=== PATIENT | male | born 1940 | race Caucasian/White ===

== ENCOUNTER → 2018-02-26 | Outpatient (CLI) | payer MEDICARE | LOC: M PLARAD 08:56 | DX: C34.90 Malignant neoplasm of unspecified part of unspecified bronchus or lung (principal) | CPT/HCPCS: 78815 ==

== ENCOUNTER → 2018-03-26 | Outpatient (CLI) | payer MEDICARE ==
--- NOTE | 2018-03-28 10:55 | RADONC ---
RADIATION ONCOLOGY CONSULTATION NOTE DATE: 03/26/2018 CHART NUMBER: [id number] DIAGNOSIS: Right lung cancer. STAGE: III A, T2b, N2, M0 ECOG PERFORMANCE STATUS: Zero. CONSULTATION NOTE: Mr. 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 HISTORY OF PRESENT ILLNESS: The patient was in his usual state of health who was found to have a lesion on chest imaging in the right middle lobe area. CT scan of the chest done on 01/24/2018 showed a right middle lobe mass suspicious for malignancy. On 02/19/2018, the patient underwent biopsy of that lesion and pathology revealed a moderately differentiated adenocarcinoma. A PET scan done 02/26/2018 showed a 4.8 cm mass in the right middle lobe with an SUV value of 6.4. There was no right hilar adenopathy but there was a subcarinal hypermetabolic lymph node focus 1.7 cm in diameter with an SUV value of 4.9. There was also precarinal lymphadenopathy with an SUV value of 4.5. The node measured 1.8 cm x 1.7 cm. No evidence of distant metastatic disease was found. The patient is now being referred to us for discussion of definitive external beam radiation therapy. A pulmonary function test was apparently done in [place] and we are attempting to obtain those results. The patient, however reports that he is having no difficulty breathing. He is able to walk upstairs with no problems. He has also been seen by medical oncology at [facility]. PAST MEDICAL HISTORY: The patient's past medical history is positive for Parkinson disease as well as hypertension. ALLERGIES: The patient has NO KNOWN DRUG ALLERGIES. SOCIAL HISTORY: The patient does not smoke cigarettes nor abuse alcohol. FAMILY HISTORY: The patient's family history is positive for a mother with breast cancer, a brother with throat cancer and a father with some type of head and neck cancer. REVIEW OF SYSTEMS: The patient's review of systems is positive for some weakness in his arms and legs and decreased energy secondary to Parkinson. It is otherwise noncontributory. Denies nausea, vomiting, fevers, chills, night sweats, diplopia, headaches, anxiety or depression, anorexia, weight loss, visual disturbances, chest pain, urinary or bowel difficulties, bone pain, or neurological problems. PHYSICAL EXAMINATION: The patient is a well-developed, well-nourished male in no acute distress. HEENT exam is normocephalic, atraumatic. Extraocular movements are intact. There is no palpable cervical, supraclavicular, infraclavicular, axillary, or inguinal lymphadenopathy present. Lungs are clear to auscultation and percussion. Heart has a regular rate and rhythm. Abdomen is benign with no hepatosplenomegaly, masses, or tenderness. Rectal examination reveals a normal anal sphincter tone. Skeletal examination reveals no tenderness to pressure or percussion of the bony skeleton. Extremities reveal no clubbing, cyanosis, or edema. Neurologic exam is grossly intact, as is the remainder of the physical examination. ASSESSMENT: Clearly the patient is a candidate for external beam radiation therapy and I have so informed him. I have discussed with the patient in detail the potential benefits as well as possible acute and chronic sequelae of external beam radiation therapy. We discussed logistics of treatment planning, simulation and subsequent fractionated daily radiation treatments. The patient is scheduled for discussion at the multidisciplinary tumor conference tomorrow in [place] and we await their recommendations. In addition, we will attempt to obtain the pulmonary function test results and I have ordered a differential lung scan to be undertaken. We have scheduled the patient for simulation and initiation of treatment planning. From this treatment plan the dose volume histogram can be calculated to evaluate the patient's overall breathing capacity following completion of treatment. Thank you for allowing us to participate in the care of this very pleasant gentleman. If I could be of any further assistance or provide you with any information, please free to contact me at anytime. As always, warm regards. cc: MD Patrick Romano MD
== END ==
LOC: M ONCR 09:01
PROVIDERS: ATTEND Radiology Radiation Oncology
DX: C34.90 Malignant neoplasm of unspecified part of unspecified bronchus or lung (principal)

== ENCOUNTER → 2018-04-15 | Outpatient (CLI) | payer MEDICARE ==
[~2018-04-15] MED LIST: PROHANCE 279.3MG/ML 15ML VIAL (A9576) As Ordered ONE
--- NOTE | 2018-04-15 13:17 | REP ---
MR BRAIN WITHOUT AND WITH CONTRAST: HISTORY: Lung carcinoma. CONTRAST: ProHance 15 mL. COMPARISON: 07/18/2017 Scattered punctate areas of increased signal intensity on T2 weighted images are present in the periventricular and subcortical white matter and joanie. This represents small vessel ischemic disease. There is no intraparenchymal hemorrhage, infarct, mass or midline shift. There is no abdominal enhancement. The ventricular system is normal in appearance. The cortical sulci are dilated consistent with minimal volume loss. There is no extracerebral collection. The sinuses are clear. IMPRESSION:1. Minimal small vessel ischemic disease. 2. Minimal volume loss. Electronically Signed by Brayden Armenta MD 04/15/2018 01:18 P
== END ==
LOC: M RAD 10:40
PROVIDERS: ATTEND Internal Medicine Hematology & Oncology
DX: C34.91 Malignant neoplasm of unspecified part of right bronchus or lung (principal)
CPT/HCPCS: 70553; A9576

== ENCOUNTER → 2018-08-31 | Outpatient (REF) ==
[2018-08-31 14:41] LABS: ALBUMIN 2.3 GM/DL (3.2-5.2); ALT/SGPT 7 U/L (12-78); BILIRUBIN,TOTAL 0.5 MG/DL (0.2-1.0); BLOOD UREA NITROGEN 25 MG/DL (7-18); CALCIUM LEVEL 7.7 MG/DL (8.8-10.2); CARBON DIOXIDE LEVEL 30 MEQ/L (21-32); CHLORIDE LEVEL 104 MEQ/L (98-107); CREATININE FOR GFR 1.13 MG/DL (0.70-1.30); GLOMERULAR FILTRATION RATE > 60.0 (>42); GLUCOSE, FASTING 96 MG/DL (70-100); POTASSIUM SERUM 3.6 MEQ/L (3.5-5.1); SODIUM LEVEL 139 MEQ/L (136-145); TOTAL PROTEIN 5.3 GM/DL (6.4-8.2)
== END ==
LOC: M LAB REF 10:57
DX: Z00.00 Encounter for general adult medical examination without abnormal findings (principal)

== ENCOUNTER 2018-09-20 16:38 | Emergency (ER) | payer MEDICARE ==
[~2018-09-20] VITALS: Ht 172.7 cm; Wt 74.1 kg
[2018-09-20] MEDS ORDERED: CARB25TA9 PO (17:03)
[2018-09-20] MEDS ORDERED: SERT25TA88 PO (17:03)
[2018-09-20] MEDS ORDERED: ONDA4TAB6 PO (17:03)
[2018-09-20] MEDS ORDERED: ENOX120I3 SC (17:03)
[2018-09-20] MEDS ORDERED: ALBUTEROL SULFATE 2.5 MG/0.5 ML INH NEB SOLN INH ONE (17:15)
[2018-09-20] MEDS ORDERED: methylPREDNISolone INJ 125 MG/2 ML VIAL (J2930) IV ONE (17:15)
[2018-09-20] MEDS ORDERED: IPRATROPIUM 0.5MG/ALBUTEROL 2.5MG INH SOL UD 3ML (DUONEB)(J7620) NEB ONE (17:15)
[2018-09-20 17:23] LABS: BASO % 0.2 % (0.0-1.0); EOS # 0.1 10^3/uL (0.0-0.50); EOS % 2.3 % (0.0-3.0); HEMATOCRIT 30.9 % (42.0-52.0); HEMOGLOBIN 9.9 g/dl (13.5-17.5); LYMPH # 1.6 10^3/uL (1.5-4.5); LYMPH % 33.9 % (24.0-44.0); MEAN CORPUSCULAR HEMOGLOBIN 31.3 pg (27.0-33.0); MEAN CORPUSCULAR VOLUME 97.8 fl (80.0-96.0); MONO # 0.5 10^3/uL (0.0-0.8); MONO % 10.2 % (0.0-5.0); NEUTROPHILS # 2.5 10^3/uL (1.8-7.7); PLATELET COUNT, AUTOMATED 223 10^3/uL (150-450); RED BLOOD COUNT 3.16 10^6/uL (4.30-6.10); WHITE BLOOD COUNT 4.7 10^3/uL (4.0-10.0)
[2018-09-20 17:36] LABS: ABG BASE EXCESS 1.7 (-2.0-2.0); ABG HCO3 25.6 MEQ/L (22.0-26.0); ABG O2 SATURATION 99.5 % (95.0-99.0); ABG PARTIAL PRESSURE CO2 37.6 mmHg (35.0-45.0); ABG PARTIAL PRESSURE O2 197.4 mmHg (75.0-100.0); ABG TOTAL CO2 26.8 MEQ/L (23.0-31.0); ABG pH (ARTERIAL) 7.451 UNITS (7.350-7.450)
[2018-09-20 17:56] LABS: ALBUMIN 2.2 GM/DL (3.2-5.2); ALT/SGPT 8 U/L (12-78); BILIRUBIN,DIRECT < 0.1 MG/DL (0.0-0.2); BILIRUBIN,TOTAL 0.2 MG/DL (0.2-1.0); BLOOD UREA NITROGEN 19 MG/DL (7-18); CALCIUM LEVEL 7.4 MG/DL (8.8-10.2); CARBON DIOXIDE LEVEL 32 MEQ/L (21-32); CHLORIDE LEVEL 106 MEQ/L (98-107); CK-MB VALUE MASS 1.4 NG/ML (<3.6); CPK CREATINE PHOSPHOKINASE 28 U/L (39-308); CREATININE FOR GFR 0.96 MG/DL (0.70-1.30); GLOMERULAR FILTRATION RATE > 60.0 (>42); GLUCOSE, FASTING 103 MG/DL (70-100); NT-PRO BNP 449 PG/ML (<450); SODIUM LEVEL 142 MEQ/L (136-145); THYROXINE (T4) 8.4 UG/DL (4.5-12.0); TOTAL PROTEIN 5.3 GM/DL (6.4-8.2); TROPONIN I < 0.02 NG/ML (< 0.10)
[2018-09-20] MEDS ORDERED: ISOVUE-370 76% 100ML VIAL (Q9967) As Ordered ONE (18:04)
--- NOTE | 2018-09-20 18:06 | REP ---
PORTABLE CHEST: AP portable view of the chest is performed. There is bibasilar fibroatelectatic change. There is mild left ventricular prominence. There is mild calcification of the thoracic aorta. There is a left central venous catheter with the tip in the superior vena cava. Electronically Signed by Dennis Reddy MD 09/20/2018 07:48 P
[2018-09-20] MEDS ORDERED: LIDOCAINE 2% 5ML JELLY UROJET TOP ONE (18:15)
[2018-09-20] MEDS ORDERED: NS 500 ML IV ONE (18:15)
[2018-09-20] MEDS ORDERED: B-12100010 PO (18:22)
[2018-09-20] MEDS ORDERED: CULT10CA4 PO (18:22)
[2018-09-20] MEDS ORDERED: MAGN1TAB26 PO (18:23)
[2018-09-20] MEDS ORDERED: MECLIZINE 25 MG TABLET PO ONE (18:30)
--- NOTE | 2018-09-20 19:49 | REPVR ---
EXAM: CT Head Without Contrast EXAM DATE/TIME: 09/20/2018 6:05 PM CLINICAL HISTORY: 78 years old, male; Signs and symptoms; Dizziness; Additional info: Dizzy TECHNIQUE: Imaging protocol: Axial computed tomography images of the head without contrast. Radiation optimization: All CT scans at this facility use at least one of these dose optimization techniques: automated exposure control; mA and/or kV adjustment per patient size (includes targeted exams where dose is matched to clinical indication); or iterative reconstruction. COMPARISON: MRI-Brain W/O FOLL BY WITH 04/15/2018 11:35 AM FINDINGS: Brain: There is minimal parenchymal volume loss. Minimal white matter changes are demonstrated in the subcortical, centrum semiovale and periventricular white matter consistent with small vessel white matter angiopathic gliosis. Small chronic lacunar infarcts in the basal ganglia. Ventricles: Normal. No ventriculomegaly. Bones/joints: Unremarkable. No acute fracture. Sinuses: Visualized sinuses are unremarkable. No fluid levels. Mastoid air cells: Visualized mastoid air cells are well aerated. No mastoid effusion. Soft tissues: Unremarkable. IMPRESSION: There is minimal parenchymal volume loss. Minimal white matter changes are demonstrated in the subcortical, centrum semiovale and periventricular white matter consistent with small vessel white matter angiopathic gliosis. Electronically signed by: Clifton Mar On 09/20/2018 19:48:51 PM
--- NOTE | 2018-09-20 19:58 | REPVR ---
EXAM: CT Angiography Chest With Contrast EXAM DATE/TIME: 09/20/2018 5:59 PM CLINICAL HISTORY: 78 years old, male; Signs and symptoms and condition or disease; Lung condition and disease; Cancer of the lung; Bilateral; Unspecified; Shortness of breath; Additional info: Lung CA, SOB, RO pe TECHNIQUE: Imaging protocol: Axial computed tomographic angiography images of the chest with intravenous contrast using CT angiography protocol. Coronal and sagittal reformatted images were created and reviewed. 3D rendering: MIP reconstructed images were created and reviewed. Radiation optimization: All CT scans at this facility use at least one of these dose optimization techniques: automated exposure control; mA and/or kV adjustment per patient size (includes targeted exams where dose is matched to clinical indication); or iterative reconstruction. Contrast material: [id number]; Contrast volume: 75 ml; Contrast route: IV; COMPARISON: No relevant prior studies available. FINDINGS: Pulmonary arteries: Normal. No pulmonary emboli. Aorta: The aorta demonstrates mild atherosclerotic calcification. There is no aortic dissection or aneurysm. Lungs: There is bibasilar compressive atelectasis. Right middle lobe atelectasis. Air bronchograms demonstrated proximally. Atelectasis anterior segment right upper lobe. Pleural space: Small pleural effusion on the right with a small cystic focus. Finding of uncertain significance. Small empyema not excluded. Finding may also be neoplastic and should be correlated with specific location of known lung carcinoma. Heart: There is mild atherosclerotic calcification of the coronary arteries. Mediastinum: There is increased circumferential thickening of the wall of the mid to distal esophagus extending for 7 cm craniocaudad with dilatation of the proximal esophagus. There is no hiatal hernia. Liver: Multiple hepatic cysts measure up to 2.2 cm in the left lobe of liver. Kidneys and ureters: Multiple bilateral renal cysts. Lymph nodes: Unremarkable. No enlarged lymph nodes. Bones/joints: Unremarkable. No acute fracture. Soft tissues: Otherwise unremarkable. IMPRESSION: 1. Small pleural effusion on the right with a small cystic focus. Finding of uncertain significance. Small empyema not excluded. Finding may also be neoplastic and should be correlated with specific location of known lung carcinoma. 2. Right middle lobe atelectasis. Air bronchograms demonstrated proximally. No obvious obstructing mass demonstrated. 3. Thickened wall of the mid and distal esophagus. Finding may be related to reflux esophagitis however an esophageal neoplasm should be excluded clinically. 4. There is no aortic dissection or aneurysm. Electronically signed by: Clifton Mar On 09/20/2018 19:57:56 PM
[2018-09-20 21:08] VITALS: O2SAT 92
[2018-09-20] MEDS ORDERED: PRED20TA PO (21:22)
[2018-09-20 21:30] VITALS: BP 152/93
[2018-09-20] MEDS ORDERED: ALBUTEROL 90 MCG/ACT 8GM HFA INHALER INH ONE (21:30)
--- NOTE | 2018-09-21 05:54 | ECGEPIP ---
[facility] - ED Test Date: 2018-09-20 Pat Name: DOUGLAS ANTONIO Department: Room: - Gender: Male Internal Grinder: : 1940 Requested By: Rudy Henry Order Number: [id number] Reading MD: Fawad Webster Measurements Intervals Parsons Rate: 82 P: 41 MD: 173 QRS: QRSD: 94 T: 5 QT: 360 QTc: 421 Interpretive Statements SINUS RHYTHM POSSIBLE LEFT ATRIAL ENLARGEMENT POSSIBLE LEFT VENTRICULAR HYPERTROPHY NSTTW ABNORMALITIES NO PRIORS FOR COMPARISON Electronically Signed on 09-21-2018 5:53:59 EDT by Fawad Webster
--- NOTE | 2018-09-23 12:36 | ED PDOC ---
Post-Departure Follow-Up ji ford faxed formal report of cta chest for fu Rudy Ayers MD Sep 23, 2018 12:36
== END 2018-09-20 21:52 | disposition home or self-care (01) ==
LOC: M ED 16:38 → EDBD 16:38 → M ED 21:52
DX: R06.00 Dyspnea, unspecified (principal); R42 Dizziness and giddiness; R94.31 Abnormal electrocardiogram [ECG] [EKG]; I10 Essential (primary) hypertension; F17.210 Nicotine dependence, cigarettes, uncomplicated; Z79.899 Other long term (current) drug therapy; Z88.5 Allergy status to narcotic agent
CPT/HCPCS: 36415; 36600; 51701; 70450; 71045; 71275; 80048; 80076; 81001; 82550; 82553; 82803; 83605; 83880; 84436; 84443; 84484; 85025; 87040; 87088; 87186; 93005; 93041; 94640; 96361; 96374; 99285; J2930; Q9967

== ENCOUNTER → 2018-10-09 | Outpatient (CLI) | payer MEDICARE ==
[~2018-10-09] MED LIST changes: +ASPI325T56 PO; +B-12100010 PO; +CARB1TAB PO; +CARB25TA9 PO; +COLA100C5 PO; +CULT10CA4 PO; +ENOX120I3 SC; +IBUP200T45 PO; +MAGN1TAB26 PO; +NUCY50TA19 PO; +ONDA4TAB6 PO; +PERC5TAB12 PO; +PRED20TA PO; -PROHANCE 279.3MG/ML 15ML VIAL (A9576) As Ordered ONE; +SERT25TA88 PO; +[UNRECOGNIZED DRUG - OTHER]
--- NOTE | 2018-10-09 09:24 | PFTRPT ---
Height: 68.00 Inches Weight: 160.00 Lbs BSA: 1.86 Diagnosis: C34.91 DATE OF PROCEDURE: 10/09/2018 ORDERED BY: Lalo Albert MD Spirometry: Pre and post bronchodilator study of excellent technical quality. Some difficulty regarding effort is identified. Forced vital capacity mildly reduced. FEV1 is in proportion. Obstructive index is, therefore, normal. Flow Volume Loop: Expiratory limb of the flow volume loop suggests suboptimal performance of the required maneuver. No significant bronchodilator response identified. Lung Volumes: Total lung capacity normal. Residual volume is in proportion. Diffusing Capacity: Diffusing capacity mildly reduced but does correct for alveolar volume. Hemoglobin: No hemoglobin available for correction. Airway Mechanics: Airway resistance and conductance are normal. IMPRESSION: Nonspecific flow rate limitation could be on the basis of effort. Please correlate clinically. Minimal reduction in absolute diffusing capacity also requires clinical correlation. MTDD
== END ==
LOC: M CARPUL 08:46
PROVIDERS: ATTEND Internal Medicine Hematology & Oncology
DX: C34.91 Malignant neoplasm of unspecified part of right bronchus or lung (principal)

== ENCOUNTER 2018-10-16 10:13 | Emergency (ER) | payer MEDICARE ==
[~2018-10-16] VITALS: Ht 172.7 cm; Wt 72.8 kg
[~2018-10-16 10:13] MED LIST changes: -ASPI325T56 PO; -CARB1TAB PO; -COLA100C5 PO; -IBUP200T45 PO; -NUCY50TA19 PO; -PERC5TAB12 PO; -[UNRECOGNIZED DRUG - OTHER]
--- NOTE | 2018-10-16 11:36 | REP ---
CT PELVIS WITHOUT IV CONTRAST: Axial CT pelvis performed without IV contrast. Sagittal and coronal reconstruction images are performed. There appear to be bilateral nondisplaced sacral insufficiency fractures with healing, likely subacute. No other fracture or dislocation is seen. Mild degenerative changes are seen at both hip joints. Small left inguinal hernia contains mild fluid. A moderate right inguinal hernia contains nonobstructed bowel. Diverticula are seen of the sigmoid colon. Partially imaged cysts are seen of the bilateral kidneys. IMPRESSION: There appear to be bilateral nondisplaced sacral insufficiency fractures with healing, likely subacute. Otherwise no acute fracture or dislocation. Moderate right inguinal hernia contains nonobstructed bowel. Electronically Signed by Dennis Reddy MD 10/18/2018 12:27 P
--- NOTE | 2018-10-16 11:44 | REP ---
CT lumbar spine without contrast: History: Trauma. No comparison imaging. CT findings: Lumbar vertebral body heights are preserved. No lumbar spine fracture or collapse is seen. There is a unilateral pars defect on the left at L5. This does not appear to be acute. Pedicles and posterior elements are intact in the lumbar spine. No transverse process fracture or laminar or spinous fracture is seen. No collapse is noted. There is discogenic spurring and diffuse disc bulging at multiple levels including L3-4 and L4-5. The there is mild central canal stenosis at L4-5 due to diffuse disc bulging and ligamentum flavum and mild facet hypertrophy. There is mild to moderate central canal stenosis at L3-4 due to the same factors. Borderline canal size is seen at L2-3. There is a buckling in the anterior cortex of the second sacral segment consistent with a fracture, age indeterminate. There is a subtle fracture lucency in the right first sacral segment anteriorly on axial images. There is some sclerosis in the right first two sacral segments suggesting healing change in a sacral insufficiency fracture. No other abnormality. Impression: 1. Findings consistent with healing sacral insufficiency fracture in the right upper sacrum question incomplete traumatic fracture anteriorly. This should be correlated with the area of patient pain. 2. Degenerative disc disease at multiple levels with central canal stenosis at L3-4 and L4-5. Electronically Signed by Aubrey Floyd MD 10/16/2018 01:42 P
[2018-10-16] MEDS ORDERED: COLA100C5 PO (12:29)
[2018-10-16] MEDS ORDERED: PERC5TAB12 PO (12:29)
[2018-10-16] MEDS ORDERED: [UNRECOGNIZED DRUG - OTHER] (12:29)
[2018-10-16] MEDS ORDERED: PERCOCET 5MG/325MG TAB As Ordered ONE (12:43)
[2018-10-16] MEDS ORDERED: PERCOCET 5MG/325MG TAB PO ONE (12:45)
[2018-10-16 12:47] VITALS: BP 170/90
--- NOTE | 2018-10-17 13:29 | ED PDOC ---
Post-Departure Follow-Up ji ford faxed formal report of ct ls spine Rudy Amado MD Oct 17, 2018 13:29
== END 2018-10-16 12:48 | disposition home or self-care (01) ==
LOC: M ED 10:13 → EDBD 10:13 → M ED 12:48
DX: S32.19XD Other fracture of sacrum, subsequent encounter for fracture with routine healing (principal); M51.36 Other intervertebral disc degeneration, lumbar region; M48.061 Spinal stenosis, lumbar region without neurogenic claudication; W07.XXXA Fall from chair, initial encounter; Y92.098 Other place in other non-institutional residence as the place of occurrence of the external cause; I10 Essential (primary) hypertension; G20 Parkinson's disease; C34.90 Malignant neoplasm of unspecified part of unspecified bronchus or lung; Z87.891 Personal history of nicotine dependence; Z88.5 Allergy status to narcotic agent; Z79.899 Other long term (current) drug therapy

== ENCOUNTER 2018-10-23 11:11 | Inpatient (IN) | payer MEDICARE ==
[~2018-10-23] VITALS: Ht 167.6 cm; Wt 86.9 kg
[~2018-10-23 11:11] MED LIST changes: +COLA100C5 PO; +PERC5TAB12 PO; +[UNRECOGNIZED DRUG - OTHER]
[2018-10-23] MEDS ORDERED: NUCY50TA19 PO (11:27)
[2018-10-23 11:38] LABS: BASO % 0.4 % (0.0-1.0); EOS # 0.5 10^3/uL (0.0-0.50); EOS % 7.3 % (0.0-3.0); HEMATOCRIT 37.5 % (42.0-52.0); HEMOGLOBIN 12.1 g/dl (13.5-17.5); LYMPH # 1.1 10^3/uL (1.5-4.5); LYMPH % 15.1 % (24.0-44.0); MEAN CORPUSCULAR HEMOGLOBIN 31.6 pg (27.0-33.0); MEAN CORPUSCULAR HGB CONC 32.3 g/dl (32.0-36.5); MEAN CORPUSCULAR VOLUME 97.9 fl (80.0-96.0); MONO # 0.8 10^3/uL (0.0-0.8); MONO % 10.8 % (0.0-5.0); NEUTROPHILS # 4.8 10^3/uL (1.8-7.7); NEUTROPHILS % 66.1 % (36.0-66.0); PLATELET COUNT, AUTOMATED 277 10^3/uL (150-450); RED BLOOD COUNT 3.83 10^6/uL (4.30-6.10); WHITE BLOOD COUNT 7.2 10^3/uL (4.0-10.0)
[2018-10-23] MEDS: NS 1,000 ML IV SCH ×2 (11:43→21:17)
[2018-10-23 11:48] LABS: INR 1.07; PROTHROMBIN TIME 13.6 SECONDS (11.8-14.0)
[2018-10-23 12:25] LABS: ALBUMIN 2.3 GM/DL (3.2-5.2); ALT/SGPT 6 U/L (12-78); BILIRUBIN,DIRECT < 0.1 MG/DL (0.0-0.2); BILIRUBIN,TOTAL 0.2 MG/DL (0.2-1.0); BLOOD UREA NITROGEN 24 MG/DL (7-18); CALCIUM LEVEL 8.1 MG/DL (8.8-10.2); CARBON DIOXIDE LEVEL 28 MEQ/L (21-32); CHLORIDE LEVEL 107 MEQ/L (98-107); CREATININE FOR GFR 0.88 MG/DL (0.70-1.30); GLOMERULAR FILTRATION RATE > 60.0 (>42); GLUCOSE, FASTING 103 MG/DL (70-100); LIPASE 106 U/L (73-393); POTASSIUM SERUM 4.1 MEQ/L (3.5-5.1); SODIUM LEVEL 141 MEQ/L (136-145); TOTAL PROTEIN 5.5 GM/DL (6.4-8.2)
[2018-10-23] MEDS ORDERED: NS 1,000 ML IV ONE (12:45)
[2018-10-23] MEDS ORDERED: SINEMET 25-100 MG TAB PO ONE (13:15)
--- NOTE | 2018-10-23 14:00 | REP ---
Portable chest, 12:55 p.m., single AP view with the patient semi upright: Comparisons are the portable chest dated 09/20/[address] dated 09/20/2018. There is persisting increased density inferomedially in the right lung compatible with right middle lobe infiltrate similar to that identified on the comparison CT. On the comparison CT there was a tiny right pleural effusion. This is not identified on the portable chest today, possibly because of its small size. The remainder of the lung mccauley are clear and unchanged. Cardiac size is normal. The puneet, mediastinum, skeletal structures are unremarkable. There is a left subclavian central venous catheter with the tip in the superior vena cava in satisfactory position, unchanged. Impression: Persisting right middle lobe infiltrate. Electronically Signed by Dennis Conner MD 10/23/2018 01:52 P
[2018-10-23] MEDS ORDERED: VANCOMYCIN ORAL SOL 250MG/5ML ORAL SYRINGE PO ONE (14:15)
[2018-10-23] MEDS ORDERED: CARB1TAB PO (14:57)
[2018-10-23] MEDS ORDERED: ASPI325T56 PO (14:57)
[2018-10-23] MEDS ORDERED: IBUP200T45 PO (14:57)
[2018-10-23] MEDS: SERTRALINE HCL 25 MG TABLET PO SCH (15:40)
[2018-10-23] MEDS: LACTOBACILLUS ACIDOPHILUS CAP (BACID) PO SCH (18:00)
--- NOTE | 2018-10-23 18:38 | REP ---
CT lumbar spine without contrast: History: Right sacral and low back pain. Comparison is made with recent CT study of the lumbar spine from October 16, 2018 which showed a healing sacral insufficiency fracture in the right upper sacrum and a question incomplete traumatic fracture anteriorly. Degenerative central canal stenosis with reported L3-4 and L4-5. Technique: Helical scanning is acquired. Coronal and sagittal MPR images are generated and reviewed. CT findings: Buckling of the anterior cortex of the second sacral segment on sagittal multiplanar re-formation images consistent with upper sacral fracture. Axial images demonstrate healing sclerosis and fracture lucency in the first two sacral segments on the right laterally. There is similar less pronounced change on the left. Findings are unchanged here when compared with the study done 1 week ago. SI joints are normally aligned. No other spinal fracture is appreciated. Degenerative disc changes are again noted. Central canal stenosis is again noted and L4-5 and L3-4 due to diffuse disc bulging, developmentally short pedicles, and ligamentum flavum and facet hypertrophy. At L2-3, canal size again noted to be borderline. Impression: Findings are unchanged when compared with the October 16, [address] study[address] Upper sacral fracture again seen. Electronically Signed by Aubrey Floyd MD 10/23/2018 06:49 P
[2018-10-23 18:40] VITALS: BP 119/83
--- NOTE | 2018-10-23 19:17 | REP ---
CT pelvis: Without contrast. History: Right sacral pain. Comparison pelvic CT study October 16, 2018. CT findings: Pelvic CT images demonstrate bilateral sacral insufficiency fractures with some healing sclerosis right greater than left. No displacement. There is some buckling of the anterior cortex of the second sacral segment on the sagittal reformatted images. No distal sacral or coccygeal fracture is seen. There is diffuse osteopenia. Bowel containing right inguinal hernia is again seen. Stool distended rectum is again seen in the pelvis. Impression: No significant change from study done October 16, 2018. Electronically Signed by Aubrey Floyd MD 10/24/2018 07:17 P
[2018-10-23] MEDS ORDERED: IBUPROFEN 600 MG TAB PO ONE (19:45)
[2018-10-23] MEDS: SINEMET 25-100 MG TAB PO SCH (21:30)
[2018-10-23] MEDS: SINEMET**CR** 25/100 TABCR PO SCH (21:30)
[2018-10-23] MEDS: ENOXAPARIN 120 MG/0.8 ML SYR (J1650) SC SCH (21:31)
[2018-10-23 22:00] VITALS: BP 146/82
[2018-10-24] MEDS: VANCOMYCIN ORAL SOL 250MG/5ML ORAL SYRINGE PO SCH ×5 (00:31→23:32)
[2018-10-24] MEDS: NS 1,000 ML IV SCH ×2 (04:45→15:04)
[2018-10-24] MEDS: SINEMET 25-100 MG TAB PO SCH ×4 (04:48→20:20)
[2018-10-24 06:00] VITALS: BP 130/88
[2018-10-24 06:19] LABS: HEMATOCRIT 34.8 % (42.0-52.0); HEMOGLOBIN 11.1 g/dl (13.5-17.5); MEAN CORPUSCULAR HEMOGLOBIN 31.6 pg (27.0-33.0); MEAN CORPUSCULAR HGB CONC 31.9 g/dl (32.0-36.5); MEAN CORPUSCULAR VOLUME 99.1 fl (80.0-96.0); PLATELET COUNT, AUTOMATED 241 10^3/uL (150-450); RED BLOOD COUNT 3.51 10^6/uL (4.30-6.10); WHITE BLOOD COUNT 6.1 10^3/uL (4.0-10.0)
[2018-10-24 06:37] LABS: BLOOD UREA NITROGEN 25 MG/DL (7-18); CARBON DIOXIDE LEVEL 27 MEQ/L (21-32); CHLORIDE LEVEL 108 MEQ/L (98-107); GLOMERULAR FILTRATION RATE > 60.0 (>42); GLUCOSE, FASTING 86 MG/DL (70-100); POTASSIUM SERUM 3.9 MEQ/L (3.5-5.1); SODIUM LEVEL 140 MEQ/L (136-145)
--- NOTE | 2018-10-24 07:33 | HPE ---
DATE OF ADMISSION: 10/23/2018 PRIMARY CARE PROVIDER: Patrick Lima M.D., in [place]. ONCOLOGIST: [facility] ([facility]. NEUROLOGY: [facility]. FIRST DIAGNOSIS: Recurrent Clostridium (C) difficile colitis. HISTORY: Narinder Kapadia is a 78-year-old. 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 Zamora 03/2018 followed by apparently chemotherapy. I do not have access to any of his outpatient records. He had a pulmonary embolism and has been on Lovenox since this was diagnosed in July. He was diagnosed in April. He had C-difficile colitis in July. He is being admitted for recurrent C-difficile colitis for the mucusy diarrhea for several days without any bleeding. He has a history of what looks like fairly advanced Parkinson's disease. Follows with a neurologist at [facility]. Apparently, Parkinson's is of recent onset. He has been having severe pain in his right sacral area and right low back, was seen prior to this onset after a fall. He was seen here at [facility] on 10/16/2018. CT scan of the pelvis suggested a bilateral nondisplaced sacral insufficiency fractures with healing, likely subacute. A lumbosacral spine film showed no fracture. He has been having increasing pain in this area since then. Apparently had a reaction to codeine, with altered mental status, was placed on Nucynta by [facility], which he is tolerating good pain control. SURGICAL HISTORY: 1. Colonoscopy January 2010 with only hyperplastic polyp found. 2. Colonoscopy 12/2006 with adenomatous polyp on biopsy. SOCIAL HISTORY: . Nonsmoker. Moderate alcohol intake. FAMILY HISTORY: Both parents had heart disease. MEDICATIONS: - aspirin 650 mg daily - carbidopa/levodopa 25/100 1-1/2 tablets four times a day and then one whole tablet at bedtime - Lovenox 120 mg subcutaneous at bedtime - ibuprofen as needed - lactobacillus [id number] - sertraline 25 mg daily - Nucynta 50 mg twice a day ALLERGIES: CODEINE caused altered mental status. REVIEW OF SYSTEMS: No chest pain or shortness of breath. No rectal bleeding. He is having quite a bit of pain in his right low back. PHYSICAL EXAMINATION: VITAL SIGNS: Per emergency room (ER) flow sheet. He is alert, conversant. Has masked facial expression. He is a little dysarthric from his Parkinson's. HEENT: Unremarkable. LUNGS: Decreased breath sounds. Clear. HEART: Regular rate and rhythm. No murmur. ABDOMEN: Soft, nontender. No masses. He is tender to palpate over the right sacrum, right low back. EXTREMITIES: No clubbing, cyanosis. Trace peripheral edema. Has Parkinsonian rigidity and tremor bilaterally. LABORATORIES: White count 7.2, hemoglobin 12, platelets 277. Sodium 141, potassium 4.1, BUN 26, creatinine 4.8, glucose 103. Urinalysis shows 16 white cells, 1+ bacteria. Stool for C-difficile was positive. IMPRESSION: 1. Recurrent C-difficile colitis. He will be admitted to a medical bed. He looks adequately hydrated. Will start vancomycin 250 mg every , probiotic two tablets daily with meals. Discretionary use of antibiotics suggested. 2. Sacral/low back pain. I am repeating the CT scan of the pelvis and lumbosacral spine. He is not tolerant of many pain medications, so I have ordered for Nucynta. It is out of formulary, but I have asked the pharmacy to clear and let patient use his own. 3. Parkinson's disease. Continue current regimen. 4. Hypertensive heart disease. Does not look like he is on any hypertensives now. In the past, he used to be on lisinopril, amlodipine and Lotrel from a 01/2016 office note from his prior primary care provider (PCP), who was Dr. Cortes Nugent. Right now he is not on any hypertensives. 5. History of recent pulmonary embolism. The patient with a malignancy. Continue his Lovenox 120 mg daily. 6. History of right middle lobe adenocarcinoma of the lung. He is not having any hemoptysis and he is tolerating his anticoagulant. His oncologist is TEJINDER Proctor.
[2018-10-24] MEDS: LACTOBACILLUS ACIDOPHILUS CAP (BACID) PO SCH ×3 (09:22→17:40)
[2018-10-24] MEDS: ASPIRIN 325 MG TAB PO SCH (09:22)
[2018-10-24] MEDS: SERTRALINE HCL 25 MG TABLET PO SCH (09:22)
[2018-10-24 10:00] VITALS: BP 128/85
[2018-10-24] MEDS: NUCYNTA 50 MG PO PRN (13:13)
[2018-10-24 14:00] VITALS: BP 126/79
[2018-10-24 18:00] VITALS: BP 127/82
--- NOTE | 2018-10-24 18:12 | IPN ---
DATE: 10/23/2018 He is seen in [facility]. He is admitted with Clostridium (C) difficile colitis. He has right back pain with numbness in his right leg. CT scan showed sacral fracture, which was noticed on the October 16 CT. There is some buckling of one of the sacral fragments. There might be some change in the fracture, accounting for his recent pain. His diarrhea is getting better with treatment of his C. difficile colitis, which is recurred, having previously been present in July. I reached out to his primary care provider's office yesterday and asked them to fax a medical summary at the end of office hours. We are still waiting for that. PHYSICAL EXAMINATION: Afebrile. Vital signs stable. Lungs clear. Heart: Regular rate and rhythm. Abdomen soft and nontender. Nontender right sciatic notch. Tender right low back to palpate. Trace peripheral edema. Parkinsonian tremor. Speech is dysarthric from Parkinson's. LABORATORY DATA: White count normal. Electrolytes unremarkable. IMPRESSION: 1. Clostridium (C) difficile colitis. Continue vancomycin 250 mg every 6 hours for recurrent C. difficile. 2. Sacral fracture. Physical therapy has been ordered. He is using Nucynta for pain control. 3. Sciatica. I think he has been on prolonged bed rest. His sciatic notch is tender, and getting out of bed will probably unload this area. Nothing on CT of lumbosacral spine to account for this. 4. Hypertensive heart disease. Blood pressure is well controlled, on no hypertension medications. 5. History of recent former embolism in a patient with a known malignancy. Continue on Lovenox 120 mg daily. 6. Right middle lobe adenocarcinoma of the lung. Oncologist is at [facility] ([facility]. Has received radiation and chemotherapy
[2018-10-24] MEDS: ENOXAPARIN 120 MG/0.8 ML SYR (J1650) SC SCH (20:21)
[2018-10-24] MEDS: SINEMET**CR** 25/100 TABCR PO SCH (21:38)
[2018-10-24 22:00] VITALS: BP 136/87
[2018-10-25] MEDS: NS 1,000 ML IV SCH (00:47)
[2018-10-25 02:00] VITALS: BP 145/81
[2018-10-25] MEDS: SINEMET 25-100 MG TAB PO SCH ×4 (05:33→20:38)
[2018-10-25] MEDS: VANCOMYCIN ORAL SOL 250MG/5ML ORAL SYRINGE PO SCH ×4 (05:33→23:44)
[2018-10-25] MEDS: NUCYNTA 50 MG PO PRN (05:53)
[2018-10-25 06:00] VITALS: BP 149/94
[2018-10-25 06:21] LABS: HEMOGLOBIN 11.2 g/dl (13.5-17.5); MEAN CORPUSCULAR HEMOGLOBIN 30.9 pg (27.0-33.0); MEAN CORPUSCULAR VOLUME 96.4 fl (80.0-96.0); PLATELET COUNT, AUTOMATED 268 10^3/uL (150-450); RED BLOOD COUNT 3.63 10^6/uL (4.30-6.10)
[2018-10-25 06:44] LABS: BLOOD UREA NITROGEN 18 MG/DL (7-18); CALCIUM LEVEL 8.2 MG/DL (8.8-10.2); CARBON DIOXIDE LEVEL 27 MEQ/L (21-32); CHLORIDE LEVEL 113 MEQ/L (98-107); GLOMERULAR FILTRATION RATE > 60.0 (>42); GLUCOSE, FASTING 82 MG/DL (70-100); POTASSIUM SERUM 4.5 MEQ/L (3.5-5.1); SODIUM LEVEL 151 MEQ/L (136-145)
[2018-10-25] MEDS: SERTRALINE HCL 25 MG TABLET PO SCH (09:13)
[2018-10-25] MEDS: LACTOBACILLUS ACIDOPHILUS CAP (BACID) PO SCH ×3 (09:13→17:44)
[2018-10-25] MEDS: ASPIRIN 325 MG TAB PO SCH (09:13)
[2018-10-25 10:00] VITALS: BP 125/85
[2018-10-25 14:00] VITALS: BP 113/70
--- NOTE | 2018-10-25 15:07 | IPN ---
DATE: 10/25/2018 Narinder is seen in [address] [place] [address]. His diarrhea is improving. His right low back pain is severe enough that it prevents him getting out of bed. He uses catheterization at home, but he cannot stand to do that, so he has indwelling Faria catheter in now. I spoke with his today. She was worrying about injections to his back for pain, but I expressed the opinion that with any acute fracture they are not going to be inclined to put steroids there. PHYSICAL EXAMINATION: VITAL SIGNS: Blood pressure 125/85, pulse 84, respiratory rate 18, 95% oxygen saturation. He is alert, conversant, dysarthric speech from severe Parkinson's. LUNGS: Clear. HEART: Regular rate and rhythm. ABDOMEN: Soft, nontender, nondistended. LABORATORIES: White count 7, hemoglobin 11.2. Sodium is up to 151, BUN 18, creatinine 0.8. IMPRESSION: 1. Clostridium (C) difficile colitis. Continue oral vancomycin. 2. Parkinson's disease, severe. Continue current regimen. 3. Right sacral fracture. Continue his Nucynta 50 mg twice a day as needed and physical therapy. I do not see any role for injection with an acute fracture. There is going to be a slow healing process. He will probably need subacute rehabilitation before he is able to go home.
[2018-10-25 18:00] VITALS: BP 122/72
[2018-10-25] MEDS: SINEMET**CR** 25/100 TABCR PO SCH (20:38)
[2018-10-25] MEDS: ENOXAPARIN 120 MG/0.8 ML SYR (J1650) SC SCH (20:39)
[2018-10-25 22:00] VITALS: BP 137/87
[2018-10-26 02:00] VITALS: BP 139/91
[2018-10-26] MEDS: SINEMET 25-100 MG TAB PO SCH ×4 (05:56→20:07)
[2018-10-26] MEDS: VANCOMYCIN ORAL SOL 250MG/5ML ORAL SYRINGE PO SCH ×4 (05:56→23:23)
[2018-10-26] MEDS: NUCYNTA 50 MG PO PRN ×2 (05:57→20:07)
[2018-10-26 06:00] VITALS: BP 142/92
[2018-10-26 07:25] LABS: HEMOGLOBIN 11.8 g/dl (13.5-17.5); MEAN CORPUSCULAR HEMOGLOBIN 31.6 pg (27.0-33.0); MEAN CORPUSCULAR HGB CONC 31.9 g/dl (32.0-36.5); MEAN CORPUSCULAR VOLUME 99.2 fl (80.0-96.0); PLATELET COUNT, AUTOMATED 304 10^3/uL (150-450); RED BLOOD COUNT 3.73 10^6/uL (4.30-6.10); WHITE BLOOD COUNT 6.8 10^3/uL (4.0-10.0)
[2018-10-26 07:48] LABS: BLOOD UREA NITROGEN 15 MG/DL (7-18); CALCIUM LEVEL 8.3 MG/DL (8.8-10.2); CARBON DIOXIDE LEVEL 31 MEQ/L (21-32); CHLORIDE LEVEL 103 MEQ/L (98-107); CREATININE FOR GFR 0.84 MG/DL (0.70-1.30); GLOMERULAR FILTRATION RATE > 60.0 (>42); GLUCOSE, FASTING 77 MG/DL (70-100); POTASSIUM SERUM 3.7 MEQ/L (3.5-5.1); SODIUM LEVEL 139 MEQ/L (136-145)
[2018-10-26] MEDS: ASPIRIN 325 MG TAB PO SCH (09:33)
[2018-10-26] MEDS: SERTRALINE HCL 25 MG TABLET PO SCH (09:34)
[2018-10-26] MEDS: LACTOBACILLUS ACIDOPHILUS CAP (BACID) PO SCH ×3 (09:34→17:22)
[2018-10-26 10:00] VITALS: BP 131/88
--- NOTE | 2018-10-26 12:17 | IPN ---
DATE OF SERVICE: 10/26/2018 Narinder is seen in [address] [place] [address]. His had to cancel a planned trip to [place], so I filled out travel insurance forms for Elva, indicating that because of her 's sacral fracture and Clostridium (C) difficile colitis, she is unable to pursue the planned trip in December. Narinder is having numbness now in his left leg. He had it in his right leg previously. I think it is sciatic involvement related to prolonged bedrest. He also has a bit of a cough. No fever or chills. His diarrhea has completely resolved with treatment of his Clostridium (C) difficile colitis. His back pain remains his limiting problem at this point. PHYSICAL EXAMINATION: Afebrile. Vital signs stable. LUNGS: Clear. HEART: Regular rate and rhythm. ABDOMEN: Soft, nontender. He has normal sensation in both feet. Good distal pulses. LABORATORIES: Complete blood count (CBC) and basic metabolic profile (BMP) unremarkable. IMPRESSION: 1. Sciatica. The nursing staff is looking to see if there might be an air mattress that might help unload his sciatic area. 2. Sacral fracture. Continue physical therapy. 3. Clostridium (C) difficile colitis. Continue vancomycin. 4. Parkinson's. Continue current medications. 5. History of pulmonary embolism. Continue his therapeutic-dosed Lovenox. 6. Right middle lobe lung adenocarcinoma, status post radiation and chemotherapy.
[2018-10-26 14:00] VITALS: BP 127/88
[2018-10-26 18:00] VITALS: BP 145/60
[2018-10-26] MEDS: SINEMET**CR** 25/100 TABCR PO SCH (20:07)
[2018-10-26] MEDS: ENOXAPARIN 120 MG/0.8 ML SYR (J1650) SC SCH (20:07)
[2018-10-26 22:00] VITALS: BP 156/96
[2018-10-27 02:00] VITALS: BP 118/92
[2018-10-27] MEDS: SINEMET 25-100 MG TAB PO SCH ×4 (05:44→22:50)
[2018-10-27] MEDS: VANCOMYCIN ORAL SOL 250MG/5ML ORAL SYRINGE PO SCH ×4 (05:44→22:58)
[2018-10-27 06:00] VITALS: BP 140/98
[2018-10-27 06:44] LABS: HEMATOCRIT 37.3 % (42.0-52.0); MEAN CORPUSCULAR HEMOGLOBIN 31.4 pg (27.0-33.0); MEAN CORPUSCULAR HGB CONC 32.2 g/dl (32.0-36.5); MEAN CORPUSCULAR VOLUME 97.6 fl (80.0-96.0); PLATELET COUNT, AUTOMATED 324 10^3/uL (150-450); RED BLOOD COUNT 3.82 10^6/uL (4.30-6.10); WHITE BLOOD COUNT 6.5 10^3/uL (4.0-10.0)
[2018-10-27 07:07] LABS: BLOOD UREA NITROGEN 19 MG/DL (7-18); CALCIUM LEVEL 8.2 MG/DL (8.8-10.2); CARBON DIOXIDE LEVEL 30 MEQ/L (21-32); CHLORIDE LEVEL 101 MEQ/L (98-107); CREATININE FOR GFR 0.95 MG/DL (0.70-1.30); GLOMERULAR FILTRATION RATE > 60.0 (>42); GLUCOSE, FASTING 86 MG/DL (70-100); POTASSIUM SERUM 3.7 MEQ/L (3.5-5.1); SODIUM LEVEL 138 MEQ/L (136-145)
[2018-10-27] MEDS: ASPIRIN 325 MG TAB PO SCH (08:06)
[2018-10-27] MEDS: LACTOBACILLUS ACIDOPHILUS CAP (BACID) PO SCH ×3 (08:06→18:08)
[2018-10-27] MEDS: SERTRALINE HCL 25 MG TABLET PO SCH (08:06)
[2018-10-27] MEDS: NUCYNTA 50 MG PO PRN (08:07)
[2018-10-27 10:00] VITALS: BP 138/89
[2018-10-27 14:00] VITALS: BP 134/85
[2018-10-27] MEDS: BOUDREAUX'S BUTT PASTE TOP SCH ×2 (16:00→22:09)
[2018-10-27 18:00] VITALS: BP 150/80
[2018-10-27 22:00] VITALS: BP 132/88
[2018-10-27] MEDS: ENOXAPARIN 120 MG/0.8 ML SYR (J1650) SC SCH (22:08)
[2018-10-27] MEDS: SINEMET**CR** 25/100 TABCR PO SCH (22:18)
[2018-10-28 02:00] VITALS: BP 118/72
[2018-10-28] MEDS: SINEMET 25-100 MG TAB PO SCH ×4 (05:36→20:04)
[2018-10-28] MEDS: VANCOMYCIN ORAL SOL 250MG/5ML ORAL SYRINGE PO SCH ×4 (05:36→23:43)
--- NOTE | 2018-10-28 05:50 | IPN ---
DATE OF VISIT: 10/27/2018 Narinder is feeling a little bit better. I tried to get an air mattress for him, I do not think that has come through yet. His back is bothering him a little less. His diarrhea has resolved with the vancomycin. PHYSICAL EXAMINATION: Vital signs: Afebrile. Lungs: Clear. Heart: Regular rhythm. Abdomen: Soft, nontender. Extremities: Moves both feet equally. Has normal sensation in both feet. LABORATORY DATA: CBC unremarkable. Electrolytes unremarkable. IMPRESSION: 1. Clostridium difficile colitis. Continue oral vancomycin. 2. Sacral fracture. Continue physical therapy. 3. Sciatica. Will try to get an air mattress for him. 4. History of pulmonary embolism. Continue therapy, I have dosed Lovenox. 5. Parkinson's Disease. Continue current medicines. 6. Right middle lobe adenocarcinoma. Status post radiation chemotherapy. 7. Perineal rash. Nursing staff told me about a perineal rash. I have ordered some protective cream.
[2018-10-28 06:00] VITALS: BP 92/52
[2018-10-28 06:45] LABS: HEMATOCRIT 35.6 % (42.0-52.0); HEMOGLOBIN 11.4 g/dl (13.5-17.5); MEAN CORPUSCULAR HEMOGLOBIN 31.5 pg (27.0-33.0); MEAN CORPUSCULAR VOLUME 98.3 fl (80.0-96.0); PLATELET COUNT, AUTOMATED 321 10^3/uL (150-450); RED BLOOD COUNT 3.62 10^6/uL (4.30-6.10); WHITE BLOOD COUNT 5.9 10^3/uL (4.0-10.0)
[2018-10-28 07:10] LABS: BLOOD UREA NITROGEN 17 MG/DL (7-18); CALCIUM LEVEL 8.5 MG/DL (8.8-10.2); CARBON DIOXIDE LEVEL 31 MEQ/L (21-32); CHLORIDE LEVEL 102 MEQ/L (98-107); CREATININE FOR GFR 0.89 MG/DL (0.70-1.30); GLOMERULAR FILTRATION RATE > 60.0 (>42); GLUCOSE, FASTING 89 MG/DL (70-100); POTASSIUM SERUM 3.8 MEQ/L (3.5-5.1); SODIUM LEVEL 137 MEQ/L (136-145)
[2018-10-28] MEDS: SERTRALINE HCL 25 MG TABLET PO SCH (08:04)
[2018-10-28] MEDS: BOUDREAUX'S BUTT PASTE TOP SCH ×3 (08:05→20:04)
[2018-10-28] MEDS: ASPIRIN 325 MG TAB PO SCH (08:05)
[2018-10-28] MEDS: LACTOBACILLUS ACIDOPHILUS CAP (BACID) PO SCH ×3 (08:05→17:31)
[2018-10-28 10:00] VITALS: BP 149/89
[2018-10-28] MEDS: NUCYNTA 50 MG PO PRN (11:53)
--- NOTE | 2018-10-28 12:28 | IPN ---
DATE: 10/28/2018 Narinder is a little frustrated over his sacral pain. He said, "I had hoped that would be healed by now". So we spent some time discussing about the prolonged recovery after a sacral fracture. His diarrhea has resolved on the vancomycin (Clostridium difficile colitis) and he is on full dose Lovenox for history of pulmonary embolism in the context of right middle lobe adenocarcinoma. His Parkinson disease interferes somewhat with potential to rehab and he has a perineal rash that we put some protective cream on yesterday. PHYSICAL EXAMINATION: Afebrile. Vital signs stable. General Appearance: Parkinsonian appearance. Cognition is well preserved. Lungs clear. Heart regular rhythm. Abdomen soft, nontender. when I palpated right sacral area. Moves the feet with normal strength and has normal sensation. LABS: CBC is unchanged. Electrolytes unremarkable. IMPRESSION: 1. C. Difficile colitis. Continue his oral vancomycin. 2. Sacral fracture. He is allergic to codeine, he uses Nucynta as prescribed by his oncologist for pain control. 3. History of pulmonary embolism. He is on full strength Lovenox 120 mg daily from oncology. 4. Parkinson disease. Carbidopa-levodopa and Zoloft for this. 5. Sacral fracture. Per physical therapy, is extremely limited. He is not a candidate for Acute Rehabilitation Unit (ARU) because he cannot participate with rehab.
[2018-10-28 14:00] VITALS: BP 124/78
[2018-10-28 18:00] VITALS: BP 125/63
[2018-10-28] MEDS: SINEMET**CR** 25/100 TABCR PO SCH (20:04)
[2018-10-28] MEDS: ENOXAPARIN 120 MG/0.8 ML SYR (J1650) SC SCH (20:04)
[2018-10-28 22:00] VITALS: BP 125/80
[2018-10-29 02:00] VITALS: BP 112/84
[2018-10-29] MEDS: SINEMET 25-100 MG TAB PO SCH ×4 (05:30→20:39)
[2018-10-29] MEDS: NUCYNTA 50 MG PO PRN (05:30)
[2018-10-29] MEDS: VANCOMYCIN ORAL SOL 250MG/5ML ORAL SYRINGE PO SCH ×3 (05:30→17:58)
[2018-10-29 06:00] VITALS: BP 100/54
[2018-10-29 06:16] LABS: HEMATOCRIT 33.7 % (42.0-52.0); MEAN CORPUSCULAR HEMOGLOBIN 31.1 pg (27.0-33.0); MEAN CORPUSCULAR HGB CONC 32.6 g/dl (32.0-36.5); MEAN CORPUSCULAR VOLUME 95.2 fl (80.0-96.0); PLATELET COUNT, AUTOMATED 332 10^3/uL (150-450); RED BLOOD COUNT 3.54 10^6/uL (4.30-6.10); WHITE BLOOD COUNT 6.6 10^3/uL (4.0-10.0)
[2018-10-29 06:33] LABS: BLOOD UREA NITROGEN 19 MG/DL (7-18); CALCIUM LEVEL 8.6 MG/DL (8.8-10.2); CARBON DIOXIDE LEVEL 30 MEQ/L (21-32); CHLORIDE LEVEL 103 MEQ/L (98-107); CREATININE FOR GFR 0.84 MG/DL (0.70-1.30); GLOMERULAR FILTRATION RATE > 60.0 (>42); GLUCOSE, FASTING 90 MG/DL (70-100); POTASSIUM SERUM 3.7 MEQ/L (3.5-5.1); SODIUM LEVEL 138 MEQ/L (136-145)
[2018-10-29] MEDS: SERTRALINE HCL 25 MG TABLET PO SCH (08:45)
[2018-10-29] MEDS: ASPIRIN 325 MG TAB PO SCH (08:46)
[2018-10-29] MEDS: BOUDREAUX'S BUTT PASTE TOP SCH ×3 (08:46→20:42)
[2018-10-29] MEDS: LACTOBACILLUS ACIDOPHILUS CAP (BACID) PO SCH ×3 (08:46→17:58)
[2018-10-29 10:00] VITALS: BP 102/74
[2018-10-29 14:00] VITALS: BP 122/77
[2018-10-29] MEDS ORDERED: traMADol 50 MG TAB PO ONE (14:00)
[2018-10-29 18:00] VITALS: BP 121/58
--- NOTE | 2018-10-29 19:34 | IPNPDOC ---
Subjective Date Seen The patient was seen on 10/29/18. Subjective Chief Complaint/HPI Follow-up C. difficile colitis and sacral fracture Events since last encounter Patient seen and examined at bedside. Patient complains of sacral pain and improving diarrhea, but otherwise denies fever, chills, chest pain, difficulty breathing, nausea, vomiting, abdominal pain, leg pain or swelling. Objective Physical Examination General Exam: Positive: Alert, Cooperative, No Acute Distress Chest Exam: Positive: Clear to auscultation, Normal air movement Heart Exam: Positive: Rate Normal, Normal S1, Normal S2 Abdomen Exam: Positive: Normal bowel sounds, Soft; Negative: Tenderness Extremity Exam: Positive: Normal pulses; Negative: Edema Neuro Exam: Positive: Normal Speech Psych Exam: Positive: Mental status NL, Mood NL Assessment /Plan Assessment Patient is a 78-year-old male with C. difficile colitis and sacral fracture Plan/VTE VTE Prophylaxis Ordered?: Yes Plan 1. C. Difficile colitis. -Continue his oral vancomycin. -pt starting to have formed stools 2. Sacral fracture. -start tramadol for pain as home pain med makes pt drowsy -Per physical therapy, is extremely limited -Pt unlikely to be a candidate for ARU as cannot participate with rehab 3. History of pulmonary embolism. -cont. full strength Lovenox 120 mg daily 4. Parkinson disease. -cont. Carbidopa-levodopa and Zoloft Disposition likely subacute rehab once stools formed and diarrhea improved VS, I&O, 24H, Fishbone Vital Signs/I&O Vital Signs Date Time Temp Pulse Resp B/P (MAP) Pulse Ox O2 Delivery O2 Flow Rate FiO2 10/29/18 18:00 98.6 85 19 121/58 (79) 95 10/23/18 18:15 Room Air 10/23/18 15:11 2.0 I&O- Last 24 Hours up to 6 AM 10/29/18 06:00 Intake Total 700 ml Output Total 1525 ml Balance -825 ml Laboratory Data 24H LABS Laboratory Tests 2 10/29/18 05:54: Nucleated Red Blood Cells % (auto) 0.0, Anion Gap 5L, Glomerular Filtration Rate > 60.0, Blood Urea Nitrogen 19H, Creatinine 0.84, Sodium Level 138, Potassium Level 3.7, Chloride Level 103, Carbon Dioxide Level 30, Calcium Level 8.6L CBC/BMP Laboratory Tests 10/29/18 05:54 Red Blood Count 3.54 L, Mean Corpuscular Volume 95.2, Mean Corpuscular Hemoglobin 31.1, Mean Corpuscular Hemoglobin Concent 32.6, Red Cell Distribution Width 13.9, Calcium Level 8.6 L Microbiology Microbiology 10/23/18 Gastrointestinal Tract Panel (PCR) - Final, Complete Clostridium Difficile A/B 10/23/18 Urine Culture - Final, Complete Escherichia Coli LUZMARIA CONNER MD Oct 29, 2018 19:34
[2018-10-29] MEDS: ENOXAPARIN 120 MG/0.8 ML SYR (J1650) SC SCH (20:40)
[2018-10-29] MEDS: SINEMET**CR** 25/100 TABCR PO SCH (20:40)
[2018-10-29 22:00] VITALS: BP 132/82
[2018-10-30] MEDS: VANCOMYCIN ORAL SOL 250MG/5ML ORAL SYRINGE PO SCH ×5 (00:03→23:54)
[2018-10-30 02:00] VITALS: BP 125/72
[2018-10-30] MEDS: SINEMET 25-100 MG TAB PO SCH ×4 (05:11→20:39)
[2018-10-30 05:56] LABS: MEAN CORPUSCULAR HEMOGLOBIN 31.2 pg (27.0-33.0); MEAN CORPUSCULAR HGB CONC 32.4 g/dl (32.0-36.5); MEAN CORPUSCULAR VOLUME 96.3 fl (80.0-96.0); PLATELET COUNT, AUTOMATED 335 10^3/uL (150-450); RED BLOOD COUNT 3.53 10^6/uL (4.30-6.10); WHITE BLOOD COUNT 6.2 10^3/uL (4.0-10.0)
[2018-10-30 06:00] VITALS: BP 120/68
[2018-10-30 06:16] LABS: BLOOD UREA NITROGEN 20 MG/DL (7-18); CALCIUM LEVEL 8.1 MG/DL (8.8-10.2); CARBON DIOXIDE LEVEL 30 MEQ/L (21-32); CHLORIDE LEVEL 105 MEQ/L (98-107); CREATININE FOR GFR 0.88 MG/DL (0.70-1.30); GLOMERULAR FILTRATION RATE > 60.0 (>42); GLUCOSE, FASTING 82 MG/DL (70-100); POTASSIUM SERUM 3.7 MEQ/L (3.5-5.1); SODIUM LEVEL 139 MEQ/L (136-145)
[2018-10-30 10:00] VITALS: BP 142/84
[2018-10-30] MEDS: LACTOBACILLUS ACIDOPHILUS CAP (BACID) PO SCH ×3 (10:00→17:54)
[2018-10-30] MEDS: BOUDREAUX'S BUTT PASTE TOP SCH ×3 (10:00→20:40)
[2018-10-30] MEDS: traMADol 50 MG TAB PO PRN ×2 (10:01→15:53)
[2018-10-30] MEDS: ASPIRIN 325 MG TAB PO SCH (10:01)
[2018-10-30] MEDS: SERTRALINE HCL 25 MG TABLET PO SCH (10:01)
--- NOTE | 2018-10-30 11:16 | IPNPDOC ---
Subjective Date Seen The patient was seen on 10/30/18. Subjective Chief Complaint/HPI f/u C. diff colitis and sacral fracture Events since last encounter PT seen and examined at bedside. Pt says he's not feeling but denies any specific complaints. Family at bedside. Denies any fever, chills, CP, SOB, N/V/ab pain, leg pain or swelling. Diarrhea improving with more formed stools. Objective Physical Examination General Exam: Positive: Alert, Cooperative, No Acute Distress ENT Exam: Positive: Atraumatic, Mucous membr. moist/pink Chest Exam: Positive: Clear to auscultation, Normal air movement Heart Exam: Positive: Rate Normal, Normal S1, Normal S2 Abdomen Exam: Positive: Normal bowel sounds, Soft; Negative: Tenderness Extremity Exam: Positive: Normal pulses; Negative: Edema Neuro Exam: Positive: Normal Speech Psych Exam: Positive: Mental status NL, Mood NL Assessment /Plan Assessment 78 y/o m with C. diff colitis and sacral fracture Plan/VTE VTE Prophylaxis Ordered?: Yes Plan 1. C. Difficile colitis. -Continue his oral vancomycin. -pt starting to have formed stools -diarrhea improving 2. Sacral fracture. -cont. tramadol for pain as working for pt with less side effects -Pt improving with physical therapy -Pt not a candidate for ARU as cannot participate with 3hrs of rehab 3. History of pulmonary embolism. -cont. full strength Lovenox 120 mg daily 4. Parkinson disease. -cont. Carbidopa-levodopa and Zoloft Disposition to [facility] pending improvement in diarrhea VS, I&O, 24H, Fishbone Vital Signs/I&O Vital Signs Date Time Temp Pulse Resp B/P (MAP) Pulse Ox O2 Delivery O2 Flow Rate FiO2 10/30/18 10:31 24 10/30/18 10:00 97.6 82 142/84 (103) 92 I&O- Last 24 Hours up to 6 AM 10/30/18 06:00 Intake Total 790 ml Output Total 1100 ml Balance -310 ml Laboratory Data 24H LABS Laboratory Tests 2 10/30/18 05:35: Nucleated Red Blood Cells % (auto) 0.0, Anion Gap 4L, Glomerular Filtration Rate > 60.0, Blood Urea Nitrogen 20H, Creatinine 0.88, Sodium Level 139, Potassium Level 3.7, Chloride Level 105, Carbon Dioxide Level 30, Calcium Level 8.1L CBC/BMP Laboratory Tests 10/30/18 05:35 Red Blood Count 3.53 L, Mean Corpuscular Volume 96.3 H, Mean Corpuscular Hemoglobin 31.2, Mean Corpuscular Hemoglobin Concent 32.4, Red Cell Distribution Width 14.2, Calcium Level 8.1 L Microbiology Microbiology 10/23/18 Gastrointestinal Tract Panel (PCR) - Final, Complete Clostridium Difficile A/B 10/23/18 Urine Culture - Final, Complete Escherichia Coli LUZMARIA CONNER MD Oct 30, 2018 11:16
[2018-10-30 14:00] VITALS: BP 105/70
[2018-10-30] MEDS: SINEMET**CR** 25/100 TABCR PO SCH (20:39)
[2018-10-30] MEDS: ENOXAPARIN 120 MG/0.8 ML SYR (J1650) SC SCH (20:40)
[2018-10-30 22:00] VITALS: BP 148/94
[2018-10-31 02:00] VITALS: BP 142/78
[2018-10-31] MEDS: VANCOMYCIN ORAL SOL 250MG/5ML ORAL SYRINGE PO SCH ×3 (05:15→17:15)
[2018-10-31] MEDS: SINEMET 25-100 MG TAB PO SCH ×4 (05:15→19:50)
[2018-10-31] MEDS: traMADol 50 MG TAB PO PRN (05:21)
[2018-10-31 06:00] VITALS: BP 143/95
[2018-10-31] MEDS: LACTOBACILLUS ACIDOPHILUS CAP (BACID) PO SCH ×3 (09:36→17:15)
[2018-10-31] MEDS: SERTRALINE HCL 25 MG TABLET PO SCH (09:36)
[2018-10-31] MEDS: ASPIRIN 325 MG TAB PO SCH (09:36)
[2018-10-31] MEDS: BOUDREAUX'S BUTT PASTE TOP SCH ×3 (09:37→19:52)
[2018-10-31 10:00] VITALS: BP 140/94
[2018-10-31] MEDS: IBUPROFEN 400 MG TAB PO PRN ×2 (11:55→18:01)
[2018-10-31 14:00] VITALS: BP 139/89
[2018-10-31 18:00] VITALS: BP 101/76
--- NOTE | 2018-10-31 19:02 | IPNPDOC ---
Subjective Date Seen The patient was seen on 10/31/18. Subjective Chief Complaint/HPI Follow-up C. difficile colitis and sacral fracture Events since last encounter Patient seen and examined at bedside. Patient states a bad dreams from using the tramadol would like another pain medicine. Otherwise, denies fevers, chills, chest pain, difficulty breathing, nausea, vomiting, constipation. Objective Physical Examination General Exam: Positive: Alert, Cooperative, No Acute Distress, Other (laying in bed) Chest Exam: Positive: Clear to auscultation, Normal air movement Heart Exam: Positive: Rate Normal, Normal S1, Normal S2 Abdomen Exam: Positive: Normal bowel sounds, Soft; Negative: Tenderness Extremity Exam: Positive: Normal pulses; Negative: Edema Neuro Exam: Positive: Normal Speech Psych Exam: Positive: Mental status NL, Mood NL Assessment /Plan Assessment 78-year-old male with C. difficile colitis and sacral fracture Plan/VTE VTE Prophylaxis Ordered?: Yes Plan 1. C. Difficile colitis. -Continue his oral vancomycin as diarrhea seems to be improving -pt continues to have more formed stools -diarrhea improving 2. Sacral fracture. -stop tramadol for pain and start ibuprofen -Pt improving with physical therapy 3. History of pulmonary embolism. -cont. full strength Lovenox 120 mg daily 4. Parkinson disease. -cont. Carbidopa-levodopa and Zoloft Disposition To rehab pending improvement in stool frequency and consistency VS, I&O, 24H, Fishbone Vital Signs/I&O Vital Signs Date Time Temp Pulse Resp B/P (MAP) Pulse Ox O2 Delivery O2 Flow Rate FiO2 10/31/18 18:00 96.9 90 18 101/76 (84) 96 I&O- Last 24 Hours up to 6 AM 10/31/18 06:00 Intake Total 580 ml Output Total 1250 ml Balance -670 ml Laboratory Data Microbiology Microbiology 10/23/18 Gastrointestinal Tract Panel (PCR) - Final, Complete Clostridium Difficile A/B 10/23/18 Urine Culture - Final, Complete Escherichia Coli LUZMARIA CONNER MD Oct 31, 2018 19:02
[2018-10-31] MEDS: ENOXAPARIN 120 MG/0.8 ML SYR (J1650) SC SCH (19:51)
[2018-10-31] MEDS: SINEMET**CR** 25/100 TABCR PO SCH (19:51)
[2018-10-31 22:00] VITALS: BP 143/96
[2018-11-01] MEDS: VANCOMYCIN ORAL SOL 250MG/5ML ORAL SYRINGE PO SCH ×4 (00:27→17:50)
[2018-11-01 02:00] VITALS: BP 126/70
[2018-11-01] MEDS: SINEMET 25-100 MG TAB PO SCH ×4 (05:55→17:50)
[2018-11-01 06:00] VITALS: BP 158/98
[2018-11-01] MEDS: ASPIRIN 325 MG TAB PO SCH (09:04)
[2018-11-01] MEDS: SERTRALINE HCL 25 MG TABLET PO SCH (09:04)
[2018-11-01] MEDS: LACTOBACILLUS ACIDOPHILUS CAP (BACID) PO SCH ×3 (09:04→17:50)
[2018-11-01] MEDS: BOUDREAUX'S BUTT PASTE TOP SCH ×3 (09:05→21:00)
[2018-11-01 10:00] VITALS: BP 126/72
[2018-11-01] MEDS: IBUPROFEN 400 MG TAB PO PRN (11:08)
--- NOTE | 2018-11-01 12:41 | IPNPDOC ---
Subjective Date Seen The patient was seen on 11/01/18. Subjective Chief Complaint/HPI Patient seen and examined at the bedside. Denies any acute complaints at this time. Objective Physical Examination General Exam: Positive: Alert, Cooperative, No Acute Distress, Other (laying in bed) Neck Exam: Negative: JVD Chest Exam: Positive: Clear to auscultation, Normal air movement Heart Exam: Positive: Rate Normal, Normal S1, Normal S2 Abdomen Exam: Positive: Normal bowel sounds, Soft; Negative: Tenderness Extremity Exam: Positive: Normal pulses; Negative: Edema Neuro Exam: Positive: Normal Speech Psych Exam: Positive: Mental status NL, Mood NL, Oriented x 3 Assessment /Plan Plan/VTE VTE Prophylaxis Ordered?: Yes Plan C. Difficile colitis. Patient tolerating a diet w/o any complaints of abdominal pain, nausea, vomiting Reports that his bowel movements have decreased in frequency, and improved with formation. Continue his oral vancomycin We will cont to monitor Sacral fracture PT on board for functional optimization Patient will need subacute rehab Hx of Right middle lobe adenocarcinoma s/p Chemotherapy and radiation F/U with Oncology as an outpatient History of pulmonary embolism. Cont. full strength Lovenox 120 mg daily Hx of Parkinson disease. Cont Carbidopa-levodopa Anxiety/Depression Cont Zoloft DVT Prophylaxis Lovenox SC VS, I&O, 24H, Fishbone Vital Signs/I&O Vital Signs Date Time Temp Pulse Resp B/P (MAP) Pulse Ox O2 Delivery O2 Flow Rate FiO2 11/01/18 10:00 98.1 87 19 126/72 (90) 95 I&O- Last 24 Hours up to 6 AM 11/01/18 06:00 Intake Total 800 ml Output Total 1850 ml Balance -1050 ml Laboratory Data Microbiology Microbiology 10/23/18 Gastrointestinal Tract Panel (PCR) - Final, Complete Clostridium Difficile A/B 10/23/18 Urine Culture - Final, Complete Escherichia Coli LONDON REEDER MD Nov 01, 2018 12:41
[2018-11-01 14:00] VITALS: BP 138/79
[2018-11-01 18:00] VITALS: BP 113/83
[2018-11-01] MEDS: SINEMET**CR** 25/100 TABCR PO SCH (20:59)
[2018-11-01] MEDS: ENOXAPARIN 120 MG/0.8 ML SYR (J1650) SC SCH (21:00)
[2018-11-01 22:00] VITALS: BP 131/81
[2018-11-02] MEDS: VANCOMYCIN ORAL SOL 250MG/5ML ORAL SYRINGE PO SCH ×4 (00:25→17:15)
[2018-11-02 02:00] VITALS: BP 134/75
[2018-11-02] MEDS: SINEMET 25-100 MG TAB PO SCH ×4 (05:38→17:15)
[2018-11-02 06:00] VITALS: BP 134/80
[2018-11-02] MEDS: LACTOBACILLUS ACIDOPHILUS CAP (BACID) PO SCH ×3 (08:24→17:16)
[2018-11-02] MEDS: ASPIRIN 325 MG TAB PO SCH (08:24)
[2018-11-02] MEDS: BOUDREAUX'S BUTT PASTE TOP SCH ×3 (08:25→20:44)
[2018-11-02] MEDS: IBUPROFEN 400 MG TAB PO PRN ×2 (08:25→17:16)
[2018-11-02] MEDS: SERTRALINE HCL 25 MG TABLET PO SCH (08:25)
[2018-11-02 14:00] VITALS: BP 115/78
--- NOTE | 2018-11-02 14:56 | IPNPDOC ---
Subjective Date Seen The patient was seen on 11/02/18. Subjective Chief Complaint/HPI Follow-up C. difficile colitis and sacral fracture Events since last encounter Patient seen and examined at bedside. Patient doing well today with no complaints. Denies fevers, chills, chest pain, difficulty breathing, nausea, vomiting, constipation, leg pain or swelling. Per nursing, patient stools are becoming formed. Still with increased frequency though Objective Physical Examination General Exam: Positive: Alert, Cooperative, No Acute Distress, Other (laying in bed) Chest Exam: Positive: Clear to auscultation, Normal air movement Heart Exam: Positive: Rate Normal, Normal S1, Normal S2 Abdomen Exam: Positive: Normal bowel sounds, Soft; Negative: Tenderness Extremity Exam: Positive: Normal pulses; Negative: Edema Neuro Exam: Positive: Normal Speech Psych Exam: Positive: Mental status NL, Mood NL, Oriented x 3 Assessment /Plan Assessment 78-year-old male with C. difficile colitis and sacral fracture Plan/VTE VTE Prophylaxis Ordered?: Yes Plan #C. Difficile colitis. -Patient tolerating a diet w/o any complaints of abdominal pain, nausea, vomiting -stools continue to improve with decreased frequency and forming up -Continue his oral vancomycin -We will cont to monitor #Sacral fracture -PT on board for functional optimization -Patient will need subacute rehab #Hx of Right middle lobe adenocarcinoma s/p Chemotherapy and radiation F/U with Oncology as an outpatient #History of pulmonary embolism. Cont. full strength Lovenox 120 mg daily #Hx of Parkinson disease. Cont Carbidopa-levodopa #Anxiety/Depression Cont Zoloft #DVT Prophylaxis Lovenox SC Disposition pending further improvement in diarrhea frequency and more formed stools VS, I&O, 24H, Fishbone Vital Signs/I&O Vital Signs Date Time Temp Pulse Resp B/P (MAP) Pulse Ox O2 Delivery O2 Flow Rate FiO2 11/02/18 14:00 97.6 89 18 115/78 (90) 94 I&O- Last 24 Hours up to 6 AM 11/02/18 06:00 Intake Total 1030 ml Output Total 2800 ml Balance -1770 ml Laboratory Data Microbiology Microbiology 10/23/18 Gastrointestinal Tract Panel (PCR) - Final, Complete Clostridium Difficile A/B 10/23/18 Urine Culture - Final, Complete Escherichia Coli LUZMARIA CONNER MD Nov 02, 2018 14:56
[2018-11-02] MEDS: SINEMET**CR** 25/100 TABCR PO SCH (20:43)
[2018-11-02] MEDS: ENOXAPARIN 120 MG/0.8 ML SYR (J1650) SC SCH (20:43)
[2018-11-02 22:00] VITALS: BP 148/85
[2018-11-03] MEDS: VANCOMYCIN ORAL SOL 250MG/5ML ORAL SYRINGE PO SCH ×5 (00:09→23:24)
[2018-11-03] MEDS: SINEMET 25-100 MG TAB PO SCH ×4 (05:14→17:12)
[2018-11-03 06:00] VITALS: BP 116/78
[2018-11-03] MEDS: ASPIRIN 325 MG TAB PO SCH (08:58)
[2018-11-03] MEDS: LACTOBACILLUS ACIDOPHILUS CAP (BACID) PO SCH ×3 (08:58→17:12)
[2018-11-03] MEDS: SERTRALINE HCL 25 MG TABLET PO SCH (08:58)
[2018-11-03] MEDS: BOUDREAUX'S BUTT PASTE TOP SCH ×3 (08:59→21:41)
[2018-11-03 14:00] VITALS: BP 115/56
--- NOTE | 2018-11-03 19:14 | IPNPDOC ---
Subjective Date Seen The patient was seen on 11/03/18. Subjective Chief Complaint/HPI f/u C. diff colitis and sacral fracture Events since last encounter Pt seen and examined at bedside. Pt endorses b/l leg pain but denies fever, chills, CP, SOB, N/V/D, leg swelling. Per pt he is no longer having diarrhea but rather formed stools. Objective Physical Examination General Exam: Positive: Alert, Cooperative, No Acute Distress, Other (laying in bed, slight tremor) Chest Exam: Positive: Clear to auscultation, Normal air movement Heart Exam: Positive: Rate Normal, Normal S1, Normal S2 Abdomen Exam: Positive: Normal bowel sounds, Soft; Negative: Tenderness Extremity Exam: Positive: Normal pulses; Negative: Edema Neuro Exam: Positive: Normal Speech Psych Exam: Positive: Mental status NL, Mood NL, Oriented x 3 Assessment /Plan Assessment pt is a 78y/o m with C. diff colitis (improving) and sacral fracture Plan/VTE VTE Prophylaxis Ordered?: Yes Plan #C. Difficile colitis. -Patient tolerating a diet w/o any complaints of abdominal pain, nausea, vomiting -formed stools will watch frequency -Continue his oral vancomycin -We will cont to monitor #Sacral fracture -PT on board for functional optimization -Patient will need subacute rehab #Hx of Right middle lobe adenocarcinoma s/p Chemotherapy and radiation F/U with Oncology as an outpatient #History of pulmonary embolism. Cont. full strength Lovenox 120 mg daily #Hx of Parkinson disease. Cont Carbidopa-levodopa #Anxiety/Depression Cont Zoloft #DVT Prophylaxis Lovenox SC Disposition [facility] when diarrhea resolved likely in the next few days VS, I&O, 24H, Fishbone Vital Signs/I&O Vital Signs Date Time Temp Pulse Resp B/P (MAP) Pulse Ox O2 Delivery O2 Flow Rate FiO2 11/03/18 14:00 97.2 86 18 115/56 (75) 95 I&O- Last 24 Hours up to 6 AM 11/03/18 06:00 Intake Total 460 ml Output Total 1500 ml Balance -1040 ml LUZMARIA CONNER MD Nov 03, 2018 19:14
[2018-11-03] MEDS: ENOXAPARIN 120 MG/0.8 ML SYR (J1650) SC SCH (21:41)
[2018-11-03] MEDS: SINEMET**CR** 25/100 TABCR PO SCH (21:41)
[2018-11-03 22:00] VITALS: BP 140/98
[2018-11-04] VITALS (24 sets, daily range): BP systolic 71–212; BP diastolic 41–128
[2018-11-04] MEDS: IBUPROFEN 400 MG TAB PO PRN ×3 (01:32→20:34)
[2018-11-04] MEDS: SINEMET 25-100 MG TAB PO SCH ×4 (05:13→17:39)
[2018-11-04] MEDS: VANCOMYCIN ORAL SOL 250MG/5ML ORAL SYRINGE PO SCH ×3 (05:14→18:27)
[2018-11-04] MEDS: SERTRALINE HCL 25 MG TABLET PO SCH (08:47)
[2018-11-04] MEDS: ASPIRIN 325 MG TAB PO SCH (08:47)
[2018-11-04] MEDS: LACTOBACILLUS ACIDOPHILUS CAP (BACID) PO SCH ×3 (08:47→17:34)
[2018-11-04] MEDS: BOUDREAUX'S BUTT PASTE TOP SCH ×3 (08:48→20:35)
[2018-11-04] MEDS ORDERED: NS 500 ML IV ONE ×2 (10:45→11:00)
[2018-11-04] MEDS ORDERED: NS 1,000 ML IV ONE (11:15)
--- NOTE | 2018-11-04 14:53 | IPNPDOC ---
Subjective Date Seen The patient was seen on 11/04/18. Subjective Chief Complaint/HPI Follow-up C. difficile colitis and sacral fracture Events since last encounter Patient seen and examined at bedside. Called to bedside this morning due to patient having low blood pressures with associated dizziness, lightheadedness. Patient started on 500 mL bolus with 1 L additional @125ml/hr. . Patient likely hypovolemic due to diarrhea and poor by mouth intake. Blood pressure responded to fluids. Other than dizziness, lightheadedness. Patient denies other symptoms of fevers, chills, chest pain, difficulty breathing, nausea, vomiting, diarrhea, leg pain or swelling. Stools are forming. Objective Physical Examination General Exam: Positive: Alert, Cooperative, No Acute Distress, Other (laying in bed in [place] position, slight tremor) Chest Exam: Positive: Clear to auscultation, Normal air movement Heart Exam: Positive: Rate Normal, Normal S1, Normal S2 Abdomen Exam: Positive: Normal bowel sounds, Soft; Negative: Tenderness Extremity Exam: Positive: Normal pulses; Negative: Edema Neuro Exam: Positive: Normal Speech Psych Exam: Positive: Mental status NL, Mood NL, Oriented x 3 Assessment /Plan Assessment 78-year-old male who presented with C. difficile colitis and sacral fracture Plan/VTE VTE Prophylaxis Ordered?: Yes Plan #hypotension -likely hypovolemic in nature due to diarrhea and poor PO intake -encourage adequate PO intake -500cc bolus now -1L NS @125cc/hr -trend BP -may be some contribution from orthostatic hypotension and parkinsonism as well #C. Difficile colitis. -Patient tolerating a diet w/o any complaints of abdominal pain, nausea, vomiting -formed stools will watch frequency -Continue his oral vancomycin -We will cont to monitor -we are reaching out to acute rehab to see at what point they are ok to accept pt #Sacral fracture -PT on board for functional optimization -Patient will need subacute rehab #Hx of Right middle lobe adenocarcinoma s/p Chemotherapy and radiation F/U with Oncology as an outpatient #History of pulmonary embolism. Cont. full strength Lovenox 120 mg daily #Hx of Parkinson disease. Cont Carbidopa-levodopa #Anxiety/Depression Cont Zoloft #DVT Prophylaxis Lovenox Disposition pending resolution of hypotension and diarrhea VS, I&O, 24H, Fishbone Vital Signs/I&O Vital Signs Date Time Temp Pulse Resp B/P (MAP) Pulse Ox O2 Delivery O2 Flow Rate FiO2 11/04/18 14:00 96.8 90 19 127/77 (94) 97 I&O- Last 24 Hours up to 6 AM 11/04/18 05:59 Intake Total 640 ml Output Total 2250 ml Balance -1610 ml LUZMARIA CONNER MD Nov 04, 2018 14:53
[2018-11-04] MEDS ORDERED: hydrALAZINE INJ 20 MG/ML VIAL IV ONE (18:00)
[2018-11-04] MEDS: ENOXAPARIN 120 MG/0.8 ML SYR (J1650) SC SCH (20:35)
[2018-11-04] MEDS: SINEMET**CR** 25/100 TABCR PO SCH (20:35)
[2018-11-04] MEDS ORDERED: amLODIPine 10 MG TAB PO ONE (22:15)
[2018-11-05] VITALS (40 sets, daily range): BP systolic 87–182; BP diastolic 52–114
[2018-11-05] MEDS: VANCOMYCIN ORAL SOL 250MG/5ML ORAL SYRINGE PO SCH ×4 (00:27→17:04)
[2018-11-05] MEDS: SINEMET 25-100 MG TAB PO SCH ×4 (05:56→16:55)
[2018-11-05 06:32] LABS: HEMATOCRIT 37.3 % (42.0-52.0); MEAN CORPUSCULAR HEMOGLOBIN 31.4 pg (27.0-33.0); MEAN CORPUSCULAR HGB CONC 32.2 g/dl (32.0-36.5); MEAN CORPUSCULAR VOLUME 97.6 fl (80.0-96.0); PLATELET COUNT, AUTOMATED 326 10^3/uL (150-450); RED BLOOD COUNT 3.82 10^6/uL (4.30-6.10)
[2018-11-05 06:58] LABS: ALBUMIN 2.3 GM/DL (3.2-5.2); ALT/SGPT < 6 U/L (12-78); BILIRUBIN,TOTAL 0.2 MG/DL (0.2-1.0); BLOOD UREA NITROGEN 19 MG/DL (7-18); CALCIUM LEVEL 8.4 MG/DL (8.8-10.2); CARBON DIOXIDE LEVEL 30 MEQ/L (21-32); CHLORIDE LEVEL 107 MEQ/L (98-107); CREATININE FOR GFR 0.92 MG/DL (0.70-1.30); GLOMERULAR FILTRATION RATE > 60.0 (>42); GLUCOSE, FASTING 76 MG/DL (70-100); MAGNESIUM LEVEL 1.9 MG/DL (1.8-2.4); POTASSIUM SERUM 3.9 MEQ/L (3.5-5.1); SODIUM LEVEL 140 MEQ/L (136-145); TOTAL PROTEIN 5.9 GM/DL (6.4-8.2)
[2018-11-05] MEDS ORDERED: hydrALAZINE INJ 20 MG/ML VIAL IV ONE (07:00)
[2018-11-05] MEDS ORDERED: amLODIPine 10 MG TAB PO SCH (09:00)
[2018-11-05] MEDS: IBUPROFEN 400 MG TAB PO PRN (09:15)
[2018-11-05] MEDS: ASPIRIN 325 MG TAB PO SCH (09:15)
[2018-11-05] MEDS: LACTOBACILLUS ACIDOPHILUS CAP (BACID) PO SCH ×3 (09:15→17:04)
[2018-11-05] MEDS: SERTRALINE HCL 25 MG TABLET PO SCH (09:16)
[2018-11-05] MEDS: BOUDREAUX'S BUTT PASTE TOP SCH ×3 (09:16→21:29)
--- NOTE | 2018-11-05 10:39 | IPNPDOC ---
Subjective Date Seen The patient was seen on 11/05/18. Subjective Chief Complaint/HPI Follow C. difficile colitis and sacral fracture Events since last encounter Patient seen and examined at bedside. Patient episode of hypotension yesterday requiring fluid administration and then patient blood pressure spiked SBP 200s requiring IV hydralazine. Patient's blood pressures remained elevated. So we will give oral blood pressure medicine. Patient says he feels slightly dizzy, shaky, unwell after administration of IV hydal. Denies fevers, chills, chest pain, difficulty breathing, nausea, vomiting, abdominal pain. Patient notes having a little bit of diarrhea overnight. Objective Physical Examination General Exam: Positive: Alert, Cooperative, No Acute Distress, Other (laying in bed with slight tremor) Chest Exam: Positive: Clear to auscultation, Normal air movement Heart Exam: Positive: Rate Normal, Normal S1, Normal S2 Abdomen Exam: Positive: Normal bowel sounds, Soft; Negative: Tenderness Extremity Exam: Positive: Normal pulses; Negative: Edema Neuro Exam: Positive: Normal Speech Psych Exam: Positive: Mental status NL, Mood NL, Oriented x 3 Assessment /Plan Assessment Narinder Kapadia is a 78-year-old. 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 Pt treated with oral vancomycin for recurrent C. diff with improvement in stools. Pt now on day 13 of treatment for recurrent C. diff. Pt also noted to have a sacral fracture on CT undergoing PT. Plan had been to discharge pt now that diarrhea had improved but pt had episode of hypotension which responded to fluids and then rapidly hypertension to SBP 200's requiring IV hydral. Due to BP instability will hold pt for another day or two to stabilize BPs. Plan/VTE VTE Prophylaxis Ordered?: Yes Plan #BP instability -likely initially hypovolemic due to diarrhea and poor PO intake -encourage adequate PO intake -s/p 500cc bolus now and then 1L NS -Bp now elevated -will given oral BP meds for smoother control of BP #C. Difficile colitis. -Patient tolerating a diet w/o any complaints of abdominal pain, nausea, vomiting -formed stools mostly though pt states he had an episode of diarrhea last night -Continue his oral vancomycin -We will cont to monitor -we are reaching out to acute rehab to see at what point they are ok to accept pt #Sacral fracture -PT on board for functional optimization -Patient will need subacute rehab #Hx of Right middle lobe adenocarcinoma s/p Chemotherapy and radiation F/U with Oncology as an outpatient #History of pulmonary embolism. Cont. full strength Lovenox 120 mg daily #Hx of Parkinson disease. Cont Carbidopa-levodopa #Anxiety/Depression Cont Zoloft #DVT Prophylaxis Lovenox Disposition pending stabilization in BP VS, I&O, 24H, Fishbone Vital Signs/I&O Vital Signs Date Time Temp Pulse Resp B/P (MAP) Pulse Ox O2 Delivery O2 Flow Rate FiO2 11/05/18 06:13 183/104 11/05/18 04:00 98.6 72 20 98 I&O- Last 24 Hours up to 6 AM 11/05/18 05:59 Intake Total 1140 ml Output Total 2300 ml Balance -1160 ml Laboratory Data 24H LABS Laboratory Tests 2 11/05/18 06:22: Nucleated Red Blood Cells % (auto) 0.0, Anion Gap 3L, Glomerular Filtration Rate > 60.0, Blood Urea Nitrogen 19H, Creatinine 0.92, Sodium Level 140, Potassium Level 3.9, Chloride Level 107, Carbon Dioxide Level 30, Calcium Level 8.4L, Aspartate Amino Transf (AST/SGOT) 19, Alanine Aminotransferase (ALT/SGPT) < 6L, Alkaline Phosphatase 112, Total Bilirubin 0.2, Total Protein 5.9L, Albumin 2.3L, Magnesium Level 1.9, Albumin/Globulin Ratio 0.64L CBC/BMP Laboratory Tests 11/05/18 06:22 Red Blood Count 3.82 L, Mean Corpuscular Volume 97.6 H, Mean Corpuscular H emoglobin 31.4, Mean Corpuscular Hemoglobin Concent 32.2, Red Cell Distribution Width 13.9, Calcium Level 8.4 L, Aspartate Amino Transf (AST/SGOT) 19, Alanine Aminotransferase (ALT/SGPT) < 6 L, Alkaline Phosphatase 112, Total Bilirubin 0.2, Total Protein 5.9 L, Albumin 2.3 L LUZMARIA CONNER MD Nov 05, 2018 10:39
[2018-11-05] MEDS: NS 1,000 ML IV SCH (11:50)
[2018-11-05] MEDS ORDERED: MAALOX 30 ML SUSP *UDC PO PRN (16:45)
[2018-11-05] MEDS: SINEMET**CR** 25/100 TABCR PO SCH (21:29)
[2018-11-05] MEDS: ENOXAPARIN 120 MG/0.8 ML SYR (J1650) SC SCH (21:29)
[2018-11-06] VITALS (17 sets, daily range): BP systolic 88–161; BP diastolic 61–93
[2018-11-06] MEDS: VANCOMYCIN ORAL SOL 250MG/5ML ORAL SYRINGE PO SCH ×4 (00:12→17:28)
[2018-11-06] MEDS: SINEMET 25-100 MG TAB PO SCH ×4 (05:50→17:28)
[2018-11-06] MEDS: LACTOBACILLUS ACIDOPHILUS CAP (BACID) PO SCH ×3 (10:05→17:28)
[2018-11-06] MEDS: SERTRALINE HCL 25 MG TABLET PO SCH (10:05)
[2018-11-06] MEDS: ASPIRIN 325 MG TAB PO SCH (10:05)
[2018-11-06] MEDS: BOUDREAUX'S BUTT PASTE TOP SCH ×3 (10:06→20:27)
--- NOTE | 2018-11-06 13:05 | IPNPDOC ---
Subjective Date Seen The patient was seen on 11/06/18. Subjective Chief Complaint/HPI Follow-up C. difficile colitis and sacral refracture Events since last encounter Patient seen and examined at bedside. Doing well. Blood pressure remains controlled with minimal intervention. Patient having formed stools per nursing, patient feeling well today, only complaining of some mild dizziness. Denies fevers, chills, chest pain, difficulty breathing, nausea, vomiting, diarrhea, leg pain or swelling. Objective Physical Examination General Exam: Positive: Alert, Cooperative, No Acute Distress, Other (laying in bed; slight tremor; at bedside) Chest Exam: Positive: Clear to auscultation, Normal air movement Heart Exam: Positive: Rate Normal, Normal S1, Normal S2 Abdomen Exam: Positive: Normal bowel sounds, Soft; Negative: Tenderness Extremity Exam: Positive: Normal pulses; Negative: Edema Neuro Exam: Positive: Normal Speech Psych Exam: Positive: Mental status NL, Mood NL, Oriented x 3 Assessment /Plan Assessment Narinder Kapadia is a 78-year-old. 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 Pt treated with oral vancomycin for recurrent C. diff with improvement in stools. Pt now on day 14 of treatment for recurrent C. diff. Pt also noted to have a sacral fracture on CT undergoing PT. Plan had been to discharge pt now that diarrhea had improved but pt had episode of hypotension which responded to fluids and then rapidly hypertension to SBP 200's requiring IV hydral. Due to BP instability pt held to stabilize BPs. Pt has remained stable with little BP intervention and controlled BP. Suspect pt can be discharged on oral vanc taper Plan/VTE VTE Prophylaxis Ordered?: Yes Plan #BP instability -trend BP but currently stable #C. Difficile colitis. -Patient tolerating a diet w/o any complaints of abdominal pain, nausea, vomiting -formed stools mostly though pt states he had an episode of diarrhea last night -Continue his oral vancomycin and start oral taper tomorrow -Taper schedule as follows: --125mg orally BID for 7 days --125mg orally daily for 7days --125mg orally every 2-3days for 2-8weeks -pt has bed at acute rehab facility in [place] #Sacral fracture -PT on board for functional optimization -Patient will need rehab #Hx of Right middle lobe adenocarcinoma s/p Chemotherapy and radiation F/U with Oncology as an outpatient #History of pulmonary embolism. Cont. full strength Lovenox 120 mg daily #Hx of Parkinson disease. Cont Carbidopa-levodopa #Anxiety/Depression Cont Zoloft #DVT Prophylaxis Lovenox Disposition To rehab likely tomorrow if BPs remain stable VS, I&O, 24H, Fishbone Vital Signs/I&O Vital Signs Date Time Temp Pulse Resp B/P (MAP) Pulse Ox O2 Delivery O2 Flow Rate FiO2 11/06/18 12:20 96.7 94 18 146/86 (106) 95 I&O- Last 24 Hours up to 6 AM 11/06/18 06:00 Intake Total 1450 ml Output Total 2460 ml Balance -1010 ml LUZMARIA CONNER MD Nov 06, 2018 13:05
[2018-11-06] MEDS: NS 1,000 ML IV SCH ×2 (14:26)
[2018-11-06] MEDS: IBUPROFEN 400 MG TAB PO PRN (20:27)
[2018-11-06] MEDS: SINEMET**CR** 25/100 TABCR PO SCH (20:27)
[2018-11-06] MEDS: ENOXAPARIN 120 MG/0.8 ML SYR (J1650) SC SCH (20:28)
[2018-11-07] MEDS: VANCOMYCIN ORAL SOL 250MG/5ML ORAL SYRINGE PO SCH ×5 (00:45→23:58)
[2018-11-07 04:00] VITALS: BP 151/83
[2018-11-07] MEDS: NS 1,000 ML IV SCH ×2 (04:00→20:28)
[2018-11-07] MEDS: SINEMET 25-100 MG TAB PO SCH ×4 (05:03→17:00)
--- NOTE | 2018-11-07 08:07 | IPNPDOC ---
Date Seen The patient was seen on 11/07/18. Progress Note Subjective Patient seen and examined at bedside. Pt has not had any loose stools, currently tolerating his diet without nausea or vomiting. No fever, or chills. no constipation. sleeping well. still c/o weakness, but cooperative and says he walks with physical therapy with his walker. He has a two story residence and lives with his , and says he was "normal" and able to do things prior to being admitted. He has had a left knee replacement, and is usually ambulatory at home. Despite bp of 157/107 at the bedside, which is being rechecked manually, pt denies any headache, changes in vision, sob, chest pressure, tightness, dizziness, or lightheadedness. Objective Physical Examination vitals: please see below General Exam: Positive: Alert, Cooperative, No Acute Distress, Other (laying in bed; slight tremor; at bedside) Chest Exam: Positive: Clear to auscultation, Normal air movement Heart Exam: Positive: Rate Normal, Normal S1, Normal S2 Abdomen Exam: Positive: Normal bowel sounds, Soft; Negative: Tenderness Extremity Exam: Positive: Normal pulses; Negative: Edema Neuro Exam: Positive: Normal Speech Psych Exam: Positive: Mental status NL, Mood NL, Oriented x 3 LABORATORY DATA, IMAGING STUDIES, MICROBIOLOGY: REVIEWED, PLS SEE BELOW Assessment/Plan Narinder Kapadia is a 78-year-old. 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 Pt treated with oral vancomycin for recurrent C. diff with improvement in stools. Pt now on day 14 of treatment for recurrent C. diff. Pt also noted to have a sacral fracture on CT undergoing PT. Plan had been to discharge pt now that diarrhea had improved but pt had episode of hypotension which responded to fluids and then rapidly hypertension to SBP 200's requiring IV hydral. Due to BP instability pt held to stabilize BPs. Pt has remained stable with little BP intervention and controlled BP. Suspect pt can be discharged on oral vanc taper HTN -asymptomatic -Despite bp of 157/107 at the bedside, which is being rechecked manually, pt denies any headache, changes in vision, sob, chest pressure, tightness, dizziness, or lightheadedness. -bp meds with holding parameters. C. Difficile colitis. -Patient tolerating a diet w/o any complaints of abdominal pain, nausea, vomiting -formed stools mostly though pt states he had an episode of diarrhea last night -Continue his oral vancomycin and start oral taper tomorrow -Taper schedule as follows: --125mg orally BID for 7 days --125mg orally daily for 7days --125mg orally every 2-3days for 2-8weeks -pt has bed at acute rehab facility in [place] Sacral fracture -PT on board for functional optimization -Patient will need rehab Hx of Right middle lobe adenocarcinoma s/p Chemotherapy and radiation F/U with Oncology as an outpatient History of pulmonary embolism. Cont. full strength Lovenox 120 mg daily Hx of Parkinson disease. Cont Carbidopa-levodopa Anxiety/Depression Cont Zoloft #DVT Prophylaxis Lovenox [facility] if [facility]. VS, I&O, 24H, Fishbone Vital Signs/I&O Vital Signs Date Time Temp Pulse Resp B/P (MAP) Pulse Ox O2 Delivery O2 Flow Rate FiO2 11/07/18 04:00 96.6 85 18 151/83 (105) 93 I&O- Last 24 Hours up to 6 AM 11/07/18 06:00 Intake Total 1640 ml Output Total 1455 ml Balance 185 ml MARY MORAN MD Nov 07, 2018 08:07
[2018-11-07] MEDS ORDERED: BOUDPST TOP (08:11)
[2018-11-07] MEDS ORDERED: AMLO5TAB6 PO (08:11)
[2018-11-07] MEDS ORDERED: FIRV50SO PO (08:11)
[2018-11-07] MEDS ORDERED: RISATAB3 PO (08:11)
[2018-11-07 08:51] VITALS: BP 142/88
[2018-11-07] MEDS: amLODIPine 5 MG TAB PO SCH ×2 (09:07→20:27)
[2018-11-07] MEDS: ASPIRIN 325 MG TAB PO SCH (09:07)
[2018-11-07] MEDS: LACTOBACILLUS ACIDOPHILUS CAP (BACID) PO SCH ×3 (09:07→17:00)
[2018-11-07] MEDS: BOUDREAUX'S BUTT PASTE TOP SCH ×3 (09:08→20:27)
[2018-11-07] MEDS: SERTRALINE HCL 25 MG TABLET PO SCH (09:08)
[2018-11-07 14:39] VITALS: BP 138/82
[2018-11-07] MEDS ORDERED: ALPRAZolam 0.25 MG TAB PO PRN (15:00)
[2018-11-07] MEDS ORDERED: ALPRAZolam 0.25 MG TAB PO ONE (15:00)
[2018-11-07 16:00] VITALS: BP 153/96
[2018-11-07 20:00] VITALS: BP 166/96
[2018-11-07] MEDS: SINEMET**CR** 25/100 TABCR PO SCH (20:27)
[2018-11-07] MEDS: ENOXAPARIN 120 MG/0.8 ML SYR (J1650) SC SCH (20:27)
[2018-11-07] MEDS: IBUPROFEN 400 MG TAB PO PRN (20:32)
[2018-11-07 23:59] VITALS: BP 147/76
[2018-11-08] MEDS: VANCOMYCIN ORAL SOL 250MG/5ML ORAL SYRINGE PO SCH (06:14)
[2018-11-08] MEDS: SINEMET 25-100 MG TAB PO SCH ×2 (06:14→09:14)
[2018-11-08 07:07] LABS: HEMATOCRIT 31.5 % (42.0-52.0); HEMOGLOBIN 10.1 g/dl (13.5-17.5); MEAN CORPUSCULAR HEMOGLOBIN 31.4 pg (27.0-33.0); MEAN CORPUSCULAR HGB CONC 32.1 g/dl (32.0-36.5); MEAN CORPUSCULAR VOLUME 97.8 fl (80.0-96.0); PLATELET COUNT, AUTOMATED 263 10^3/uL (150-450); RED BLOOD COUNT 3.22 10^6/uL (4.30-6.10); WHITE BLOOD COUNT 5.7 10^3/uL (4.0-10.0)
[2018-11-08 07:31] LABS: ALBUMIN 2.1 GM/DL (3.2-5.2); ALT/SGPT 6 U/L (12-78); BILIRUBIN,TOTAL 0.2 MG/DL (0.2-1.0); BLOOD UREA NITROGEN 17 MG/DL (7-18); CALCIUM LEVEL 7.8 MG/DL (8.8-10.2); CARBON DIOXIDE LEVEL 29 MEQ/L (21-32); CHLORIDE LEVEL 108 MEQ/L (98-107); CREATININE FOR GFR 0.92 MG/DL (0.70-1.30); GLOMERULAR FILTRATION RATE > 60.0 (>42); GLUCOSE, FASTING 79 MG/DL (70-100); MAGNESIUM LEVEL 1.8 MG/DL (1.8-2.4); POTASSIUM SERUM 4.1 MEQ/L (3.5-5.1); SODIUM LEVEL 141 MEQ/L (136-145); TOTAL PROTEIN 5.3 GM/DL (6.4-8.2)
[2018-11-08] MEDS ORDERED: XANA0.25 PO (07:51)
[2018-11-08 08:42] VITALS: BP 122/70
[2018-11-08 09:00] VITALS: BP 122/70
[2018-11-08] MEDS: BOUDREAUX'S BUTT PASTE TOP SCH (09:00)
[2018-11-08] MEDS: amLODIPine 5 MG TAB PO SCH (09:00)
[2018-11-08] MEDS: ASPIRIN 325 MG TAB PO SCH (09:14)
[2018-11-08] MEDS: LACTOBACILLUS ACIDOPHILUS CAP (BACID) PO SCH (09:14)
[2018-11-08] MEDS: SERTRALINE HCL 25 MG TABLET PO SCH (09:14)
[2018-11-08] MEDS: IBUPROFEN 400 MG TAB PO PRN (09:17)
--- NOTE | 2018-11-08 11:02 | DS.PDOC ---
Discharge Summary General Date of Admission Oct 23, 2018 at 14:55 Date of Discharge November 08, 2018 Discharge Summary DISCHARGE DIAGNOSES: HTN C. Difficile colitis. Sacral fracture Hx of Right middle lobe adenocarcinoma History of pulmonary embolism. Hx of Parkinson disease. Anxiety/Depression DISCHARGE MEDICATIONS: PLS SEE BELOW HISTORY OF PRESENTING ILLNESS: Narinder Kapadia is a 78-year-old. 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 Pt treated with oral vancomycin for recurrent C. diff with improvement in stools. Pt now on day 14 of treatment for recurrent C. diff. Pt also noted to have a sacral fracture on CT undergoing PT. Plan had been to discharge pt now that diarrhea had improved but pt had episode of hypotension which responded to fluids and then rapidly hypertension to SBP 200's requiring IV hydral. Due to BP instability pt held to stabilize BPs. Pt has remained stable with little BP intervention and controlled BP. Suspect pt can be discharged on oral vanc taper HOSPITAL COURSE: HTN -asymptomatic -Despite bp of 157/107 at the bedside, which is being rechecked manually, pt denies any headache, changes in vision, sob, chest pressure, tightness, dizziness, or lightheadedness. -bp meds with holding parameters. C. Difficile colitis. -Patient tolerating a diet w/o any complaints of abdominal pain, nausea, vomiting -formed stools mostly though pt states he had an episode of diarrhea last night -Continue his oral vancomycin and start oral taper tomorrow -Taper schedule as follows: --125mg orally BID for 7 days --125mg orally daily for 7days --125mg orally every 2-3days for 2-8weeks -pt has bed at acute rehab facility in [place] Sacral fracture -PT on board for functional optimization -Patient will need rehab Hx of Right middle lobe adenocarcinoma s/p Chemotherapy and radiation F/U with Oncology as an outpatient History of pulmonary embolism. Cont. full strength Lovenox 120 mg daily Hx of Parkinson disease. Cont Carbidopa-levodopa Anxiety/Depression Cont Zoloft prn xanax DVT Prophylaxis Lovenox Disposition: transfer to [place] [facility] DISCHARGE PHYSICAL EXAMINATION: vitals: please see below General Exam: Positive: Alert, Cooperative, No Acute Distress, Other (laying in bed; slight tremor; at bedside) Chest Exam: Positive: Clear to auscultation, Normal air movement Heart Exam: Positive: Rate Normal, Normal S1, Normal S2 Abdomen Exam: Positive: Normal bowel sounds, Soft; Negative: Tenderness Extremity Exam: Positive: Normal pulses; Negative: Edema Neuro Exam: Positive: Normal Speech Psych Exam: Positive: Mental status NL, Mood NL, Oriented x 3 LABORATORY DATA, IMAGING STUDIES, MICROBIOLOGY: REVIEWED, PLS SEE BELOW TIME SPENT ON DISCHARGE: 32 MINUTES. Vital Signs/I&Os Vital Signs Date Time Temp Pulse Resp B/P (MAP) Pulse Ox O2 Delivery O2 Flow Rate FiO2 11/08/18 09:00 90 122/70 11/08/18 08:42 97.3 19 100 I&O- Last 24 Hours up to 6 AM 11/08/18 06:00 Intake Total 3150 ml Output Total 2850 ml Balance 300 ml Laboratory Data Labs 24H Laboratory Tests 2 11/08/18 06:55: Nucleated Red Blood Cells % (auto) 0.0, Anion Gap 4L, Glomerular Filtration Rate > 60.0, Blood Urea Nitrogen 17, Creatinine 0.92, Sodium Level 141, Potassium Level 4.1, Chloride Level 108H, Carbon Dioxide Level 29, Calcium Level 7.8L, Aspartate Amino Transf (AST/SGOT) 14, Alanine Aminotransferase (ALT/SGPT) 6L, Alkaline Phosphatase 91, Total Bilirubin 0.2, Total Protein 5.3L, Albumin 2.1L, Magnesium Level 1.8, Albumin/Globulin Ratio 0.66L CBC/BMP Laboratory Tests 11/08/18 06:55 Red Blood Count 3.22 L, Mean Corpuscular Volume 97.8 H, Mean Corpuscular Hemoglobin 31.4, Mean Corpuscular Hemoglobin Concent 32.1, Red Cell Distribution Width 14.1, Calcium Level 7.8 L, Aspartate Amino Transf (AST/SGOT) 14, Alanine Aminotransferase (ALT/SGPT) 6 L, Alkaline Phosphatase 91, Total Bilirubin 0.2, Total Protein 5.3 L, Albumin 2.1 L Discharge Medications Scheduled Amlodipine Besylate (Amlodipine Besylate) 5 Mg Tablet, 5 MG PO BID Aspirin (Aspirin) 325 Mg Tablet, 650 MG PO DAILY, (Reported) Carbidopa/Levodopa (Carbidopa-Levodopa 25-100 Tab) 1 Each Tablet, 1.5 TAB PO QID, (Reported) 0500,1000,1500,2000 Carbidopa/Levodopa (Carbidopa-Levo ER 25-100 Tab) 1 Each Tablet.er, 1 TAB PO QHS, (Reported) Enoxaparin Sodium (Enoxaparin Sodium) 120 Mg/0.8 Ml Syringe, 120 MG SC QHS, (Reported) L.acidoph/L.bulg/B.bif/S.therm (Debbie-Bid Caplet) 1 Each Tablet, 2 EA PO WM Lactobacillus Rhamnosus GG (Culturelle) 1 Each Capsule, 1 CAP PO DAILY, (Reported) Sertraline HCl (Sertraline HCl) 25 Mg Tablet, 25 MG PO DAILY, (Reported) AT 1200 Tapentadol HCl (Nucynta) 50 Mg Tablet, 50 MG PO BID, (Reported) Vancomycin HCl (Firvanq) 50 Mg/1 Ml Soln.recon, 250 MG PO Q6H Zinc Oxide (Boudreauxs) 16% Oint...g., 0 DOSE TOP TID Scheduled PRN Alprazolam (Xanax) 0.25 Mg Tablet, 0.25 MG PO BIDP PRN for anxiety Ibuprofen (Ibu-200) 200 Mg Tablet, 200 MG PO QID PRN for PAIN, (Reported) Allergies Coded Allergies: codeine (Verified Adverse Reaction, Unknown, hallucinations, 09/20/18) MARY MORAN MD Nov 08, 2018 11:02
== END 2018-11-08 10:19 | disposition home or self-care (01) | DRG 372 ==
LOC: M ED 11:11 → EDBD 11:11 → M ED INP 14:55 → M MSPAV 18:44 → M ICU 11-04 17:25 → M PCU 11-06 12:11
PROVIDERS: ADMIT Hospitalist; ATTEND General Practice
DX: A04.71 Enterocolitis due to Clostridium difficile, recurrent (principal); C34.2 Malignant neoplasm of middle lobe, bronchus or lung; S32.10XA Unspecified fracture of sacrum, initial encounter for closed fracture; I11.9 Hypertensive heart disease without heart failure; Z86.711 Personal history of pulmonary embolism; Z79.01 Long term (current) use of anticoagulants; G20 Parkinson's disease; F41.9 Anxiety disorder, unspecified; F32.9 Major depressive disorder, single episode, unspecified; Z79.82 Long term (current) use of aspirin; Z79.899 Other long term (current) drug therapy; Z88.5 Allergy status to narcotic agent; I95.9 Hypotension, unspecified; W18.30XA Fall on same level, unspecified, initial encounter; Y92.009 Unspecified place in unspecified non-institutional (private) residence as the place of occurrence of the external cause

== ENCOUNTER 2019-02-21 01:46 | Inpatient (IN) | payer MEDICARE ==
[2019-02-21] VITALS (20 sets, daily range): BP systolic 113–143; BP diastolic 64–84
[~2019-02-21] VITALS: Ht 182.9 cm; Wt 79.1 kg
[~2019-02-21 01:46] MED LIST changes: +AMLO5TAB6 PO; +ASPI325T56 PO; +BOUDPST TOP; +CARB1TAB PO; +FIRV50SO PO; +IBUP200T45 PO; +NUCY50TA19 PO; +RISATAB3 PO; +SERT25TA21 PO; -SERT25TA88 PO; +XANA0.25 PO
[2019-02-21] MEDS ORDERED: ACETAMINOPHEN TAB 650MG DOSE (2X325MG) PO ONE (02:00)
[2019-02-21] MEDS ORDERED: IPRATROPIUM 0.5MG/ALBUTEROL 2.5MG INH SOL UD 3ML (DUONEB)(J7620) NEB ONE (02:15)
[2019-02-21] MEDS ORDERED: ISOVUE-370 76% 100ML VIAL (Q9967) As Ordered ONE (02:24)
[2019-02-21 02:30] LABS: BASO % 0.1 % (0.0-1.0); EOS # 0.1 10^3/uL (0.0-0.5); EOS % 0.6 % (0.0-3.0); HEMATOCRIT 35.2 % (42.0-52.0); HEMOGLOBIN 10.8 g/dl (13.5-17.5); LYMPH % 1.6 % (24.0-44.0); MEAN CORPUSCULAR HEMOGLOBIN 28.6 pg (27.0-33.0); MEAN CORPUSCULAR HGB CONC 30.7 g/dl (32.0-36.5); MEAN CORPUSCULAR VOLUME 93.1 fl (80.0-96.0); MONO # 0.3 10^3/uL (0.0-0.8); MONO % 2.3 % (0.0-5.0); NEUTROPHILS # 12.4 10^3/uL (1.5-8.5); NEUTROPHILS % 94.9 % (36.0-66.0); PLATELET COUNT, AUTOMATED 197 10^3/uL (150-450); RED BLOOD COUNT 3.78 10^6/uL (4.30-6.10); WHITE BLOOD COUNT 13.1 10^3/uL (4.0-10.0)
[2019-02-21 02:44] LABS: LYMPH # 0.2 10^3/uL (1.5-5.0)
[2019-02-21] MEDS ORDERED: MIDO2.5T (02:50)
[2019-02-21] MEDS ORDERED: PRED10TA2 (02:50)
[2019-02-21] MEDS ORDERED: PROAAER10 (02:50)
--- NOTE | 2019-02-21 02:53 | REPVR ---
PROCEDURE INFORMATION: Exam: CT Angiography Chest With Contrast Exam date and time: 02/21/2019 2:18 AM Clinical history: 78 years old, male; Condition or disease; Lung condition and disease; Cancer of the lung; Right; Unspecified; Additional info: SOB, known lung CA, right sided pleural effusion on cxr TECHNIQUE: Imaging protocol: Computed tomographic angiography of the chest with intravenous contrast. 3D rendering: MIP reconstructed images were created and reviewed. Radiation optimization: All CT scans at this facility use at least one of these dose optimization techniques: automated exposure control; mA and/or kV adjustment per patient size (includes targeted exams where dose is matched to clinical indication); or iterative reconstruction. Contrast material: ISO; Contrast volume: 75 ml; Contrast route: AC; COMPARISON: CT ANGIO CHEST 09/20/2018 6:52 PM FINDINGS: Tubes, catheters and devices: Left Port-A-Cath extending to the proximal to mid superior vena cava. Pulmonary arteries: The main pulmonary artery measures 30 mm. Poor opacification of the pulmonary arteries, probably a reflection of the delayed venous bolus delivery. Pulmonary embolism is not excluded. Aorta: The ascending thoracic aorta measures 37 mm. 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 Lungs: Minimal patchy bilateral pulmonary infiltrates with mild areas of atelectasis or consolidation, greatest in the right middle lobe where there appears to be complete atelectasis or consolidation. Pleural space: Moderate right pleural effusion. Heart: Unremarkable. No cardiomegaly. No pericardial effusion. Kidneys and ureters: There are multiple bilateral renal cysts measuring up to 8.0 cm on the left. Lymph nodes: Unremarkable. No enlarged lymph nodes. Bones/joints: Unremarkable. No acute fracture. Soft tissues: Unremarkable. IMPRESSION: 1. Moderate right pleural effusion with minimal patchy bilateral pulmonary infiltrates and areas of atelectasis or consolidation, greatest in the right middle lobe. 2. Left Port-A-Cath in position to the proximal to mid superior vena cava. 3. Occlusion of the left subclavian vein. With left-sided injection, there is extensive collateralization about the spine and neck with delayed bolus. There is poor opacification of the pulmonary arteries and pulmonary embolism is not excluded. Electronically signed by: Dwayne Nugent On 02/21/2019 02:52:34 AM
[2019-02-21 03:01] LABS: BLOOD UREA NITROGEN 34 MG/DL (7-18); CALCIUM LEVEL 7.9 MG/DL (8.8-10.2); CARBON DIOXIDE LEVEL 28 MEQ/L (21-32); CHLORIDE LEVEL 108 MEQ/L (98-107); CPK CREATINE PHOSPHOKINASE 29 U/L (39-308); CREATININE FOR GFR 1.12 MG/DL (0.70-1.30); GLOMERULAR FILTRATION RATE > 60.0 (>42); GLUCOSE, FASTING 115 MG/DL (70-100); MB/CK RELATIVE INDEX 3.45 (< OR =4); NT-PRO BNP 641 PG/ML (<450); SODIUM LEVEL 142 MEQ/L (136-145); TROPONIN I 0.17 NG/ML (< 0.10)
[2019-02-21 03:35] LABS: INR 1.16; PARTIAL THROMBOPLASTIN TIME 30.4 SECONDS (25.0-38.4); PROTHROMBIN TIME 14.6 SECONDS (11.8-14.0)
[2019-02-21] MEDS ORDERED: PIPERACILLIN/TAZOBACTAM SOD 3.375 GM in D5W MINI-BAG PLUS 50 ML IV ONE (03:45)
[2019-02-21] MEDS ORDERED: PRED10TA2 PO (04:48)
[2019-02-21] MEDS ORDERED: PROAAER10 INH (04:48)
[2019-02-21] MEDS ORDERED: ALBU83IN INH (04:48)
[2019-02-21] MEDS ORDERED: MIDO2.5T PO (04:48)
[2019-02-21 04:50] LABS: MAGNESIUM LEVEL 1.6 MG/DL (1.8-2.4)
--- NOTE | 2019-02-21 05:19 | HPEPDOC ---
[facility] Medical History & Physical Date of Admission Feb 21, 2019 Date of Service: Feb 21, 2019 Other Provider Patrick Crawford Attending Physician: FARIHA WHYTE MD History and Physical CHIEF COMPLAINT: SOB HISTORY OF PRESENT ILLNESS: Narinder Kapadia is a 78 YO M with history of adeno carcinoma of the lung s/p chemotherapy in September 2018 and recent radiation performed in [place] who presents with several hours shortness of breath and difficulty laying flat. He recently had a right-sided pleural effusion drained in [place] 5 days ago and states he feels as though the fluid has reaccumulated at this time. He has felt febrile, has had chills and reports he has had a cough sometimes productive of clear sputum but denies any recent illnesses, sick contacts, nausea, vomiting or diarrhea. He just finished his last radiation treatment earlier this week. Of note, he recently had left knee surgery and has been immobile since December 2018. He gets all of his cancer treatment and o rthopedic care done in [place]. In the ED he was found to be febrile at 101.3 and somewhat tachycardic at 116. He does use oxygen at home, 4 L, and has been saturating in the low 90s at 4 L. He was given 1 dose of Zosyn and hospitalist service was called to admit him for further workup. REVIEW OF SYSTEMS: CONSTITUTIONAL: Reports some subjective fevers and chills HEENT: denies vision changes, no sinus problems, denies any trouble swallowing CARDIOVASCULAR: no palpitations RESPIRATORY: Reports shortness of breath, difficulty laying flat GENITOURINARY: No dysuria MUSCULOSKELETAL: Denies any joint/muscle pain GASTROINTESTINAL: Reports some abdominal pain SKIN: No new rashes or lesions NEUROLOGICAL: No loss of sensation PSYCHIATRIC: Reports normal mood, no delusions or hallucinations ENDOCRINE: No hot/cold intolerance HEMATOLOGIC/LYMPHATIC: No easy bruising, no lumps/bumps ALLERGIC/IMMUNOLOGIC: No sinus symptoms PAST MEDICAL HISTORY: 1. Parkinson Disease 2. R sacral/low back pain 3. HTN 4. History of PE 5. R middle lobe adenocarcinoma of lung 6. Hx recurrent C. Dif 7. Chronic oxygen dependent respiratory failure use at home (4L) PAST SURGICAL HISTORY: 1. Colonoscopy January 2010 with only hyperplastic polyp found. 2. Colonoscopy 12/2006 with adenomatous polyp on biopsy. 3. Recent left knee surgery SOCIAL HISTORY: Never smoker. Occasional alcohol FAMILY HISTORY: Heart disease in both parents ALLERGIES: Please see below. HOME MEDICATIONS: Please see below. PHYSICAL EXAMINATION: VITAL SIGNS: Please see below. GENERAL APPEARANCE: Laying in bed, appears stated age, appears to have difficulty breathing, using abdominal muscles HEENT: EOMI, PERRLA, neck is supple with no thyromegaly or lymphadenopathy RESPIRATORY: There are decreased breath sounds diffusely, rhonchi are heard in all lobes, positive E to a egophony CARDIOVASCULAR: Mildly elevated JVD, RRR, no murmurs/rubs/gallops ABDOMEN: Soft, nontender to palpation in all four quadrants, no masses/organomegaly EXTREMITIES: There is 1+ pitting edema in lower extremities bilaterally NEUROLOGICAL: No obvious focal deficits PSYCHIATRIC: normal mood/affect Skin: No rashes or ulcers. LN: No significant cervical or inguinal lymphadenopathy LABORATORY DATA: See below. IMAGING: CTA: IMPRESSION: 1. Moderate right pleural effusion with minimal patchy bilateral pulmonary infiltrates and areas of atelectasis or consolidation, greatest in the right middle lobe. 2. Left Port-A-Cath in position to the proximal to mid superior vena cava. 3. Occlusion of the left subclavian vein. With left-sided injection, there is extensive collateralization about the spine and neck with delayed bolus. There is poor opacification of the pulmonary arteries and pulmonary embolism is not excluded. CXR pending read MICROBIOLOGY: Please see below. ASSESSMENT: This is a 78-year-old male with history of adenocarcinoma of the right middle lobe, status post chemotherapy and radiation who presents with shortness of breath, found to have a moderate size right pleural effusion with minimal patchy bilateral pulmonary infiltrates and questionable occlusion of the left subclavian vein. PLAN: 1. Sepsis: -Patient meets sepsis criteria, as he was febrile, tachycardic, tachypnea and has elevated WBC. -Suspected source of infection is post obstructive pneumonia as a considerable amount of infiltrates were found on CT chest -Will start empiric antibiotics IV Zosyn -Holding off on IV fluids at this time given pleural effusion and patient appears to be hypervolemic -Lactic acid at 1.1 -Pending RVP, sputum cultures, blood cultures, procalcitonin, influenza 2. SOB: likely 2/2 PNA w recurrent pleural effusion versus less likely PE. - The etiology of the effusion in unknown but most likely malignant 2/2 lung adenocarcinoma in setting of recent radiation. Was last tapped 3 days ago. -Recommend thoracic surgery consult in AM for possible drainage (therapeutic) -Patient has no new oxygen requirement, as he uses 4 L at home and is doing the same here, however, he appears uncomfortable and is using accessory muscles -Questionable occlusion on CTA in subclavian vein and poor opacification of the pulmonary arteries, however, less likely as patient has been on Lovenox at home. He has been recently immobile secondary to recent left knee surgery. May order lower extremity Dopplers for concern for DVT. 3. 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 Turner (oncology) and Dr. Rodriguez (Rad Onc) in [place] and has follow-up planned for this morning. Will need to contact physicians in [place] to discuss prognosis and plan. 4. Anemia: -Hemoglobin found to be 10.8. Based on labs from previous admissions this appears to be his baseline. 5. Elevated troponin Found to be 0.17 -Likely secondary to demand ischemia from hypotension. EKG without changes and patient has no complaint of chest pain at this time -Will trend troponins 6. Elevated BNP: Found to be 641 -Patient has no known history of congestive heart failure. -Likely secondary to fluid overload versus sepsis DVT ppx: Lovenox DISPO: likely home after more than two midnight's stay pending clinical improvement Vital Signs Vital Signs Date Time Temp Pulse Resp B/P (MAP) Pulse Ox O2 Delivery O2 Flow Rate FiO2 02/21/19 03:32 99.6 02/21/19 03:16 108 18 93 Nasal Cannula 4.0 02/21/19 03:15 121/73 (89) Laboratory Data Labs 24H Laboratory Tests 2 02/21/19 02:04: POC pH (Misc Panel) 7.438, POC Base Excess (Misc Panel) 0.0, POC Saturated Percent O2 (Misc) 87L, POC pO2 (Misc Panel) 51.0L, POC pCO2 (Misc Panel) 35.1, POC HCO3 (Misc Panel) 23.7, POC Total CO2 (Misc Panel) 25.0 02/21/19 02:15: POC Total CO2 (Misc Panel) 27.0, POC Glucose (Misc Panel) 119H, POC Sodium (Misc Panel) 139, POC Potassium (Misc Panel) 3.9, POC Chloride (Misc Panel) 105, POC Blood Urea Nitrogen (Misc Panel 33H, POC Ionized Calcium (Misc Panel) 4.6, POC Creatinine (Misc Panel) 1.1, POC Hematocrit (Misc Panel) 33.0L 02/21/19 02:19: Immature Granulocyte % (Auto) 0.5, Neutrophils (%) (Auto) 94.9H, Lymphocytes (%) (Auto) 1.6L, Monocytes (%) (Auto) 2.3, Eosinophils (%) (Auto) 0.6, Basophils (%) (Auto) 0.1, Neutrophils # (Auto) 12.4H, Lymphocytes # (Auto) 0.2L, Monocytes # (Auto) 0.3, Eosinophils # (Auto) 0.1, Basophils # (Auto) 0.0, Nucleated Red Blood Cells % (auto) 0.0, Anion Gap 6L, Glomerular Filtration Rate > 60.0, Calcium Level 7.9L, Total Creatine Kinase 29L, Creatine Kinase MB 1.0, Creatine Kinase MB Relative Index 3.45, Troponin I 0.17H, JI-Xzq-X-Type Natriuretic Peptide 641H 02/21/19 02:20: Lactic Acid Level 1.1 02/21/19 03:18: Prothrombin Time 14.6H, Prothromb Time International Ratio 1.16, Activated Partial Thromboplast Time 30.4 CBC/BMP Laboratory Tests 02/21/19 02:19 Microbiology Microbiology 02/21/19 Blood Culture, Received Pending 02/21/19 Respiratory Virus Panel (PCR) ([facility]), Received Pending 02/21/19 Blood Culture, Received Pending Home Medications Scheduled Carbidopa/Levodopa (Carbidopa-Levodopa 25-100 Tab) 1 Each Tablet, 1 TAB PO QID 0500, 0900, 1300, 1700 Carbidopa/Levodopa (Carbidopa-Levo ER 25-100 Tab) 1 Each Tablet.er, 1 TAB PO QHS Enoxaparin Sodium (Enoxaparin Sodium) 120 Mg/0.8 Ml Syringe, 120 MG SC DAILY Lactobacillus Rhamnosus GG (Culturelle) 1 Each Capsule, 1 CAP PO DAILY Midodrine HCl (Midodrine HCl) 2.5 Mg Tablet, 2.5 MG PO DAILY Prednisone (Prednisone) 10 Mg Tablet, 20 MG PO DAILY STATES THERE ARE 4 MORE DOSES LEFT Sertraline HCl (Sertraline HCl) 25 Mg Tablet, 25 MG PO DAILY Scheduled PRN Albuterol Sulf (Albuterol Sulfate) 2.5 Mg/3 Ml Vial.neb, 2.5 MG INH Q6H PRN for SHORTNESS OF BREATH Albuterol Sulfate (Proair Hfa) 8.5 Gm Hfa.aer.ad, 2 PUFF INH Q6H PRN for WHEEZING Allergies Coded Allergies: codeine (Verified Adverse Reaction, Unknown, hallucinations, 09/20/18) A-FIB/CHADSVASC A-FIB History Current/History of A-Fib/PAF?: No GME ATTESTATION GME ATTESTATION My faculty preceptor for this patient encounter was physically present during the encounter and was fully available. All aspects of the patient interview, examination, medical decision making process, and medical care plan development were reviewed and approved by the faculty preceptor. The faculty preceptor is aware and concurs with the plan as stated in the body of this note and will attest to such by his/her cosignature. ATTENDING NOTE I examined at 530 AM, discussed the case with and agree with the findings as documented. BRANDY DAY MD Feb 21, 2019 03:55 FARIHA WHYTE MD Feb 21, 2019 05:51
[2019-02-21] MEDS: SINEMET 25-100 MG TAB PO SCH ×4 (06:10→16:31)
[2019-02-21] MEDS: ASPIRIN 81 MG CHEW TABLET PO ONE ×2 (06:12→06:23)
[2019-02-21 06:29] LABS: HEMATOCRIT 34.6 % (42.0-52.0); HEMOGLOBIN 10.6 g/dl (13.5-17.5); MEAN CORPUSCULAR HEMOGLOBIN 28.6 pg (27.0-33.0); MEAN CORPUSCULAR HGB CONC 30.6 g/dl (32.0-36.5); MEAN CORPUSCULAR VOLUME 93.3 fl (80.0-96.0); PLATELET COUNT, AUTOMATED 200 10^3/uL (150-450); RED BLOOD COUNT 3.71 10^6/uL (4.30-6.10); WHITE BLOOD COUNT 16.1 10^3/uL (4.0-10.0)
[2019-02-21 06:55] LABS: ALBUMIN 2.4 GM/DL (3.2-5.2); ALT/SGPT 12 U/L (12-78); BILIRUBIN,TOTAL 0.4 MG/DL (0.2-1.0); BLOOD UREA NITROGEN 31 MG/DL (7-18); CALCIUM LEVEL 8.5 MG/DL (8.8-10.2); CARBON DIOXIDE LEVEL 28 MEQ/L (21-32); CHLORIDE LEVEL 109 MEQ/L (98-107); GLOMERULAR FILTRATION RATE > 60.0 (>42); GLUCOSE, FASTING 145 MG/DL (70-100); POTASSIUM SERUM 4.1 MEQ/L (3.5-5.1); SODIUM LEVEL 141 MEQ/L (136-145)
[2019-02-21] MEDS: IPRATROPIUM 0.5MG/ALBUTEROL 2.5MG INH SOL UD 3ML (DUONEB)(J7620) INH SCH ×5 (07:49→23:44)
--- NOTE | 2019-02-21 08:56 | REP ---
Portable chest x-ray: Single view. History: Dyspnea and cough. History of lung cancer. Comparison chest x-ray October 23, 2018. Findings: There is a large area of increased density in the distribution of the right middle lobe. The right middle lobe infiltrate was noted October 23, 2018. This has progressed or recurred and is more prominent today. I cannot exclude neoplastic disease. There is elevation right hemidiaphragm and blunting of the right lateral pleural angle. A left subclavian [id number] catheter is seen along with oxygen delivery tubing and monitoring electrodes. The left lung is clear. Heart is not felt to be enlarged. Impression: Progressive and/or recurrent infiltrate versus mass right middle lobe distribution. Elevated right hemidiaphragm and blunted right pleural angle. Electronically Signed by Aubrey Floyd MD 02/21/2019 10:14 A
[2019-02-21] MEDS ORDERED: ENOXAPARIN 40 MG/0.4 ML SYRINGE (J1650) SC SCH (09:00)
[2019-02-21] MEDS: SERTRALINE HCL 25 MG TABLET PO SCH (09:12)
[2019-02-21] MEDS: PIPERACILLIN/TAZOBACTAM SOD 3.375 GM in D5W MINI-BAG PLUS 50 ML IV SCH ×3 (10:28→22:01)
--- NOTE | 2019-02-21 16:09 | RO ---
DATE OF PROCEDURE: 02/21/2019 PROCEDURE: Right ultrasound-guided thoracentesis. PROCEDURISTS: Dr. Alex Mcbride PREOPERATIVE DIAGNOSIS: Right pleural effusion. POSTOPERATIVE DIAGNOSIS: Right pleural effusion. ANESTHESIA: 1% lidocaine introduced subcutaneously down to level of the pleura. DESCRIPTION OF PROCEDURE After time-out was performed identifying correct site, correct position, the patient was placed in the sitting position. Under ultrasound, the largest fluid collection was marked. Again time-out was performed confirming correct site, correct position with two patient identifiers. Chlorhexidine was used to clean the surface and a sterile barrier precaution was placed. 1% lidocaine was then introduced subcutaneously and then down to the level of the pleura. Upon entering the pleura, there was return of dark red fluid. A norberto in the skin was made and the Arrow trocar was advanced into the pleural space. The trocar was removed and the catheter remained. There was drainage of a total of 550 mL of dark red fluid. The drainage was stopped due to decreased return. The catheter was removed under exhalation. A gauze was placed over the site. There were no observed complications. Of note on ultrasound of the posterior chest there was significant irregularity of the lining of the lungs showing studding of what appears to be tissue most consistent with malignancy. There are areas of loculation. Also of note when looking at the patient's back, I ultrasounded where his prior thoracentesis was, his diaphragm is now above that level so suggesting some volume loss on that side. MTDD
[2019-02-21] MEDS: ENOXAPARIN 80 MG/0.8 ML SYRINGE (J1650) SC SCH (16:32)
[2019-02-21 16:33] LABS: PH BODY FLUID 7.513 UNITS (NOT ESTABLISHED); SOURCE, BODY FLUID pH PLEURAL
[2019-02-21 16:40] LABS: APPEARANCE, BODY FLUID TURBID (CLEAR); PLEURAL FL COLOR RED (COLORLESS); SOURCE, BODY FLUID PLEURAL
[2019-02-21 16:51] LABS: AMYLASE, BODY FLUID 37 U/L (NOT ESTABLISHED); CHOLESTEROL, BODY FLUID 105 MG/DL (NOT ESTABLISHED); LDH, BODY FLUID 565 U/L (NOT ESTABLISHED); SOURCE, BODY FLUID ALBUMIN PLEURAL; SOURCE, BODY FLUID AMYLASE PLEURAL; SOURCE, BODY FLUID CHOL PLEURAL; SOURCE, BODY FLUID GLUCOSE PLEURAL; SOURCE, BODY FLUID LDH PLEURAL; SOURCE, BODY FLUID TOT PROTEIN PLEURAL; SOURCE, BODY FLUID TRIG PLEURAL; TRIGLYCERIDE, BODY FLUID 25 MG/DL (NOT ESTABLISHED)
[2019-02-21 17:07] LABS: TOTAL PROTEIN 5.6 GM/DL (6.4-8.2); TROPONIN I 0.18 NG/ML (< 0.10)
--- NOTE | 2019-02-21 17:24 | CR ---
PULMONARY CRITICAL CARE CONSULTATION: 02/21/2019 CHIEF COMPLAINT: Shortness of breath. HISTORY OF PRESENT ILLNESS We were asked by the medicine team for a pulmonary consultation on Mr. Narinder Kapadia who was admitted early this morning with increased dyspnea after several days of dyspnea at home. The patient and his states that his breathing has been progressively getting worse. He has been coughing and has had suspected fever and chills at home. He was febrile in the ER. Workup in the ER included a chest CT that showed a right pleural effusion. The patient does have a history of right middle lobe adenocarcinoma and according to his notes from [facility] where he follows for oncology it was described as a III A T2bN2 adenocarcinoma however, the patient states he recently was treated for a C7 cervical spine metastases therefore indicating that his lung cancer has increased to at least a stage IV. The patient does follow with [facility] for oncology. He states he sees Dr. Albert. He also follows with Dr. Zabala for radiation oncology and according to the patient underwent chemotherapy which ended in August of this year. He had radiation therapy on the chest that ended in August and notes that he just underwent radiation therapy for the C7 cancer from 02/06 to 02/12. Additionally, the patient underwent thoracentesis at [facility] on 02/05/2019. He and his report that they removed 600 mL of fluid. He states he does not know what the pleural fluid studies showed. The patient notes that his breathing has been getting worse prompting him to come to the ER. He reports that he has seen a tank bottom assembler in the past as an outpatient. He states that he was started on albuterol both nebulizer and inhalers in the past which he states have not been helping him at all during his recent dyspnea. He denies any history of smoking. The patient is on supplemental oxygen which he states was ordered by his oncologist and he started this about a week ago. The patient does have a history of pulmonary embolism in July of this year and has been on Lovenox daily as an outpatient. He did get Lovenox which appears to have been a prophylactic dose earlier today. He denies any significant bleeding on the Lovenox. Also with the workup in the ER he was found to have an elevated troponin of 0.17. He denies any chest pain or cardiac symptoms. He was admitted by the hospitalist and started on Zosyn. He does have a history of the C diff colitis, but denies any diarrhea or GI complaints at present time. States his last bowel movement was yesterday and was normal. Denies any blood in his stool or urine. Denies any hemoptysis or hematemesis. REVIEW OF SYSTEMS Gen: The patient notes fevers and chills. Denies any abnormal weight loss. States his appetite has been good. HEENT: The patient denies any double or blurry vision. No epistaxis. Has some difficulty swallowing. Cardiac: The patient denies chest pain or palpitations. Denies paroxysmal nocturnal dyspnea (PND). minimal orthopnea Pulmonary: As noted above. Denies hemoptysis. GI: The patient denies nausea, vomiting, diarrhea, blood in stool. : The patient denies any hematuria. Denies dysuria. No nocturia. Skin: Patient denies any itchy rashes. No skin lesions. Psych: No depression, anxiety, or mood swings heme: no easy bleeding or bruising, has nto required bloos transfusion in sometime. Neuro: The patient has a history of Parkinson's and is on Sinemet. Denies any seizures. Patient denies any loss of bowel or bladder control. Endocrine: The patient denies hot or cold intolerance. No polyuria, polydipsia. allergy/immunology: No history of recurrent infection. No known immunodeficiency. Sleep: No known kath, intermittent snoring but no witnessed apneas. PAST MEDICAL HISTORY Right lung adenocarcinoma previously characterized a stage III A T2bN2, however, with recent C7 metastases then this would be considered a stage IV cancer. The patient has undergone chemotherapy and radiation therapy for the lung cancer. He has also recently underwent radiation therapy to the C7 lesion. History of pulmonary embolism (PE), on anticoagulation therapy with Lovenox. History of hypertension/history of hypotension. The patient is on midodrine as an outpatient. History of recurrent C diff. Parkinson's disease. SOCIAL HISTORY The patient is a lifelong nonsmoker. He denies alcohol or drug use. He lives with his . 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 He is uncertain if he has had any chemical exposures in the past with his job. FAMILY HISTORY The patient's mother from breast cancer. The patient's father from throat cancer. The patient's brother from esophageal cancer. ALLERGIES: CODEINE. MEDICATIONS - Midodrine 2.5 mg daily - prednisone 10 mg twice a day times 10 days, although it is unclear as to how many days of prednisone he has had. - Sinemet 25 mg five times a day - Sertraline 25 mg daily - Lovenox 120 mg subcutaneous daily PHYSICAL EXAMINATION Vitals: Temperature 97.2. T-max at 02:00 a.m. was 101.3. Pulse 96, respiratory rate 26, blood pressure 132/79, pulse oximetry 98% on 4 liters by nasal cannula. General: The patient is alert and oriented. He is seen in the ICU. He does speak in complete sentences and does have a significant tremor. HEENT: Head is normocephalic, atraumatic. Moist mucous membranes. Pupils are equal and react to light. Tongue is midline. Neck: Neck is supple. No cervical lymphadenopathy. No jugular venous distention (JVD). Heart: Regular rate and rhythm. S1, S2. No murmurs. Pulmonary: Rhonchi noted on the left. Right side was dull to percussion, decreased tactile fremitus on the right. Abdomen: Positive bowel sounds, soft, nontender. No rebound or guarding. No obvious hepatosplenomegaly. Extremities: Trace bilateral lower extremity edema. Skin: Warm and dry with no rashes or areas of erythema. Neuro: The patient has a tremor. LABORATORY DATA WBC 16.1, hemoglobin 10.6, hematocrit 34.6, platelets 200. Sodium 141, potassium 4.1, chloride 109, carbon dioxide 28, BUN 31, creatinine 1.20, glucose 145, calcium 8.5, total bili 0.4, AST 14, ALT is 12, alk phos 80, total protein 6.0, albumin 2.4. Procalcitonin was 3.05. BNP at 02:00 a.m. was 641. Troponin I at 02:00 a.m. was 0.17. Blood culture pending times two. Respiratory virus panel was negative. Chest CT shows right pleural effusion. EKG done in the ER shows sinus tachycardia. ASSESSMENT/PLAN 1. Pleural effusion. The patient has pleural effusion. This appears to be recurrent as he did have a prior pleural effusion that required thoracentesis that was done at [facility] on February 05. We do not have the lab reports on that pleural fluid. We will try to obtain those pleural fluid results from [facility]. For now, the patient will undergo thoracentesis now. We will obtain pleural fluid studies with that thoracentesis. The patient unfortunately did get Lovenox this morning, however, it appears that it was just a prophylactic dose and not his full normal dose that he takes at home. The etiology of the pleural effusion could be due to his malignancy. However could also be infectious as he does have an elevated white count and has had fevers and chills. Therefore, it will be imperative to do thoracentesis. 2. Right lung adenocarcinoma. This appears to be stage IV due to the mets to the spine. His oncologist as well as his radiation oncologist are in [place] and he has been undergoing treatment there with most recent radiation therapy to the spine from 02/06 to 02/12. Prior radiation treatment for the lung cancer ended in August and he underwent chemotherapy that ended in August as well. Certainly, the patient's past malignancy may be the cause of his pleural effusion but as noted we will perform thoracentesis to rule out infectious process. 3. History of PE. The patient is on Lovenox. We will put him back on his therapeutic regular dose of Lovenox after thoracentesis. 4. History of C diff. The patient is currently getting Zosyn. We will add oral vancomycin given his history of recurrent C diff. 5. Parkinson's. The patient is on Sinemet getting his normal dose. We will continue to follow along with this patient. ADDENDUM 02/21/2019 Alex Mcbride DO 04:06 pm I Alex Mcbride personally examined the patient who has a right pleural effusion in the setting of a stage IV malignancy with a history reported by the patient of metastatic disease to the spine with recent radiation. Prior to the thoracentesis I discussed the differential diagnosis with the patient that of it being infection versus malignancy versus secondary to radiation. Although other possibilities remain on the differential, those are the top three. I discussed that even though he did receive Lovenox this morning due to the fact there could be an infected pleural space, this would necessitate more urgent evaluation of the pleural fluid despite his increased risk of bleeding. Fortunately he only received half his usual dose of Lovenox this morning as he was prescribed deep venous thrombosis (DVT) prophylactic dose rather than his full dose for anticoagulation. Pleural fluid did appear to be most consistent with malignancy. I agree with what is outlined by NAM Cabral with the following problems: Right pleural effusion likely malignant related. Will send off her cytology, infectious evaluation and chemistries. I agree with initiating antibiotics due to his elevated white blood cell count. Because he had a history of C diff I have placed him on vancomycin by mouth every 6 hours in order to prevent C diff colitis. He has a history of pulmonary embolism, is on 80 mg. Will put him on 80 mg subcu twice a day while he is here in the hospital. MTDD
[2019-02-21] MEDS: VANCOMYCIN ORAL SOL 250MG/5ML ORAL SYRINGE PO SCH (17:34)
[2019-02-21] MEDS ORDERED: MAG SULF 1GM/100ML (MAG RUN) 1 GM in IV 1 EA IV ONE (18:00)
--- NOTE | 2019-02-21 19:01 | ECGEPIP ---
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
[2019-02-21 19:19] LABS: INFLUENZA A AMPLIFICATION NEGATIVE (NEGATIVE); INFLUENZA B AMPLIFICATION NEGATIVE (NEGATIVE)
[2019-02-21 20:35] LABS: ABG BASE EXCESS 1.4 (-2.0-2.0); ABG HCO3 25.3 MEQ/L (22.0-26.0); ABG O2 SATURATION 99.2 % (95.0-99.0); ABG PARTIAL PRESSURE O2 153.1 mmHg (75.0-100.0); ABG STANDARD HCO3 25.8 MEQ/L (22.0-26.0); ABG TOTAL CO2 26.4 MEQ/L (23.0-31.0); ABG pH (ARTERIAL) 7.452 UNITS (7.350-7.450)
[2019-02-21] MEDS: SINEMET**CR** 25/100 TABCR PO SCH (21:55)
[2019-02-21] MEDS: ACETAMINOPHEN TAB 650MG DOSE (2X325MG) PO PRN (22:03)
[2019-02-22] VITALS (9 sets, daily range): BP systolic 125–145; BP diastolic 74–99
[2019-02-22] MEDS: VANCOMYCIN ORAL SOL 250MG/5ML ORAL SYRINGE PO SCH ×4 (00:30→17:00)
[2019-02-22] MEDS: PIPERACILLIN/TAZOBACTAM SOD 3.375 GM in D5W MINI-BAG PLUS 50 ML IV SCH ×4 (04:23→21:53)
[2019-02-22] MEDS: IPRATROPIUM 0.5MG/ALBUTEROL 2.5MG INH SOL UD 3ML (DUONEB)(J7620) INH SCH ×5 (04:29→20:57)
[2019-02-22 04:33] LABS: HEMOGLOBIN 10.1 g/dl (13.5-17.5); MEAN CORPUSCULAR HEMOGLOBIN 28.4 pg (27.0-33.0); MEAN CORPUSCULAR HGB CONC 30.6 g/dl (32.0-36.5); MEAN CORPUSCULAR VOLUME 92.7 fl (80.0-96.0); PLATELET COUNT, AUTOMATED 204 10^3/uL (150-450); RED BLOOD COUNT 3.56 10^6/uL (4.30-6.10); WHITE BLOOD COUNT 10.9 10^3/uL (4.0-10.0)
[2019-02-22] MEDS: ACETAMINOPHEN TAB 650MG DOSE (2X325MG) PO PRN ×3 (04:46→20:49)
[2019-02-22] MEDS: SINEMET 25-100 MG TAB PO SCH ×4 (04:47→17:00)
[2019-02-22] MEDS: ENOXAPARIN 80 MG/0.8 ML SYRINGE (J1650) SC SCH ×2 (04:47→17:00)
[2019-02-22 04:57] LABS: ALT/SGPT 10 U/L (12-78); BILIRUBIN,TOTAL 0.3 MG/DL (0.2-1.0); BLOOD UREA NITROGEN 30 MG/DL (7-18); CALCIUM LEVEL 7.8 MG/DL (8.8-10.2); CARBON DIOXIDE LEVEL 29 MEQ/L (21-32); CHLORIDE LEVEL 108 MEQ/L (98-107); CREATININE FOR GFR 1.03 MG/DL (0.70-1.30); GLOMERULAR FILTRATION RATE > 60.0 (>42); GLUCOSE, FASTING 99 MG/DL (70-100); POTASSIUM SERUM 4.1 MEQ/L (3.5-5.1); SODIUM LEVEL 142 MEQ/L (136-145)
[2019-02-22 04:58] LABS: ALBUMIN 2.3 GM/DL (3.2-5.2); TOTAL PROTEIN 5.3 GM/DL (6.4-8.2)
[2019-02-22] MEDS: SERTRALINE HCL 25 MG TABLET PO SCH (09:23)
[2019-02-22] MEDS ORDERED: predniSONE 10 MG TAB PO SCH (12:00)
[2019-02-22] MEDS: predniSONE 20 MG TAB PO SCH (12:14)
--- NOTE | 2019-02-22 12:19 | IPN ---
DATE OF SERVICE: 02/22/2019 Mr. Kapadia is now off oxygen doing well, has some pleuritic type chest discomfort on the right side. He does have radiation of pain down his right arm. He states he is unable to take narcotics because this causes hallucinations. There was discussion of starting steroids this morning by the primary physician. I think this may help his pleurisy. Overnight he has had no fever. His cough has improved. His dyspnea has improved and he is now up and out of bed. PHYSICAL EXAMINATION: Temperature is 98.6, pulse is 93, respiratory rate is 26, blood pressure is 145/82. Mean arterial pressure 103, oxygen saturation is 92% on room air. General: He is awake, alert and oriented. Affect and mood are appropriate. Nutrition and hygiene good. HEENT: Nasal mucosa pink, without lesions. Neck: Supple. No tracheal deviation or mass. Lymph: No cervical supraclavicular or axillary adenopathy. Cardiac: Regular S1, S2, somewhat diminished without audible murmur, rub or gallop. Pulmonary: Abnormal breath sounds, bibasilar rales, no rhonchi or wheezes. There is dullness to percussion on the right. Base approximately one-third. Abdomen: Soft, nontender, nondistended. No hepatosplenomegaly, no mass. Extremities: No cyanosis, clubbing or edema. Skin: No rash, jaundice or bruising. Musculoskeletal: Some muscle wasting. No evidence of joint effusion or recent trauma. Neurologic: He has a Parkinson tremor. No unilateral weakness. Laboratory evaluation shows sodium 142, potassium 4.1, chloride 108, bicarb of 29, BUN 30, creatinine 103. White blood cell count is down to 10.9 from 16.1, hemoglobin is 10.1, platelet count of 204. Arterial blood gas obtained last night due to symptoms of tachypnea showed a pH of 7.45, pCO2 of 37, pAO2 of 153, INR of 1.16 yesterday. IMPRESSION: 1. Pleural effusion I suspect from malignancy given the appearance of the fluid. It is an exudative pleural effusion. We are awaiting for culture data and cytology. I did request records from [facility] when they did thoracentesis. There is no fluid analysis at that time. The patient is doing much better. I suspect he had likely a combination of pneumonia and malignant pleural effusion. The source is malignant pleural effusion and I am not sure, especially given his symptoms of pleurisy, that he will have re-expansion of the lung to the chest wall, may or may not be a candidate for a PleurX catheter. He had very little fluid removed both times. Would recommend follow up with his caustic preparer, repeat imaging at intervals to better evaluate whether or not he would benefit from such a procedure. At this point in time, he is doing well. I would consider tentative discharge tomorrow as long as he shows no signs of sepsis. Will continue a course of antibiotics as I believe he did have a pneumonia precipitating his symptoms. Will obtain a chest x-ray in the morning. If you have any further questions or concerns, please feel free to call me. I would directly communicate with Dr. Ellis regarding his pleural effusion. Dr. Ellis should get the results of cytology, the pleural fluid collection and my consultation nodes along with the operative note for the thoracentesis in order for him to have all the available information to help him make decisions from this time on.
[2019-02-22] MEDS: MIDODRINE 2.5 MG TAB PO SCH (13:05)
--- NOTE | 2019-02-22 16:00 | IPNPDOC ---
Subjective Date Seen The patient was seen on 02/22/19. Subjective Chief Complaint/HPI shortness of breath Events since last encounter Pt stated that there is slight improvement in his shortness of breath. Objective Physical Examination General Exam: Positive: Alert, Cooperative, No Acute Distress ENT Exam: Positive: Mucous membr. moist/pink Neck Exam: Positive: Supple Chest Exam: Positive: Other (b/l decresed breath sounds, diffuse rhochi ) Heart Exam: Positive: Rate Normal Abdomen Exam: Positive: Normal bowel sounds, Soft Skin Exam: Positive: Nl turgor and temperature Neuro Exam: Positive: Normal Speech Psych Exam: Positive: Mental status NL Assessment /Plan Assessment 78 y/o M with h/o adenocarcinoma of the right middle lobe, status post chemotherapy and radiation who presents with shortness of breath, found to have a moderate size right pleural effusion with minimal patchy bilateral pulmonary infiltrates and questionable occlusion of the left subclavian vein. labs reviewed. PLAN: 1. Sepsis: improving -Suspected source pneumonia IV Zosyn will f/u sputum cultures, blood cultures 2. SOB: improved likely 2/2 PNA and recurrent pleural effusion 3. Right pleural effusion s/p thoracentesis Pulmonary recommendation appreciated 4. 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 Turner (oncology) and Dr. Rodriguez (Rad Onc) in [place] pt to f/u as scheduled 5. Anemia of chronic disease stable 6. Elevated troponin repeat troponin remained in same range. Most probably related demand ischemia EKG without changes and patient has no complaint of chest pain at this time 7. Elevated BNP: Found to be 641 -Patient has no known history of congestive heart failure. -Likely secondary to fluid overload versus sepsis 8. Chronic hypoxic respiratory failure supplemental O2 DVT ppx: Lovenox Plan/VTE VTE Prophylaxis Ordered?: Yes VS, I&O, 24H, Fishbone Vital Signs/I&O Vital Signs Date Time Temp Pulse Resp B/P (MAP) Pulse Ox O2 Delivery O2 Flow Rate FiO2 02/22/19 12:01 98.4 104 30 125/74 (91) 96 Room Air 02/22/19 04:00 1.0 I&O- Last 24 Hours up to 6 AM 02/22/19 05:59 Intake Total 1160 ml Output Total 2350 ml Balance -1190 ml Laboratory Data 24H LABS Laboratory Tests 2 02/21/19 16:05: Body Fluid pH 7.513, Body Fluid pH Source PLEURAL, Body Fluid WBC (Auto) 1015H, Body Fluid RBC (Auto) 216, Body Fluid Mononuclear Cells % Auto 53.4H, Fluid Polymorphonuclear Cell % Auto 46.6H, Body Fluid Glucose Source PLEURAL, Body Fluid Glucose 119, Body Fluid Protein Source PLEURAL, Body Fluid Total Protein 4.0, Body Fluid Albumin Source PLEURAL, Body Fluid Albumin 2.2, Body Fluid LDH Source PLEURAL, Body Fluid Lactate Dehydrogenase 565, Body Fluid Amylase Source PLEURAL, Body Fluid Amylase 37, Body Fluid Cholesterol 105, Body Fluid Cholesterol Source PLEURAL, Body Fluid Triglyceride Source PLEURAL, Body Fluid Triglycerides 25, Pleural Fluid Source PLEURAL, Pleural Fluid Color RED, Pleural Fluid Appearance TURBID 02/21/19 16:13: Lactate Dehydrogenase 182, Troponin I 0.18H, Total Protein 5.6L 02/21/19 18:29: Influenza Type A (RT-PCR) NEGATIVE, Influenza Type B (RT-PCR) NEGATIVE 02/21/19 20:29: Blood Gas Bicarbonate Standard 25.8, Arterial Blood pH 7.452H, Arterial Blood Partial Pressure CO2 37.0, Arterial Blood Partial Pressure O2 153.1H, Arterial Blood Total CO2 26.4, Arterial Blood HCO3 25.3, Arterial Blood Base Excess 1.4, Arterial Blood Oxygen Saturation 99.2H 02/21/19 22:10: Urine Color YELLOW, Urine Appearance HAZY, Urine pH 5.0, Urine Specific Umbarger 1.038, Urine Protein 1+H, Urine Glucose (UA) NEGATIVE, Urine Ketones TRACEH, Urine Blood 2+H, Urine Nitrite NEGATIVE, Urine Bilirubin NEGATIVE, Urine Urobilinogen 0.2, Urine Leukocyte Esterase TRACEH, Urine WBC (Auto) 13H, Urine RBC (Auto) 11H, Urine Hyaline Casts (Auto) 0, Urine Bacteria (Auto) NEGATIVE, Urine Squamous Epithelial Cells 1, Urine Mucus (Auto) SMALL, Urine Sperm (Auto) 02/22/19 04:08: Nucleated Red Blood Cells % (auto) 0.0, Anion Gap 5L, Glomerular Filtration Rate > 60.0, Calcium Level 7.8L, Magnesium Level 2.0, Total Bilirubin 0.3, Aspartate Amino Transf (AST/SGOT) 10, Alanine Aminotransferase (ALT/SGPT) 10L, Alkaline Phosphatase 64, Total Protein 5.3L, Albumin 2.3L, Albumin/Globulin Ratio 0.77L CBC/BMP Laboratory Tests 02/22/19 04:08 Microbiology Microbiology 02/21/19 Urine Culture, Received Pending 02/21/19 Gram Stain - Final, Resulted 02/21/19 Anaerobic Culture, Resulted Pending 02/21/19 Body Fluid Culture, Received Pending 02/21/19 Acid Fast Stain, Received Pending 02/21/19 Mycobacterial Culture, Received Pending 02/21/19 Fungal Smear, Received Pending 02/21/19 Fungal Culture, Received Pending 02/21/19 Gram Stain - Final, Resulted 02/21/19 Sputum Culture, Resulted Pending 02/21/19 Blood Culture - Preliminary, Resulted No growth after 24 hours . All specim... 02/21/19 Respiratory Virus Panel (PCR) ([facility]) - Final, Complete 02/21/19 Blood Culture - Preliminary, Resulted No growth after 24 hours . All specim... TISH BHATIA MD Feb 22, 2019 16:00
[2019-02-22] MEDS: SINEMET**CR** 25/100 TABCR PO SCH (20:49)
[2019-02-22] MEDS: CALCIUM CARBONATE 500 MG CHEW U/D PO PRN (21:53)
[2019-02-23] VITALS: BP 152/94
[2019-02-23] MEDS: IPRATROPIUM 0.5MG/ALBUTEROL 2.5MG INH SOL UD 3ML (DUONEB)(J7620) INH SCH ×7 (00:12→23:28)
[2019-02-23] MEDS: KETOROLAC 30 MG/ML VIAL (J1885) IV SCH ×4 (00:27→17:00)
[2019-02-23] MEDS: VANCOMYCIN ORAL SOL 250MG/5ML ORAL SYRINGE PO SCH ×4 (00:27→17:19)
[2019-02-23] MEDS: PIPERACILLIN/TAZOBACTAM SOD 3.375 GM in D5W MINI-BAG PLUS 50 ML IV SCH ×4 (03:25→22:21)
[2019-02-23 04:00] VITALS: BP 147/92
[2019-02-23 05:03] LABS: HEMATOCRIT 32.1 % (42.0-52.0); HEMOGLOBIN 9.9 g/dl (13.5-17.5); MEAN CORPUSCULAR HEMOGLOBIN 28.3 pg (27.0-33.0); MEAN CORPUSCULAR HGB CONC 30.8 g/dl (32.0-36.5); MEAN CORPUSCULAR VOLUME 91.7 fl (80.0-96.0); PLATELET COUNT, AUTOMATED 208 10^3/uL (150-450); WHITE BLOOD COUNT 10.1 10^3/uL (4.0-10.0)
[2019-02-23 05:26] LABS: ALBUMIN 2.1 GM/DL (3.2-5.2); ALT/SGPT 8 U/L (12-78); BILIRUBIN,TOTAL 0.3 MG/DL (0.2-1.0); BLOOD UREA NITROGEN 33 MG/DL (7-18); CALCIUM LEVEL 8.2 MG/DL (8.8-10.2); CARBON DIOXIDE LEVEL 28 MEQ/L (21-32); CHLORIDE LEVEL 108 MEQ/L (98-107); CREATININE FOR GFR 1.22 MG/DL (0.70-1.30); GLOMERULAR FILTRATION RATE > 60.0 (>42); GLUCOSE, FASTING 92 MG/DL (70-100); POTASSIUM SERUM 4.2 MEQ/L (3.5-5.1); SODIUM LEVEL 143 MEQ/L (136-145); TOTAL PROTEIN 5.8 GM/DL (6.4-8.2)
--- NOTE | 2019-02-23 06:04 | REPVR ---
PROCEDURE INFORMATION: Exam: XR Chest, 2 Views Exam date and time: 02/23/2019 5:43 AM Clinical history: 78 years old, male; Other: Pleural effusion, pneumonia TECHNIQUE: Imaging protocol: XR of the chest Views: 2 views. COMPARISON: CR PORTABLE CHEST X-RAY 02/21/2019 2:02 AM FINDINGS: Tubes, catheters and devices: A left Port-A-Cath is unchanged in position. Lungs: Slightly increased left base subsegmental atelectasis. Right infrahilar atelectasis or consolidation is unchanged. Pleural space: Slight elevation of right hemidiaphragm with blunting of the right costophrenic angle is unchanged suggesting small pleural effusion. Heart/Mediastinum: The heart and mediastinum are unchanged. Bones/joints: Unremarkable. IMPRESSION: 1. Minimal left base subsegmental atelectasis, slightly increased since 02/21/2019. 2. Otherwise stable chest. Electronically signed by: Dwayne Nugent On 02/23/2019 06:03:42 AM
[2019-02-23] MEDS: ENOXAPARIN 80 MG/0.8 ML SYRINGE (J1650) SC SCH ×2 (06:07→17:20)
[2019-02-23] MEDS: SINEMET 25-100 MG TAB PO SCH ×4 (06:08→17:19)
[2019-02-23 08:00] VITALS: BP 141/81
[2019-02-23] MEDS: MIDODRINE 2.5 MG TAB PO SCH (09:56)
[2019-02-23] MEDS: predniSONE 20 MG TAB PO SCH (09:56)
[2019-02-23] MEDS: SERTRALINE HCL 25 MG TABLET PO SCH (09:56)
[2019-02-23] MEDS: LIDOCAINE 5% (LIDODERM) PATCH TD SCH ×2 (11:45→13:17)
[2019-02-23 12:56] VITALS: BP 133/81
--- NOTE | 2019-02-23 13:57 | IPNPDOC ---
Subjective Date Seen The patient was seen on 02/23/19. Subjective Chief Complaint/HPI shortness of breath Events since last encounter Pt c/o mild right sided chest wall pain and weakness. at bedside. Objective Physical Examination General Exam: Positive: Alert, Cooperative, No Acute Distress ENT Exam: Positive: Mucous membr. moist/pink Neck Exam: Positive: Supple Chest Exam: Positive: Other (b/l decresed breath sounds, diffuse rhochi- improving ) Heart Exam: Positive: Rate Normal Abdomen Exam: Positive: Normal bowel sounds, Soft Skin Exam: Positive: Nl turgor and temperature Neuro Exam: Positive: Normal Speech Psych Exam: Positive: Mental status NL Assessment /Plan Assessment 78 y/o M with h/o adenocarcinoma of the right middle lobe, status post chemotherapy and radiation who presents with shortness of breath, found to have a moderate size right pleural effusion with minimal patchy bilateral pulmonary infiltrates and questionable occlusion of the left subclavian vein. labs reviewed. PLAN: 1. Sepsis: resolved -Suspected source pneumonia IV Zosyn will f/u sputum cultures, blood cultures 2. SOB: resolve was likely 2/2 PNA and recurrent pleural effusion 3. Right pleural effusion s/p thoracentesis Pulmonary recommendation appreciated 4. 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 Turner (oncology) and Dr. Rodriguez (Rad Onc) in [place] pt to f/u as scheduled 5. Anemia of chronic disease stable 6. Elevated troponin repeat troponin remained in same range. Most probably related demand ischemia EKG without changes and patient has no complaint of chest pain at this time 7. Elevated BNP: Found to be 641 -Patient has no known history of congestive heart failure. -Likely secondary to fluid overload versus sepsis 8. Chronic hypoxic respiratory failure supplemental O2 9. Weakness will f/u PT DVT ppx: Lovenox Plan/VTE VTE Prophylaxis Ordered?: Yes VS, I&O, 24H, Fishbone Vital Signs/I&O Vital Signs Date Time Temp Pulse Resp B/P (MAP) Pulse Ox O2 Delivery O2 Flow Rate FiO2 02/23/19 12:56 98.0 102 19 133/81 (98) 97 Nasal Cannula 1.0 I&O- Last 24 Hours up to 6 AM 02/23/19 06:00 Intake Total 1580 ml Output Total 625 ml Balance 955 ml Laboratory Data 24H LABS Laboratory Tests 2 02/23/19 04:24: Nucleated Red Blood Cells % (auto) 0.0, Anion Gap 7L, Glomerular Filtration Rate > 60.0, Calcium Level 8.2L, Magnesium Level 2.0, Total Bilirubin 0.3, Aspartate Amino Transf (AST/SGOT) 8, Alanine Aminotransferase (ALT/SGPT) 8L, Alkaline Phosphatase 63, Total Protein 5.8L, Albumin 2.1L, Albumin/Globulin Ratio 0.57L CBC/BMP Laboratory Tests 02/23/19 04:24 Microbiology Microbiology 02/21/19 Urine Culture - Final, Complete 02/21/19 Gram Stain - Final, Complete 02/21/19 Anaerobic Culture - Final, Complete 02/21/19 Body Fluid Culture - Final, Complete 02/21/19 Acid Fast Stain, Received Pending 02/21/19 Mycobacterial Culture, Received Pending 02/21/19 Fungal Smear, Received Pending 02/21/19 Fungal Culture, Received Pending 02/21/19 Gram Stain - Final, Resulted 02/21/19 Sputum Culture, Resulted Pending 02/21/19 Blood Culture - Preliminary, Resulted No Growth after 48 hours. All Specime... 02/21/19 Respiratory Virus Panel (PCR) ([facility]) - Final, Complete 02/21/19 Blood Culture - Preliminary, Resulted No Growth after 48 hours. All Specime... TISH BHATIA MD Feb 23, 2019 13:57
[2019-02-23 16:00] VITALS: BP 133/74
[2019-02-23 22:00] VITALS: BP 150/88
[2019-02-23] MEDS: **NOTE PATIENT COMMENT** MISC XX SCH (22:14)
[2019-02-23] MEDS: CALCIUM CARBONATE 500 MG CHEW U/D PO PRN (22:21)
[2019-02-23] MEDS: SINEMET**CR** 25/100 TABCR PO SCH (22:21)
[2019-02-23] MEDS: ACETAMINOPHEN TAB 650MG DOSE (2X325MG) PO PRN (22:22)
[2019-02-24] VITALS (7 sets, daily range): BP systolic 123–170; BP diastolic 65–100
[2019-02-24] MEDS: KETOROLAC 30 MG/ML VIAL (J1885) IV SCH ×5 (01:39→23:09)
[2019-02-24] MEDS: VANCOMYCIN ORAL SOL 250MG/5ML ORAL SYRINGE PO SCH ×5 (01:39→23:08)
[2019-02-24] MEDS: IPRATROPIUM 0.5MG/ALBUTEROL 2.5MG INH SOL UD 3ML (DUONEB)(J7620) INH SCH ×5 (02:18→19:41)
[2019-02-24] MEDS: PIPERACILLIN/TAZOBACTAM SOD 3.375 GM in D5W MINI-BAG PLUS 50 ML IV SCH ×4 (03:26→21:38)
[2019-02-24] MEDS: guaiFENesin ER 600 MG TAB PO PRN ×2 (05:57→21:38)
[2019-02-24] MEDS: SINEMET 25-100 MG TAB PO SCH ×4 (05:57→17:03)
[2019-02-24] MEDS: ENOXAPARIN 80 MG/0.8 ML SYRINGE (J1650) SC SCH ×2 (05:57→17:04)
[2019-02-24 07:43] LABS: HEMATOCRIT 31.4 % (42.0-52.0); HEMOGLOBIN 9.7 g/dl (13.5-17.5); MEAN CORPUSCULAR HEMOGLOBIN 28.4 pg (27.0-33.0); MEAN CORPUSCULAR HGB CONC 30.9 g/dl (32.0-36.5); MEAN CORPUSCULAR VOLUME 92.1 fl (80.0-96.0); PLATELET COUNT, AUTOMATED 224 10^3/uL (150-450); RED BLOOD COUNT 3.41 10^6/uL (4.30-6.10); WHITE BLOOD COUNT 7.3 10^3/uL (4.0-10.0)
[2019-02-24 08:04] LABS: BLOOD UREA NITROGEN 31 MG/DL (7-18); CALCIUM LEVEL 8.8 MG/DL (8.8-10.2); CARBON DIOXIDE LEVEL 29 MEQ/L (21-32); CHLORIDE LEVEL 110 MEQ/L (98-107); GLOMERULAR FILTRATION RATE > 60.0 (>42); GLUCOSE, FASTING 79 MG/DL (70-100); POTASSIUM SERUM 4.1 MEQ/L (3.5-5.1); SODIUM LEVEL 143 MEQ/L (136-145)
[2019-02-24 08:05] LABS: ALBUMIN 2.2 GM/DL (3.2-5.2); ALT/SGPT 9 U/L (12-78); BILIRUBIN,TOTAL 0.3 MG/DL (0.2-1.0); TOTAL PROTEIN 5.8 GM/DL (6.4-8.2)
[2019-02-24] MEDS ORDERED: AUGM875T28 PO (08:33)
[2019-02-24] MEDS ORDERED: ACET1TAB55 PO (08:33)
--- NOTE | 2019-02-24 08:35 | DS.PDOC ---
Discharge Summary General Date of Admission Feb 21, 2019 at 03:46 Discharge Summary PROCEDURES PERFORMED DURING STAY: [None]. ADMITTING DIAGNOSES: 1. . DISCHARGE DIAGNOSES: 1. . COMPLICATIONS/CHIEF COMPLAINT: Pneumonia, Sepsis. HISTORY OF PRESENT ILLNESS: .78 YO M with history of adenocarcinoma of the lung s/p chemotherapy in September 2018 and recent radiation performed in [place] who presents with several hours shortness of breath and difficulty laying flat. He recently had a right-sided pleural effusion drained in [place] 5 days ago and states he feels as though the fluid has reaccumulated at this time. He has felt febrile, has had chills and reports he has had a cough sometimes productive of clear sputum but denies any recent illnesses, sick contacts, nausea, vomiting or diarrhea. He just finished his last radiation treatment earlier this week. Of note, he recently had left knee surgery and has been immobile since December 2018. He gets all of his cancer treatment and orthopedic care done in [place]. In the ED he was found to be febrile at 101.3 and somewhat tachycardic at 116. He does use oxygen at home, 4 L, and has been saturating in the low 90s at 4 L. He was given 1 dose of Zosyn and hospitalist service was called to admit him for further workup. HOSPITAL COURSE: . DISCHARGE MEDICATIONS: Please see below. ALLERGIES: Please see below. PHYSICAL EXAMINATION ON DISCHARGE: VITAL SIGNS: Please see below. GENERAL: HEENT: NECK: CARDIOVASCULAR EXAMINATION: RESPIRATORY EXAMINATION: ABDOMINAL EXAMINATION: EXTREMITIES: SKIN: NEUROLOGICAL EXAMINATION: PSYCHIATRIC EXAMINATION: LABORATORY DATA: Please see below. IMAGING: PROGNOSIS: ACTIVITY: [As tolerated]. DIET: DISCHARGE PLAN: DISPOSITION: . DISCHARGE INSTRUCTIONS: 1. . ITEMS TO FOLLOWUP ON ON OUTPATIENT: 1. . DISCHARGE CONDITION: [Stable]. TIME SPENT ON DISCHARGE: Greater than minutes. Vital Signs/I&Os Vital Signs Date Time Temp Pulse Resp B/P (MAP) Pulse Ox O2 Delivery O2 Flow Rate FiO2 02/24/19 06:00 98.2 94 20 154/88 (110) 94 Nasal Cannula 1.0 I&O- Last 24 Hours up to 6 AM 02/24/19 06:00 Intake Total 560 ml Output Total 850 ml Balance -290 ml Laboratory Data Labs 24H Laboratory Tests 2 02/24/19 06:49: Nucleated Red Blood Cells % (auto) 0.0, Anion Gap 4L, Glomerular Filtration Rate > 60.0, Calcium Level 8.8, Total Bilirubin 0.3, Aspartate Amino Transf (AST/SGOT) 9, Alanine Aminotransferase (ALT/SGPT) 9L, Alkaline Phosphatase 66, Total Protein 5.8L, Albumin 2.2L, Albumin/Globulin Ratio 0.61L CBC/BMP Laboratory Tests 02/24/19 06:49 Microbiology Microbiology 02/21/19 Urine Culture - Final, Complete 02/21/19 Gram Stain - Final, Complete 02/21/19 Anaerobic Culture - Final, Complete 02/21/19 Body Fluid Culture - Final, Complete 02/21/19 Acid Fast Stain, Received Pending 02/21/19 Mycobacterial Culture, Received Pending 02/21/19 Fungal Smear, Received Pending 02/21/19 Fungal Culture, Received Pending 02/21/19 Gram Stain - Final, Resulted 02/21/19 Sputum Culture, Resulted Pending 02/21/19 Blood Culture - Preliminary, Resulted No Growth after 72 hours. All specime... 02/21/19 Respiratory Virus Panel (PCR) ([facility]) - Final, Complete 02/21/19 Blood Culture - Preliminary, Resulted No Growth after 72 hours. All specime... Discharge Medications Scheduled Amoxicillin/Potassium Clav (Augmentin 875-125 Tablet) 1 Each Tablet, 1 TAB PO BID Carbidopa/Levodopa (Carbidopa-Levodopa 25-100 Tab) 1 Each Tablet, 1 TAB PO QID, (Reported) 0500, 0900, 1300, 1700 Carbidopa/Levodopa (Carbidopa-Levo ER 25-100 Tab) 1 Each Tablet.er, 1 TAB PO QHS, (Reported) Enoxaparin Sodium (Enoxaparin Sodium) 120 Mg/0.8 Ml Syringe, 120 MG SC DAILY, (Reported) Lactobacillus Rhamnosus GG (Culturelle) 1 Each Capsule, 1 CAP PO DAILY, (Reported) Midodrine HCl (Midodrine HCl) 2.5 Mg Tablet, 2.5 MG PO DAILY, (Reported) Prednisone (Prednisone) 10 Mg Tablet, 20 MG PO DAILY, (Reported) STATES THERE ARE 4 MORE DOSES LEFT Sertraline HCl (Sertraline HCl) 25 Mg Tablet, 25 MG PO DAILY, (Reported) Scheduled PRN Acetaminophen (Acetaminophen) 325 Mg Tablet, 650 MG PO Q8HP PRN for PAIN / FEVER Albuterol Sulf (Albuterol Sulfate) 2.5 Mg/3 Ml Vial.neb, 2.5 MG INH Q6H PRN for SHORTNESS OF BREATH, (Reported) Albuterol Sulfate (Proair Hfa) 8.5 Gm Hfa.aer.ad, 2 PUFF INH Q6H PRN for WHEEZING, (Reported) Allergies Coded Allergies: codeine (Verified Adverse Reaction, Unknown, hallucinations, 09/20/18) TISH BHATIA MD Feb 24, 2019 08:35
[2019-02-24] MEDS: LIDOCAINE 5% (LIDODERM) PATCH TD SCH (09:00)
[2019-02-24] MEDS: MIDODRINE 2.5 MG TAB PO SCH (09:22)
[2019-02-24] MEDS: predniSONE 20 MG TAB PO SCH (09:22)
[2019-02-24] MEDS: SERTRALINE HCL 25 MG TABLET PO SCH (09:23)
[2019-02-24] MEDS ORDERED: VARIBAR NECTAR 40% w/v 240ML SUSP BTL As Ordered ONE (12:16)
[2019-02-24] MEDS ORDERED: VARIBAR PUDDING 40% w/v 230ML TUBE As Ordered ONE (12:16)
[2019-02-24] MEDS ORDERED: E-Z-PAQUE 96% w/w SUSP 176GM BTL As Ordered ONE (12:17)
--- NOTE | 2019-02-24 17:12 | REP ---
Examination Requested: Cookie Swallow Reason For Exam: Evaluate for aspiration The procedure was performed by TIARA Hernandez, under the direct supervision of Dr. Floyd. The procedure was performed with Grace Shafer from speech pathology present. 5 ml aliquots of thin, nectar, pudding, mixed fruit, soft food, and hard food and pill consistency barium was administered. Flash penetration was visualized with thin consistency barium. The detailed report of this examination will be provided by speech pathology. 1.5 minutes of fluoroscopy time was utilized for this procedure. Reviewed by TIARA Cordon 02/24/2019 04:26 P Electronically Signed by Aubrey Floyd MD 02/24/2019 05:04 P
--- NOTE | 2019-02-24 17:52 | IPNPDOC ---
Subjective Date Seen The patient was seen on 02/24/19. Subjective Chief Complaint/HPI shortness of breath Events since last encounter Pt stated that his shortness of breath has significantly improved but c/o generalized weakness Objective Physical Examination General Exam: Positive: Alert, Cooperative, No Acute Distress Eye Exam: Positive: PERRLA ENT Exam: Positive: Mucous membr. moist/pink Neck Exam: Positive: Supple Chest Exam: Positive: Other (b/l decresed breath sounds, diffuse rhochi- improving ) Heart Exam: Positive: Rate Normal Abdomen Exam: Positive: Normal bowel sounds, Soft Extremity Exam: Negative: Edema Skin Exam: Positive: Nl turgor and temperature Neuro Exam: Positive: Normal Speech Psych Exam: Positive: Mental status NL Assessment /Plan Assessment 78 y/o M with h/o adenocarcinoma of the right middle lobe, status post chemotherapy and radiation who presents with shortness of breath, found to have a moderate size right pleural effusion with minimal patchy bilateral pulmonary infiltrates and questionable occlusion of the left subclavian vein. labs reviewed. PLAN: 1. Sepsis: resolved Suspected source pneumonia IV Zosyn will f/u sputum cultures, blood cultures 2. SOB: resolved was likely 2/2 PNA and recurrent pleural effusion 3. Right pleural effusion s/p thoracentesis Pulmonary recommendation appreciated 4. 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 Turner (oncology) and Dr. Rodriguez (Rad Onc) in [place] pt to f/u as scheduled 5. Anemia of chronic disease stable 6. Elevated troponin repeat troponin remained in same range. Most probably related demand ischemia EKG without changes and patient has no complaint of chest pain at this time 7. Elevated BNP: Found to be 641 -Patient has no known history of congestive heart failure. -Likely secondary to fluid overload versus sepsis 8. Chronic hypoxic respiratory failure supplemental O2 9. Weakness will f/u PT 10. Pt initially c/o non specific mild dysphagia that has resolved will f/u with speech/swallow eval Pt was also started on PO vancomycin for ? prophylaxis for C diff by pulmonary service in view of antibiotics use DVT ppx: Lovenox Possible discharge tomorrow if cleared by PT/OT Plan/VTE VTE Prophylaxis Ordered?: Yes VS, I&O, 24H, Fishbone Vital Signs/I&O Vital Signs Date Time Temp Pulse Resp B/P (MAP) Pulse Ox O2 Delivery O2 Flow Rate FiO2 02/24/19 14:00 97.3 89 18 130/65 (86) 98 Nasal Cannula 1.0 I&O- Last 24 Hours up to 6 AM0 02/24/19 06:00 Intake Total 560 ml Output Total 850 ml Balance -290 ml Laboratory Data 24H LABS Laboratory Tests 2 02/24/19 06:49: Nucleated Red Blood Cells % (auto) 0.0, Anion Gap 4L, Glomerular Filtration Rate > 60.0, Calcium Level 8.8, Total Bilirubin 0.3, Aspartate Amino Transf (AST/SGOT) 9, Alanine Aminotransferase (ALT/SGPT) 9L, Alkaline Phosphatase 66, Total Protein 5.8L, Albumin 2.2L, Albumin/Globulin Ratio 0.61L CBC/BMP Laboratory Tests 02/24/19 06:49 Microbiology Microbiology 02/21/19 Urine Culture - Final, Complete 02/21/19 Gram Stain - Final, Complete 02/21/19 Anaerobic Culture - Final, Complete 02/21/19 Body Fluid Culture - Final, Complete 02/21/19 Acid Fast Stain, Received Pending 02/21/19 Mycobacterial Culture, Received Pending 02/21/19 Fungal Smear, Received Pending 02/21/19 Fungal Culture, Received Pending 02/21/19 Gram Stain - Final, Complete 02/21/19 Sputum Culture - Final, Complete Yeast Like Organism 02/21/19 Blood Culture - Preliminary, Resulted No Growth after 72 hours. All specime... 02/21/19 Respiratory Virus Panel (PCR) ([facility]) - Final, Complete 02/21/19 Blood Culture - Preliminary, Resulted No Growth after 72 hours. All specime... TISH BHATIA MD Feb 24, 2019 17:52
[2019-02-24] MEDS: **NOTE PATIENT COMMENT** MISC XX SCH (21:00)
[2019-02-24] MEDS: SINEMET**CR** 25/100 TABCR PO SCH (21:37)
[2019-02-24] MEDS: CALCIUM CARBONATE 500 MG CHEW U/D PO PRN (21:38)
[2019-02-24] MEDS: ACETAMINOPHEN TAB 650MG DOSE (2X325MG) PO PRN (21:38)
[2019-02-25] VITALS (12 sets, daily range): BP systolic 120–184; BP diastolic 70–112
[2019-02-25] MEDS: IPRATROPIUM 0.5MG/ALBUTEROL 2.5MG INH SOL UD 3ML (DUONEB)(J7620) INH SCH ×7 (00:49→23:57)
[2019-02-25] MEDS ORDERED: METOPROLOL TART 12.5 MG PER 1/2 TAB PO ONE (04:00)
[2019-02-25] MEDS: PIPERACILLIN/TAZOBACTAM SOD 3.375 GM in D5W MINI-BAG PLUS 50 ML IV SCH ×2 (04:25→09:39)
[2019-02-25] MEDS ORDERED: METOPROLOL TART 25 MG TABLET PO ONE (04:30)
[2019-02-25] MEDS: VANCOMYCIN ORAL SOL 250MG/5ML ORAL SYRINGE PO SCH ×4 (06:59→23:03)
[2019-02-25] MEDS: SINEMET 25-100 MG TAB PO SCH ×4 (06:59→17:12)
[2019-02-25] MEDS: ENOXAPARIN 80 MG/0.8 ML SYRINGE (J1650) SC SCH ×2 (06:59→17:12)
[2019-02-25] MEDS: KETOROLAC 30 MG/ML VIAL (J1885) IV SCH ×4 (07:00→23:03)
[2019-02-25] MEDS ORDERED: FUROSEMIDE 40 MG/4 ML VIAL (J1940) IV ONE (07:00)
[2019-02-25] MEDS: LIDOCAINE 5% (LIDODERM) PATCH TD SCH (08:34)
[2019-02-25] MEDS: predniSONE 20 MG TAB PO SCH (08:35)
[2019-02-25] MEDS: SERTRALINE HCL 25 MG TABLET PO SCH (08:35)
[2019-02-25] MEDS: MIDODRINE 2.5 MG TAB PO SCH (09:40)
[2019-02-25] MEDS: AUGMENTIN 875 MG TAB PO SCH ×2 (12:45→22:52)
--- NOTE | 2019-02-25 21:22 | IPNPDOC ---
Subjective Date Seen The patient was seen on 02/25/19. Subjective Chief Complaint/HPI Since diet was changed to mechanical soft, elevated blood pressure overnight. Objective Physical Examination General Exam: Positive: Alert, Cooperative, No Acute Distress Eye Exam: Positive: PERRLA ENT Exam: Positive: Mucous membr. moist/pink Neck Exam: Positive: Supple Chest Exam: Positive: Other (b/l decresed breath sounds, diffuse rhochi- improv ing ) Heart Exam: Positive: Rate Normal Abdomen Exam: Positive: Normal bowel sounds, Soft Extremity Exam: Negative: Edema Skin Exam: Positive: Nl turgor and temperature Neuro Exam: Positive: Normal Speech Psych Exam: Positive: Mental status NL Other physical findings PHYSICAL EXAMINATION: VITAL SIGNS: Please see below. GENERAL: No distress HEENT: Normocephalic, atraumatic, moist mucous membranes NECK: Supple CARDIOVASCULAR EXAMINATION: S1, S2 RESPIRATORY EXAMINATION: +wheezing ABDOMINAL EXAMINATION: Soft, nontender, nondistended, positive bowel sounds EXTREMITIES: no edema SKIN: No rash NEUROLOGICAL EXAMINATION: Alert and oriented 3, no focal deficits PSYCHIATRIC EXAMINATION: Calm and cooperative, flat affect Assessment /Plan Assessment Pt is a 78 yo M with hx of adenocarcinoma of the right middle lobe, status post chemotherapy and radiation who presents with shortness of breath, found to have R pleural effusion with minimal patchy bilateral pulmonary infiltrates and questionable occlusion of the left subclavian vein, POD#4 (02/21) s/p R u/s guided thoracentesis. #Sepsis secondary to pneumonia, had 5 days of IV Zosyn, transition to Augmentin for 2 more days, for a total of 7 day course, consider a total of 2 week course. With adenosine when necessary. Continue duo nebs. 02/21: Urine culture reveals no growth, 02/21: pleural fluid anaerobic care reveals no growth, body aerobic fluid culture reveals no growth, sputum Gram stain reveals normal adrienne, yeast, as per Tory virus panel was negative, venous blood culture on 02/21x2 reveals no growth. Follow-up on further pleural fluid cultures. Follow-up with pulmonology recommendations for duration of therapy. #Adenocarcinoma of the middle lobe of the right lung: sees Dr. Turner (oncology) and Dr. Rodriguez (Rad Onc) in [place], f/u as outpt #Anemia of chronic disease: stable #parkinsons: cont home meds #hypotension: cont home midodrine, consider holding home meds if elevated BP #Elevated troponin, likely demand ischemia #Elevated BNP: 641, no known history of CHF, likely secondary to fluid overload versus sepsis #Chronic hypoxic respiratory failure: continue supplemental O2 #Weakness: continue PT #mild dysphagia: f/u with speech/swallow eval, change diet to mechanical soft #pt had hx of C. diff 10/23/18, was empirically started on PO vancomycin for prophylaxis for C diff by pulmonary service 02/21/19, currently not complaining of diarrhea, had 2 bowel movements today. Plan to discuss with pulmonology, possible DC of Vanco. DVT ppx: Lovenox, high dose due to history of pulmonary embolism Full code Possible discharge to rehab 02/26 if cleared by PT/OT Plan/VTE VTE Prophylaxis Ordered?: Yes VS, I&O, 24H, Fishbone Vital Signs/I&O Vital Signs Date Time Temp Pulse Resp B/P (MAP) Pulse Ox O2 Delivery O2 Flow Rate FiO2 02/25/19 18:00 98.2 92 18 120/70 (87) 92 Nasal Cannula 1.0 I&O- Last 24 Hours up to 6 AM 02/25/19 06:00 Intake Total 1700 ml Output Total 800 ml Balance 900 ml Laboratory Data 24H LABS Laboratory Tests 2 02/25/19 07:17: [id number]-Type Natriuretic Peptide 1043H Microbiology Microbiology 02/21/19 Urine Culture - Final, Complete 02/21/19 Gram Stain - Final, Complete 02/21/19 Anaerobic Culture - Final, Complete 02/21/19 Body Fluid Culture - Final, Complete 02/21/19 Acid Fast Stain, Received Pending 02/21/19 Mycobacterial Culture, Received Pending 02/21/19 Fungal Smear, Received Pending 02/21/19 Fungal Culture, Received Pending 02/21/19 Gram Stain - Final, Complete 02/21/19 Sputum Culture - Final, Complete Yeast Like Organism 02/21/19 Blood Culture - Preliminary, Resulted No Growth after 72 hours. All specime... 02/21/19 Respiratory Virus Panel (PCR) ([facility]) - Final, Complete 02/21/19 Blood Culture - Preliminary, Resulted No Growth after 72 hours. All specime... NICKI BRANDON MD Feb 25, 2019 21:22
[2019-02-25] MEDS ORDERED: FUROSEMIDE 20 MG/2 ML VIAL (J1940) IV ONE (21:30)
[2019-02-25] MEDS: **NOTE PATIENT COMMENT** MISC XX SCH (22:52)
[2019-02-25] MEDS: SINEMET**CR** 25/100 TABCR PO SCH (22:52)
[2019-02-25] MEDS: CALCIUM CARBONATE 500 MG CHEW U/D PO PRN (22:53)
[2019-02-25] MEDS: guaiFENesin ER 600 MG TAB PO PRN (22:53)
[2019-02-26] VITALS (8 sets, daily range): BP systolic 146–190; BP diastolic 89–102
[2019-02-26] MEDS ORDERED: FUROSEMIDE 40 MG/4 ML VIAL (J1940) IV ONE
[2019-02-26] MEDS ORDERED: METOPROLOL TART 25 MG TABLET PO ONE (01:30)
[2019-02-26] MEDS ORDERED: METOPROLOL TART 12.5 MG PER 1/2 TAB PO ONE (01:45)
[2019-02-26] MEDS: IPRATROPIUM 0.5MG/ALBUTEROL 2.5MG INH SOL UD 3ML (DUONEB)(J7620) INH SCH ×3 (03:53→11:30)
[2019-02-26] MEDS ORDERED: METOPROLOL TART 25 MG TABLET PO SCH (05:00)
[2019-02-26] MEDS: SINEMET 25-100 MG TAB PO SCH ×3 (05:14→12:59)
[2019-02-26] MEDS: ENOXAPARIN 80 MG/0.8 ML SYRINGE (J1650) SC SCH (05:16)
[2019-02-26] MEDS: VANCOMYCIN ORAL SOL 250MG/5ML ORAL SYRINGE PO SCH ×2 (05:47→12:59)
[2019-02-26] MEDS: KETOROLAC 30 MG/ML VIAL (J1885) IV SCH ×2 (05:48→12:00)
--- NOTE | 2019-02-26 08:42 | IPN ---
DATE OF SERVICE: 02/25/2019 Mr. Kapadia has been doing well, I am not sure the exact indication why he remains in the hospital but I suspect it has been secondary to musculoskeletal weakness and deconditioning. I revisited him today to provide him with a diagnosis that there is evidence of metastatic adenocarcinoma in the pleural fluid after sampling this past Sunday. He states he feels well. His breathing is close to baseline. He has no productive cough or hemoptysis. He has had no fever. PHYSICAL EXAMINATION: Temperature 97.8, pulse is 80, respiratory rate of 16, blood pressure 140/85 with a mean arterial pressure of 103, 96% on 1 liter. General: Awake and alert with Parkinson tremor. Thought process is clear. No respiratory distress. HEENT: His mucous membranes are moist without lesions. Sclerae clear and anicteric. Pupils equal and react to light. Neck: Supple. No tracheal deviation or mass. No thyromegaly. Lymph nodes: No cervical, supraclavicular, or axillary adenopathy. Cardiac: Regular S1-S2 without audible murmur, rub or gallop. Pulmonary: PMI is nondisplaced. Pulmonary: Abnormal breath sounds, decreased breath sounds at the right. No air entry on the right base. There are rales on the left. I do not auscultate any rhonchi or wheeze. There is no accessory muscle use. Abdomen: Is soft, nontender, nondistended. No hepatosplenomegaly. No masses or hernia. Skin: No rash, jaundice or bruising. Musculoskeletal: There is significant muscle wasting. No evidence of joint effusion or recent trauma. Neurologic: He continues to have Parkinson's tremor. No evidence unilateral weakness. Laboratory evaluation from 02/14/2019 - white blood count cell count of 7.3, hemoglobin 9.7, hematocrit of 31.4 with a platelet count of 224, sodium is 143, potassium 4.1, chloride is 110, bicarbonate is 29, BUN of 31 and creatinine 1.2 and an albumin of 2.2. 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 Recommend ongoing monitoring of this pleural effusion. Only able to the drain out small amounts at a time. He may or may not be a candidate for PleurX depending on how much fluid accumulates over time. 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 If you have any further questions or concerns, please feel free to call the service, otherwise signing off.
[2019-02-26] MEDS: LIDOCAINE 5% (LIDODERM) PATCH TD SCH ×2 (09:00→09:23)
[2019-02-26] MEDS ORDERED: METOPROLOL TART 12.5 MG PER 1/2 TAB PO SCH (09:00)
[2019-02-26] MEDS: AUGMENTIN 875 MG TAB PO SCH (09:17)
[2019-02-26] MEDS: predniSONE 20 MG TAB PO SCH (09:22)
[2019-02-26] MEDS: SERTRALINE HCL 25 MG TABLET PO SCH (09:22)
[2019-02-26] MEDS ORDERED: PRED20TA PO (12:12)
[2019-02-26] MEDS ORDERED: AMOX875T2 PO (12:12)
--- NOTE | 2019-02-26 12:13 | DS.PDOC ---
Discharge Summary General Date of Admission Feb 21, 2019 at 03:46 Date of Discharge 02/26/19 Discharge Summary PROCEDURES PERFORMED DURING STAY: R Thoracocentesis. ADMITTING DIAGNOSES: 1. Right thoracic pleural effusion. DISCHARGE DIAGNOSES: 1. . Acute on chronic respiratory failure secondary to Right thoracic pleural effusion of metastatic etiology, pneumonia, COPD exacerbation. COMPLICATIONS/CHIEF COMPLAINT: Pneumonia, Sepsis. HISTORY OF PRESENT ILLNESS: Pt is a 78 yo M with hx of adenocarcinoma of the right middle lobe, status post chemotherapy and radiation who presents with shortness of breath, found to have R pleural effusion with minimal patchy bilateral pulmonary infiltrates and questionable occlusion of the left subclavian vein, POD#4 (02/21) s/p R u/s guided thoracentesis. HOSPITAL COURSE: During his hospitalization, patient had thoracocentesis which cultures suggest metastatic etiology. He was also treated for sepsis secondary to pneumonia, had 5 days of IV Zosyn, transition to Augmentin for 2 more days, for a total of 7 day course. He was also empirically treated with by mouth Vanco due to his history of C. difficile, but will not be dc home with po vanco. Urine culture on 02/21 reveals no growth, 02/21: pleural fluid anaerobic care reveals no growth, body aerobic fluid culture reveals no growth, sputum Gram stain reveals normal adrienne, yeast, respiratory virus panel was negative, venous blood culture on 02/21x2 reveals no growth. Pending AFB and fungal growth. He was also treated with a short course of steroids. I did call Dr. 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 During his hospitalization, his blood pressure did wax and wane, he has a history of hypotension and was on home at a drain, and intermittently given hypotensive medications, which will not be ascribed to discharge. Other abnormal labs include slight elevation in troponin, which was secondary to demand ischemia, elevated BNP with no known history of CHF, likely secondary to fluid overload, which subsequently improved with diuretic use, will offer patient will not be discharged on diuretics due to risks of sx lightheadedness with risk of fall, greater benefits of diuresis. He was also hypoxemic and required oxygen during hospitalization, however, was reassessed and did not require home oxygen. Due to weakness, PT evaluated pt with not requiring rehab, speech biology also evaluate patient's swallow with recommendations for mechanical soft diet. No other changes in medications. PHYSICAL EXAMINATION: VITAL SIGNS: Please see below. GENERAL: No distress HEENT: Normocephalic, atraumatic, moist mucous membranes NECK: Supple CARDIOVASCULAR EXAMINATION: S1, S2 RESPIRATORY EXAMINATION: diminished by no wheezing, clear ABDOMINAL EXAMINATION: Soft, nontender, nondistended, positive bowel sounds EXTREMITIES: no edema SKIN: No rash NEUROLOGICAL EXAMINATION: intermittent fine tremors PSYCHIATRIC EXAMINATION: Calm and cooperative, appropriate affect PROGNOSIS: stable ACTIVITY: As tolerated. DIET: mechanical soft DISCHARGE PLAN: home DISCHARGE INSTRUCTIONS: 1. complete antibiotic and steroid course, follow-up with oncology and PCP in 1- 2 weeks. DISCHARGE CONDITION: Stable. TIME SPENT ON DISCHARGE: 35 minutes. Vital Signs/I&Os Vital Signs Date Time Temp Pulse Resp B/P (MAP) Pulse Ox O2 Delivery O2 Flow Rate FiO2 02/26/19 10:00 98.1 70 19 146/89 (108) 92 Nasal Cannula 1.0 I&O- Last 24 Hours up to 6 AM 02/26/19 05:59 Intake Total 1090 ml Output Total 3400 ml Balance -2310 ml Microbiology Microbiology 02/21/19 Urine Culture - Final, Complete 02/21/19 Gram Stain - Final, Complete 02/21/19 Anaerobic Culture - Final, Complete 02/21/19 Body Fluid Culture - Final, Complete 02/21/19 Acid Fast Stain, Received Pending 02/21/19 Mycobacterial Culture, Received Pending 02/21/19 Fungal Smear, Received Pending 02/21/19 Fungal Culture, Received Pending 02/21/19 Gram Stain - Final, Complete 02/21/19 Sputum Culture - Final, Complete Yeast Like Organism 02/21/19 Blood Culture - Final, Complete NO GROWTH AFTER 5 DAYS 02/21/19 Respiratory Virus Panel (PCR) ([facility]) - Final, Complete 02/21/19 Blood Culture - Final, Complete NO GROWTH AFTER 5 DAYS Discharge Medications Scheduled Amoxicillin/Potassium Clav (Amox-Clav 875-125 mg Tablet) 1 Each Tablet, 875 MG PO BID Carbidopa/Levodopa (Carbidopa-Levodopa 25-100 Tab) 1 Each Tablet, 1 TAB PO QID, (Reported) 0500, 0900, 1300, 1700 Carbidopa/Levodopa (Carbidopa-Levo ER 25-100 Tab) 1 Each Tablet.er, 1 TAB PO QHS, (Reported) Enoxaparin Sodium (Enoxaparin Sodium) 120 Mg/0.8 Ml Syringe, 120 MG SC DAILY, (Reported) Lactobacillus Rhamnosus GG (Culturelle) 1 Each Capsule, 1 CAP PO DAILY, (Reported) Midodrine HCl (Midodrine HCl) 2.5 Mg Tablet, 2.5 MG PO DAILY, (Reported) Prednisone (Prednisone) 20 Mg Tablet, 20 MG PO DAILY Sertraline HCl (Sertraline HCl) 25 Mg Tablet, 25 MG PO DAILY, (Reported) Scheduled PRN Acetaminophen (Acetaminophen) 325 Mg Tablet, 650 MG PO Q8HP PRN for PAIN / FEVER Albuterol Sulf (Albuterol Sulfate) 2.5 Mg/3 Ml Vial.neb, 2.5 MG INH Q6H PRN for SHORTNESS OF BREATH, (Reported) Albuterol Sulfate (Proair Hfa) 8.5 Gm Hfa.aer.ad, 2 PUFF INH Q6H PRN for WHEEZING, (Reported) Allergies Coded Allergies: codeine (Verified Adverse Reaction, Unknown, hallucinations, 09/20/18) NICKI BRANDON MD Feb 26, 2019 12:13
[2019-02-26] MEDS: CALCIUM CARBONATE 500 MG CHEW U/D PO PRN (14:31)
== END 2019-02-26 15:20 | disposition home or self-care (01) | DRG 871 ==
LOC: M ED 01:46 → M ED INP 03:46 → M ICU 14:21 → M MSPAV 02-23 12:53
PROVIDERS: ADMIT Internal Medicine; ATTEND Family Medicine
PROC: 0W993ZZ Drainage of Right Pleural Cavity, Percutaneous Approach (ICD-10-PCS; principal; 2019-02-21)
DX: A41.9 Sepsis, unspecified organism (principal); J18.9 Pneumonia, unspecified organism; J96.21 Acute and chronic respiratory failure with hypoxia; C34.2 Malignant neoplasm of middle lobe, bronchus or lung; J91.0 Malignant pleural effusion; I24.8 Other forms of acute ischemic heart disease; C79.51 Secondary malignant neoplasm of bone; J44.1 Chronic obstructive pulmonary disease with (acute) exacerbation; Z79.899 Other long term (current) drug therapy; Z88.5 Allergy status to narcotic agent; G20 Parkinson's disease; Z91.018 Allergy to other foods; Z86.711 Personal history of pulmonary embolism; R74.8 Abnormal levels of other serum enzymes

== ENCOUNTER 2019-03-05 09:54 | Inpatient (IN) | payer MEDICARE ==
[2019-03-05] VITALS (33 sets, daily range): BP systolic 102–251; BP diastolic 58–144
[~2019-03-05] VITALS: Ht 167.6 cm; Wt 78.7 kg
[~2019-03-05 09:54] MED LIST changes: +ACET1TAB55 PO; +ALBU83IN INH; +AMOX875T2 PO; +AUGM875T28 PO; +MIDO2.5T; +MIDO2.5T PO; +PRED10TA2; +PRED10TA2 PO; +PROAAER10; +PROAAER10 INH
[2019-03-05] MEDS ORDERED: ALPR0.5T3 PO (10:26)
[2019-03-05 10:31] LABS: BASO % 0.2 % (0.0-1.0); EOS # 0.3 10^3/uL (0.0-0.5); EOS % 3.1 % (0.0-3.0); HEMATOCRIT 36.3 % (42.0-52.0); HEMOGLOBIN 11.1 g/dl (13.5-17.5); LYMPH % 10.7 % (24.0-44.0); MEAN CORPUSCULAR HEMOGLOBIN 28.2 pg (27.0-33.0); MEAN CORPUSCULAR HGB CONC 30.6 g/dl (32.0-36.5); MEAN CORPUSCULAR VOLUME 92.4 fl (80.0-96.0); MONO # 0.7 10^3/uL (0.0-0.8); NEUTROPHILS # 7.6 10^3/uL (1.5-8.5); NEUTROPHILS % 78.7 % (36.0-66.0); PLATELET COUNT, AUTOMATED 389 10^3/uL (150-450); RED BLOOD COUNT 3.93 10^6/uL (4.30-6.10); WHITE BLOOD COUNT 9.7 10^3/uL (4.0-10.0)
[2019-03-05 10:41] LABS: INR 0.96; PROTHROMBIN TIME 12.5 SECONDS (11.8-14.0)
[2019-03-05 10:42] LABS: PARTIAL THROMBOPLASTIN TIME 28.2 SECONDS (25.0-38.4)
[2019-03-05] MEDS ORDERED: IPRATROPIUM 0.5MG/ALBUTEROL 2.5MG INH SOL UD 3ML (DUONEB)(J7620) NEB ONE (10:45)
[2019-03-05 10:56] LABS: ABG BASE EXCESS 2.1 (-2.0-2.0); ABG HCO3 27.2 MEQ/L (22.0-26.0); ABG O2 SATURATION 97.3 % (95.0-99.0); ABG PARTIAL PRESSURE CO2 44.2 mmHg (35.0-45.0); ABG PARTIAL PRESSURE O2 91.4 mmHg (75.0-100.0); ABG STANDARD HCO3 26.4 MEQ/L (22.0-26.0); ABG TOTAL CO2 28.6 MEQ/L (23.0-31.0); ABG pH (ARTERIAL) 7.407 UNITS (7.350-7.450)
[2019-03-05 11:05] LABS: ALBUMIN 2.6 GM/DL (3.2-5.2); ALT/SGPT 10 U/L (12-78); BILIRUBIN,DIRECT < 0.1 MG/DL (0.0-0.2); BILIRUBIN,TOTAL 0.2 MG/DL (0.2-1.0); BLOOD UREA NITROGEN 21 MG/DL (7-18); CALCIUM LEVEL 8.3 MG/DL (8.8-10.2); CARBON DIOXIDE LEVEL 30 MEQ/L (21-32); CHLORIDE LEVEL 105 MEQ/L (98-107); CPK CREATINE PHOSPHOKINASE 39 U/L (39-308); CREATININE FOR GFR 1.07 MG/DL (0.70-1.30); FREE T4 0.96 NG/DL (0.76-1.46); GLOMERULAR FILTRATION RATE > 60.0 (>42); GLUCOSE, FASTING 73 MG/DL (70-100); MB/CK RELATIVE INDEX 5.13 (< OR =4); NT-PRO BNP 489 PG/ML (<450); SODIUM LEVEL 140 MEQ/L (136-145); TOTAL PROTEIN 6.6 GM/DL (6.4-8.2); TROPONIN I < 0.02 NG/ML (< 0.10)
--- NOTE | 2019-03-05 11:14 | REP ---
CHEST, TWO VIEWS: Two views of the chest performed. COMPARISON: 02/23/2019 There is increased moderate effusion on the right as well as increased adjacent atelectasis/infiltrate in the right lung base. Prominent right hilar shadow is unchanged. There is mild calcification of the thoracic aorta. Left central venous catheter is seen with the tip in the superior vena cava. There are no other acute changes. Electronically Signed by Dennis Reddy MD 03/05/2019 12:24 P
[2019-03-05] MEDS ORDERED: ALPR0.25 PO (11:45)
[2019-03-05] MEDS ORDERED: ACET-683 PO (11:45)
--- NOTE | 2019-03-05 12:16 | REP ---
Clinical: Pleural effusion. Shortness of breath. Technique: Axial noncontrast images from the thoracic inlet to the upper abdomen with coronal and sagittal re-formations. Comparison: 02/21/2019. Findings: Large right pleural effusion along with bilateral consolidations and atelectasis primarily involving the right middle lobe and right lower lobe as well as the left base appear relatively unchanged. Cardiomegaly with underlying pulmonary vascular congestion is also appreciated. No pneumothorax. Adenopathy cannot be excluded. Osseous structures demonstrate age-related degenerative change without focal abnormality. 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 Impression: 1. The large right pleural effusion and consolidation/atelectasis along with cardiomegaly and pulmonary vascular congestion are essentially unchanged compared to 02/21/2019. Electronically Signed by Romulo Chu MD 03/05/2019 12:07 P
[2019-03-05] MEDS ORDERED: MIDAZOLAM INJ 2 MG/2 ML VIAL (J2250) As Ordered ONE (12:35)
[2019-03-05] MEDS ORDERED: flumazeniL 0.5 MG/5 ML VIAL As Ordered ONE (12:37)
[2019-03-05] MEDS ORDERED: LIDOCAINE 1% MDV 20ML VIAL As Ordered ONE (12:37)
[2019-03-05] MEDS ORDERED: ACETAMINOPHEN TAB 650MG DOSE (2X325MG) PO PRN (12:45)
[2019-03-05] MEDS ORDERED: SINEMET 25-100 MG TAB PO ONE (12:45)
[2019-03-05] MEDS ORDERED: ALPRAZolam 0.25 MG TAB PO PRN (13:00)
[2019-03-05] MEDS ORDERED: ACETAMINOPHEN 500 MG TAB PO PRN (13:00)
--- NOTE | 2019-03-05 13:34 | ECGEPIP ---
[facility] - ED Test Date: 2019-03-05 Pat Name: DOUGLAS ANTONIO Department: Room: - Gender: Male Sat Instructor: ELIZABETH : 1940 Requested By: MIS Chung Order Number: [id number] Reading MD: Faawd Webster Measurements Intervals [place] Rate: 85 P: 47 TX: 178 QRS: 4 QRSD: 85 T: 22 QT: 351 QTc: 419 Interpretive Statements SINUS RHYTHM LEFT ATRIAL ENLARGEMENT NSTTW ABNORMALITIES SIMILAR TO 02/21/19 Electronically Signed on 03-05-2019 13:34:10 EST by Fawad Webster
[2019-03-05] MEDS ORDERED: KCL 20MEQ IN D5/NS 1000ML 1,000 ML IV SCH (14:58)
[2019-03-05] MEDS ORDERED: PERCOCET 5MG/325MG TAB PO PRN ×2 (15:00)
[2019-03-05] MEDS ORDERED: BISACODYL 10 MG SUPP PR PRN (15:00)
[2019-03-05] MEDS ORDERED: NORCO, ANEXSIA 5/325MG TABLET (HYDROcodone/ACETAMINOPHEN) PO PRN (15:00)
[2019-03-05] MEDS ORDERED: ONDANSETRON 4MG/2ML VIAL (J2405) IV PRN (15:00)
--- NOTE | 2019-03-05 15:10 | REP ---
Clinical: Status post pleural catheter. Comparison: 03/05/2019. Findings: Cardiomegaly remains stable. [id number] again identified within the superior vena cava. Lower lobe opacities suggesting consolidation and/or mass the may be increased from prior examination. Right pleural effusion has decreased. No pneumothorax. Skeletal structures stable. Impression: 1. Increased bibasilar opacities. 2. Decreased right pleural effusion. Electronically Signed by Romulo Chu MD 03/05/2019 03:01 P
[2019-03-05] MEDS: PANTOPRAZOLE 40MG TAB (PROTONIX) PO SCH (15:26)
[2019-03-05] MEDS: SERTRALINE HCL 50 MG TAB PO SCH (15:26)
[2019-03-05] MEDS: MOM 30ML SUSPENSION UDC PO SCH (15:26)
[2019-03-05] MEDS: KETOROLAC 30 MG/ML VIAL (J1885) IV SCH ×2 (15:27→21:21)
--- NOTE | 2019-03-05 15:37 | RO ---
DATE OF PROCEDURE: 03/05/2019 PREPROCEDURE DIAGNOSIS: Recurrent malignant pleural effusion right side. POSTPROCEDURE DIAGNOSIS: Recurrent malignant pleural effusion right side. PROCEDURE: Insertion of right PleurX catheter. SURGEON: Joesph Gallo MD STRA[employer] G[employer] PARTS: ANESTHESIA: FINDINGS: The chest was drained of 700 mL of serosanguineous fluid, more serous than sanguineous, but certainly bloody. The fluid was sent off for requisite studies including cytologies, hematologies, chemistries, and bacteriologies. DESCRIPTION OF PROCEDURE: Under satisfactory moderate sedation achieved with 3 mg of Versed, the patient was prepped and draped in the usual sterile fashion. Entrance and exit sites were chosen. The entrance site was infiltrated with 1% lidocaine and explore needle placed. Fluid was returned and a guidewire was placed. Exit site was infiltrated with 1% lidocaine along with the tunnel tract. Two incisions were made, one at the entrance and exit sites. A tunnel was created between the exit and entrance sites and PleurX pulled through the tunnel. The tract was dilated and a Peel-Away introducer placed. PleurX catheter was placed into the chest without difficulty. Entrance site was closed with running #4-0 Monocryl subcuticular suture and the catheter was secured to the abdominal wall by use of #3-0 silk suture. The patient tolerated the procedure well, and a chest x-ray is pending.
--- NOTE | 2019-03-05 15:41 | HPEPDOC ---
General Date of Admission Mar 05, 2019 at 09:55 Date of Service: Mar 05, [address] Gallo Attending Physician: SOPHIE MEDINA MD Chief Complaint The patient is a 78-year-old male admitted with a reason for visit of Pleural Effusion. Source: Patient, Family Exam Limitations: Clinical conditions Timing/Duration: Getting worse Severity: Moderate, Severe Associated Symptoms: Shortness of breath, Weakness History of Present Illness 78 yo M with hx of adenocarcinoma of the right middle lobe, status post chemotherapy and radiation, last tx in 08/2018, recently admitted in [place] and subsequent here at [facility] a few days for shortness of breath in the setting of R pleural effusion, as well minimal patchy bilateral pulmonary infiltrates and questionable occlusion of the left subclavian vein s/o antibiotics, th oracentesis with improvement in symptoms and discharge home back on home 3L NC, who now returns 6d after discharge with worsening shortness of breath and tachypnea with family requesting a pleurX catheter as this continues to reaccumulate and cause symptoms. He otherwise has been afebrile, normotensive without new congestion, cough or lower extremity swelling and denies chest pain, palpitations or new back pain. Of note, during his last hospitalization, he had a thoracocentesis with cytology malignant cells and malignant effusion without infection. He was however treated for sepsis secondary to pneumonia, with 5 days of IV Zosyn, 2 days of Augmentin for a total of 7 day course. He was also empirically treated with PO Vanc given his history of C. difficile, his urine culture on 02/21 revealed no growth, pleural fluid had no growth, sputum Gram stain reveals normal adrienne, while yeast, respiratory virus panel and blood culture were negative. He was also treated with a short course of steroids. In the ED today, he arrived hemodynamically stable, afebrile, reporting stable hypoxemia from his baseline 3L NC use at home but worsening work of breathing adn tachypnea per family with patient not speaking in full sentences. Initial work up was notable for WBC 9.7, mild anemia 11.1/36.3, normal ABG on his home setting of 3L, Cr 1.07, negative troponin, proBNP of 489, much lower than prior, +UA positive for nitrate and leuks with 41WBC and 2+ blood, while a CXR showed interval enlargement of effusion since the last CXR pre-discharge and chest CT showed a large R pleural effusion and stable cardiomegaly. Dr. Gallo was consulted by the ED and managed to place the pleurX and drain 700cc of serosanguinous fluid with immediate improvement in breathing. He is now being admitted to medicine under observation with plan for discharge tomorrow morning if no complications arise. Home Medications Scheduled Carbidopa/Levodopa (Carbidopa-Levodopa 25-100 Tab) 1 Each Tablet, 1 TAB PO QID, (Reported) 0500, 0900, 1300, 1700 Carbidopa/Levodopa (Carbidopa-Levo ER 25-100 Tab) 1 Each Tablet.er, 1 TAB PO QHS, (Reported) Enoxaparin Sodium (Enoxaparin Sodium) 120 Mg/0.8 Ml Syringe, 120 MG SC DAILY, (Reported) Lactobacillus Rhamnosus GG (Culturelle) 1 Each Capsule, 1 CAP PO DAILY, (Reported) Midodrine HCl (Midodrine HCl) 2.5 Mg Tablet, 2.5 MG PO DAILY, (Reported) Sertraline HCl (Sertraline HCl) 25 Mg Tablet, 50 MG PO DAILY, (Reported) Scheduled PRN Acetaminophen (Acetaminophen) 500 Mg Tablet, 1,000 MG PO Q4H PRN for PAIN, (Re ported) Albuterol Sulf (Albuterol Sulfate) 2.5 Mg/3 Ml Vial.neb, 2.5 MG INH Q6H PRN for SHORTNESS OF BREATH, (Reported) Albuterol Sulfate (Proair Hfa) 8.5 Gm Hfa.aer.ad, 2 PUFF INH Q6H PRN for WHEEZING, (Reported) Alprazolam (Alprazolam) 0.25 Mg Tablet, 0.25 MG PO BID PRN for ANXIETY, (Reported) Allergies Coded Allergies: codeine (Verified Adverse Reaction, Unknown, hallucinations, 09/20/18) Past Medical History Medical History 1. Parkinson Disease 2. R sacral/low back pain 3. HTN 4. History of PE 5. R middle lobe adenocarcinoma of lung 6. Hx recurrent C. Dif 7. Chronic oxygen dependent respiratory failure use at home (4L) Surgical History 1. Colonoscopy January 2010 with only hyperplastic polyp found. 2. Colonoscopy 12/2006 with adenomatous polyp on biopsy. 3. Recent left knee surgery Family History Heart disease in both parents Social History * Smoker: Denies Alcohol: occationally Drugs: denies Recent Travel/Sick Contacts: Denies: Recent travel, Recent sick contacts Psychosocial History: No pertinent psych hx Never smoker. Occasional alcohol A-FIB/CHADSVASC A-FIB History Current/History of A-Fib/PAF?: No Current PO Anticoag Therapy: No Age/Risk Factor Scoring CHADSVASC: CHADSVASC Response (Comments) Value Age Risk Factor Age >/= 75 years old 2 Gender Risk Factor Male 0 Hx of CHF No 0 Hx of HTN Yes 1 Hx of Stroke/TIA/or VTE Yes 2 Hx of Diabetes No 0 Hx of Vascular Disease No 0 Total 5 Treatment Treatment ordered: Holding Other (holding therapeutic lovenox after pleurX placement) Reason Anticoagulant not given: Recent/upcomin procedure Review of Systems Constitutional: Denies: Chills, Fever, Night Sweats Eyes: Denies: Pain, Vision change ENT: Denies: Head Aches, Ear Pain, Dysphagia Skin: Denies: Rash, Lesions, Breakdown Pulmonary: Reports: Dyspnea, Other Symptoms (tachypnea) Cardiovascular: Denies: Chest Pain, Palpitations, Orthopnea, Paroxysmal Noc. Dyspnea, Lt Headedness Gastrointestinal: Denies: Nausea, Vomiting, Abdominal Pain, Diarrhea Genitourinary: Denies: Dysuria, Frequency, Incontinence, Retention Hematologic: Denies: Bruising, Bleeding Excessively Endocrine: Denies: Polydipsia, Polyphagia, Polyuria, Heat Intolerance, Cold Intolerance, Other Endocrine Sx Musculoskeletal: Denies: Neck Pain, Back Pain, Joint Pain, Muscle Pain, Spasms Neurological: Reports: Weakness (chronic); Denies: Numbness, Change in speech, Confusion Psych: Reports: Mood Normal; Denies: Depression, Memory Issues Physical Examination General Exam: Positive: Alert, No Acute Distress Eye Exam: Positive: PERRLA, Conjunctiva & lids normal, EOMI; Negative: Sclera icteric ENT Exam: Positive: Atraumatic, Mucous membr. moist/pink, Pharynx Normal Neck Exam: Positive: Supple; Negative: JVD, thyromegaly Chest Exam: Positive: Diminished; Negative: Clear to auscultation (diminished entire R side posteriorly, good airmovement in the left with some transmitted upper airway sounds), Rales, Wheezing Heart Exam: Positive: Rate Normal, Regular Rhythm, Normal S1, Normal S2; Negative: Murmurs, Rubs Abdomen Exam: Positive: Normal bowel sounds, Soft; Negative: Tenderness, Hepatospenomegaly Extremity Exam: Positive: Edema (trace bilateral LE edema), Normal pulses; Negative: Clubbing, Cyanosis, Tenderness, Swelling Skin Exam: Positive: Nl turgor and temperature; Negative: Breakdown, Lesion Neuro Exam: Positive: Normal Gait, Normal Speech, Cranial Nerves 3-12 NL, Reflexes 2+; Negative: Strength at 5/5 X4 ext (4/5 x 4 extremities) Psych Exam: Positive: Mental status NL, Mood NL, Oriented x 3 Vital Signs Vital Signs Date Time Temp Pulse Resp B/P (MAP) Pulse Ox O2 Delivery O2 Flow Rate FiO2 03/05/19 13:58 98.5 92 18 152/98 (116) 98 Room Air 03/05/19 13:00 3.0 Laboratory Data Labs 24H Laboratory Tests 2 03/05/19 10:13: Immature Granulocyte % (Auto) 0.3, Neutrophils (%) (Auto) 78.7H, Lymphocytes (%) (Auto) 10.7L, Monocytes (%) (Auto) 7.0H, Eosinophils (%) (Auto) 3.1H, Basophils (%) (Auto) 0.2, Neutrophils # (Auto) 7.6, Lymphocytes # (Auto) 1.0L, Monocytes # (Auto) 0.7, Eosinophils # (Auto) 0.3, Basophils # (Auto) 0.0, Nucleated Red Blood Cells % (auto) 0.0, Prothrombin Time 12.5, Prothromb Time International Ratio 0.96, Activated Partial Thromboplast Time 28.2, Anion Gap 5L, Glomerular Filtration Rate > 60.0, Calcium Level 8.3L, Total Bilirubin 0.2, Direct Bilirubin < 0.1, Aspartate Amino Transf (AST/SGOT) 12, Alanine Aminotransferase (ALT/SGPT) 10L, Alkaline Phosphatase 74, Total Creatine Kinase 39, Creatine Kinase MB 2.0, Creatine Kinase MB Relative Index 5.13H, Troponin I < 0.02, RG-Oia-J-Type Natriuretic Peptide 489H, Total Protein 6.6, Albumin 2.6L, Albumin/Globulin Ratio 0.65L, Thyroid Stimulating Hormone (TSH) 1.390, Free Thyroxine 0.96 03/05/19 10:46: Blood Gas Bicarbonate Standard 26.4H, Arterial Blood pH 7.407, Arterial Blood Partial Pressure CO2 44.2, Arterial Blood Partial Pressure O2 91.4, Arterial Blood Total CO2 28.6, Arterial Blood HCO3 27.2H, Arterial Blood Base Excess 2.1H, Arterial Blood Oxygen Saturation 97.3 03/05/19 11:39: Urine Color YELLOW, Urine Appearance HAZY, Urine pH 5.0, Urine Specific [place] 1.017, Urine Protein NEGATIVE, Urine Glucose (UA) NEGATIVE, Urine Ketones NEGATIVE, Urine Blood 2+H, Urine Nitrite POSITIVEH, Urine Bilirubin NEGATIVE, Urine Urobilinogen 0.2, Urine Leukocyte Esterase 1+H, Urine WBC (Auto) 41H, Urine RBC (Auto) 4H, Urine Hyaline Casts (Auto) 0, Urine Bacteria (Auto) 1+H, Urine Squamous Epithelial Cells 0, Urine Mucus (Auto) SMALL, Urine Sperm (Auto) CBC/BMP Laboratory Tests 03/05/19 10:13 Microbiology Microbiology 03/05/19 Urine Culture, Received Pending 03/05/19 Blood Culture, Received Pending 03/05/19 Blood Culture, Received Pending Assessment/Plan 78 yo M with hx of adenocarcinoma of the right middle lobe, status post chemotherapy and radiation, last tx in 08/2018, recently admitted in [place] and subsequent here at [facility] a few days ago for shortness of breath in the setting of R pleural effusion, as well minimal patchy bilateral pulmonary infiltrates and 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 His work up revealed a UTI for which I will place him on empiric kelfex pending culture results. Plan: 1. SO 2/2 malignant R pleural effusion reaccumulation. - Recent cytology showed malignant cells and has now reaccumulated 3 times with 3 different admissions. -Appreciate prompt surgery consult and Dr. Gallo having already placed the pleurX this afternoon. Will check post CXR and AM CXR before discharge home. -PleurX teaching by nursing and to be discharged with bottles and will follow up with Dr. Gallo as an outpatient. -Patient without worsening oxygen requirement, continues to be on 3 L as at home -Holding Lovenox after pleurX placement, will restart tomorrow 2. Post procedural pain -[id number] percocet for moderate pain -[id number] percocet for severe pain 2. 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 Turner (oncology) and Dr. Rodriguez (Rad Onc) in [place] will follow up outpatient. 3. Anemia: Chronic Chronic meds: -continue home sinemet -continue home zoloft -continue home xanax Bowel regimen: Colace BID, milk of mag BID DVT ppx: Holding his home therapeutic lovenox, currently on ppx heparin [id number], and will restore lovenox tomorrow on discharge. 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 Plan / VTE VTE Prophylaxis Ordered?: Yes SOPHIE MEDINA MD Mar 05, 2019 15:32
[2019-03-05] MEDS ORDERED: flumazeniL 0.5 MG/5 ML VIAL IV STA (16:03)
[2019-03-05] MEDS ORDERED: MIDAZOLAM INJ 2 MG/2 ML VIAL (J2250) IV ONE (16:15)
[2019-03-05] MEDS ORDERED: LIDOCAINE 1% MDV 20ML VIAL IM ONE (16:15)
[2019-03-05] MEDS: ALBUTEROL SULFATE 2.5 MG/0.5 ML INH NEB SOLN INH PRN (17:58)
[2019-03-05] MEDS: SINEMET 25-100 MG TAB PO SCH (18:05)
[2019-03-05 18:25] LABS: LDH LACTATE DEHYDROGENASE 174 U/L (87-241)
[2019-03-05 18:27] LABS: APPEARANCE, BODY FLUID CLOUDY (CLEAR); PLEURAL FL COLOR RED (COLORLESS); SOURCE, BODY FLUID PLEURAL
[2019-03-05] MEDS ORDERED: FUROSEMIDE 40 MG/4 ML VIAL (J1940) As Ordered ONE (18:32)
--- NOTE | 2019-03-05 18:38 | REP ---
Clinical: Shortness of breath. Comparison: 03/05/2019 at 10:19 a.m.. Findings: Chest tube along the right base is appreciated and the previously noted large right pleural effusion is significantly decreased. Right perihilar and bibasilar infiltrates along with pulmonary vascular congestion and interstitial edema remain relatively similar to prior examination. No pneumothorax. Stable cardiomegaly with [id number] again identified in the SVC. Skeletal structures stable. Impression: 1. Status post right chest tube with significantly decreased right pleural effusion. 2. Pulmonary vascular congestion/interstitial edema along with lower lobe infiltrates essentially unchanged. Electronically Signed by Romulo Chu MD 03/05/2019 06:29 P
[2019-03-05 18:41] LABS: PH BODY FLUID 7.606 UNITS (NOT ESTABLISHED); SOURCE, BODY FLUID pH PLEURAL
[2019-03-05 18:42] LABS: ABG BASE EXCESS 2.5 (-2.0-2.0); ABG HCO3 27.3 MEQ/L (22.0-26.0); ABG O2 SATURATION 94.4 % (95.0-99.0); ABG PARTIAL PRESSURE CO2 42.9 mmHg (35.0-45.0); ABG PARTIAL PRESSURE O2 70.6 mmHg (75.0-100.0); ABG STANDARD HCO3 26.6 MEQ/L (22.0-26.0); ABG TOTAL CO2 28.6 MEQ/L (23.0-31.0); ABG pH (ARTERIAL) 7.422 UNITS (7.350-7.450)
[2019-03-05 18:53] LABS: AMYLASE, BODY FLUID 36 U/L (NOT ESTABLISHED); CHOLESTEROL, BODY FLUID 80 MG/DL (NOT ESTABLISHED); LDH, BODY FLUID 464 U/L (NOT ESTABLISHED); SOURCE, BODY FLUID ALBUMIN PLEURAL; SOURCE, BODY FLUID AMYLASE PLEURAL; SOURCE, BODY FLUID CHOL PLEURAL; SOURCE, BODY FLUID GLUCOSE PLEURAL; SOURCE, BODY FLUID LDH PLEURAL; SOURCE, BODY FLUID TOT PROTEIN PLEURAL; SOURCE, BODY FLUID TRIG PLEURAL; TOTAL PROTEIN, BODY FLUID 3.7 G/DL (NOT ESTABLISHED); TRIGLYCERIDE, BODY FLUID 31 MG/DL (NOT ESTABLISHED)
[2019-03-05] MEDS ORDERED: METOPROLOL 5 MG/5 ML VIAL IV STA (18:59)
[2019-03-05] MEDS ORDERED: VANCOMYCIN HCL 500 MG in D5W MINI-BAG PLUS 100 ML IV ONE (19:00)
[2019-03-05] MEDS ORDERED: FUROSEMIDE 40 MG/4 ML VIAL (J1940) IV ONE (19:00)
[2019-03-05] MEDS ORDERED: METOPROLOL 5 MG/5 ML VIAL As Ordered ONE (19:01)
[2019-03-05] MEDS ORDERED: LABETALOL HCL 100 MG/20 ML VIAL As Ordered ONE (19:05)
[2019-03-05] MEDS: PIPERACILLIN/TAZOBACTAM SOD 3.375 GM in D5W MINI-BAG PLUS 50 ML IV SCH ×2 (19:18→23:28)
[2019-03-05 19:22] LABS: CK-MB VALUE MASS 1.2 NG/ML (<3.6); CPK CREATINE PHOSPHOKINASE 43 U/L (39-308); MB/CK RELATIVE INDEX 2.79 (< OR =4); TROPONIN I < 0.02 NG/ML (< 0.10)
--- NOTE | 2019-03-05 19:28 | PHACANCOPD ---
PHARMACY VANCOMYCIN DOSING Pt Demographics Demographics Patient Age:78 , Weight:78.700 , Gender: male Adjusted Body Weight Date: 03/05/19, Adjusted Body Weight: [69.8] Kg Events Past 24 Hours Events Past 24 Hours: NO: Dialysis, Diuretic Therapy, Change in CrCl, Fever, Elevation in WBC, Pending Diagnostics, Pending Procedures, Other Vancomycin Vancomycin indication: Fever post pleurx with respiratory distress Vancomycin Target Ranges: 15-20 mcg/ml Vancomycin Load Y/N: Yes Load Dose Date Time Vancomycin Load Dose: 1.5g Date: 03/05/19 Time:19:00 Vancomycin Dose Date: 03/05/19. Current Vancomycin Dose: [1g q12h] Intermittent Dosing?: No Labs Labs Item Value Date Time White Blood Count 9.7 10^3/uL 03/05/19 1013 Creatinine 1.07 MG/DL 03/05/19 1013 Neutrophils # (Auto) 7.6 10^3/uL 03/05/19 1013 Micro Microbiology 03/05/19 Acid Fast Stain, Received Pending 03/05/19 Mycobacterial Culture, Received Pending 03/05/19 Fungal Smear, Received Pending 03/05/19 Fungal Culture, Received Pending 03/05/19 Gram Stain, Received Pending 03/05/19 Body Fluid Culture, Received Pending 03/05/19 Anaerobic Culture, Received Pending 03/05/19 Urine Culture, Received Pending 03/05/19 Blood Culture, Received Pending 03/05/19 Blood Culture, Received Pending Creatinine Clearance Date:03/05/19. Creatinine Clearance: [53ml/min]. Pending Labs vancomycin trough 03/06/19 @ Assessment and Plan Maintaining Current Dose?: Yes Reason for dose change: No Dose Change Pharmacist Note Pharmacist Note Date: 03/05/19. Pharmacist note: PT is a 78 year old male being treated for fever post pleurx with respiratory distress goal trough 15-20mcg/ml. The patient has not been treated with vancomycin her at [facility] in the past. To achieve goal a 1.5g loading dose will start 03/05/19 @19. Maintenance therapy will consist of 1g IV every 12 hours. A trough is scheduled 03/06/19 @19:00 prior to the third dose. We will continue to monitor and adjust the dose as needed. TAWANNA SUAREZ PHARMACY Mar 05, 2019 19:28
[2019-03-05] MEDS ORDERED: ACETAMINOPHEN *IV* 650 MG in IV 1 EA IV PRN (20:00)
[2019-03-05] MEDS ORDERED: LABETALOL HCL 200 MG in D5W 160 ML IV SCH (20:00)
[2019-03-05] MEDS ORDERED: LABETALOL HCL 100 MG/20 ML VIAL IV PRN (20:30)
[2019-03-05] MEDS: DOCUSATE SODIUM 100 MG CAP PO SCH (20:37)
[2019-03-05] MEDS: SINEMET**CR** 25/100 TABCR PO SCH (20:37)
[2019-03-05] MEDS: VANCOMYCIN HCL 1,000 MG, VIAL MATE ADAPTER 1 EACH in D5W 250 ML IV SCH (20:44)
[2019-03-05] MEDS: HEPARIN SOD (PORCINE) 5000 UNITS/ML VIAL SC SCH (20:53)
[2019-03-05] MEDS ORDERED: ACETAMINOPHEN *IV* 1,000 MG in IV 1 EA IV ONE (21:00)
[2019-03-05] MEDS ORDERED: GLUCOSE 4 GM CHEW TABLET PO PRN (22:30)
[2019-03-05] MEDS ORDERED: DEXTROSE 50% 50 ML SYRINGE IV PRN (22:30)
[2019-03-05] MEDS ORDERED: GLUCAGON FOR INJ 1 MG VIAL (J1610) SC PRN (22:30)
[2019-03-06] VITALS (19 sets, daily range): BP systolic 90–123; BP diastolic 56–70; O2SAT 94–97
--- NOTE | 2019-03-06 03:01 | CR ---
DATE OF CONSULTATION: 03/05/2019 CHIEF COMPLAINT: Shortness of breath. HISTORY OF PRESENT ILLNESS: Mr. Kapadia is a 78-year-old male with a history of metastatic adenocarcinoma status post chemotherapy and radiation, history of Parkinson's disease, hypertension, history of recurrent Clostridium difficile, pulmonary emboli (PE), history of chronic hypoxemic respiratory failure on nasal cannula oxygen, who presented with complaints of increased shortness of breath and weakness. The patient was recently admitted at [facility] where he was found to have a right pleural effusion, which was drained with a thoracentesis with cytology positive for malignant cells. The patient was also thought to have sepsis secondary to pneumonia, likely aspiration for which he received antibiotics. The patient's sputum cultures showed normal adrienne and his fluid cultures at that admission did not have any growth. The patient did also have a speech and swallow evaluation and he was noted to have some difficulty with swallowing likely secondary to his Parkinson's and some worsening deconditioning, as well as episodes of flash penetration with thin liquids. The patient's family does report he frequently has some upper airway gurgling sounds noted. Today, the patient appeared to be hemodynamically stable. He was initially afebrile and was saturating well on his at baseline oxygen at 3 liters a minute. He did appear to have some increased shortness of breath and he appeared more weak. The patient was noted to have some slightly garbled speech and audible upper airway sounds. The patient had imaging done on admission, which did show reaccumulation of the previously drained right pleural effusion. He also had bilateral consolidation and atelectasis with some evidence of likely radiation changes in the right middle lobe which were unchanged from his previous admission. The patient was seen by cardiothoracic surgery; and given the rapid accumulation of his malignant effusion, he had a right PleurX catheter placed. The patient did receive pre-procedural sedation medications for the PleurX placement and he appeared to tolerate the procedure well. He did not have any chest pain noted. He report improvement in his shortness of breath after the procedure. Later on in the evening, the patient was noted to have acutely worsening shortness of breath and difficulty breathing. He was also found to be hypoxic desaturating and requiring increased amounts oxygen, as well as tachycardic and hypertensive. The patient was also noted to be more tachypneic and in some more respiratory distress. He was brought to the ICU where he was given Lasix 40 mg IV push, as well as metoprolol 5 mg IV for his hypertension and tachycardia. The patient also had a Faria placed during this. The patient was placed on a C-PAP for his increased work of bleeding. PAST MEDICAL/SURGICAL HISTORY: 1. Parkinson's disease. 2. Chronic low back pain. 3. Hypertension. 4. History of pulmonary emboli (PE). 5. Right middle lobe adenocarcinoma of lung with a history of metastatic pleural effusion. 6. History of recurrent Clostridium difficile. 7. Chronic hypoxemic respiratory failure on nasal cannula oxygen 8. Recent left knee surgery HOME MEDICATIONS: - carbidopa/levodopa - Lovenox full dose anticoagulation - lactobacillus - midodrine - sertraline - Tylenol as needed - albuterol as needed - Xanax as needed ALLERGIES: CODEINE FAMILY HISTORY: History of heart disease in parents. SOCIAL HISTORY: Denies smoking history. No recent travel or sick contacts. PHYSICAL EXAMINATION: T-max was 101.7, heart rate was 140s, respiratory rate in the 30s, blood pressure was 180s to over 200 systolic with diastolic 100 to 138, oxygen saturation was 97% on a 3 liters of nasal cannula oxygen. GENERAL: Patient is an elderly male is lying in the bed, appears weak and is able to answer some questions occasionally, but unable to speak in complete sentences. HEENT: Normocephalic, atraumatic. Pupils are reactive to light and mucous membranes are moist. Neck is supple. There is no palpable cervical adenopathy. CARDIAC: Tachycardiac, regular rate and rhythm. Normal S1-S2. Unable appreciate any murmurs. RESPIRATORY: There are diffuse rhonchus breath sounds noted bilaterally with no wheezing or rales. ABDOMEN: Soft, mildly distended, but is nontender to palpation. EXTREMITIES: There is trace to +1 pitting bilateral lower extremity edema. There was some mottling of his extremities earlier, which appear to be improved. The patient has mild tremors, as well in his extremities. LABORATORY: WBC 9.7, hemoglobin 11.1, platelets 389. Chemistry: Sodium is 140, potassium is 4.0, chloride is 105, bicarbonate is 30, BUN 21, creatinine 1.07, glucose is 73, lactic acid was 2.7. Troponins were negative. BMP was 49, total bilirubin 0.2, AST 12, ALT and alkaline phosphatase 74. Troponins were negative x2, albumin is 2.6. Thyroid function within normal limits. Fluid Study: pH of 7.6. White blood count (WBC) 430, RBC 91. The fluid was lymphocytic predominant. Glucose is 64, LDH 464. IMAGING STUDIES: CT chest showed large right pleural effusion with some consolidation, as well as some atelectasis involving the right middle lobe and right lower lobe with some possible radiation changes there. There is also some opacities in the left lower lobe as well, which are relatively unchanged. There is some mild vascular congestion as well. Postprocedure chest x-ray shows improvement in the right pleural effusion. There is a right-sided PleurX catheter in place. There is some mild pulmonary vascular congestion and lower lobe infiltrates, which appear unchanged. ASSESSMENT/PLAN: The patient is a 78-year-old male with a history of Parkinson's disease, chronic hypoxemic respiratory failure, metastatic adenocarcinoma with a malignant right pleural effusion, who presents with increased shortness of breath and weakness. The patient was noted on imaging to have reaccumulation of his right pleural ,effusion which was recently drained. Given the rapid reaccumulation, he was evaluated by cardiothoracic surgery and had a PleurX catheter placed. The patient had drainage of approximately 700 ml of serosanguineous fluid, which he tolerated well without any chest pain or discomfort. He did receive pre-procedural medications for sedation. A few hours later, the patient was noted to have sudden increased shortness of breath and tachypnea with some respiratory distress. He was also noted to be desaturating, as well as tachycardiac and hypertensive. The patient was brought to the ICU for further management. He was given Lasix 40 mg IV, as well as metoprolol 5 mg IV and had a Faria catheter placed. The patient was also placed on C-PAP for increased work of breathing and for possible pulmonary edema. His repeat chest x-ray did not appear changed from his previous. The patient does have a history of likely aspiration pneumonia at his last visit for which he was treated with antibiotics. He did have a speech evaluation on his last admission, which did show some dysphagia, as well as evidence of flash penetration of thin liquids. Suspect the patient had an episode of aspiration and had respiratory distress secondary to aspiration and possible mucus plugging. He continues to have significantly rhonchus breath sounds and has difficulty with mucus clearance, as well as having audible upper airway gurgling sounds. The patient was taken off of C-PAP and placed on nasal cannula oxygen. He was initially started on labetalol drip, but his blood pressures improved quickly and his heart rate also improved and he did not require the labetalol drip. - Suspect the patient had an acute episode of aspiration causing his respiratory distress leading to his tachycardia and hypertension. He also had mildly elevated lactate likely due to his increased work of breathing. Discussed with the patient's , Elva, and his daughter about his wishes. He does have a living will and they discussed that he would not want cardiopulmonary resuscitation (CPR) or chest compressions if his heart were to stop and that he would not want mechanical ventilation or intubation. They also mentioned that the patient would not have wanted placement of a feeding tube as well. - Will continue with aspiration precautions and head of bed elevation and will make the patient nothing by mouth for now. Will see about a repeat bedside speech evaluation tomorrow if he is able to tolerate. - Continue with broad-spectrum antibiotics for possible aspiration pneumonia. He did have a fever noted after this acute episode and he is at risk given his recent hospitalization. - The patient was given a dose of IV Lasix and did have a good urine output. Would hold off on further Lasix at this time, but continue to monitor his input and output via the Faria catheter. - Will continue antipyretic medications and pain control medications given his recent chest tube placement. - Will give patient as needed labetalol if persistently hypertensive. - Will discontinue sedating medications. He previously was on benzodiazepine as needed as an outpatient for anxiety. - Can continue with DuoNeb as needed - Will check fingerstick glucoses as the patient is nothing by mouth; and if needed, will start D5W. - Will continue drainage via the PleurX catheter as needed depending on symptoms and reaccumulation - Deep vein thrombosis (DVT) prophylaxis on full-dose Lovenox, which was held for his procedure. CODE STATUS: DO NOT RESUSCITATE/DO NOT INTUBATE. MTDD
[2019-03-06] MEDS: SINEMET 25-100 MG TAB PO SCH ×4 (04:07→16:01)
[2019-03-06] MEDS: KETOROLAC 30 MG/ML VIAL (J1885) IV SCH ×2 (04:17→09:13)
[2019-03-06 04:51] LABS: HEMATOCRIT 32.5 % (42.0-52.0); HEMOGLOBIN 9.9 g/dl (13.5-17.5); MEAN CORPUSCULAR HGB CONC 30.5 g/dl (32.0-36.5); MEAN CORPUSCULAR VOLUME 92.1 fl (80.0-96.0); PLATELET COUNT, AUTOMATED 342 10^3/uL (150-450); RED BLOOD COUNT 3.53 10^6/uL (4.30-6.10); WHITE BLOOD COUNT 16.6 10^3/uL (4.0-10.0)
[2019-03-06 05:09] LABS: CALCIUM LEVEL 7.9 MG/DL (8.8-10.2); CREATININE FOR GFR 1.25 MG/DL (0.70-1.30); GLOMERULAR FILTRATION RATE 59.8 (>42)
[2019-03-06 05:12] LABS: ATYPICAL LYMPH 1 % (0-5); LYMPHOCYTES 7 % (16-44); METAMYELOCYTES 1 % (0-0); MONOCYTES 3 % (0-5); NEUTROPHILS 83 % (28-66); OVALOCYTES 1+; PLATELET ESTIMATE NORMAL (NORMAL)
[2019-03-06] MEDS: PIPERACILLIN/TAZOBACTAM SOD 3.375 GM in D5W MINI-BAG PLUS 50 ML IV SCH (05:23)
--- NOTE | 2019-03-06 06:49 | REP ---
Clinical: Status post Pleurx catheter for effusion. Comparison: 03/05/2019. Findings: Pleurx catheter along the right lung base stable position. Small residual right pleural effusion along with scattered bilateral opacities are essentially unchanged. No pneumothorax. Impression: No significant change from recent prior examination. Electronically Signed by Romulo Chu MD 03/06/2019 06:39 A
--- NOTE | 2019-03-06 07:12 | ECHO ---
DATE OF PROCEDURE: 03/05/2019 DATE OF : 1940 AGE: 78 REFERRING PROVIDER: Dr. Rizzo REASON FOR THE STUDY: Shortness of breath. PATIENT LOCATION: Room 3202 2-D MEASUREMENTS: IVS: 1.62 cm LVPW: 1.35 c LV: 431 cm LA: 42.6cm Aorta: 34.1cm IVC: 1.54 cm DOPPLER MEASUREMENTS: Peak velocity across the aortic valve: 1.2 m/s Peak velocity across the LVOT: 1.0 m/s Mitral E: 0.5, Mitral A: 0.9 with a ratio of 0.5. Maximum tricuspid valve velocity: 2.7 m/s 2-D COMMENTS: 1. Mildly increased left ventricular wall thickness with normal left ventricular size and a normal global left ventricular systolic function. The estimated left ventricular systolic ejection fraction is 60-65%. 2. Normal left atrium. Normal right atrium and right ventricle. 3. The atrial septum appeared to be normal without evidence of defect or shunt. 4. Normal aortic root. 5. Trace pericardial effusion noted at the base of the left ventricle and posteriorly was noted, no evidence of cardiac tamponade. 6. Mildly calcified aortic valve with normal leaflet excursion. Mildly calcified mitral annulus with normal anterior mitral valve leaflet motion. Normal tricuspid valve and pulmonic valve. The proximal pulmonary artery branches were not well visualized. 7. The inferior vena cava was normal in size, central venous pressure is most likely normal. DOPPLER: It detects mild tricuspid regurgitation. The calculated pulmonary artery systolic pressure varies between 30-40 mmHg. Trace pulmonic regurgitation also detected. Abnormal relaxation pattern was noted across the mitral valve leaflets as well as the mitral valve annulus consistent with features of grade 1 left ventricular diastolic dysfunction. IMPRESSION: 1. Normal global left ventricular systolic function with mild concentric hypertrophy. There are some features of grade 1 left ventricular diastolic dysfunction manifested by abnormal relaxation. 2. Aortic valve sclerosis without stenosis or aortic regurgitation. 3. Mild tricuspid regurgitation with mild pulmonary hypertension. 5. Trace pulmonic regurgitation. 6. Trace pericardial effusion was noted, no evidence of cardiac component.
[2019-03-06] MEDS: VANCOMYCIN HCL 1,000 MG, VIAL MATE ADAPTER 1 EACH in D5W 250 ML IV SCH (08:53)
[2019-03-06] MEDS: HEPARIN SOD (PORCINE) 5000 UNITS/ML VIAL SC SCH (09:13)
[2019-03-06] MEDS: MOM 30ML SUSPENSION UDC PO SCH (09:14)
[2019-03-06] MEDS: PANTOPRAZOLE 40MG TAB (PROTONIX) PO SCH (09:14)
[2019-03-06] MEDS: DOCUSATE SODIUM 100 MG CAP PO SCH ×2 (09:14→21:13)
[2019-03-06] MEDS: SERTRALINE HCL 50 MG TAB PO SCH (09:14)
[2019-03-06] MEDS ORDERED: D5W/0.9% SODIUM CHLORIDE 1,000 ML IV SCH (10:45)
--- NOTE | 2019-03-06 11:46 | ECGEPIP ---
[facility] Test Date: 2019-03-05 Pat Name: DOUGLAS ANTONIO Department: Room: [place] [address] Gender: Male [employer] Attendant: TL : 1940 Requested By: SOPHIE Smith Order Number: [id number] Reading MD: Nancy Marroquin Measurements Intervals [place] Rate: 133 P: 47 WA: 156 QRS: 16 QRSD: 79 T: 46 QT: 268 QTc: 399 Interpretive Statements SINUS TACHYCARDIA SEPTAL MYOCARDIAL INFARCTION, PROBABLY OLD, CANNOT R/O NO CHANGE SINCE 10:06 SAME DAY Electronically Signed on 03-06-2019 11:45:54 EST by Nancy Marroquin
[2019-03-06] MEDS ORDERED: AMPICILLIN SOD/SULBACTAM SOD 3 GM in D5W MINI-BAG PLUS 100 ML IV SCH (12:00)
--- NOTE | 2019-03-06 12:29 | IPNPDOC ---
Text Note Date of Service The patient was seen on 03/06/19. NOTE Interval History: -After his pleurX placement Mr. Kapadia felt much better and his tachypnea and work of breathing improved and was admitted to the floor with plan for observation and discharge home the next morning. Unfortunately, shortly after arriving on the floor he developed sudden respiratory distress, hypertensive crises and tachycardia and had to be immediately transferred to the ICU where he continued to have tachypnea, increased work of breathing with gurgling and diffuse rhonchi and appeared pale with distal peripheral mottling. He had a repeat stat CXR that showed no interval changes from the post drainage, pleurX placement CXR without evidence of post expansion edema, pneumothorax or new findings, EKG showed sinus tachycardia without ST changes or dysrhythmias, and he was switched to CPAP with a PEEP of 5 drawing excellent tidal volumes with an ABG that was grossly normal per his baseline hypoxemia, and was given lasix 40 with a robust response, metop 5 IV x 1 with improvement in BP and tachycardia. He also developed a fever and had blood cultures drawn and started on empiric vanc/piptazo. During this episode Dr. Gallo and Dr. Cai had discussions with the family that updated his code to DNR/DNI, and would not want a feeding tube. He clinically improved with reduction of work of breathing, return of color, and improved alertness and he was placed back on nasal canula at 5L. Other studies that were done include a stat echo that was grossly unremarkable with a good EF, no wall motion abnormalities and a trace pericardial effusion, cardiac enzymes that were negative, repeat set of labs with new leukocytosis and mild lactate. Subjective: -This morning he is minimally conversant but alert and speaking clearly reporting no pain at this time Objective: General: Elderly, ill appearing man, awake, alert, answering questions appropriately in NAD HEENT: NCAT, anicteric, PERRLA, EOMI, nasal canula in place Neck: no visible plump neck veins as he had during his respiratory distress episode yesterday, no JVD, supple Pulm: diffuse rhonchi, no lavell crackles, otherwise moving air well without wheezing Cardiac: RRR, no noted murmurs or rubs Abd: Normoactive bowel sounds, soft, nontender Ext: No LE edema, WWP, mottling resolved, 2+ DP pulses Neuro: AAOx3, moving all extremities Labs: Reviewed. Most importantly WBC now 16.6, H/H 9/9/32.5, Cr 1.25. With pending BCx, UCx and pleural fluid cultures Imagin02/03/2019 CXR: Pleurx catheter along the right lung base stable position. Small residual right pleural effusion along with scattered bilateral opacities are essentially unchanged. No pneumothorax. No significant change from recent prior examination. 02/02/2019TTE: 1. Normal global left ventricular systolic function with mild concentric hypertrophy. There are some features of grade 1 left ventricular diastolic dysfunction manifested by abnormal relaxation. 2. Aortic valve sclerosis without stenosis or aortic regurgitation. 3. Mild tricuspid regurgitation with mild pulmonary hypertension. 5. Trace pulmonic regurgitation. 6. Trace pericardial effusion was noted, no evidence of cardiac component. 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 Plan: 1. Dyspnea with increased work of breathing 2/2 malignant R pleural effusion reaccumulation. - Recent cytology showed malignant cells and has now reaccumulated 3 times with 3 different admissions. -s/p pleurX with CXR showing interval improvement -PleurX teaching by nursing and to be discharged with bottles and will follow up with Dr. Gallo as an outpatient. -Patient had worsening hypoxemia yesterday evening but without evidence of re- accumulation, re-expansion edema or pneumothorax on CXR, presumed secondary to aspiration, now improving. -Switch back to therapeutic Lovenox from prophylactic dosing heparin for history of clots 2. Post procedural pain -[id number] percocet for moderate pain -[id number] percocet for severe pain -DC toradol given Cr bump and no pain reported -Adequately controlled, no pain this morning 3. Acute on chronic hypoxemic respiratory failure 2/2 aspiration event: now improving. -Placed on mechanical soft diet with nectar thickened liquids per prior speech recommendations and nursing and Dr. Cai bedside swallow eval -has official speech evaluation pending -Aspiration precautions -Switch vanc/zosyn to unasyn for aspiration empiric coverage, MRSA was negative -Incentive spirometry 4. UTI: +UA, now with leukocytosis and had a fever, though it should be noted this was in context of acute respiratory distress -Unasyn should be sufficient, until UCx results 5. 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 Turner (oncology) and Dr. Rodriguez (Rad Onc) in [place] will follow up outpatient. 6. Anemia: Chronic 7. Parkinson's: -continue home sinemet 8. Depression and anxiety: -continue home zoloft -continue home xanax Bowel regimen: Colace BID, milk of mag BID DVT ppx: Resume home therapeutic lovenox and dc heparin [id number] DISPO: Will now transfer out of the ICU to the PCU and switched to inpatient status from observation Code status: DNR/DNI VS,Fishbone, I+O VS, Fishbone, I+O Laboratory Tests 03/06/19 04:28 Vital Signs Date Time Temp Pulse Resp B/P (MAP) Pulse Ox O2 Delivery O2 Flow Rate FiO2 03/06/19 08:00 97.9 82 24 98/59 (72) 95 Nasal Cannula 5.0 03/05/19 18:49 100 I&O- Last 24 Hours up to 6 AM 03/06/19 06:00 Intake Total 1060 ml Output Total 2700 ml Balance -1640 ml SOPHIE MEDINA MD Mar 06, 2019 12:29
[2019-03-06] MEDS: ENOXAPARIN 120 MG/0.8 ML SYR (J1650) SC SCH (13:22)
[2019-03-06] MEDS: MIDODRINE 2.5 MG TAB PO SCH (13:22)
[2019-03-06] MEDS: VANCOMYCIN ORAL SOL 250MG/5ML ORAL SYRINGE PO SCH ×2 (13:26→21:13)
--- NOTE | 2019-03-06 14:41 | IPN ---
DATE: 03/06/2019 Patient was seen and examined this morning during bedside rounds. The patient appears to be improved today. He is more awake and alert, appears to be somewhat stronger, although he does continue to have some weakness, which his family has noticed has been going on for the past few days. Patient is saturating well on 5 liters nasal cannula currently, and he does not appear to be in respiratory distress as he was previously. His blood pressures have also improved, and his tachycardia has also improved. He does continue to have some cough, which he has difficulty with expectorating mucus. He also continues to have some upper airway gurgling sounds noted. When patient's nurse attempted to give patient a pill with some water to swallow, he had coughing noted immediately afterwards. When it was tried with nectar-thickened liquid and applesauce, he did not have any evidence of coughing nor aspiration. The patient's fever curve has also improved. He did have a fever overnight but this morning he has been afebrile. PHYSICAL EXAM: Vital signs: Temperature 97.9, pulse 82, respirations 24, blood pressure 98/59, oxygen saturation 97% on 5 liters nasal cannula. Ins 960, out 2.4 liters, net negative 1.4 liters. General: The patient is a frail, elderly male, is sitting in bed, appears to be more awake and alert and is able to answer some questions but has difficulty speaking. HEENT: Normocephalic, atraumatic. Pupils reactive to light bilaterally, and mucous membranes are moist. Neck is supple. There is no palpable cervical adenopathy. Cardiac: Regular rate and rhythm. Normal S1, S2. Unable to appreciate murmurs. Respiratory: There are diffuse rhonchorous breath sounds noted bilaterally with some upper airway gurgling. No wheezing or rales. There are some slight decreased breath sounds on the right base. Abdomen: Soft, mildly distended, nontender to palpation. Extremities: There is improvement in the previously noted bilateral lower extremity edema. LABS: WBC 16.6, hemoglobin 9.9, platelets 342. Chemistry: Sodium is 141, potassium is 4.0, chloride is 108, bicarbonate is 28, BUN is 13, creatinine is 1.25, glucose of 103, lactic acid trended down to 0.9. Chest x-ray this morning shows right pleural catheter in place with a small trace effusion. There is a right perihilar opacity noted and some mild infiltrate in the left lingular and lower lobe region. ASSESSMENT/PLAN: The patient is a 78-year-old male with history of Parkinson disease, chronic hypoxemic respiratory failure, metastatic adenocarcinoma with a history of malignant right pleural effusion, who presented with increased shortness breath and weakness. The patient had rapid reaccumulation of his fluid, which was just recently drained, and he was therefore placed with a PleurX catheter by cardiothoracic surgery. He had drainage of approximately 700 mL of serosanguineous fluid, and he tolerated procedure well. The patient did have some preprocedural medications for sedation. A few hours later he was noted to have slight increased shortness of breath and tachypnea as well some respiratory distress. The patient was also significantly tachycardic and hypertensive. He was given Lasix 40 mg intravenous (IV) as well as metoprolol 5 mg IV in the intensive care unit (ICU) and was initially placed on continuous positive airway pressure (CPAP) for his increased work of breathing and concern for possible pulmonary edema. His repeat chest x-ray, however, did not show any significant increased pulmonary edema compared to his previous. The patient does have a history of aspiration based on his previous hospitalization with admission and treatment for aspiration pneumonia. Suspect patient had an episode of aspiration and mucus plugging contributing to his respiratory distress, and he was tachycardic and tachypneic secondary to his respiratory distress. He also had lactic acidosis, which is likely in the setting of his tachypnea and increased work of breathing. - The patient has improved this morning. His lactic acid has trended down, and his vital signs have also improved. - The patient did have a fever overnight, and he does have increased leukocytosis. He was started on broad-spectrum antibiotics for possible aspiration pneumonia with coverage specifically for anaerobic organisms. IV vancomycin was discontinued as his methicillin-resistant Staphylococcus aureus (MRSA) screen was negative. - Given his history of recurrent Clostridium (C) difficile, will start vancomycin by mouth for prophylaxis as he is going to be on IV antibiotics. - Continue with nasal cannula oxygen supplementation and wean down as tolerated to maintain O2 sat above 90% - The patient's blood pressures have improved. He previously had been on midodrine as an outpatient for chronic hypotension likely in the setting of his Parkinson disease. This will be restarted by his primary team. - Continue with aspiration precautions with head of bed elevation. The patient was ordered for a repeat speech and swallow study, but his previous evaluation had recommended mechanical soft diet. Would also make sure he is on nectar-thick liquids as he was noted to have aspiration today when attempting to take his pills with thin liquids. - The patient was given a dose of IV Lasix and did have good urine output overnight. I would continue to hold off on further Lasix at this time but can continue to monitor his ins and outs. - Continue with DuoNebs as needed. - The patient will continue drainage of his malignant right pleural effusion via the PleurX catheter every other day with adjustments as needed depending on his symptoms and reaccumulation. Deep venous thrombosis (DVT) prophylaxis, on full-dose no Lovenox. Code status: DO NOT RESUSCITATE/DO NOT INTUBATE (DNR/DNI). Patient has had increasing weakness and would likely benefit from physical therapy (PT)/occupational therapy (OT) for further optimization. He also lives at home alone with his , who has mentioned that she feels there is some difficulty in caring for him on her own, especially given his increasing needs. Would also place a consult for possible home services. Please do not hesitate to call if any further questions or concerns.
[2019-03-06] MEDS: ACETAMINOPHEN TAB 650MG DOSE (2X325MG) PO PRN (16:01)
[2019-03-06] MEDS: SINEMET**CR** 25/100 TABCR PO SCH (21:12)
[2019-03-07] VITALS (24 sets, daily range): BP systolic 96–134; BP diastolic 52–137; O2SAT 92–97
[2019-03-07] MEDS: ACETAMINOPHEN TAB 650MG DOSE (2X325MG) PO PRN ×3 (02:02→20:35)
[2019-03-07 05:42] LABS: BASO % 0.2 % (0.0-1.0); EOS # 0.4 10^3/uL (0.0-0.5); HEMATOCRIT 30.1 % (42.0-52.0); HEMOGLOBIN 9.4 g/dl (13.5-17.5); LYMPH # 0.9 10^3/uL (1.5-5.0); LYMPH % 9.4 % (24.0-44.0); MEAN CORPUSCULAR HEMOGLOBIN 28.7 pg (27.0-33.0); MEAN CORPUSCULAR HGB CONC 31.2 g/dl (32.0-36.5); MEAN CORPUSCULAR VOLUME 91.8 fl (80.0-96.0); MONO # 0.5 10^3/uL (0.0-0.8); MONO % 5.3 % (0.0-5.0); NEUTROPHILS # 7.8 10^3/uL (1.5-8.5); NEUTROPHILS % 80.8 % (36.0-66.0); PLATELET COUNT, AUTOMATED 290 10^3/uL (150-450); RED BLOOD COUNT 3.28 10^6/uL (4.30-6.10); WHITE BLOOD COUNT 9.7 10^3/uL (4.0-10.0)
[2019-03-07] MEDS: SINEMET 25-100 MG TAB PO SCH ×4 (05:59→16:37)
[2019-03-07 06:07] LABS: BLOOD UREA NITROGEN 27 MG/DL (7-18); CALCIUM LEVEL 7.9 MG/DL (8.8-10.2); CARBON DIOXIDE LEVEL 29 MEQ/L (21-32); CHLORIDE LEVEL 109 MEQ/L (98-107); CREATININE FOR GFR 1.04 MG/DL (0.70-1.30); GLOMERULAR FILTRATION RATE > 60.0 (>42); GLUCOSE, FASTING 88 MG/DL (70-100); POTASSIUM SERUM 3.9 MEQ/L (3.5-5.1); SODIUM LEVEL 141 MEQ/L (136-145)
[2019-03-07] MEDS: DOCUSATE SODIUM 100 MG CAP PO SCH ×2 (09:00→20:31)
[2019-03-07] MEDS: MOM 30ML SUSPENSION UDC PO SCH (09:00)
[2019-03-07] MEDS: MIDODRINE 2.5 MG TAB PO SCH (09:18)
[2019-03-07] MEDS: VANCOMYCIN ORAL SOL 250MG/5ML ORAL SYRINGE PO SCH ×2 (09:18→20:32)
[2019-03-07] MEDS: PANTOPRAZOLE 40MG TAB (PROTONIX) PO SCH (09:18)
[2019-03-07] MEDS: ENOXAPARIN 120 MG/0.8 ML SYR (J1650) SC SCH (09:18)
[2019-03-07] MEDS: SERTRALINE HCL 50 MG TAB PO SCH (09:18)
[2019-03-07] MEDS ORDERED: SLF 3 ML SYR IV PRN (12:00)
--- NOTE | 2019-03-07 12:20 | IPNPDOC ---
Text Note Date of Service The patient was seen on 03/07/19. NOTE Subjective: -Feels much better, was sitting up in the chair, working with PT Objective: General: Elderly man, awake, alert, sitting up in chair, in NAD HEENT: NCAT, anicteric, PERRLA, EOMI, nasal canula in place Neck: no JVD, supple Pulm: Rhonchi have resolved, new crackles at right lower base, otherwise moving air well without wheezing Cardiac: RRR, no noted murmurs or rubs Abd: Normoactive bowel sounds, soft, nontender Ext: No LE edema, WWP, mottling resolved, 2+ DP pulses Neuro: AAOx3, moving all extremities Labs: Reviewed. WBC now 9.7 from 16, H/H with mild stable anemia, Cr 1.04. UCx grew Klebs sensitive to unasyn. Blood cultures and pleural fluid cultures nega tive to date Imagin02/03/2019 CXR: Pleurx catheter along the right lung base stable position. Small residual right pleural effusion along with scattered bilateral opacities are essentially uncha nged. No pneumothorax. No significant change from recent prior examination. 02/02/2019TTE: 1. Normal global left ventricular systolic function with mild concentric hypertrophy. There are some features of grade 1 left ventricular diastolic dysfunction manifested by abnormal relaxation. 2. Aortic valve sclerosis without stenosis or aortic regurgitation. 3. Mild tricuspid regurgitation with mild pulmonary hypertension. 5. Trace pulmonic regurgitation. 6. Trace pericardial effusion was noted, no evidence of cardiac component. 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 Plan: 1. Dyspnea with increased work of breathing 2/2 malignant R pleural effusion reaccumulation. - Recent cytology showed malignant cells and has now reaccumulated 3 times with 3 different admissions. -s/p pleurX with CXR showing interval improvement -Nursing draining pleurX every other day. -PleurX teaching by nursing and to be discharged with bottles and will follow up with Dr. Gallo as an outpatient. -Patient had worsening hypoxemia yesterday evening but without evidence of re- accumulation, re-expansion edema or pneumothorax on CXR, presumed secondary to aspiration, now improving. -Continue therapeutic Lovenox for history of clots 2. Post procedural pain: Adequately controlled -[id number] percocet for moderate pain -[id number] percocet for severe pain 3. Acute on chronic hypoxemic respiratory failure 2/2 aspiration event: now improving and on 4L NC. Baseline is 3L NC. -Change nectar thick to thin liquids and continue mechanical soft diet per speech -Aspiration precautions -Switch unasyn to augmentin for aspiration empiric coverage and klebs UTI -Incentive spirometry 4. Klebs UTI: +UA, +leukocytosis, had a feve -Switching unasyn to augmentin, this is day #3 of 7. 5. 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 Turner (oncology) and Dr. Rodriguez (Rad Onc) in [place] will follow up outpatient. 6. Anemia: Chronic 7. Parkinson's: -continue home sinemet 8. Depression and anxiety: -continue home zoloft -continue home xanax Bowel regimen: Colace BID, milk of mag BID DVT ppx: Therapeutic lovenox DISPO: Floor, working with PT and will speak with family about safe discharge planning Code status: DNR/DNI VS,Fishbone, I+O VS, Fishbone, I+O Laboratory Tests 03/07/19 05:02 Vital Signs Date Time Temp Pulse Resp B/P (MAP) Pulse Ox O2 Delivery O2 Flow Rate FiO2 03/07/19 08:00 97.8 83 20 134/79 (97) 99 Nasal Cannula 4.0 03/05/19 18:49 100 I&O- Last 24 Hours up to 6 AM 03/07/19 06:00 Intake Total 1300 ml Output Total 325 ml Balance 975 ml [id number],SOPHIE V. MD Mar 07, 2019 12:19
[2019-03-07] MEDS: SLF 3 ML SYR IV SCH ×2 (12:24→20:33)
[2019-03-07] MEDS: ALBUTEROL SULFATE 2.5 MG/0.5 ML INH NEB SOLN INH PRN (16:37)
[2019-03-07] MEDS: SINEMET**CR** 25/100 TABCR PO SCH (20:31)
[2019-03-07] MEDS: raNITIdine SYRUP 150 MG/10 ML UDC PO SCH (20:31)
[2019-03-07] MEDS: AUGMENTIN 875 MG TAB PO SCH (20:31)
[2019-03-08] VITALS (7 sets, daily range): BP systolic 137–152; BP diastolic 84–87; O2SAT 93–97
[2019-03-08] MEDS: ACETAMINOPHEN TAB 650MG DOSE (2X325MG) PO PRN ×2 (01:46→15:49)
[2019-03-08 04:42] LABS: BASO % 0.2 % (0.0-1.0); EOS # 0.4 10^3/uL (0.0-0.5); EOS % 4.8 % (0.0-3.0); HEMATOCRIT 31.2 % (42.0-52.0); HEMOGLOBIN 9.6 g/dl (13.5-17.5); LYMPH % 11.6 % (24.0-44.0); MEAN CORPUSCULAR HEMOGLOBIN 28.3 pg (27.0-33.0); MEAN CORPUSCULAR HGB CONC 30.8 g/dl (32.0-36.5); MONO # 0.6 10^3/uL (0.0-0.8); MONO % 7.4 % (0.0-5.0); NEUTROPHILS # 6.5 10^3/uL (1.5-8.5); NEUTROPHILS % 75.6 % (36.0-66.0); PLATELET COUNT, AUTOMATED 327 10^3/uL (150-450); RED BLOOD COUNT 3.39 10^6/uL (4.30-6.10); WHITE BLOOD COUNT 8.5 10^3/uL (4.0-10.0)
[2019-03-08] MEDS: SLF 3 ML SYR IV SCH ×2 (05:43→13:12)
[2019-03-08] MEDS: SINEMET 25-100 MG TAB PO SCH ×3 (05:43→13:12)
[2019-03-08] MEDS: MIDODRINE 2.5 MG TAB PO SCH (08:28)
[2019-03-08] MEDS: ENOXAPARIN 120 MG/0.8 ML SYR (J1650) SC SCH (08:28)
[2019-03-08] MEDS: SERTRALINE HCL 50 MG TAB PO SCH (08:28)
[2019-03-08] MEDS: raNITIdine SYRUP 150 MG/10 ML UDC PO SCH (08:28)
[2019-03-08] MEDS: AUGMENTIN 875 MG TAB PO SCH (08:28)
[2019-03-08] MEDS: VANCOMYCIN ORAL SOL 250MG/5ML ORAL SYRINGE PO SCH (08:29)
[2019-03-08] MEDS: DOCUSATE SODIUM 100 MG CAP PO SCH (09:00)
[2019-03-08] MEDS: MOM 30ML SUSPENSION UDC PO SCH (09:00)
[2019-03-08] MEDS ORDERED: AMOX875T2 PO (14:21)
--- NOTE | 2019-03-08 15:08 | DS.PDOC ---
Discharge Summary General Date of Admission Mar 06, 2019 at 08:10 Date of Discharge 03/08/2019 Attending Physician: SOPHIE MEDINA MD Specialist/Consultants Involve: Joesph Gallo M.D. Specialist/Consultants Involve Dr. Cai (Pulm/Crit) Discharge Summary PROCEDURES PERFORMED DURING STAY: None. ADMITTING DIAGNOSES: 1. Malignant pleural effusion DISCHARGE DIAGNOSES: 1. Malignant pleural effusion 2. Aspiration pneumonia 3. Klebsiella UTI 4. Parkinson Disease 5. bilateral knee osteoarthritis 6. Hypertension 7. 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 R middle lobe adenocarcinoma of lung 9. History of recurrent C. Difficile 10. Chronic oxygen dependent respiratory failure use at home (3L) 11. Physical deconditioning COMPLICATIONS/CHIEF COMPLAINT: Pleural Effusion. HISTORY OF PRESENT ILLNESS: 78 yo M with hx of adenocarcinoma of the right middle lobe, status post chemotherapy and radiation, last tx in 08/2018, recently admitted in [place] and subsequent here at [facility] a few days for shortness of breath in the setting of R pleural effusion, as well minimal patchy bilateral pulmonary infiltrates and questionable occlusion of the left subclavian vein s/o antibiotics, thoracentesis with improvement in symptoms and discharge home back on home 3L NC, who now returned 6d after discharge with worsening shortness of breath and tachypnea with family requesting a pleurX catheter as this continues to reaccum ulate and cause symptoms. He otherwise was afebrile, normotensive without new congestion, cough or lower extremity swelling and denied chest pain, palpitations or new back pain. Of note, during his last hospitalization, he had a thoracocentesis that showed a malignant effusion without infection. He was however treated for sepsis secondary to pneumonia, with 5 days of IV Zosyn, 2 days of Augmentin for a total of 7 day course. He was also empirically treated with PO Vanc given his history of C. difficile, his urine culture on 02/21 revealed no growth, pleural fluid had no growth, sputum Gram stain reveals normal adrienne, while yeast, respiratory virus panel and blood culture were negative. He was also treated with a short course of steroids. HOSPITAL COURSE: In the ED, he arrived hemodynamically stable, afebrile, reporting stable hypoxemia from his baseline 3L NC use at home but worsening work of breathing and tachypnea per family with patient not speaking in full sentences. Initial work up was notable for WBC 9.7, mild anemia 11.1/36.3, normal ABG on his home setting of 3L, Cr 1.07, negative troponin, proBNP of 489, much lower than prior, +UA positive for nitrate and leuks with 41WBC and 2+ blood, while a CXR showed interval enlargement of effusion since the last CXR pre-discharge and chest CT showed a large R pleural effusion and stable cardiomegaly. Dr. Gallo was consulted by the ED and managed to place the pleurX and drain 700cc of serosanguinous fluid. After his pleurX placement Mr. Kapadia felt much better and his tachypnea and work of breathing improved and was admitted to the floor with plan for observation and discharge home the next morning. Unfortunately, shortly after arriving on the floor he developed sudden respiratory distress, hypertensive crises and ta chycardia and had to be immediately transferred to the ICU where he continued to have tachypnea, increased work of breathing with gurgling and diffuse rhonchi and appeared pale with distal peripheral mottling. He had a repeat stat CXR that showed no interval changes from the post drainage, pleurX placement CXR without evidence of post expansion edema, pneumothorax or new findings, EKG showed sinus tachycardia without ST changes or dysrhythmias, and he was switched to CPAP with a PEEP of 5 drawing excellent tidal volumes with an ABG that was grossly normal per his baseline hypoxemia, and was given lasix 40 with a robust response, metop 5 IV x 1 with improvement in BP and tachycardia. He also developed a fever and had blood cultures drawn and started on empiric vanc/piptazo. During this epis ode Dr. Gallo and Dr. Cai had discussions with the family that updated his code to DNR/DNI, and would not want a feeding tube. He clinically improved with reduction of work of breathing, return of color, and improved alertness and he was placed back on nasal canula at 5L. Other studies that were done include a stat echo that was grossly unremarkable with a good EF, no wall motion abnormalities and a trace pericardial effusion, cardiac enzymes that were negative, repeat set of labs with new leukocytosis and mild lactate. MRSA was ultimately negative and cultures showed no growth and he was switched to unasyn and eventually augmentin to empricially cover him for suspected aspiration pneu monia and also covered Klebsiella that grew in his urine cultures. He was transferred back to the floor where he continued to improve until he returned to his home 3L NC. He worked with PT that recommended home discharge with benefit from home PT. His received pleurX drainage and care training and expressed understanding. He is now being discharged home to complete 5 more days of augmentin to complete a course and to follow up with his PCP and Dr. Gallo in the outpatient setting. DISCHARGE MEDICATIONS: Please see below. ALLERGIES: Please see below. PHYSICAL EXAMINATION ON DISCHARGE: VITAL SIGNS: Please see below. General: Elderly man, awake, alert, sitting at the bedside, in NAD, using his incentive spirometer HEENT: NCAT, anicteric, PERRLA, EOMI, nasal canula in place Neck: no JVD, supple Pulm: Some upper airway transmitted sounds, trace crackles at right lower base, otherwise moving air well without wheezing and speaking in full sentences Cardiac: RRR, no noted murmurs or rubs Abd: Normoactive bowel sounds, soft, nontender Ext: No LE edema, WWP, 2+ DP pulses Neuro: AAOx3, moving all extremities, but reports bilateral knee pain from his arthritis when he stretches out his legs. LABORATORY DATA: Please see below. IMAGIN02/03/2018: CT chest pre-pleurX Large right pleural effusion along with bilateral consolidations and atelectasis primarily involving the right middle lobe and right lower lobe as well as the left base appear relatively unchanged. Cardiomegaly with underlying pulmonary vascular congestion is also appreciated. No pneumothorax. Adenopathy cannot be excluded. Osseous structures demonstrate age-related degenerative change without focal abnormality. 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 02/03/2019 CXR: Post pleurX placement Pleurx catheter along the right lung base stable position. Small residual right pleural effusion along with scattered bilateral opacities are essentially unchanged. No pneumothorax. No significant change from recent prior examination. 02/02/2019TTE: 1. Normal global left ventricular systolic function with mild concentric hype rtrophy. There are some features of grade 1 left ventricular diastolic dysfunction manifested by abnormal relaxation. 2. Aortic valve sclerosis without stenosis or aortic regurgitation. 3. Mild tricuspid regurgitation with mild pulmonary hypertension. 5. Trace pulmonic regurgitation. 6. Trace pericardial effusion was noted, no evidence of cardiac component. PROGNOSIS: Fair ACTIVITY: As tolerated DIET: Mechanical soft with regular thin liquids DISCHARGE PLAN: Home with home services and home PT DISPOSITION: Home DISCHARGE INSTRUCTIONS: 1. Please complete the remaining 5 days of augmentin ITEMS TO FOLLOWUP ON ON OUTPATIENT: 1. Dyspnea 2. PleurX management 3. Lung cancer 4. Deconditioning 5. PCP follow up for chronic conditions DISCHARGE CONDITION: Stable TIME SPENT ON DISCHARGE: 47 minutes. Vital Signs/I&Os Vital Signs Date Time Temp Pulse Resp B/P (MAP) Pulse Ox O2 Delivery O2 Flow Rate FiO2 03/08/19 12:00 3.0 03/08/19 12:00 94 Nasal Cannula 03/08/19 12:00 98.1 86 16 152/87 (108) 03/05/19 18:49 100 I&O- Last 24 Hours up to 6 AM 03/08/19 06:00 Intake Total 1136 ml Output Total 1125 ml Balance 11 ml Laboratory Data Labs 24H Laboratory Tests 2 03/08/19 04:03: Immature Granulocyte % (Auto) 0.4, Neutrophils (%) (Auto) 75.6H, Lymphocytes (%) (Auto) 11.6L, Monocytes (%) (Auto) 7.4H, Eosinophils (%) (Auto) 4.8H, Basophils (%) (Auto) 0.2, Neutrophils # (Auto) 6.5, Lymphocytes # (Auto) 1.0L, Monocytes # (Auto) 0.6, Eosinophils # (Auto) 0.4, Basophils # (Auto) 0.0, Nucleated Red Blood Cells % (auto) 0.0 CBC/BMP Laboratory Tests 03/08/19 04:03 Microbiology Microbiology 03/05/19 Blood Culture - Preliminary, Resulted No Growth after 48 hours. All Specime... 03/05/19 Acid Fast Stain, Received Pending 03/05/19 Mycobacterial Culture, Received Pending 03/05/19 Fungal Smear, Received Pending 03/05/19 Fungal Culture, Received Pending 03/05/19 Gram Stain - Final, Complete 03/05/19 Body Fluid Culture - Final, Complete 03/05/19 Anaerobic Culture - Final, Complete 03/05/19 Urine Culture - Final, Complete Klebsiella Pneumoniae 03/05/19 Blood Culture - Preliminary, Resulted No Growth after 72 hours. All specime... 03/05/19 Blood Culture - Preliminary, Resulted No Growth after 72 hours. All specime... Discharge Medications Scheduled Amoxicillin/Potassium Clav (Amox-Clav 875-125 mg Tablet) 1 Each Tablet, 875 MG PO BID Carbidopa/Levodopa (Carbidopa-Levodopa 25-100 Tab) 1 Each Tablet, 1 TAB PO QID, (Reported) 0500, 0900, 1300, 1700 Carbidopa/Levodopa (Carbidopa-Levo ER 25-100 Tab) 1 Each Tablet.er, 1 TAB PO QHS , (Reported) Enoxaparin Sodium (Enoxaparin Sodium) 120 Mg/0.8 Ml Syringe, 120 MG SC DAILY, (Reported) Lactobacillus Rhamnosus GG (Culturelle) 1 Each Capsule, 1 CAP PO DAILY, (Reported) Midodrine HCl (Midodrine HCl) 2.5 Mg Tablet, 2.5 MG PO DAILY, (Reported) Sertraline HCl (Sertraline HCl) 25 Mg Tablet, 50 MG PO DAILY, (Reported) Scheduled PRN Acetaminophen (Acetaminophen) 500 Mg Tablet, 1,000 MG PO Q4H PRN for PAIN, (Reported) Albuterol Sulf (Albuterol Sulfate) 2.5 Mg/3 Ml Vial.neb, 2.5 MG INH Q6H PRN for SHORTNESS OF BREATH, (Reported) Albuterol Sulfate (Proair Hfa) 8.5 Gm Hfa.aer.ad, 2 PUFF INH Q6H PRN for WHEEZING, (Reported) Alprazolam (Alprazolam) 0.25 Mg Tablet, 0.25 MG PO BID PRN for ANXIETY, (Reported) Allergies Coded Allergies: codeine (Verified Adverse Reaction, Unknown, hallucinations, 09/20/18) SOPHIE MEDINA MD Mar 08, 2019 15:08
== END 2019-03-08 16:04 | disposition home health service (06) | DRG 180 ==
LOC: M ED 09:54 → M ED INP 09:55 → M PCU 13:10 → M ICU 18:15 → OBSVTOIN 03-06 08:10 → M PCU 03-06 15:10
PROVIDERS: ADMIT Internal Medicine; ATTEND Internal Medicine
PROC: 0W993ZX Drainage of Right Pleural Cavity, Percutaneous Approach, Diagnostic (ICD-10-PCS; principal; 2019-03-05)
DX: C34.2 Malignant neoplasm of middle lobe, bronchus or lung (principal); J96.21 Acute and chronic respiratory failure with hypoxia; J69.0 Pneumonitis due to inhalation of food and vomit; N39.0 Urinary tract infection, site not specified; J91.0 Malignant pleural effusion; B96.1 Klebsiella pneumoniae [K. pneumoniae] as the cause of diseases classified elsewhere; Z99.81 Dependence on supplemental oxygen; I10 Essential (primary) hypertension; G20 Parkinson's disease; Z79.01 Long term (current) use of anticoagulants; Z86.711 Personal history of pulmonary embolism; M17.0 Bilateral primary osteoarthritis of knee; Z79.899 Other long term (current) drug therapy; Z88.5 Allergy status to narcotic agent; Z66 Do not resuscitate; D64.9 Anemia, unspecified; F41.9 Anxiety disorder, unspecified; F32.9 Major depressive disorder, single episode, unspecified

== ENCOUNTER → 2019-03-13 | Outpatient (CLI) | payer MEDICARE ==
[~2019-03-13] MED LIST changes: +ACET-683 PO; +ALPR0.25 PO; +ALPR0.5T3 PO
--- NOTE | 2019-03-13 10:41 | REPPI ---
Clinical: Pleural effusion. Follow-up. Technique: PA and lateral. Comparison: 03/06/2019. Findings: Small to moderate right pleural effusion along with bibasilar atelectasis (right greater than left) appears to have subsequently increased and correlation with physical examination is recommended. Remainder examination appears relatively stable. Impression: Right pleural effusion and basilar atelectasis appears increased compared to 03/06/2019. Electronically Signed by Romulo Chu MD 03/13/2019 10:32 A
== END ==
LOC: M PLAIMG 09:55
PROVIDERS: ATTEND Thoracic Surgery (Cardiothoracic Vascular Surgery)
DX: J90 Pleural effusion, not elsewhere classified (principal)

== ENCOUNTER → 2019-04-17 | Outpatient (CLI) | payer MEDICARE ==
--- NOTE | 2019-04-17 17:53 | REPPI ---
Chest x-ray: Two views. History: Malignant pleural effusion. Comparison chest x-ray: March 13, 2019. Findings: A left-sided Ogbmak-N-Yywh catheter is noted in place. A Pleurx drainage catheter is visible in place on the right at the lung base. There is less pleural angle blunting on the right than there was on the March 13, 2019 study. There is a right hilar fullness and perihilar density unchanged. No new infiltrate. Electronically Signed by Aubrey Floyd MD 04/17/2019 05:45 P
== END ==
LOC: M PLAIMG 14:38
PROVIDERS: ATTEND Thoracic Surgery (Cardiothoracic Vascular Surgery)
DX: Z85.118 Personal history of other malignant neoplasm of bronchus and lung (principal); J91.0 Malignant pleural effusion

== ENCOUNTER → 2019-05-12 | Outpatient (CLI) | payer MEDICARE ==
--- NOTE | 2019-05-12 09:27 | REPPI ---
PA and lateral chest: Comparison is 04/17/2019. There is a right chest tube, unchanged. There is effacement of the right costophrenic angle, unchanged. There is fullness in the right hilus, unchanged, taking into consideration patient position. Patient is slightly rotated on the current study. The left lung is clear and unchanged. Cardiac size is upper normal, unchanged. There is a left subclavian Ukidky-O-Xwmx with the tip in the superior vena cava in satisfactory position, unchanged. Impression: There is no significant interval change. Electronically Signed by Dennis Conner MD 05/12/2019 09:19 A
== END ==
LOC: M PLAIMG 08:41
PROVIDERS: ATTEND Thoracic Surgery (Cardiothoracic Vascular Surgery)
DX: C34.2 Malignant neoplasm of middle lobe, bronchus or lung (principal); J91.0 Malignant pleural effusion

== ENCOUNTER → 2019-05-29 | Outpatient (CLI) | payer MEDICARE ==
[~2019-05-29] MED LIST changes: +ELIQ5TAB PO; +KEYT1INJ IV; +MUCI600T31 PO
[2019-05-29 11:49] LABS: INR 1.05; PROTHROMBIN TIME 13.4 SECONDS (11.8-14.0)
[2019-05-29 11:50] LABS: PARTIAL THROMBOPLASTIN TIME 29.1 SECONDS (25.0-38.4)
[2019-05-29 12:28] LABS: HEMATOCRIT 37.8 % (42.0-52.0); HEMOGLOBIN 11.5 g/dl (13.5-17.5); MEAN CORPUSCULAR HGB CONC 30.4 g/dl (32.0-36.5); MEAN CORPUSCULAR VOLUME 92.2 fl (80.0-96.0); PLATELET COUNT, AUTOMATED 290 10^3/uL (150-450); WHITE BLOOD COUNT 5.9 10^3/uL (4.0-10.0)
[2019-05-29 12:39] LABS: APPEARANCE, URINE CLOUDY (CLEAR); BACTERIA, URINE AUTO 2+ (NEGATIVE); BILIRUBIN, URINE AUTO NEGATIVE (NEGATIVE); BLOOD, URINE BLOOD NEGATIVE (NEGATIVE); COLOR, URINE YELLOW (YELLOW); GLUCOSE, URINE (UA) AUTO NEGATIVE (NEGATIVE); KETONE, URINE AUTO TRACE mg/dL (NEGATIVE); LEUKOCYTE ESTERASE, URINE AUTO 3+ (NEGATIVE); MUCUS, URINE SMALL (NEGATIVE); NITRITE, URINE AUTO NEGATIVE (NEGATIVE); PROTEIN, URINE AUTO NEGATIVE (NEGATIVE); RBC, URINE AUTO 12 /HPF (0-3); SPECIFIC GRAVITY URINE AUTO 1.024 (1.002-1.035); SQUAMOUS EPITHELIAL CELL UR AU 0 /HPF (0-6); UROBILINOGEN, URINE AUTO 0.2 mg/dL (0.0-2.0); WBC, URINE AUTO TNTC /HPF (0-3)
[2019-05-29 12:50] LABS: BLOOD UREA NITROGEN 27 MG/DL (7-18); CALCIUM LEVEL 8.4 MG/DL (8.8-10.2); CARBON DIOXIDE LEVEL 31 MEQ/L (21-32); CHLORIDE LEVEL 109 MEQ/L (98-107); CREATININE FOR GFR 1.03 MG/DL (0.70-1.30); GLOMERULAR FILTRATION RATE > 60.0 (>42); GLUCOSE, FASTING 77 MG/DL (70-100); POTASSIUM SERUM 4.7 MEQ/L (3.5-5.1); SODIUM LEVEL 144 MEQ/L (136-145)
== END ==
LOC: M PLALAB 10:06
PROVIDERS: ATTEND Thoracic Surgery (Cardiothoracic Vascular Surgery)
DX: C34.90 Malignant neoplasm of unspecified part of unspecified bronchus or lung (principal); J91.0 Malignant pleural effusion

== ENCOUNTER 2019-05-30 07:13 | Day surgery (SDC) | payer MEDICARE ==
[~2019-05-30] VITALS: Ht 165.1 cm; Wt 68.0 kg
[~2019-05-30 07:13] MED LIST changes: +LIDOCAINE 2% INJ 100 MG/5 ML SDV (FOR ANES.) As Ordered ONE; +LR 1,000 ML IV ONE; +MIDAZOLAM INJ 2 MG/2 ML VIAL (J2250) As Ordered ONE; +ONDANSETRON 4MG/2ML VIAL (J2405) As Ordered ONE; +dexameTHASONE 4 MG/ML 1ML VIAL (J1100) As Ordered ONE; +fentaNYL 100 MCG/2 ML INJECTION (J3010) As Ordered ONE; +propofoL 200 MG/20 ML VIAL As Ordered ONE
[2019-05-30] MEDS ORDERED: LIDOCAINE 1% SDV INJ 30 ML VIAL As Ordered ONE (07:20)
[2019-05-30] MEDS ORDERED: MUPIROCIN 2% OINT 22 GM TUBE TOP ONE (08:15)
[2019-05-30] MEDS ORDERED: ceFAZolin SOD 2 GM in IV 1 EA IV ONE (08:15)
[2019-05-30] MEDS ORDERED: BUPIVACAINE LIPOSOME/PF 1.3% 20ML VIAL (13.3MG/ML)(EXPAREL)(C9290 PER1MG) As Ordered ONE (09:04)
--- NOTE | 2019-05-30 10:15 | REP ---
Portable chest x-ray: Single view. History: Post removal of Pleurx catheter on the right. Comparison chest x-ray: March 06, 2019. Findings: The right sided Pleurx catheters been withdrawn. There is some pleural thickening at the right lateral base. Hazy F fullness is seen in the right inferior hilus. There is a Ktwxoy-D-Pukb catheter via the left side again seen in place. No new infiltrate is seen. Impression: Some blunting of the right pleural angle post Pleurx catheter removal. No evidence of pneumothorax. No other new finding. Electronically Signed by Aubrey Floyd MD 05/30/2019 10:07 A
[2019-05-30 10:20] VITALS: BP 117/77
--- NOTE | 2019-05-30 11:27 | ECGEPIP ---
[facility] Test Date: 2019-05-30 Pat Name: DOUGLAS ANTONIO Department: Room: - Gender: Male Block Sorter: CORNEL : 1940 Requested By: SAM Durham Order Number: [id number] Reading MD: Federico Briones Measurements Intervals [place] Rate: 84 P: 43 VA: 182 QRS: -9 QRSD: 91 T: 12 QT: 355 QTc: 421 Interpretive Statements SINUS RHYTHM Possible LEFT ATRIAL ENLARGEMENT Poor R wave progression. Decreased heart rate compared with 03/05/2019 At 1847 hrs. Electronically Signed on 05-30-2019 11:27:27 EST by Federico Briones
--- NOTE | 2019-06-02 10:18 | RO ---
DATE OF PROCEDURE: 05/30/2019 PREPROCEDURE DIAGNOSIS: Retained PleurX catheter, no longer draining. POSTPROCEDURE DIAGNOSIS: Retained PleurX catheter, no longer draining. PROCEDURE: Removal of PleurX catheter. SURGEON: Joesph Gallo MD PROPERTY HANDLER: ANESTHESIA: DESCRIPTION OF PROCEDURE: Under satisfactory monitored sedation achieved with 2 mg of Versed, the patient was prepped and draped in the usual sterile fashion. The incision site was infiltrated with Exparel. Incision was made over the sewing collar. The sewing collar was identified and excised from the surrounding subcutaneous tissue. The catheter was then delivered in toto after freeing the sewing collar. The wound was closed with running 3-0 Vicryl suture for the subcutaneous tissue and running 4-0 Monocryl suture for the subcuticular for skin. The patient tolerated the procedure well and left the operating room in satisfactory condition.
== END 2019-05-30 10:35 | disposition home or self-care (01) ==
LOC: M SDC 07:13
PROVIDERS: ATTEND Thoracic Surgery (Cardiothoracic Vascular Surgery)
DX: Z45.2 Encounter for adjustment and management of vascular access device (principal); J91.0 Malignant pleural effusion; C34.2 Malignant neoplasm of middle lobe, bronchus or lung; I10 Essential (primary) hypertension; G20 Parkinson's disease; F41.9 Anxiety disorder, unspecified; F32.9 Major depressive disorder, single episode, unspecified; G62.9 Polyneuropathy, unspecified; Z79.899 Other long term (current) drug therapy; Z79.01 Long term (current) use of anticoagulants; Z88.5 Allergy status to narcotic agent; Z86.711 Personal history of pulmonary embolism
CPT/HCPCS: 32552; 71045; 93005; C9290; J0690; J2250; J3010

== ENCOUNTER → 2019-06-20 | Outpatient (CLI) | payer MEDICARE ==
[~2019-06-20] MED LIST changes: -LIDOCAINE 2% INJ 100 MG/5 ML SDV (FOR ANES.) As Ordered ONE; -LR 1,000 ML IV ONE; -MIDAZOLAM INJ 2 MG/2 ML VIAL (J2250) As Ordered ONE; -ONDANSETRON 4MG/2ML VIAL (J2405) As Ordered ONE; -dexameTHASONE 4 MG/ML 1ML VIAL (J1100) As Ordered ONE; -fentaNYL 100 MCG/2 ML INJECTION (J3010) As Ordered ONE; -propofoL 200 MG/20 ML VIAL As Ordered ONE
--- NOTE | 2019-06-20 14:55 | REPPI ---
REASON: History of malignant pleural effusion. COMPARISON: Multiple, latest 05/30/2019. Right basilar opacities with pleural effusion and right infrahilar mass, status quo. No change in the MediPort device. No new abnormal opacities have developed. IMPRESSION: No significant change. Electronically Signed by Robert Burdick DO 06/20/2019 03:44 P
== END ==
LOC: M PLAIMG 10:56
PROVIDERS: ATTEND Thoracic Surgery (Cardiothoracic Vascular Surgery)
DX: C34.2 Malignant neoplasm of middle lobe, bronchus or lung (principal); J91.0 Malignant pleural effusion

== ENCOUNTER → 2019-08-07 | Outpatient (CLI) | payer MEDICARE ==
--- NOTE | 2019-08-07 11:11 | REPPI ---
CHEST, TWO VIEWS: Two views of the chest is performed and compared to a prior study of 06/20/2019. Cardiomegaly is again noted. Small amount of right pleural fluid or thickening is unchanged. Right basilar parenchymal opacity is unchanged. There is calcification and tortuosity of the thoracic aorta. The mediastinal silhouette is unchanged. Left central venous catheter is unchanged. IMPRESSION: Stable exam. Electronically Signed by Dennis Reddy MD 08/07/2019 12:02 P
== END ==
LOC: M PLAIMG 09:17
PROVIDERS: ATTEND Thoracic Surgery (Cardiothoracic Vascular Surgery)
DX: C34.2 Malignant neoplasm of middle lobe, bronchus or lung (principal); J91.0 Malignant pleural effusion

== ENCOUNTER → 2019-08-15 | Outpatient (CLI) | payer MEDICARE | LOC: M LABSMTC 13:02 | PROVIDERS: ATTEND Family Medicine | DX: Z11.59 Encounter for screening for other viral diseases (principal); Z20.828 Contact with and (suspected) exposure to other viral communicable diseases ==

== ENCOUNTER 2019-10-08 09:50 | Inpatient (IN) | payer MEDICARE ==
[2019-10-08] VITALS (7 sets, daily range): BP systolic 101–129; BP diastolic 63–84
[~2019-10-08] VITALS: Ht 170.2 cm; Wt 67.5 kg
[~2019-10-08 09:50] MED LIST changes: +AMLO1TAB24 PO; -AMLO5TAB6 PO
[2019-10-08] MEDS ORDERED: ACETAMINOPHEN TAB 650MG DOSE (2X325MG) PO ONE (10:15)
--- NOTE | 2019-10-08 10:16 | REP ---
Clinical: Cough. Dyspnea. Comparison: 08/07/2019. Findings: Areas of consolidation involving the basilar right upper lobe and right lower lung zone are appreciated along with increased pulmonary vasculature and interstitial markings. Cardiomegaly is again noted along with Vlddlz-S-Sygw in the SVC. No pneumothorax. Skeletal structures are intact. Impression: 1. Right-sided areas of consolidation/atelectasis and small right pleural effusion. 2. Underlying pulmonary vascular congestion/ interstitial edema cannot be excluded. Electronically Signed by Romulo Chu MD 10/08/2019 10:09 A
[2019-10-08 10:18] LABS: BASO % 0.4 % (0.0-1.0); EOS % 0.9 % (0.0-3.0); HEMATOCRIT 33.3 % (42.0-52.0); HEMOGLOBIN 10.1 g/dl (13.5-17.5); LYMPH # 0.6 10^3/uL (1.5-5.0); LYMPH % 12.3 % (24.0-44.0); MEAN CORPUSCULAR HEMOGLOBIN 30.4 pg (27.0-33.0); MEAN CORPUSCULAR HGB CONC 30.3 g/dl (32.0-36.5); MEAN CORPUSCULAR VOLUME 100.3 fl (80.0-96.0); MONO # 0.2 10^3/uL (0.0-0.8); MONO % 4.5 % (0.0-5.0); NEUTROPHILS # 3.7 10^3/uL (1.5-8.5); NEUTROPHILS % 81.7 % (36.0-66.0); PLATELET COUNT, AUTOMATED 423 10^3/uL (150-450); RED BLOOD COUNT 3.32 10^6/uL (4.30-6.10); WHITE BLOOD COUNT 4.5 10^3/uL (4.0-10.0)
[2019-10-08] MEDS ORDERED: FUROSEMIDE 40MG/4ML VIAL (J1940) IV ONE (10:30)
[2019-10-08] MEDS ORDERED: DOXYCYCLINE HYCLATE 100 MG in D5W MINI-BAG PLUS 100 ML IV ONE (10:30)
[2019-10-08] MEDS ORDERED: cefTRIAXone SOD 1 GM in D5W MINI-BAG PLUS 50 ML IV ONE (10:30)
[2019-10-08 10:33] LABS: ABG BASE EXCESS 2.1 (-2.0-2.0); ABG HCO3 30.2 MEQ/L (22.0-26.0); ABG O2 SATURATION 93.4 % (95.0-99.0); ABG PARTIAL PRESSURE O2 73.8 mmHg (75.0-100.0); ABG STANDARD HCO3 26.3 MEQ/L (22.0-26.0); ABG TOTAL CO2 32.2 MEQ/L (23.0-31.0); ABG pH (ARTERIAL) 7.274 UNITS (7.350-7.450)
[2019-10-08 10:34] LABS: INR 1.06; PARTIAL THROMBOPLASTIN TIME 29.2 SECONDS (25.0-38.4); PROTHROMBIN TIME 13.5 SECONDS (11.8-14.0)
[2019-10-08 10:36] LABS: ABG PARTIAL PRESSURE CO2 66.6 mmHg (35.0-45.0)
[2019-10-08 10:54] LABS: ALT/SGPT 9 U/L (12-78); BILIRUBIN,DIRECT < 0.1 MG/DL (0.0-0.2); BILIRUBIN,TOTAL 0.2 MG/DL (0.2-1.0); BLOOD UREA NITROGEN 32 MG/DL (7-18); CALCIUM LEVEL 8.3 MG/DL (8.8-10.2); CARBON DIOXIDE LEVEL 30 MEQ/L (21-32); CHLORIDE LEVEL 106 MEQ/L (98-107); CK-MB VALUE MASS 1.8 NG/ML (<3.6); CPK CREATINE PHOSPHOKINASE 54 U/L (39-308); CREATININE FOR GFR 1.27 MG/DL (0.70-1.30); GLOMERULAR FILTRATION RATE 58.5 (>42); GLUCOSE, FASTING 94 MG/DL (70-100); MB/CK RELATIVE INDEX 3.33 (< OR =4); NT-PRO BNP 1722 PG/ML (<450); POTASSIUM SERUM 5.2 MEQ/L (3.5-5.1); SODIUM LEVEL 141 MEQ/L (136-145); THYROID STIMULATING HORMONE 0.904 uIU/ML (0.358-3.740); TOTAL PROTEIN 6.1 GM/DL (6.4-8.2); TROPONIN I 0.04 NG/ML (< 0.10)
[2019-10-08] MEDS ORDERED: FOLI1TAB11 PO (11:12)
[2019-10-08] MEDS ORDERED: CARB25TA9 PO (11:12)
[2019-10-08] MEDS ORDERED: SERT50TA29 PO (11:12)
[2019-10-08] MEDS ORDERED: ONDA8TAB10 PO (11:12)
[2019-10-08] MEDS ORDERED: [UNRECOGNIZED DRUG - CODE] IV (11:12)
--- NOTE | 2019-10-08 12:10 | HPEPDOC ---
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 Patient was on Bipap and was unable to provide the complete events of today, so his was called to recount the events. This AM patient was having difficulty breathing, patient had some increased lethargy. His said his onset of generalized weakness was unusual for him. There was some increased wheezing, has had a productive cough of green sputum and had some increased altered mental status as well. As baseline the patient has not been able to walk well and has required more help than normal over the past several weeks. Had a fall several days ago on his porch. Other associated symptoms include dizziness, lightheadedness, vision changes-chronic with diplopia. Denies chest pain, n/v, fevers or chills, recent illness, recent travel. When EMS arrived at his house, O2 sat was 70's on 4 L NC he appeared in distress. In the ER, patient's VS showed 98% 15 L NRB, BP systolic >170. He appeared in mild distress. ABG showed pH 7.27, pCO2 66.6, pO2 73. CXR showed right-sided areas of consolidation/atelectasis and small right pleural effusion. Underlying pulmonary vascular congestion/ interstitial edema cannot be excluded. Bipap was initiated. BNP 1700, trop neg, no new ECG changes. Potassium high at 5.2, COVID neg. Repeat ABG showed some improvement to 7.31, pCO2 52, pO2 64. He was kept on Bipap and admitted to ICU with diagnosis of acute on chronic hypoxic and hypercapnic respiratory failure likely 2/2 to community acquired PNA, right side pleural effusion, ? CHF. Note: Patient has had some difficulty swallowing due to radiation treatments, although the family does not think he is aspirating at home. No recent travel. Patient is currently on keytruda plus two other medications for chemotherapy- has been on these for the past 9 weeks. He is due to have 1 more treatment on 10/28/19. They travel down to [facility] in [place], [place], Dr. Roosevelt Rodriguez is the patient's heme/onc provider. Prior to chemotherapy, patient had 6 weeks of radiation to the lung ending 08/2018. According to his , his cancer is localized to the right lung only. Patient has a history of malignant pleural effusion with PleurX tube (removed 02/2019). ROS: Neg except for what is mentioned above. PAST MEDICAL HISTORY: 1. Parkinson Disease 2. Hx of HTN 3. History of PE (07/2018 Dx, currently on eliquis) 4. R middle lobe adenocarcinoma of lung 5. 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 Chronic oxygen dependent respiratory failure use at home (4L) PAST SURGICAL HISTORY: 1. Colonoscopy January 2010 with only hyperplastic polyp found. 2. Colonoscopy 12/2006 with adenomatous polyp on biopsy. 3. Left knee surgery 4. Right lung biopsy. SOCIAL HISTORY: No smoking, alcohol or drug use. Lives with his Elva in the local area. Patient was a DNR/DNI but that was rescinded today and currently he is a full code. Patient has no health services currently FAMILY HISTORY: Mother: CAD. 80's Father: jaw cancer. 80's. Brother: esophageal cancer. 60's ALLERGIES: Please see below. HOME MEDICATIONS: Please see below. PHYSICAL EXAMINATION: CONSTITUTIONAL: In mild respiratory distress, sitting up in bed, AAO x 2 EYES: PERRLA, EOM intact HENT, MOUTH: Normocephalic, atraumatic, moist mucous membranes, Bipap mask in place NECK: SUPPLE, no JVD, no lymphadenopathy, no carotid bruit CV: tachycardic, Regular rate and rhythm, S1S2 normal, no murmurs/rubs/gallops RESPIRATORY: Rhonchi bilaterally, decreased bilaterally. No wheezes GI: BS positive in 4 quadrants, soft, nontender, nondistended, no rebound or guarding, no organomegaly : Deferred MUSCULOSKELETAL: Normal ROM. No cyanosis, clubbing, swelling, joint deformity, +1 extremity edema INTEGUMENTARY: Intact, no rashes, no lesions, no erythema NEUROLOGIC: Cranial Nerves II-XII are intact, no focal deficits PSYCHIATRIC: Mood and affect are normal LABORATORY DATA: Please see below MICROBIOLOGY: BCx x 2 sets pending Sputum Cx ordered Resp panel neg IMAGING: CXR: 1. Right-sided areas of consolidation/atelectasis and small right pleural effusion. 2. Underlying pulmonary vascular congestion/ interstitial edema cannot be excluded. ASSESSMENT: 79 y/o M admitted under ICU care with diagnosis of acute on chronic hypoxic and hypercapnic respiratory failure 2/2 to community acquired PNA, right pleural effusion, r/o CHF. PLAN: 1. Acute on chronic hypoxic and hypercapnic respiratory failure 2/2 to community acquired PNA, right pleural effusion, r/o CHF. Please see treatment below for individual issues. 2. Community acquired PNA. -Currently on BIPAP, slightly improved ABG; however, hypercapnia persists -WBC wnl, currently afebrile -F/u BCx, sputum culture, repeat ABG -Started on zosyn, levofloxacin, duonebs ATC, albuterol PRN, acapella. -Pulmonary consulted 3. Right pleural effusion r/o CHF -Hx of malignant effusion with PleurX catheter placed, since removed. -BNP elevated, increased cough, lower ext swelling worsened -Echocardiogram, causey placed -Monitor I&O, daily wts -Daily lasix 4. Adenocarcinoma of right lung. -Follows closely with [facility] -Currently on keytruda plus two other medications for chemotherapy- has been on these for the past 9 weeks. Due to have 1 more treatment on 10/28/19. Dr. Roosevelt Rodriguez-heme/onc. -Prior to chemotherapy, patient had 6 weeks of radiation to the lung ending 08/2018. -Patient has a history of malignant pleural effusion with PleurX tube (removed 02/2019). 5. Dysphagia likely 2/2 to radiation therapy -Speech and swallow evaluation ordered -NPO for now. 6. Hyperkalemia. -F/u repeat labs 7. Parkinson's disease. -C/w home carbidopa-levodopa 8. HTN. -Stable. 9. Hx of PE, DVT. -C/w eliquis 10. Hx of C. diff. -No diarrhea -Monitor while on abx -Probiotic 11. DVT px. Eliquis DISPOSITION: Admitted to ICU for further care. Plan is discharge home when medically improved. I called and spoke at length with patient's Elva. Previously DNR/DNI; however, the patient and her would like to make full code at this time. Vital Signs Vital Signs Date Time Temp Pulse Resp B/P (MAP) Pulse Ox O2 Delivery O2 Flow Rate FiO2 10/08/19 10:50 50 10/08/19 10:40 Non-Rebreather 15.0 10/08/19 10:25 152/94 (113) 10/08/19 10:05 92 10/08/19 10:00 101 36 10/08/19 09:54 99.9 Laboratory Data Labs 24H Laboratory Tests 2 10/08/19 10:01: Immature Granulocyte % (Auto) 0.2, Neutrophils (%) (Auto) 81.7H, Lymphocytes (%) (Auto) 12.3L, Monocytes (%) (Auto) 4.5, Eosinophils (%) (Auto) 0.9, Basophils (%) (Auto) 0.4, Neutrophils # (Auto) 3.7, Lymphocytes # (Auto) 0.6L, Monocytes # (Auto) 0.2, Eosinophils # (Auto) 0.0, Basophils # (Auto) 0.0, Nucleated Red Blood Cells % (auto) 0.0, Prothrombin Time 13.5, Prothromb Time International Ratio 1.06, Activated Partial Thromboplast Time 29.2, Anion Gap 5L, Glomerular Filtration Rate 58.5, Calcium Level 8.3L, Total Bilirubin 0.2, Direct Bilirubin < 0.1, Aspartate Amino Transf (AST/SGOT) 9, Alanine Aminotransferase (ALT/SGPT) 9L, Alkaline Phosphatase 99, Total Creatine Kinase 54, Creatine Kinase MB 1.8, Creatine Kinase MB Relative Index 3.33, Troponin I 0.04, CT-Goo-M-Type Natri uretic Peptide 1722H, Total Protein 6.1L, Albumin 3.0L, Albumin/Globulin Ratio 1.0, Thyroid Stimulating Hormone (TSH) 0.904 10/08/19 10:04: POC Glucose (Misc Panel) 99, POC Sodium (Misc Panel) 140, POC Potassium (Misc Panel) 5.0, POC Chloride (Misc Panel) 101, POC Total CO2 (Misc Panel) 27.0, POC Blood Urea Nitrogen (Misc Panel 30H, POC Ionized Calcium (Misc Panel) 4.7, POC Creatinine (Misc Panel) 1.3, POC Hematocrit (Misc Panel) 32.0L 10/08/19 10:06: POC Lactate (Misc Panel) 0.49 10/08/19 10:21: Blood Gas Bicarbonate Standard 26.3H, Arterial Blood pH 7.274L, Arterial Blood Partial Pressure CO2 66.6*H, Arterial Blood Partial Pressure O2 73.8L, Arterial Blood Total CO2 32.2H, Arterial Blood HCO3 30.2H, Arterial Blood Base Excess 2.1 H, Arterial Blood Oxygen Saturation 93.4L CBC/BMP Laboratory Tests 10/08/19 10:01 Microbiology Microbiology 10/08/19 Blood Culture, Received Pending 10/08/19 Respiratory Virus Panel (PCR) ([facility]ANG) - Final, Complete 10/08/19 Blood Culture, Received Pending Home Medications Scheduled Apixaban (Eliquis) 5 Mg Tablet, 5 MG PO BID Carbidopa/Levodopa (Carbidopa-Levodopa 25-100 Tab) 1 Each Tablet, 1 TAB PO BID 0500, 1300 Carbidopa/Levodopa (Carbidopa-Levo ER 25-100 Tab) 1 Each Tablet.er, 1 TAB PO QHS Carbidopa/Levodopa (Carbidopa-Levodopa 25-100 Tab) 1 Each Tablet, 1.5 TAB PO BID 0900, 1700 Folic Acid (Folic Acid) 1 Mg Tablet, 1 MG PO DAILY Lactobacillus Rhamnosus GG (Culturelle) 1 Each Capsule, 1 CAP PO DAILY Midodrine HCl (Midodrine HCl) 2.5 Mg Tablet, 2.5 MG PO TID Pembrolizumab (Keytruda) 100 Mg/4 Ml Vial, 100 MG IV ASDIRECTED EVERY 3 WEEKS Pemetrexed Disodium (Alimta) Unknown Strength Vial, Unknown Dose IV ASDIRECTED EVERY 3 WEEKS Sertraline HCl (Sertraline HCl) 50 Mg Tablet, 50 MG PO DAILY Scheduled PRN Acetaminophen (Acetaminophen) 500 Mg Tablet, 1,000 MG PO Q4H PRN for PAIN Albuterol Sulf (Albuterol Sulfate) 2.5 Mg/3 Ml Vial.neb, 2.5 MG INH Q6H PRN for SHORTNESS OF BREATH Albuterol Sulfate (Proair Hfa) 8.5 Gm Hfa.aer.ad, 2 PUFF INH Q6H PRN for WHEEZI NG Alprazolam (Alprazolam) 0.25 Mg Tablet, 0.25 MG PO BID PRN for ANXIETY Guaifenesin (Mucinex) 600 Mg Tab.er.12h, 600 MG PO BID PRN for COUGH Ondansetron HCl (Ondansetron HCl) 8 Mg Tablet, 8 MG PO Q8H PRN for NAUSEA OR VOMITING Allergies Coded Allergies: codeine (Verified Adverse Reaction, Intermediate, hallucinations, 10/08/19) A-FIB/CHADSVASC A-FIB History Current/History of A-Fib/PAF?: No Current PO Anticoag Therapy: Yes Age/Risk Factor Scoring CHADSVASC: CHADSVASC Response (Comments) Value Gender Risk Factor Male 0 Hx of CHF No 0 Hx of HTN Yes 1 Hx of Stroke/TIA/or VTE No 0 Hx of Diabetes No 0 Hx of Vascular Disease No 0 Total 1 Treatment Treatment ordered: Apixaban Kathy Gonzalez MD Oct 08, 2019 12:10
[2019-10-08] MEDS ORDERED: ONDANSETRON 4 MG TAB PO PRN (12:45)
[2019-10-08] MEDS ORDERED: ALPRAZolam 0.25 MG TAB PO PRN (12:45)
[2019-10-08] MEDS ORDERED: guaiFENesin ER 600 MG TAB PO PRN (12:45)
[2019-10-08] MEDS ORDERED: ALBUTEROL SULFATE 2.5 MG/0.5 ML INH NEB SOLN NEB PRN (12:45)
[2019-10-08] MEDS: MIDODRINE 2.5 MG TAB PO SCH ×2 (13:00→17:06)
[2019-10-08] MEDS ORDERED: PILL CUTTER 1 EACH XX PRN (13:15)
[2019-10-08 13:17] LABS: ABG BASE EXCESS -0.4 (-2.0-2.0); ABG HCO3 26.3 MEQ/L (22.0-26.0); ABG O2 SATURATION 90.9 % (95.0-99.0); ABG PARTIAL PRESSURE CO2 52.8 mmHg (35.0-45.0); ABG PARTIAL PRESSURE O2 64.4 mmHg (75.0-100.0); ABG STANDARD HCO3 24.1 MEQ/L (22.0-26.0); ABG TOTAL CO2 27.9 MEQ/L (23.0-31.0); ABG pH (ARTERIAL) 7.315 UNITS (7.350-7.450)
[2019-10-08] MEDS: COMBIVENT RESPIMAT 100-20MCG INHALER 4GM INH SCH ×2 (15:17→19:14)
[2019-10-08 15:19] LABS: ABG HCO3 28.1 MEQ/L (22.0-26.0); ABG O2 SATURATION 91.4 % (95.0-99.0); ABG PARTIAL PRESSURE CO2 58.3 mmHg (35.0-45.0); ABG PARTIAL PRESSURE O2 66.1 mmHg (75.0-100.0); ABG STANDARD HCO3 25.2 MEQ/L (22.0-26.0); ABG TOTAL CO2 29.9 MEQ/L (23.0-31.0); ABG pH (ARTERIAL) 7.301 UNITS (7.350-7.450)
[2019-10-08] MEDS: PIPERACILLIN/TAZOBACTAM SOD 3.375 GM in D5W MINI-BAG PLUS 50 ML IV SCH ×2 (15:32→19:58)
[2019-10-08] MEDS: SINEMET 25-100 MG TAB PO SCH (17:06)
[2019-10-08] MEDS: LevoFLOXacin 750 MG TABLET PO SCH (17:06)
[2019-10-08] MEDS: SINEMET**CR** 25/100 TABCR PO SCH (19:58)
[2019-10-08] MEDS: APIXABAN 5 MG TAB (ELIQUIS) PO SCH (19:58)
[2019-10-08] MEDS: FUROSEMIDE 40MG/4ML VIAL (J1940) IV SCH (20:59)
[2019-10-09] VITALS (18 sets, daily range): BP systolic 96–150; BP diastolic 58–86
[2019-10-09] MEDS: COMBIVENT RESPIMAT 100-20MCG INHALER 4GM INH SCH ×6 (00:27→19:46)
[2019-10-09] MEDS: PIPERACILLIN/TAZOBACTAM SOD 3.375 GM in D5W MINI-BAG PLUS 50 ML IV SCH ×4 (03:45→20:37)
[2019-10-09] MEDS: SINEMET 25-100 MG TAB PO SCH ×4 (04:15→16:30)
[2019-10-09 04:44] LABS: HEMATOCRIT 31.3 % (42.0-52.0); HEMOGLOBIN 9.7 g/dl (13.5-17.5); MEAN CORPUSCULAR HEMOGLOBIN 30.3 pg (27.0-33.0); MEAN CORPUSCULAR VOLUME 97.8 fl (80.0-96.0); PLATELET COUNT, AUTOMATED 355 10^3/uL (150-450); WHITE BLOOD COUNT 4.8 10^3/uL (4.0-10.0)
[2019-10-09 05:21] LABS: ALBUMIN 2.7 GM/DL (3.2-5.2); BILIRUBIN,TOTAL 0.8 MG/DL (0.2-1.0); CREATININE FOR GFR 1.26 MG/DL (0.70-1.30); GLOMERULAR FILTRATION RATE 59.1 (>42); PHOSPHORUS LEVEL 4.4 MG/DL (2.5-4.9); POTASSIUM SERUM 3.9 MEQ/L (3.5-5.1); TOTAL PROTEIN 5.7 GM/DL (6.4-8.2)
[2019-10-09 05:51] LABS: ABG BASE EXCESS 8.7 (-2.0-2.0); ABG O2 SATURATION 97.4 % (95.0-99.0); ABG PARTIAL PRESSURE CO2 58.2 mmHg (35.0-45.0); ABG PARTIAL PRESSURE O2 93.1 mmHg (75.0-100.0); ABG STANDARD HCO3 32.5 MEQ/L (22.0-26.0); ABG TOTAL CO2 36.8 MEQ/L (23.0-31.0); ABG pH (ARTERIAL) 7.397 UNITS (7.350-7.450)
--- NOTE | 2019-10-09 06:15 | ECGEPIP ---
[facility] - ED Test Date: 2019-10-08 Pat Name: DOUGLAS ANTONIO Department: Room: - Gender: Male [employer]: nate : 1940 Requested By: MIS Chung Order Number: [id number] Reading MD: Fawad Webster Measurements Intervals [place] Rate: 102 P: 16 KS: 167 QRS: -3 QRSD: 89 T: 11 QT: 318 QTc: 414 Interpretive Statements SINUS TACHYCARDIA POSSIBLE LEFT ATRIAL ENLARGEMENT POOR R WAVE PROGRESSION RATE CHANGE COMPARED TO 05/30/19 Electronically Signed on 10-09-2019 6:14:48 EDT by Fawad Webster
--- NOTE | 2019-10-09 06:33 | CCN ---
DATE: 10/08/2019 I was called to the emergency department to evaluate this 79-year-old male with acute hypoxic hypercarbic respiratory failure. He had been in declining health for the past several weeks and was nonambulatory at home. He became more dyspneic and level of consciousness was questioned by family. He was brought to the emergency department. There is significant past history of adenocarcinoma of the right lung, stage IV, status post chemotherapy and radiation, currently on Keytruda with a history of malignant effusion, status post PleurX catheter which was discontinued in February 2019. He also has history of hypertension, pulmonary embolism, history of Clostridium difficile and Parkinsonism. At bedside, he is ill appearing, responds to voice, but his speech is garbled. He has ineffective respiratory efforts and dystonic movements of his extremities. His temperature is 99.9, pulse rate 101, respirations 36, blood pressure 152/94. HEENT: His pupils are small, but do react to light. Extraocular motion is intact. His oral mucosa is pink. Neck is supple. There is 8 cm of jugular venous distention. Carotid upstroke sluggish. Heart sounds are regular with an S3 and S4. Breath sounds are diminished, particularly on the right, with coarse rales and rhonchi. Abdomen is soft with intact bowel sounds. Extremities show dystonic movement and rigidity. Diagnostic Studies: I have reviewed his imaging studies which show some atelectasis in the right lower lobe and significant interstitial edema. His white cell count is 4.5, hemoglobin 10.1, hematocrit 33.3, platelet count 423,000. Differential white cell count shows 81.7 neutrophils. Electrolytes are sodium 141, potassium 5.2, chloride 106, CO2 30, BUN is 32, creatinine 1.27, and glucose 94. His bilirubin is 0.2, AST and ALT are both 9. CK 54. His BNP is 1722. Albumin is 3. PT and PTT are normal. Arterial blood gases showed a pH of 7.27, pCO2 66, and pO2 73. The primary problem requiring critical attention is acute hypoxic hypercarbic respiratory failure. Will initiate noninvasive positive pressure ventilation and recheck arterial blood gases. Lung cancer. The patient has been extensively treated in the past. There is no recurrence of pleural effusion and no good evidence for active disease on the monoclonal antibody therapy. Pulmonary edema. Lasix has been administered. Will monitor ins and outs closely. From an infectious disease standpoint, it is difficult to rule out pulmonary infection. His COVID test was negative. Sputums are pending. Empiric antibiotics are reasonable. Deep vein thrombosis (DVT) prophylaxis. The patient is on a Xa inhibitor for previous history of clot. The case was discussed with the primary attending physician and the ICU nursing staff. We will facilitate admission to the intensive care unit now. 87 minutes was spent in provision of bedside critical care and coordination, excluding any procedure time.
[2019-10-09] MEDS: APIXABAN 5 MG TAB (ELIQUIS) PO SCH ×2 (08:36→20:37)
[2019-10-09] MEDS: FUROSEMIDE 40MG/4ML VIAL (J1940) IV SCH ×2 (08:36→20:38)
[2019-10-09] MEDS: MIDODRINE 2.5 MG TAB PO SCH ×3 (08:36→17:22)
[2019-10-09] MEDS: FOLIC ACID 1 MG TAB PO SCH (08:36)
[2019-10-09] MEDS: SERTRALINE HCL 50 MG TAB PO SCH (08:37)
[2019-10-09] MEDS: ACETAMINOPHEN 500 MG TAB PO PRN (08:58)
[2019-10-09] MEDS ORDERED: VARIBAR PUDDING 40% w/v 230ML TUBE As Ordered ONE (11:13)
[2019-10-09] MEDS ORDERED: VARIBAR NECTAR 40% w/v 240ML SUSP BTL As Ordered ONE (11:13)
[2019-10-09] MEDS ORDERED: BARIUM SULFATE 700 MG TABLET (E-Z-DISK) As Ordered ONE (11:14)
[2019-10-09] MEDS ORDERED: E-Z-PAQUE 96% w/w SUSP 176GM BTL As Ordered ONE (11:14)
--- NOTE | 2019-10-09 15:14 | CCN ---
DATE: 10/09/2019 CRITICAL CARE NOTE: The patient is seen in the intensive care unit on noninvasive ventilatory support for acute respiratory failure. This is hospital day #2, intensive care unit (ICU) day #2. He rested well through the night on noninvasive positive pressure ventilation; is more comfortable appearing this morning, more awake and responsive. His temperature is 97, pulse rate 82, respirations 20, blood pressure 126/78. Intake and output for the past 24 hours 370 in, 3425 out; since midnight 140 in, 1100 out. At bedside, he is ill appearing. His oral mucosa is pink. Jugular veins are now 2 cm distended. Carotid upstroke sluggish, no bruit. Heart sounds are regular, somewhat distant breath sounds, diminished on the right, otherwise clear, some basilar crepitance. Abdomen is soft with intact bowel sounds, and extremities show chronic edema and some ecchymotic areas. Pulses were palpable times four. DIAGNOSTIC STUDIES: Sodium is 142, potassium 3.9, chloride 102, CO2 34, BUN 32, creatinine 1.26, glucose 95. White cell count is 4.8, hemoglobin 9.7, hematocrit 31.3, platelet count 355,000. Arterial blood gases show pH 7.39, pCO2 58, pO2 93, this on noninvasive positive pressure ventilation. On medications review, this is day #2 of ceftriaxone and doxycycline. The primary problem requiring critical attention is acute respiratory failure. Arterial blood gases are significantly improved. We will wean noninvasive positive pressure ventilation today, continue following oximetry and blood gases as needed. Pulmonary edema: The patient diuresed more than 4 liters. Will obtain a chest x-ray in the morning. I would recommend continuing diuresis. For infectious disease standpoint, empiric antibiotics were initiated. Cultures are pending. The picture is appearing less and less like infection. Deep venous thrombosis (DVT) prophylaxis is accomplished with Xa inhibitor continued in light of a previous history of thrombosis. The patient's condition remains critical. Prognosis is guarded. 47 minutes was spent in provision of bedside critical care and coordination, exclusive of procedure time. [facility]
--- NOTE | 2019-10-09 16:25 | REP ---
Examination Requested: Cookie Swallow Reason For Exam: Dysphasia The procedure was performed by TIARA Hernandez, under the direct supervision of Dr. Floyd. The procedure was performed with Georgina Le from speech pathology present. 5 ml aliquots of thin, pudding, mixed fruit, soft food, hard food, honey, nectar and pill consistency barium was administered. Silent aspiration was visualized with thin consistency barium. The detailed report of this examination will be provided by speech pathology. 3.6 minutes of fluoroscopy time was utilized for this procedure. Reviewed by TIARA Cordon 10/09/2019 02:58 P Electronically Signed by Aubrey Floyd MD 10/09/2019 04:16 P
--- NOTE | 2019-10-09 17:42 | IPNPDOC ---
Date Seen The patient was seen on 10/09/19. Progress Note SUBJECTIVE: Weaned off Bipap, improved ABGs. Currently saturating well on 2 L NC. Appears ill but is feeling better overall. Cookie swallow study today. Denies chest pain, n/v/d, increased shortness of breath. OBJECTIVE: VITAL SIGNS: Please see below PHYSICAL EXAMINATION: CONSTITUTIONAL: sitting up in bed, in NAD, AAOx3. EYES: PERRLA, EOM intact HENT, MOUTH: Normocephalic, atraumatic, moist mucous membranes, nasal cannula in place NECK: SUPPLE, no JVD, no lymphadenopathy, no carotid bruit CV: Regular rate and rhythm, S1S2 normal, no murmurs/rubs/gallops RESPIRATORY: Decreased breath sounds right lung, crackles in bilateral lower lung mccauley mild. No wheezes GI: BS positive in 4 quadrants, soft, nontender, nondistended, no rebound or guarding, no organomegaly : Deferred MUSCULOSKELETAL: Normal ROM. No cyanosis, clubbing, swelling, joint deformity, +1 extremity edema INTEGUMENTARY: Intact, no rashes, no lesions, no erythema NEUROLOGIC: Cranial Nerves II-XII are intact, no focal deficits PSYCHIATRIC: Mood and affect are normal LABORATORY DATA: Please see below MICROBIOLOGY: BCx x 2 sets- NG at 24 hrs Sputum Cx ordered but not obtained Resp panel neg IMAGING: F/u cookie swallow ASSESSMENT: 79 y/o M admitted with diagnosis of acute on chronic hypoxic and hypercapnic respiratory failure 2/2 to community acquired PNA, right pleural effusion, r/o CHF. PLAN: 1. Acute on chronic hypoxic and hypercapnic respiratory failure 2/2 to community acquired PNA, right pleural effusion, r/o CHF. Please see treatment below for individual issues. 2. Community acquired PNA. -Improving ABGs, currently saturating well on 2 L NC -WBC wnl, currently afebrile -Micro above -C/w zosyn and levofloxacin (Day2), duonebs ATC, albuterol PRN, acapella. -Pulmonary following 3. Right pleural effusion r/o CHF -3.6 L /24 hr with diuresis -Hx of malignant effusion with PleurX catheter placed, since removed. -BNP elevated -Echo pending. -Monitor I&O, daily wts -lasix IV BID 4. Dysphagia likely 2/2 to radiation therapy -Speech and swallow evaluation done- concern about thin liquids -Cookie swallow today -NPO for now., f/u diet recommendations 5. Adenocarcinoma of right lung -Follows closely with [facility] -Currently on keytruda plus two other medications for chemotherapy- has been on these for the past 9 weeks. Due to have 1 more treatment on 10/28/19. Dr. Roosevelt Rodriguez-heme/onc. -Prior to chemotherapy, patient had 6 weeks of radiation to the lung ending 08/2018. -Patient has a history of malignant pleural effusion with PleurX tube (removed 02/2019). 6. Parkinson's disease. -C/w home carbidopa-levodopa 7. HTN. -Stable. 8. Hx of PE, DVT. -C/w eliquis 9. Hx of C. diff. -No diarrhea -Monitor while on abx -Probiotic 10. DVT px. Eliquis DISPOSITION: Remains in ICU for further care. Plan is discharge home when medically improved. VS, I&O[facility] Vital Signs/I&O Vital Signs Date Time Temp Pulse Resp B/P (MAP) Pulse Ox O2 Delivery O2 Flow Rate FiO2 10/09/19 16:00 97.9 84 20 121/70 (87) 95 Nasal Cannula 2.0 10/09/19 08:00 30 I&O- Last 24 Hours up to 6 AM 10/09/19 06:00 Intake Total 450 ml Output Total 4400 ml Balance -3950 ml Laboratory Data 24H LABS Laboratory Tests 2 10/09/19 04:33: Nucleated Red Blood Cells % (auto) 0.0, Anion Gap 6L, Glomerular Filtration Rate 59.1, Calcium Level 8.0L, Phosphorus Level 4.4, Total Bilirubin 0.8#, Aspartate Amino Transf (AST/SGOT) 12, Alanine Aminotransferase (ALT/SGPT) 8L, Alkaline Phosphatase 87, Lactate Dehydrogenase 167, Total Creatine Kinase 45, Total Protein 5.7L, Albumin 2.7L, Albumin/Globulin Ratio 0.9, Triglycerides Level 107, Cholesterol Level 161 10/09/19 05:29: Blood Gas Bicarbonate Standard 32.5H, Arterial Blood pH 7.397, Arterial Blood Partial Pressure CO2 58.2H, Arterial Blood Partial Pressure O2 93.1, Arterial Blood Total CO2 36.8H, Arterial Blood HCO3 35.0H, Arterial Blood Base Excess 8.7H, Arterial Blood Oxygen Saturation 97.4 CBC/BMP Laboratory Tests 10/09/19 04:33 Microbiology Microbiology 10/08/19 Blood Culture - Preliminary, Resulted No growth after 24 hours . All specim... 10/08/19 Respiratory Virus Panel (PCR) (TANG) - Final, Complete 10/08/19 Blood Culture - Preliminary, Resulted No growth after 24 hours . All specim... Current Medications Current Medications Medications (Trade) Dose Ordered Sig/Francisca Route PRN Reason Start Time Stop Time Status Last Admin Dose Admin Acetaminophen (Tylenol Tab) 1,000 mg Q8HP PRN PO PAIN 10/08/19 18:00 10/09/19 08:58 Albuterol Sulfate (Proventil Neb) 2.5 mg Q2HP PRN NEB SOB/WHEEZING 10/08/19 12:45 Albuterol/ Ipratropium (Combivent Respimat 100-20mcg) 1 puff RQ4H INH 10/08/19 16:00 10/09/19 15:11 Alprazolam (Xanax) 0.25 mg BID PRN PO ANXIETY 10/08/19 12:45 Apixaban (Eliquis) 5 mg BID PO 10/08/19 21:00 10/09/19 08:36 Carbidopa/Levodopa (Sinemet 25/100) 1 tab BID@0500,1300 PO 10/09/19 05:00 10/09/19 12:14 Carbidopa/Levodopa (Sinemet 25/100) 1.5 tab BID@0900,1700 PO 10/08/19 17:00 10/09/19 16:30 Carbidopa/Levodopa (Sinemet Cr 25/ 100) 1 tab QHS PO 10/08/19 21:00 10/08/19 19:58 Folic Acid (Folic Acid) 1 mg DAILY PO 10/09/19 09:00 10/09/19 08:36 Furosemide (LASIX injection) 30 mg BID IV 10/08/19 21:00 10/09/19 08:36 Guaifenesin (Mucinex Tab Er) 600 mg BID PRN PO COUGH 10/08/19 12:45 Home Med (Med Rec Complete!) ASDIRECTED XX 10/08/19 11:15 10/08/19 11:14 DC Levofloxacin (Levaquin) 750 mg Q48H PO 10/08/19 16:00 10/08/19 17:06 Midodrine (Proamatine) 2.5 mg TID@0800,1300,1800 PO 10/08/19 13:00 10/09/19 17:22 Ondansetron HCl (Zofran) 8 mg Q8H PRN PO NAUSEA OR VOMITING 10/08/19 12:45 Piperacillin Sod/ Tazobactam Sod 3.375 gm/Dextrose 50 ml @ 50 mls/hr Q6H IV 10/08/19 15:00 10/09/19 15:42 Sertraline HCl (Zoloft) 50 mg DAILY PO 10/09/19 09:00 10/09/19 08:37 Allergies Coded Allergies: codeine (Verified Adverse Reaction, Intermediate, hallucinations, 10/08/19) Kathy Gonzalez MD Oct 09, 2019 17:42
[2019-10-09] MEDS: LACTOBACILLUS ACIDOPHILUS CAP (BACID) PO SCH (17:49)
[2019-10-09] MEDS: SINEMET**CR** 25/100 TABCR PO SCH (20:37)
[2019-10-10] VITALS (18 sets, daily range): BP systolic 80–147; BP diastolic 56–89; O2SAT 95
[2019-10-10] MEDS: COMBIVENT RESPIMAT 100-20MCG INHALER 4GM INH SCH ×3 (00:24→07:49)
[2019-10-10] MEDS: PIPERACILLIN/TAZOBACTAM SOD 3.375 GM in D5W MINI-BAG PLUS 50 ML IV SCH ×4 (02:58→20:48)
[2019-10-10] MEDS: SINEMET 25-100 MG TAB PO SCH ×4 (04:51→17:25)
[2019-10-10 05:23] LABS: HEMATOCRIT 32.2 % (42.0-52.0); MEAN CORPUSCULAR HGB CONC 31.1 g/dl (32.0-36.5); MEAN CORPUSCULAR VOLUME 96.7 fl (80.0-96.0); PLATELET COUNT, AUTOMATED 382 10^3/uL (150-450); RED BLOOD COUNT 3.33 10^6/uL (4.30-6.10); WHITE BLOOD COUNT 5.6 10^3/uL (4.0-10.0)
[2019-10-10 05:42] LABS: ALBUMIN 2.6 GM/DL (3.2-5.2); BILIRUBIN,TOTAL 0.5 MG/DL (0.2-1.0); CALCIUM LEVEL 8.2 MG/DL (8.8-10.2); CREATININE FOR GFR 1.27 MG/DL (0.70-1.30); GLOMERULAR FILTRATION RATE 58.5 (>42); POTASSIUM SERUM 3.6 MEQ/L (3.5-5.1); TOTAL PROTEIN 5.6 GM/DL (6.4-8.2)
--- NOTE | 2019-10-10 06:41 | ECHO ---
DATE OF PROCEDURE: 10/09/2019 DATE OF : 1940 AGE: 79 GENDER: Male HEIGHT: 67 inches WEIGHT: 156 pounds BODY SURFACE AREA: 1.82 meters squared INPATIENT: ICU - Room 3207 REFERRING PHYSICIAN: Dr. Kathy Gonzalez INDICATION: Heart failure. MEASUREMENTS: 2-D measurements: RV: 4.2 cm LV: 3.8 cm Septum: 1.3 cm Posterior wall: 1.3 cm Aortic root: 4.1 cm LA: 3.4 cm LVEF: 75-80% Doppler Measurements: AV: 1.1 m/s LVOT: 0.8 m/s LVOT diameter: 1.8 cm MV - E 56 A 62 EA ratio 0.9 Early mitral deceleration time: 165 ms PV: 0.7 m/s Pulmonary artery acceleration time: 13 ms RVSP: 41 mmHg IVC: 1.9 cm COMMENTS: Normal sinus rhythm without intraventricular conduction disturbance. M-mode and two-dimensional echocardiography was performed with pulsed, continuous wave, color flow and tissue Doppler studies. Mild concentric left ventricle hypertrophy with hyperkinetic wall motion. Left atrial size upper limits of normal with grade one LV diastolic dysfunction. Mildly dilated right heart chambers with normal wall motion and Doppler evidence of moderate pulmonary hypertension. Normal IVC size and collapse against an elevated central venous pressure at this time. Mildly dilated aortic root. Mild aortic valvular sclerosis without stenosis and no more than trace insufficiency. Normal-appearing mitral leaflets and leaflet excursion with mild mitral annular calcification and no more than trace insufficiency. Normal appearing tricuspid valve with mild insufficiency. No apparent intracardiac mass or pericardial effusion.
[2019-10-10] MEDS: LACTOBACILLUS ACIDOPHILUS CAP (BACID) PO SCH ×2 (08:16→17:25)
[2019-10-10] MEDS: SERTRALINE HCL 50 MG TAB PO SCH (08:16)
[2019-10-10] MEDS: APIXABAN 5 MG TAB (ELIQUIS) PO SCH ×2 (08:16→20:49)
[2019-10-10] MEDS: FUROSEMIDE 40MG/4ML VIAL (J1940) IV SCH (08:17)
[2019-10-10] MEDS: MIDODRINE 2.5 MG TAB PO SCH ×3 (08:17→17:24)
[2019-10-10] MEDS: FOLIC ACID 1 MG TAB PO SCH (08:18)
--- NOTE | 2019-10-10 08:24 | REP ---
Clinical: Pneumonia. Comparison: 10/08/2019. Findings: Opacity in the right mid lung zone and right base have improved since prior examination. No new areas of consolidation or opacity noted. Visualized portions of the mediastinum and cardiac silhouette are stable. [id number] again identified with tip in the SVC. No pneumothorax. Skeletal structures are intact. Impression: Improved aeration and decreased opacities involving the right mid to lower lung zone. Electronically Signed by Romulo Chu MD 10/10/2019 08:16 A
--- NOTE | 2019-10-10 11:50 | CCN ---
DATE: 10/10/2019 SUBJECTIVE: Mr. 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 He continues on treatment. Admitted with suspected pneumonia and probable volume overload today. This morning, however, he is orthostatic and is having what appears to be contraction alkalosis. He has diuresed 5.5 liters over the past 2 days with a probable history of pulmonary hypertension. This morning, he is more rhonchorous and having difficulty with mucociliary clearance. I have added chest physical therapy (PT) and a EZ-Pap therapy in order to help mucociliary clearance. Overall, he states he is feeling slightly better, less short of breath, but definitely more cough and complaining of dizziness and lightheadedness. When he was attempted to be transported to a wheelchair for his chest x-ray, he became very lightheaded and blood pressure had dropped. He was then returned to bed and a portable x-ray was performed. He has been afebrile overnight. Temperature is 98.0, pulse is 94, respiratory rate is 20, blood pressure is 118/56 with a mean arterial pressure of 76, and oxygen saturation is 94% on 3.0 liters. General: The patient is appears weak and malnourished. Rhonchi can be heard just from his speech. HEENT: Sclerae clear and anicteric. Pupils equal and react to light. Mucous membranes are moist. Tongue is midline. Neck is supple. No tracheal deviation or mass. Lymphs: No cervical, supraclavicular or axillary adenopathy. Cardiac: Distant. S1, S2. Without audible murmur, rub or gallop. No elevated jugular venous pulse (JVP). No peripheral edema. Pulmonary: Decreased breath sounds on the left. Significant loud rhonchorous breath sounds on the right. Minimal dullness to percussion. No expiratory wheeze. There is no accessory muscle use at this point in time. Abdomen: Soft, nontender, nondistended. No hepatosplenomegaly, masses or hernia. Extremities: No cyanosis, clubbing or edema. Compression stockings are in place. Skin is pale without rash, jaundice or bruising. Neurologic: No evidence of unilateral weakness or tremor. LABORATORY EVALUATION: Shows sodium 142, potassium 3.6, chloride 100, bicarb is up to 38, BUN is increased to 28, creatinine is up to 1.27. White blood cell count is 5.6, hemoglobin is 10.0, hematocrit is 32.2, with a platelet count of 282. Chest x-ray shows residual abnormalities in his right middle lobe with infiltrate. The port is in place over the left chest. Left costophrenic angle is clear, right costophrenic angle is barely blunted. A tight perihilar mass is present. Minimal cardiomegaly. ASSESSMENT AND PLAN: 1. Respiratory failure, hypoxic and hypercarbic in nature. The patient now retaining some bicarbonate. I believe it is most likely secondary to diuresis over the past 2 days. He was net negative 5.5 liters. He is having orthostasis in the setting of probable underlying pulmonary hypertension. Would discontinue diuresis and monitor for volume overload. 2. Rhonchi, abnormal breath sounds, with significant difficulty with mucociliary clearance. Added chest PT, PEP therapy, EZ-Pap and scheduled nebs to his regimen. He is at high risk for ventilatory failure because of his poor mucociliary clearance and underlying lung disease. Will continue to follow this patient. Please feel free to call the office with any questions or concerns.
[2019-10-10] MEDS: ALBUTEROL SULFATE 2.5 MG/0.5 ML INH NEB SOLN NEB SCH ×4 (13:36→23:51)
--- NOTE | 2019-10-10 14:45 | IPNPDOC ---
Date Seen The patient was seen on 10/10/19. Progress Note SUBJECTIVE: Saturating well on 2-3 L NC, stopped diuresis as patient has -5L/past 48 hrs. Lightheaded with transferring today with nursing. CXR today. Chest physiotherapy started. Improving slowly. Denies chest pain, n/v/d, increased shortness of breath. OBJECTIVE: VITAL SIGNS: Please see below PHYSICAL EXAMINATION: CONSTITUTIONAL: sitting up in bed, in NAD, AAOx3. EYES: PERRLA, EOM intact HENT, MOUTH: Normocephalic, atraumatic, moist mucous membranes, nasal cannula in place NECK: SUPPLE, no JVD, no lymphadenopathy, no carotid bruit CV: Regular rate and rhythm, S1S2 normal, no murmurs/rubs/gallops RESPIRATORY: Rhonchi bilaterally, Decreased breath sounds right lung,. No wheezes GI: BS positive in 4 quadrants, soft, nontender, nondistended, no rebound or guarding, no organomegaly : Deferred MUSCULOSKELETAL: Normal ROM. No cyanosis, clubbing, swelling, joint deformity, +1 extremity edema INTEGUMENTARY: Intact, no rashes, no lesions, no erythema NEUROLOGIC: Cranial Nerves II-XII are intact, no focal deficits PSYCHIATRIC: Mood and affect are normal LABORATORY DATA: Please see below MICROBIOLOGY: BCx x 2 sets- NG at 48H Sputum Cx ordered but not obtained Resp panel neg IMAGING: CXR: Improved aeration and decreased opacities involving the right mid to lower lung zone. Modified barium swallow: 5 ml aliquots of thin, pudding, mixed fruit, soft food, hard food, honey, nectar and pill consistency barium was administered. Silent aspiration was visualized with thin consistency barium. Echo: EF 75-80% Normal sinus rhythm without intraventricular conduction disturbance. M-mode and two-dimensional echocardiography was performed with pulsed, continuous wave, color flow and tissue Doppler studies. Mild concentric left ventricle hypertrophy with hyperkinetic wall motion. Left atrial size upper limits of normal with grade one LV diastolic dysfunction. Mildly dilated right heart chambers with normal wall motion and Doppler evidence of moderate pulmonary hypertension. Normal IVC size and collapse against an elevated central venous pressure at this time. Mildly dilated aortic root. Mild aortic valvular sclerosis without stenosis and no more than trace insufficiency. Normal-appearing mitral leaflets and leaflet excursion with mild mitral annular calcification and no more than trace insufficiency. Normal appearing tricuspid valve with mild insufficiency. No apparent intracardiac mass or pericardial effusion. ASSESSMENT: 79 y/o M admitted with diagnosis of acute on chronic hypoxic and hypercapnic respiratory failure 2/2 to community acquired PNA, right pleural effusion PLAN: 1. Acute on chronic hypoxic and hypercapnic respiratory failure 2/2 to community acquired PNA, right pleural effusion, r/o CHF. Please see treatment below for individual issues. 2. Community acquired PNA. - Saturating well on 2-3 L NC, rhonchorous -Improved CXR above -WBC wnl, currently afebrile -Micro above -C/w zosyn and levofloxacin (Day3), duonebs ATC, albuterol PRN, acapella, PEP therapy. -Pulmonary following 3. Right pleural effusion likely 2/2 to diastolic CHF, EF 75-80% - Neg 2700 over past 24 hours, almost 6 L since admission -Hx of malignant effusion with PleurX catheter placed, since removed. -BNP elevated -Echo above, Grade one LV diastolic dysfunction with mildly dilated right heart chambers with normal wall motion and Doppler evidence of moderate pulmonary hypertension. -Monitor I&O, daily wts -lasix IV BID stopped 4. Dysphagia likely 2/2 to radiation therapy -Speech and swallow evaluation done- silent aspiration seen on barium swallow -C/w modified diet recommendations 5. Lightheadedness likely 2/2 to orthostatic hypotension 2/2 to overdiuresis -D/alka lasix, careful with high dose carbidopa/levodopa which can also cause orthostatic hypotension -Stopped fluid restriction -encourage PO intake -Monitor on tele 6. Adenocarcinoma of right lung -Follows closely with [facility] -Currently on keytruda plus two other medications for chemotherapy- has been on these for the past 9 weeks. Due to have 1 more treatment on 10/28/19. Dr. Roosevelt Rodriguez-heme/onc. -Prior to chemotherapy, patient had 6 weeks of radiation to the lung ending 08/2018. -Patient has a history of malignant pleural effusion with PleurX tube (removed 02/2019). 7. Parkinson's disease. -C/w home carbidopa-levodopa 8. HTN. -Stable. 9. Hx of PE, DVT. -C/w eliquis 10. Hx of C. diff. -No diarrhea -Monitor while on abx -Probiotic 11. DVT px. Eliquis DISPOSITION: Remains in ICU for further care. Plan is discharge home when medically improved. VS, I&O, 24H, Fishbone Vital Signs/I&O Vital Signs Date Time Temp Pulse Resp B/P (MAP) Pulse Ox O2 Delivery O2 Flow Rate FiO2 10/10/19 12:16 91 103/65 (78) 10/10/19 12:00 3.0 10/10/19 11:26 97.8 20 93 Nasal Cannula 10/09/19 08:00 30 I&O- Last 24 Hours up to 6 AM 10/10/19 06:00 Intake Total 460 ml Output Total 2750 ml Balance -2290 ml Laboratory Data 24H LABS Laboratory Tests 2 10/10/19 04:51: Nucleated Red Blood Cells % (auto) 0.0, Anion Gap 4L, Glomerular Filtration Rate 58.5, Calcium Level 8.2L, Total Bilirubin 0.5, Aspartate Amino Transf (AST/SGOT) 13, Alanine Aminotransferase (ALT/SGPT) 6L, Alkaline Phosphatase 84, Total Protein 5.6L, Albumin 2.6L, Albumin/Globulin Ratio 0.9 CBC/BMP Laboratory Tests 10/10/19 04:51 Microbiology Microbiology 10/08/19 Blood Culture - Preliminary, Resulted No Growth after 48 hours. All Specime... 10/08/19 Respiratory Virus Panel (PCR) ([facility]) - Final, Complete 10/08/19 Blood Culture - Preliminary, Resulted No Growth after 48 hours. All Specime... Current Medications Current Medications Medications (Trade) Dose Ordered Sig/Francisca Route PRN Reason Start Time Stop Time Status Last Admin Dose Admin Acetaminophen (Tylenol Tab) 1,000 mg Q8HP PRN PO PAIN 10/08/19 18:00 10/09/19 08:58 Albuterol Sulfate (Proventil Neb) 2.5 mg Q2HP PRN NEB SOB/WHEEZING 10/08/19 12:45 Albuterol Sulfate (Proventil Neb) 2.5 mg RQ4H NEB 10/10/19 12:00 Albuterol/ Ipratropium (Combivent Respimat 100-20mcg) 1 puff RQ4H INH 10/08/19 16:00 10/10/19 10:42 DC 10/10/19 07:49 Alprazolam (Xanax) 0.25 mg BID PRN PO ANXIETY 10/08/19 12:45 Apixaban (Eliquis) 5 mg BID PO 10/08/19 21:00 10/10/19 08:16 Carbidopa/Levodopa (Sinemet 25/100) 1 tab BID@0500,1300 PO 10/09/19 05:00 10/10/19 11:55 Carbidopa/Levodopa (Sinemet 25/100) 1.5 tab BID@0900,1700 PO 10/08/19 17:00 10/10/19 08:16 Carbidopa/Levodopa (Sinemet Cr 25/ 100) 1 tab QHS PO 10/08/19 21:00 10/09/19 20:37 Folic Acid (Folic Acid) 1 mg DAILY PO 10/09/19 09:00 10/10/19 08:18 Furosemide (LASIX injection) 30 mg BID IV 10/08/19 21:00 10/10/19 10:24 DC 10/10/19 08:17 Guaifenesin (Mucinex Tab Er) 600 mg BID PRN PO COUGH 10/08/19 12:45 Home Med (Med Rec Complete!) ASDIRECTED XX 10/08/19 11:15 10/08/19 11:14 DC Lactobacillus Acidophilus (Bacid) 1 ea BIDWM PO 10/09/19 18:00 10/10/19 08:16 Levofloxacin (Levaquin) 750 mg Q48H PO 10/08/19 16:00 10/08/19 17:06 Midodrine (Proamatine) 2.5 mg TID@0800,1300,1800 PO 10/08/19 13:00 10/10/19 11:55 Ondansetron HCl (Zofran) 8 mg Q8H PRN PO NAUSEA OR VOMITING 10/08/19 12:45 Piperacillin Sod/ Tazobactam Sod 3.375 gm/Dextrose 50 ml @ 50 mls/hr Q6H IV 10/08/19 15:00 10/10/19 08:16 Sertraline HCl (Zoloft) 50 mg DAILY PO 10/09/19 09:00 10/10/19 08:16 Allergies Coded Allergies: codeine (Verified Adverse Reaction, Intermediate, hallucinations, 10/08/19) Kathy Gonzalez MD Oct 10, 2019 14:45
[2019-10-10] MEDS: LevoFLOXacin 750 MG TABLET PO SCH (15:19)
[2019-10-10] MEDS: ACETAMINOPHEN 500 MG TAB PO PRN (15:19)
[2019-10-10] MEDS: SINEMET**CR** 25/100 TABCR PO SCH (20:49)
[2019-10-11] VITALS (16 sets, daily range): BP systolic 93–125; BP diastolic 65–84
[2019-10-11] MEDS: PIPERACILLIN/TAZOBACTAM SOD 3.375 GM in D5W MINI-BAG PLUS 50 ML IV SCH ×4 (02:12→20:49)
[2019-10-11] MEDS: ALBUTEROL SULFATE 2.5 MG/0.5 ML INH NEB SOLN NEB SCH ×6 (04:08→23:57)
[2019-10-11 05:06] LABS: HEMATOCRIT 32.3 % (42.0-52.0); MEAN CORPUSCULAR HEMOGLOBIN 30.1 pg (27.0-33.0); MEAN CORPUSCULAR VOLUME 97.3 fl (80.0-96.0); PLATELET COUNT, AUTOMATED 370 10^3/uL (150-450); RED BLOOD COUNT 3.32 10^6/uL (4.30-6.10); WHITE BLOOD COUNT 4.4 10^3/uL (4.0-10.0)
[2019-10-11] MEDS: SINEMET 25-100 MG TAB PO SCH ×4 (05:08→17:14)
[2019-10-11 05:26] LABS: ALBUMIN 2.6 GM/DL (3.2-5.2); ALT/SGPT 6 U/L (12-78); BILIRUBIN,TOTAL 0.6 MG/DL (0.2-1.0); BLOOD UREA NITROGEN 28 MG/DL (7-18); CALCIUM LEVEL 8.1 MG/DL (8.8-10.2); CARBON DIOXIDE LEVEL 36 MEQ/L (21-32); CHLORIDE LEVEL 101 MEQ/L (98-107); CREATININE FOR GFR 1.13 MG/DL (0.70-1.30); GLOMERULAR FILTRATION RATE > 60.0 (>42); GLUCOSE, FASTING 97 MG/DL (70-100); POTASSIUM SERUM 3.4 MEQ/L (3.5-5.1); SODIUM LEVEL 144 MEQ/L (136-145); TOTAL PROTEIN 5.7 GM/DL (6.4-8.2)
[2019-10-11] MEDS: LACTOBACILLUS ACIDOPHILUS CAP (BACID) PO SCH ×2 (08:44→17:13)
[2019-10-11] MEDS: MIDODRINE 2.5 MG TAB PO SCH ×3 (08:44→17:13)
[2019-10-11] MEDS: FOLIC ACID 1 MG TAB PO SCH (08:45)
[2019-10-11] MEDS: APIXABAN 5 MG TAB (ELIQUIS) PO SCH ×2 (08:45→20:42)
[2019-10-11] MEDS: SERTRALINE HCL 50 MG TAB PO SCH (08:46)
[2019-10-11] MEDS ORDERED: NS 1,000 ML IV SCH (09:00)
[2019-10-11] MEDS ORDERED: POTASSIUM CHLORIDE 10% LIQ 20 MEQ/15 ML UDC PO ONE (09:00)
[2019-10-11] MEDS ORDERED: POTASSIUM CHLORIDE 10 MEQ SR TABLET PO ONE (09:00)
[2019-10-11] MEDS: ACETAMINOPHEN 500 MG TAB PO PRN ×2 (09:40→20:56)
--- NOTE | 2019-10-11 11:02 | CCN ---
DATE OF SERVICE: 10/11/2019 Mr. Kapadia is in his bed. He states his main complaint is that he is dizzy, lightheaded. Despite me discontinuing his diuretics yesterday, he remains net negative 1280 mL. He sounds rhonchorous from the door. However, with coughing, clears some but still continues to have rhonchi. We are not doing NT suctioning because he is on Eliquis, and again the patient did not particularly agree with the idea of NT suctioning. Chest physiotherapy, acapella, and mucociliary clearance techniques are being performed. Overall, given the patient's comorbidities, he has an overall poor prognosis. Temperature currently 97.8, pulse is 92, blood pressure is 110/66, respiratory rate is 20, oxygen saturations 93% on 3.0 liters. General: Laying in bed, does not want to sit up because of dizziness, definitely orthostatic based on blood pressure measurements yesterday. Probable underlying pulmonary hypertension. HEENT: Sclerae clear and anicteric. Pupils equal and react to light. Mucous membranes are moist without lesions. Tongue is midline. Neck is supple. No tracheal deviation or mass. Lymph: No cervical, supraclavicular, or axillary adenopathy. Cardiac: Regular S1, S2 without audible murmur, rub, or gallop. No elevated jugular venous pressure (JVP). No peripheral edema. Abdomen: Soft, nontender, nondistended. No hepatosplenomegaly. No masses or hernia. Extremities: No cyanosis, clubbing, or edema. Neurologic: Has some features of Parkinson's, some tremor, but no significant cogwheel rigidity. LABORATORY EVALUATION: Shows sodium 144, potassium 3.4, chloride 101, bicarbonate of 36, BUN of 28, creatinine of 1.13, calcium 3.1, AST and ALT are low. Albumin is at 2.6. IMPRESSION: 1. Hypoxia. Adequate oxygenation on 3 liters. Concern about mucociliary clearance. Continue with aggressive mucociliary clearance techniques. 2. Orthostatic hypotension, likely from aggressive diuresis. Due to the fact that the patient was additionally net negative yesterday and still complains of dizziness, I agree with gentle hydration as prescribed by the primary physician with close monitoring in the intensive care unit. Close monitoring. The patient could be transferred to progressive care unit (PCU). 3. Hypokalemia. Replaced 4. Hypophosphatemia. Overall, prognosis remains guarded, delicate fluid balance, given underlying orthostasis, pulmonary hypertension, and heart failure. Agree with a trial of gentle fluid hydration over the next 8 hours. Will continue to monitor. MTDD
--- NOTE | 2019-10-11 12:41 | IPNPDOC ---
Date Seen The patient was seen on 10/11/19. Progress Note SUBJECTIVE: Saturating well on 3 L NC, orthostatic hypotension persists and lightheaded this AM. BP soft, started on fluids until this afternoon. Encourage PO hydration Q2 hrs. Denies chest pain, n/v/d, increased shortness of breath. OBJECTIVE: VITAL SIGNS: Please see below PHYSICAL EXAMINATION: CONSTITUTIONAL: sitting up in bed, in NAD, AAOx3 EYES: PERRLA, EOM intact HENT, MOUTH: Normocephalic, atraumatic, dry mucous membranes, nasal cannula in place NECK: SUPPLE, no JVD, no lymphadenopathy, no carotid bruit CV: Regular rate and rhythm, S1S2 normal, no murmurs/rubs/gallops RESPIRATORY: Rhonchi bilaterally, Decreased breath sounds right lung, No wheezes GI: BS positive in 4 quadrants, soft, nontender, nondistended, no rebound or guarding, no organomegaly : Faria catheter in place MUSCULOSKELETAL: Normal ROM. No cyanosis, clubbing, swelling, joint deformity, +1 extremity edema INTEGUMENTARY: Intact, no rashes, no lesions, no erythema NEUROLOGIC: tremors in upper extremities more pronounced this AM at rest and movement, Cranial Nerves II-XII are intact, no focal deficits PSYCHIATRIC: Mood and affect are normal LABORATORY DATA: Please see below MICROBIOLOGY: BCx x 2 sets- NG at 48H Sputum Cx ordered but not obtained Resp panel neg IMAGING: CXR: Improved aeration and decreased opacities involving the right mid to lower lung zone. Modified barium swallow: 5 ml aliquots of thin, pudding, mixed fruit, soft food, hard food, honey, nectar and pill consistency barium was administered. Silent aspiration was visualized with thin consistency barium. Echo: EF 75-80% Normal sinus rhythm without intraventricular conduction disturbance. M-mode and two-dimensional echocardiography was performed with pulsed, continuous wave, color flow and tissue Doppler studies. Mild concentric left ventricle hypertrophy with hyperkinetic wall motion. Left atrial size upper limits of normal with grade one LV diastolic dysfunction. Mildly dilated right heart chambers with normal wall motion and Doppler evidence of moderate pulmonary hypertension. Normal IVC size and collapse against an elevated central venous pressure at this time. Mildly dilated aortic root. Mild aortic valvular sclerosis without stenosis and no more than trace insufficiency. Normal-appearing mitral leaflets and leaflet excursion with mild mitral annular calcification and no more than trace insufficiency. Normal appearing tricuspid valve with mild insufficiency. No apparent intracardiac mass or pericardial effusion. ASSESSMENT: 79 y/o M admitted with diagnosis of acute on chronic hypoxic and hypercapnic respiratory failure 2/2 to community acquired PNA, right pleural effusion PLAN: 1. Acute on chronic hypoxic and hypercapnic respiratory failure 2/2 to community acquired PNA, right pleural effusion, r/o CHF. Please see treatment below for individual issues. 2. Community acquired PNA. - Saturating well on 3 L NC, rhonchi persist bilaterally -Improved CXR above -WBC wnl, afebrile -Micro above, will attempt to obtain sputum sample again -C/w zosyn and levofloxacin (Day 4), duonebs ATC, albuterol PRN, acapella, PEP therapy. -Pulmonary following 3. Right pleural effusion likely 2/2 to diastolic CHF, EF 75-80%. Hx of malignant effusion with PleurX catheter placed, since removed. - -6905mL since admission -Echo above, Grade one LV diastolic dysfunction with mildly dilated right heart chambers with normal wall motion and Doppler evidence of moderate pulmonary hypertension -Lasix stopped 10/10/19 -Monitor I&O, daily wts 4. Lightheadedness likely 2/2 to orthostatic hypotension 2/2 to overdiuresis -Orthostatic and symptomatic this AM -D/alka fluid restriction and lasix 10/10/19. Careful with high dose carbidopa/levodopa which can also cause orthostatic hypotension -Starting on gentle fluid hydration today -Encourage PO intake Q2 hrs while awake -Monitor on tele 5. Hypokalemia likely 2/2 to diuresis. -KCL 30 mEq given -F/u AM labs. 6. Dysphagia likely 2/2 to radiation therapy -Speech and swallow evaluation done- silent aspiration seen on barium swallow -C/w modified diet recommendations 7. Adenocarcinoma of right lung -Follows closely with [facility] -Currently on keytruda plus two other medications for chemotherapy- has been on these for the past 9 weeks. Due to have 1 more treatment on 10/28/19. Dr. Roosevelt Rodriguez-heme/onc. -Prior to chemotherapy, patient had 6 weeks of radiation to the lung ending 08/2018. -Patient has a history of malignant pleural effusion with PleurX tube (removed 02/2019). 8. Parkinson's disease. -C/w home carbidopa-levodopa 9. HTN. -Stable. 10. Hx of PE, DVT. -C/w eliquis 11. Hx of C. diff. -No diarrhea -Monitor while on abx -Probiotic 12. DVT px. Eliquis DISPOSITION: Remains in ICU for further care. Plan is discharge home when medically improved VS, I&O, 24H, Fishbone Vital Signs/I&O Vital Signs Date Time Temp Pulse Resp B/P (MAP) Pulse Ox O2 Delivery O2 Flow Rate FiO2 10/11/19 09:00 92 110/66 (81) 96 10/11/19 08:00 97.8 20 Nasal Cannula 3.0 10/09/19 08:00 30 I&O- Last 24 Hours up to 6 AM 10/11/19 06:00 Intake Total 770 ml Output Total 1675 ml Balance -905 ml Laboratory Data 24H LABS Laboratory Tests 2 10/11/19 04:34: Nucleated Red Blood Cells % (auto) 0.0, Anion Gap 7L, Glomerular Filtration Rate > 60.0, Calcium Level 8.1L, Total Bilirubin 0.6, Aspartate Amino Transf (AST/SGOT) 14, Alanine Aminotransferase (ALT/SGPT) 6L, Alkaline Phosphatase 80, Total Protein 5.7L, Albumin 2.6L, Albumin/Globulin Ratio 0.8 CBC/BMP Laboratory Tests 10/11/19 04:34 Microbiology Microbiology 10/08/19 Blood Culture - Preliminary, Resulted No Growth after 72 hours. All specime... 10/08/19 Respiratory Virus Panel (PCR) ([facility]) - Final, Complete 10/08/19 Blood Culture - Preliminary, Resulted No Growth after 72 hours. All specime... Current Medications Current Medications Medications (Trade) Dose Ordered Sig/Francisca Route PRN Reason Start Time Stop Time Status Last Admin Dose Admin Acetaminophen (Tylenol Tab) 1,000 mg Q8HP PRN PO PAIN 10/08/19 18:00 10/11/19 09:40 Albuterol Sulfate (Proventil Neb) 2.5 mg Q2HP PRN NEB SOB/WHEEZING 10/08/19 12:45 Albuterol Sulfate (Proventil Neb) 2.5 mg RQ4H NEB 10/10/19 12:00 10/11/19 12:07 Albuterol/ Ipratropium (Combivent Respimat 100-20mcg) 1 puff RQ4H INH 10/08/19 16:00 10/10/19 10:42 DC 10/10/19 07:49 Alprazolam (Xanax) 0.25 mg BID PRN PO ANXIETY 10/08/19 12:45 Apixaban (Eliquis) 5 mg BID PO 10/08/19 21:00 10/11/19 08:45 Carbidopa/Levodopa (Sinemet 25/100) 1 tab BID@0500,1300 PO 10/09/19 05:00 10/11/19 12:16 Carbidopa/Levodopa (Sinemet 25/100) 1.5 tab BID@0900,1700 PO 10/08/19 17:00 10/11/19 08:44 Carbidopa/Levodopa (Sinemet Cr 25/ 100) 1 tab QHS PO 10/08/19 21:00 10/10/19 20:49 Folic Acid (Folic Acid) 1 mg DAILY PO 10/09/19 09:00 10/11/19 08:45 Furosemide (LASIX injection) 30 mg BID IV 10/08/19 21:00 10/10/19 10:24 DC 10/10/19 08:17 Guaifenesin (Mucinex Tab Er) 600 mg BID PRN PO COUGH 10/08/19 12:45 Home Med (Med Rec Complete!) ASDIRECTED XX 10/08/19 11:15 10/08/19 11:14 DC Lactobacillus Acidophilus (Bacid) 1 ea BIDWM PO 10/09/19 18:00 10/11/19 08:44 Levofloxacin (Levaquin) 750 mg Q48H PO 10/08/19 16:00 10/10/19 15:19 Midodrine (Proamatine) 2.5 mg TID@0800,1300,1800 PO 10/08/19 13:00 10/11/19 12:16 Ondansetron HCl (Zofran) 8 mg Q8H PRN PO NAUSEA OR VOMITING 10/08/19 12:45 Piperacillin Sod/ Tazobactam Sod 3.375 gm/Dextrose 50 ml @ 50 mls/hr Q6H IV 10/08/19 15:00 10/11/19 08:46 Sertraline HCl (Zoloft) 50 mg DAILY PO 10/09/19 09:00 10/11/19 08:46 Sodium Chloride 1,000 ml @ 75 mls/hr [id number] IV 10/11/19 09:00 10/11/19 09:01 DC 10/11/19 08:51 Allergies Coded Allergies: codeine (Verified Adverse Reaction, Intermediate, hallucinations, 10/08/19) Kathy Gonzalez MD Oct 11, 2019 12:41
[2019-10-11] MEDS: SINEMET**CR** 25/100 TABCR PO SCH (20:42)
[2019-10-12] VITALS: BP 123/74
[2019-10-12] MEDS: PIPERACILLIN/TAZOBACTAM SOD 3.375 GM in D5W MINI-BAG PLUS 50 ML IV SCH ×4 (03:21→20:53)
[2019-10-12 03:46] VITALS: BP 111/76
[2019-10-12] MEDS: ALBUTEROL SULFATE 2.5 MG/0.5 ML INH NEB SOLN NEB SCH ×6 (04:05→23:31)
[2019-10-12] MEDS: SINEMET 25-100 MG TAB PO SCH ×4 (04:33→17:19)
[2019-10-12 06:05] LABS: HEMATOCRIT 30.6 % (42.0-52.0); HEMOGLOBIN 9.4 g/dl (13.5-17.5); MEAN CORPUSCULAR HEMOGLOBIN 29.9 pg (27.0-33.0); MEAN CORPUSCULAR HGB CONC 30.7 g/dl (32.0-36.5); MEAN CORPUSCULAR VOLUME 97.5 fl (80.0-96.0); PLATELET COUNT, AUTOMATED 323 10^3/uL (150-450); RED BLOOD COUNT 3.14 10^6/uL (4.30-6.10); WHITE BLOOD COUNT 2.8 10^3/uL (4.0-10.0)
[2019-10-12 06:28] LABS: ALBUMIN 2.6 GM/DL (3.2-5.2); ALT/SGPT < 6 U/L (12-78); BILIRUBIN,TOTAL 0.7 MG/DL (0.2-1.0); BLOOD UREA NITROGEN 26 MG/DL (7-18); CALCIUM LEVEL 7.9 MG/DL (8.8-10.2); CARBON DIOXIDE LEVEL 34 MEQ/L (21-32); CHLORIDE LEVEL 106 MEQ/L (98-107); CREATININE FOR GFR 1.09 MG/DL (0.70-1.30); GLOMERULAR FILTRATION RATE > 60.0 (>42); GLUCOSE, FASTING 89 MG/DL (70-100); POTASSIUM SERUM 3.6 MEQ/L (3.5-5.1); SODIUM LEVEL 144 MEQ/L (136-145); TOTAL PROTEIN 5.5 GM/DL (6.4-8.2)
[2019-10-12 08:00] VITALS: BP 142/61
[2019-10-12] MEDS: LACTOBACILLUS ACIDOPHILUS CAP (BACID) PO SCH ×2 (08:39→17:19)
[2019-10-12] MEDS: APIXABAN 5 MG TAB (ELIQUIS) PO SCH ×2 (08:39→20:52)
[2019-10-12] MEDS: MIDODRINE 2.5 MG TAB PO SCH ×3 (08:39→17:19)
[2019-10-12] MEDS: FOLIC ACID 1 MG TAB PO SCH (08:39)
[2019-10-12] MEDS: SERTRALINE HCL 50 MG TAB PO SCH (08:39)
[2019-10-12 12:00] VITALS: BP 125/80
[2019-10-12] MEDS ORDERED: SLF 3 ML SYR IV PRN (12:00)
[2019-10-12] MEDS: SLF 3 ML SYR IV SCH ×2 (14:08→20:53)
[2019-10-12] MEDS: LevoFLOXacin 750 MG TABLET PO SCH (15:25)
[2019-10-12] MEDS: ACETAMINOPHEN 500 MG TAB PO PRN (15:26)
[2019-10-12 16:00] VITALS: BP 128/82
--- NOTE | 2019-10-12 16:26 | IPNPDOC ---
Text Note Date of Service The patient was seen on 10/12/19. NOTE SUBJECTIVE: Complains of persistent dizziness and light headedness. His BP has been stable. Has a cumulative negative balance of 7.1 liters in 3 days. Saturating well on 2 L NC. No fever or chills. No chest pain or SOB. PHYSICAL EXAMINATION: VITAL SIGNS: Please see below CONSTITUTIONAL: sitting up in bed, in NAD, AAOx3 EYES: PERRLA, EOM intact HENT, MOUTH: Normocephalic, atraumatic, nasal cannula in place NECK: SUPPLE, no JVD, no lymphadenopathy, no carotid bruit CV: Regular rate and rhythm, S1S2 normal, no murmurs/rubs/gallops RESPIRATORY: Decreased breath sounds right lung, No wheezes, conducted sounds from the throat. GI: BS positive in 4 quadrants, soft, nontender, nondistended, no rebound or guarding, no organomegaly MUSCULOSKELETAL: Normal ROM. No cyanosis, clubbing, swelling, joint deformity, No edema INTEGUMENTARY: Intact, no rashes, no lesions, no erythema NEUROLOGIC: tremors in upper extremities, Cranial Nerves II-XII are intact, no focal deficits PSYCHIATRIC: Mood and affect are normal LABORATORY DATA: Please see below MICROBIOLOGY: BCx x 2 sets- NG at 48H Sputum Cx ordered but not obtained Resp panel neg IMAGING: CXR: Improved aeration and decreased opacities involving the right mid to lower lung zone. Modified barium swallow: 5 ml aliquots of thin, pudding, mixed fruit, soft food, hard food, honey, nectar and pill consistency barium was administered. Silent aspiration was visualized with thin consistency barium. Echo: EF 75-80% Normal sinus rhythm without intraventricular conduction disturbance. M-mode and two-dimensional echocardiography was performed with pulsed, continuous wave, color flow and tissue Doppler studies. Mild concentric left ventricle hypertrophy with hyperkinetic wall motion. Left atrial size upper limits of normal with grade one LV diastolic dysfunction. Mildly dilated right heart chambers with normal wall motion and Doppler evidence of moderate pulmonary hypertension. Normal IVC size and collapse against an elevated central venous pressure at this time. Mildly dilated aortic root. Mild aortic valvular sclerosis without stenosis and no more than trace insufficiency. Normal-appearing mitral leaflets and leaflet excursion with mild mitral annular calcification and no more than trace insufficiency. Normal appearing tricuspid valve with mild insufficiency. No apparent intracardiac mass or pericardial effusion. ASSESSMENT AND PLAN: 79 y/o M admitted with diagnosis of acute on chronic hypoxic and hypercapnic respiratory failure 2/2 to community acquired PNA, right pleural effusion Acute on chronic hypoxic and hypercapnic respiratory failure 2/2 to community acquired PNA, right pleural effusion, r/o CHF. Please see treatment below for individual issues. Community acquired PNA. - Saturating well on 2 L NC -Improved CXR above -WBC wnl, afebrile -Micro above, will attempt to obtain sputum sample again -C/w zosyn and levofloxacin (Day 5), duonebs ATC, albuterol PRN, acapella, PEP therapy. - appreciated Pulmonary recommendation. Right pleural effusion likely 2/2 to diastolic CHF, EF 75-80%. Hx of malignant effusion with PleurX catheter placed, since removed. - -6905mL since admission -Echo above, Grade one LV diastolic dysfunction with mildly dilated right heart chambers with normal wall motion and Doppler evidence of moderate pulmonary hypertension -Lasix stopped 10/10/19 -Monitor I&O, daily wts Lightheadedness likely 2/2 to orthostatic hypotension 2/2 to overdiuresis -D/alka fluid restriction and lasix 10/10/19. Careful with high dose carbidopa/levodopa which can also cause orthostatic hypotension -will give a small bolus -Encourage PO intake Hypokalemia likely 2/2 to diuresis. -resolved Dysphagia likely 2/2 to radiation therapy -Speech and swallow evaluation done- silent aspiration seen on barium swallow -C/w modified diet recommendations Adenocarcinoma of right lung -Follows closely with [facility] -Currently on keytruda plus two other medications for chemotherapy- has been on these for the past 9 weeks. Due to have 1 more treatment on 10/28/19. Dr. Roosevelt Rodriguez-heme/onc. -Prior to chemotherapy, patient had 6 weeks of radiation to the lung ending 08/2018. -Patient has a history of malignant pleural effusion with PleurX tube (removed 02/2019). Parkinson's disease. -C/w home carbidopa-levodopa HTN was recently hypotensive meds stopped, diuretics stopped. -Stable. Hx of PE, DVT. -C/w eliquis Hx of C. diff. -No diarrhea -Monitor while on abx -Probiotic DVT px. Eliquis DISPOSITION: Home when medically improved. VS,Fishbone, I+O VS, Fishbone, I+O Laboratory Tests 10/12/19 05:47 Vital Signs Date Time Temp Pulse Resp B/P (MAP) Pulse Ox O2 Delivery O2 Flow Rate FiO2 10/12/19 12:00 98.2 96 18 125/80 (95) 96 Nasal Cannula 2.0 10/09/19 08:00 30 I&O- Last 24 Hours up to 6 AM 10/12/19 07:00 Intake Total 1000 ml Output Total 995 ml Balance 5 ml JERROD RAMIREZ MD Oct 12, 2019 16:26
[2019-10-12] MEDS ORDERED: SODIUM CHLORIDE 0.9% 1000ML IV ONE (16:30)
[2019-10-12 20:00] VITALS: BP 140/92
[2019-10-12] MEDS: SINEMET**CR** 25/100 TABCR PO SCH (20:52)
[2019-10-12] MEDS ORDERED: PYRIDOSTIGMINE 60 MG TAB PO SCH (21:00)
[2019-10-13] VITALS: BP 130/78
[2019-10-13] MEDS: ALBUTEROL SULFATE 2.5 MG/0.5 ML INH NEB SOLN NEB SCH ×6 (03:32→23:33)
[2019-10-13] MEDS: PIPERACILLIN/TAZOBACTAM SOD 3.375 GM in D5W MINI-BAG PLUS 50 ML IV SCH ×4 (03:35→21:10)
[2019-10-13 04:00] VITALS: BP 117/73
[2019-10-13] MEDS: SLF 3 ML SYR IV SCH ×3 (04:58→21:10)
[2019-10-13] MEDS: SINEMET 25-100 MG TAB PO SCH ×4 (04:58→17:37)
[2019-10-13 08:00] VITALS: BP 106/60
[2019-10-13] MEDS: FOLIC ACID 1 MG TAB PO SCH (08:09)
[2019-10-13] MEDS: MIDODRINE 2.5 MG TAB PO SCH ×3 (08:09→17:37)
[2019-10-13] MEDS: APIXABAN 5 MG TAB (ELIQUIS) PO SCH ×2 (08:09→21:09)
[2019-10-13] MEDS: LACTOBACILLUS ACIDOPHILUS CAP (BACID) PO SCH ×2 (08:09→17:37)
[2019-10-13] MEDS: SERTRALINE HCL 50 MG TAB PO SCH (08:10)
--- NOTE | 2019-10-13 09:26 | IPNPDOC ---
Text Note Date of Service The patient was seen on 10/13/19. NOTE SUBJECTIVE: Remains the same. Complains of persistent dizziness and light headedness. Lots of secretions at the throat which he cannot cough out so has lots of rattling noises. His BP has been stable. Saturating well on 2 L NC. No fever or chills. No chest pain or SOB. Extremely weak and deconditioned. PHYSICAL EXAMINATION: VITAL SIGNS: Please see below CONSTITUTIONAL: sitting up in bed, AAOx3 EYES: PERRLA, EOM intact HENT, MOUTH: Normocephalic, atraumatic, nasal cannula in place NECK: SUPPLE, no JVD, no lymphadenopathy, no carotid bruit CV: Regular rate and rhythm, S1S2 normal, no murmurs/rubs/gallops RESPIRATORY: Decreased breath sounds right lung, No wheezes, conducted sounds from the throat. GI: BS positive in 4 quadrants, soft, nontender, nondistended, no rebound or guarding, no organomegaly MUSCULOSKELETAL: Normal ROM. No cyanosis, clubbing, swelling, joint deformity, No edema INTEGUMENTARY: Intact, no rashes, no lesions, no erythema NEUROLOGIC: tremors in upper extremities, Cranial Nerves II-XII are intact, no focal deficits PSYCHIATRIC: Mood and affect are normal LABORATORY DATA: Please see below MICROBIOLOGY: BCx x 2 sets- NG at 48H Sputum Cx ordered but not obtained Resp panel neg IMAGING: CXR: Improved aeration and decreased opacities involving the right mid to lower lung zone. Modified barium swallow: 5 ml aliquots of thin, pudding, mixed fruit, soft food, hard food, honey, nectar and pill consistency barium was administered. Silent aspiration was visualized with thin consistency barium. Echo: EF 75-80% Normal sinus rhythm without intraventricular conduction disturbance. M-mode and two-dimensional echocardiography was performed with pulsed, continuous wave, color flow and tissue Doppler studies. Mild concentric left ventricle hypertrophy with hyperkinetic wall motion. Left atrial size upper limits of normal with grade one LV diastolic dysfunction. Mildly dilated right heart chambers with normal wall motion and Doppler evidence of moderate pulmonary hypertension. Normal IVC size and collapse against an elevated central venous pressure at this time. Mildly dilated aortic root. Mild aortic valvular sclerosis without stenosis and no more than trace insufficiency. Normal-appearing mitral leaflets and leaflet excursion with mild mitral annular calcification and no more than trace insufficiency. Normal appearing tricuspid valve with mild insufficiency. No apparent i ntracardiac mass or pericardial effusion. ASSESSMENT AND PLAN: 79 y/o M admitted with diagnosis of acute on chronic hypoxic and hypercapnic respiratory failure 2/2 to community acquired PNA, right pleural effusion Acute on chronic hypoxic and hypercapnic respiratory failure 2/2 to community acquired PNA, right pleural effusion, r/o CHF. Please see treatment below for individual issues. Community acquired PNA. -Saturating well on 2 L NC -Improved CXR above -WBC wnl, afebrile -Micro above, will attempt to obtain sputum sample again -C/w zosyn and levofloxacin (Day 5), duonebs ATC, albuterol PRN, acapella, PEP therapy. - appreciated Pulmonary recommendation. Right pleural effusion likely 2/2 to diastolic CHF, EF 75-80%. Hx of malignant effusion with PleurX catheter placed, since removed. - -6905mL since admission -Echo above, Grade one LV diastolic dysfunction with mildly dilated right heart chambers with normal wall motion and Doppler evidence of moderate pulmonary hypertension -Lasix stopped 10/10/19 -Monitor I&O, daily wts Acute on chronic diastolic CHF s/p diuresis with IV lasix. now holding lasix due to diuresis of over 6 liters in 23 days making the patient very symptomatic. Lightheadedness likely 2/2 to orthostatic hypotension 2/2 to overdiuresis -D/alka fluid restriction and lasix 10/10/19. Careful with high dose carbidopa/levodopa which can also cause orthostatic hypotension -will give a small bolus -Encourage PO intake Hypokalemia likely 2/2 to diuresis. -resolved Dysphagia likely 2/2 to radiation therapy -Speech and swallow evaluation done- silent aspiration seen on barium swallow -C/w modified diet recommendations Adenocarcinoma of right lung -Follows closely with [facility] -Currently on keytruda plus two other medications for chemotherapy- has been on these for the past 9 weeks. Due to have 1 more treatment on 10/28/19. Dr. Roosevelt Rodriguez-heme/onc. -Prior to chemotherapy, patient had 6 weeks of radiation to the lung ending 08/2018. -Patient has a history of malignant pleural effusion with PleurX tube (removed 02/2019). Parkinson's disease. -C/w home carbidopa-levodopa HTN was recently hypotensive meds stopped, diuretics stopped. -Stable. Hx of PE, DVT. -C/w eliquis Hx of C. diff. -No diarrhea -Monitor while on abx -Probiotic DVT px. Eliquis DISPOSITION: Home when medically improved. VS,Fishbone, I+O VS, Fishbone, I+O Vital Signs Date Time Temp Pulse Resp B/P (MAP) Pulse Ox O2 Delivery O2 Flow Rate FiO2 10/13/19 08:00 97.6 91 26 106/60 (75) 93 Nasal Cannula 2.0 10/09/19 08:00 30 I&O- Last 24 Hours up to 6 AM 10/13/19 05:59 Intake Total 870 ml Output Total 1150 ml Balance -280 ml JERROD RAMIREZ MD Oct 13, 2019 09:26
[2019-10-13 12:00] VITALS: BP 136/84
[2019-10-13] MEDS: ACETAMINOPHEN 500 MG TAB PO PRN (14:59)
[2019-10-13 16:00] VITALS: BP 115/85
[2019-10-13 20:00] VITALS: BP 105/68
[2019-10-13] MEDS: SINEMET**CR** 25/100 TABCR PO SCH (21:09)
[2019-10-14] VITALS: BP 113/74
[2019-10-14] MEDS ORDERED: methylPREDNISolone 125MG 2ML VIAL IV ONE (00:15)
--- NOTE | 2019-10-14 00:55 | REPVR ---
PROCEDURE INFORMATION: Exam: XR Chest, 1 View Exam date and time: 10/14/2019 12:28 AM Age: 79 years old Clinical indication: Respiratory distress TECHNIQUE: Imaging protocol: XR of the chest Views: 1 view. COMPARISON: 1. CT PORTABLE CHEST X-RAY 10/10/2019 7:52 AM 2. SR - CT Chest without contrast 03/05/2019 11:51:24 AM FINDINGS: Tubes, catheters and devices: A left subclavian [id number] is in place which terminates in the superior vena cava. Lungs: There is volume loss in the right hemithorax and right basilar airspace opacities, with progression compared to the prior chest x-ray on 10/10/2019. Pleural space: There is a small right pleural effusion. No pneumothorax. Heart/Mediastinum: Unremarkable. No cardiomegaly. Vasculature: There are atherosclerotic calcifications of the aortic arch. Bones/joints: There is a mild levoscoliosis of the lower thoracic spine. There are old healed fracture deformities of the left anterior 6th and 7th ribs, which are better visualized in the prior CT chest on 03/05/2019. IMPRESSION: Small right pleural effusion with associated right basilar atelectasis and/or consolidation that has progressed compared to the prior chest x-ray on 10/10/2019. Electronically signed by: Rayshawn Calderón On 10/14/2019 00:54:35 AM
[2019-10-14] MEDS: PIPERACILLIN/TAZOBACTAM SOD 3.375 GM in D5W MINI-BAG PLUS 50 ML IV SCH ×4 (03:36→21:11)
[2019-10-14 04:00] VITALS: BP 138/83
[2019-10-14] MEDS: ALBUTEROL SULFATE 2.5 MG/0.5 ML INH NEB SOLN NEB SCH ×5 (04:09→19:56)
[2019-10-14] MEDS: SLF 3 ML SYR IV SCH ×3 (05:46→21:11)
[2019-10-14] MEDS: SINEMET 25-100 MG TAB PO SCH ×4 (05:55→17:29)
[2019-10-14 08:00] VITALS: BP 118/66
[2019-10-14] MEDS: FOLIC ACID 1 MG TAB PO SCH (08:30)
[2019-10-14] MEDS: LACTOBACILLUS ACIDOPHILUS CAP (BACID) PO SCH ×2 (08:31→17:29)
[2019-10-14] MEDS: SERTRALINE HCL 50 MG TAB PO SCH (08:31)
[2019-10-14] MEDS: APIXABAN 5 MG TAB (ELIQUIS) PO SCH ×2 (08:31→21:11)
[2019-10-14] MEDS: MIDODRINE 2.5 MG TAB PO SCH ×3 (08:31→17:29)
[2019-10-14 12:00] VITALS: BP 146/77
[2019-10-14] MEDS ORDERED: LORazepam 0.5 MG TAB PO PRN (13:00)
--- NOTE | 2019-10-14 14:49 | IPNPDOC ---
Text Note Date of Service The patient was seen on 10/14/19. NOTE SUBJECTIVE: Remains about the same. Complains of persistent dizziness and light headedness though says its a little less today. Lots of secretions at the throat which he cannot cough out so has lots of rattling noises. His BP has been stable. Saturating well on 3 -4 L NC. No fever or chills. No chest pain or SOB. Extremely weak and deconditioned. Can only stand and pivot. Talked with Dr Garvey about his dizziness will get an MRI. PHYSICAL EXAMINATION: VITAL SIGNS: Please see below CONSTITUTIONAL: sitting up in bed, AAOx3 EYES: PERRLA, EOM intact HENT, MOUTH: Normocephalic, atraumatic, nasal cannula in place NECK: SUPPLE, no JVD, no lymphadenopathy, no carotid bruit CV: Regular rate and rhythm, S1S2 normal, no murmurs/rubs/gallops RESPIRATORY: lots of conducted sounds from the throat but after coughing lungs appears mostly clear to auscultation except for bibasal crackles. GI: BS positive in 4 quadrants, soft, nontender, mildly distended, no rebound or guarding, no organomegaly MUSCULOSKELETAL: Normal ROM. No cyanosis, clubbing, swelling, joint deformity, No edema INTEGUMENTARY: Intact, no rashes, no lesions, no erythema NEUROLOGIC: tremors in upper extremities, Cranial Nerves II-XII are intact, no focal deficits PSYCHIATRIC: Mood and affect very anxious. LABORATORY DATA: Please see below MICROBIOLOGY: BCx x 2 sets- NG at 48H Sputum Cx ordered but not obtained Resp panel neg IMAGING: CXR: Improved aeration and decreased opacities involving the right mid to lower lung zone. Modified barium swallow: 5 ml aliquots of thin, pudding, mixed fruit, soft food, hard food, honey, nectar and pill consistency barium was administered. Silent aspiration was visualized with thin consistency barium. Echo: EF 75-80% Normal sinus rhythm without intraventricular conduction disturbance. M-mode and two-dimensional echocardiography was performed with pulsed, continuous wave, color flow and tissue Doppler studies. Mild concentric left ventricle hypertrophy with hyperkinetic wall motion. Left atrial size upper limits of normal with grade one LV diastolic dysfunction. Mildly dilated right heart chambers with normal wall motion and Doppler evidence of moderate pulmonary hypertension. Normal IVC size and collapse against an elevated central venous pressure at this time. Mildly dilated aortic root. Mild aortic valvular sclerosis without stenosis and no more than trace insufficiency. Normal-appearing mitral leaflets and leaflet excursion with mild mitral annular calcification and no more than trace insufficiency. Normal appearing tricuspid valve with mild insufficiency. No apparent intracardiac mass or pericardial effusion. ASSESSMENT AND PLAN: 79 y/o M admitted with diagnosis of acute on chronic hypoxic and hypercapnic respiratory failure 2/2 to community acquired PNA, right pleural effusion Acute on chronic hypoxic and hypercapnic respiratory failure 2/2 to community acquired PNA, right pleural effusion, r/o CHF. Please see treatment below for individual issues. Community acquired PNA. -Saturating well on 3 to 4 L NC uses 3 l at home -Improved CXR above -C/w zosyn and levofloxacin (Day 6), duonebs ATC, albuterol PRN, acapella, PEP therapy. - appreciated Pulmonary recommendation. Right pleural effusion likely 2/2 to diastolic CHF, EF 75-80%. Hx of malignant effusion with PleurX catheter placed, since removed. -Echo above, Grade one LV diastolic dysfunction with mildly dilated right heart chambers with normal wall motion and Doppler evidence of moderate pulmonary hypertension -Lasix stopped 10/10/19 -Monitor I&O, daily wts Acute on chronic diastolic CHF s/p diuresis with IV lasix. now holding lasix due to diuresis of over 6 liters in 3 days making the patient very symptomatic. 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 -D/alka fluid restriction and lasix 10/10/19. -Encourage PO intake -consulted neurology -will get an MRI brain without Hypokalemia likely 2/2 to diuresis. -resolved Dysphagia likely 2/2 to radiation therapy -Speech and swallow evaluation done- silent aspiration seen on barium swallow -C/w modified diet recommendations Adenocarcinoma of right lung -Follows closely with [facility] -Currently on keytruda plus two other medications for chemotherapy- has been on these for the past 9 weeks. Due to have 1 more treatment on 10/28/19. Dr. Roosevelt Rodriguez-heme/onc. -Prior to chemotherapy, patient had 6 weeks of radiation to the lung ending 08/2018. -Patient has a history of malignant pleural effusion with PleurX tube (removed 02/2019). Parkinson's disease. -C/w home carbidopa-levodopa HTN was recently hypotensive meds stopped, diuretics stopped. -Stable. Hx of PE, DVT. -C/w eliquis Hx of C. diff. -No diarrhea -Monitor while on abx -Probiotic DVT px. Eliquis DISPOSITION: Home when medically improved. VS,Fishbone, I+O VS, Fishbone, I+O Vital Signs Date Time Temp Pulse Resp B/P (MAP) Pulse Ox O2 Delivery O2 Flow Rate FiO2 10/14/19 12:00 98.6 60 24 146/77 (100) 95 Room Air 10/14/19 12:00 4.0 10/09/19 08:00 30 I&O- Last 24 Hours up to 6 AM 10/14/19 06:00 Intake Total 990 ml Output Total 825 ml Balance 165 ml JERROD RAMIREZ MD Oct 14, 2019 14:49
[2019-10-14] MEDS: LevoFLOXacin 750 MG TABLET PO SCH (15:18)
[2019-10-14] MEDS: ACETAMINOPHEN 500 MG TAB PO PRN (15:23)
[2019-10-14 16:00] VITALS: BP 148/80
[2019-10-14] MEDS ORDERED: KETOROLAC 30 MG/ML 1ML VIAL IV ONE (18:45)
[2019-10-14 20:00] VITALS: BP 126/78
[2019-10-14] MEDS: SINEMET**CR** 25/100 TABCR PO SCH (21:11)
--- NOTE | 2019-10-14 22:00 | REPVR ---
PROCEDURE INFORMATION: Exam: MR Head Without Contrast Exam date and time: 10/14/2019 2:35 PM Age: 79 years old Clinical indication: Patient HX: Respiratory failure, dizziness; Additional info: Persistent diziness. TECHNIQUE: Imaging protocol: MR of the head without contrast. COMPARISON: MRI-Brain W/O FOLL BY WITH 04/15/2018 11:35 AM FINDINGS: Brain: Nonspecific T2/FLAIR hyperintensities of the periventricular and deep subcortical white matter, most likely secondary to chronic small vessel ischemic change. No intracranial hemorrhage or extra-axial fluid collection. No evidence of mass effect or midline shift. No restricted diffusion to suggest acute infarct. Ventricles: Mild prominence of the ventricles and sulci, likely attributed to parenchymal volume loss. Bones/joints: Unremarkable. Sinuses: Unremarkable. Mastoid air cells: No mastoid effusion. Orbits: Unremarkable. Soft tissues: Unremarkable. IMPRESSION: 1. No acute intracranial pathology. 2. Other chronic findings, as above. Electronically signed by: Mickey Guillaume On 10/14/2019 22:00:30 PM
[2019-10-15] VITALS: BP 133/77
[2019-10-15] MEDS: ALBUTEROL SULFATE 2.5 MG/0.5 ML INH NEB SOLN NEB SCH ×7 (00:32→23:56)
[2019-10-15] MEDS: PIPERACILLIN/TAZOBACTAM SOD 3.375 GM in D5W MINI-BAG PLUS 50 ML IV SCH ×4 (03:09→20:01)
[2019-10-15 04:00] VITALS: BP 130/72
[2019-10-15] MEDS: SLF 3 ML SYR IV SCH ×3 (05:25→20:03)
[2019-10-15] MEDS: SINEMET 25-100 MG TAB PO SCH ×4 (05:37→16:49)
[2019-10-15 05:41] LABS: BASO % 0.3 % (0.0-1.0); EOS # 0.2 10^3/uL (0.0-0.5); EOS % 4.1 % (0.0-3.0); HEMATOCRIT 30.2 % (42.0-52.0); HEMOGLOBIN 9.2 g/dl (13.5-17.5); LYMPH # 1.2 10^3/uL (1.5-5.0); LYMPH % 33.5 % (24.0-44.0); MEAN CORPUSCULAR HEMOGLOBIN 29.9 pg (27.0-33.0); MEAN CORPUSCULAR HGB CONC 30.5 g/dl (32.0-36.5); MEAN CORPUSCULAR VOLUME 98.1 fl (80.0-96.0); MONO # 0.4 10^3/uL (0.0-0.8); MONO % 11.7 % (0.0-5.0); NEUTROPHILS # 1.9 10^3/uL (1.5-8.5); NEUTROPHILS % 50.4 % (36.0-66.0); PLATELET COUNT, AUTOMATED 200 10^3/uL (150-450); RED BLOOD COUNT 3.08 10^6/uL (4.30-6.10); WHITE BLOOD COUNT 3.7 10^3/uL (4.0-10.0)
[2019-10-15 06:10] LABS: BLOOD UREA NITROGEN 37 MG/DL (7-18); CALCIUM LEVEL 7.9 MG/DL (8.8-10.2); CARBON DIOXIDE LEVEL 32 MEQ/L (21-32); CHLORIDE LEVEL 108 MEQ/L (98-107); CREATININE FOR GFR 1.08 MG/DL (0.70-1.30); GLOMERULAR FILTRATION RATE > 60.0 (>42); GLUCOSE, FASTING 83 MG/DL (70-100); POTASSIUM SERUM 3.7 MEQ/L (3.5-5.1); SODIUM LEVEL 144 MEQ/L (136-145)
[2019-10-15 08:00] VITALS: BP 139/87
[2019-10-15] MEDS: MIDODRINE 2.5 MG TAB PO SCH ×3 (08:27→17:00)
[2019-10-15] MEDS: LACTOBACILLUS ACIDOPHILUS CAP (BACID) PO SCH ×2 (08:27→17:00)
[2019-10-15] MEDS: SERTRALINE HCL 50 MG TAB PO SCH (08:28)
[2019-10-15] MEDS: APIXABAN 5 MG TAB (ELIQUIS) PO SCH ×2 (08:28→20:01)
[2019-10-15] MEDS: FOLIC ACID 1 MG TAB PO SCH (08:28)
[2019-10-15] MEDS: ACETAMINOPHEN 500 MG TAB PO PRN ×2 (08:39→16:49)
--- NOTE | 2019-10-15 11:01 | IPNPDOC ---
Text Note Date of Service The patient was seen on 10/15/19. NOTE SUBJECTIVE: Remains about the same. Complains of persistent dizziness and light headedness, unable to do much because of the persistent dizziness. Will talk with his oncologist to see what his prognosis is. Patient has unrealistic expectations of getting rapidly improved and go home and continue with his chemotherapy. He tells me his will be able to take care of of him as she was doing before. PFS has been talking with his who has no other support at home and she will not be able to provide him with all the support/ help he needs at this time. PHYSICAL EXAMINATION: VITAL SIGNS: Please see below CONSTITUTIONAL: sitting up in bed, AAOx3 EYES: PERRLA, EOM intact HENT, MOUTH: Normocephalic, atraumatic, nasal cannula in place NECK: SUPPLE, no JVD, no lymphadenopathy, no carotid bruit CV: Regular rate and rhythm, S1S2 normal, no murmurs/rubs/gallops RESPIRATORY: lots of conducted sounds from the throat but after coughing lungs appears mostly clear to auscultation except for bibasal crackles. GI: BS positive in 4 quadrants, soft, nontender, mildly distended, no rebound or guarding, no organomegaly MUSCULOSKELETAL: Normal ROM. No cyanosis, clubbing, swelling, joint deformity, No edema INTEGUMENTARY: Intact, no rashes, no lesions, no erythema NEUROLOGIC: tremors in upper extremities, Cranial Nerves II-XII are intact, no focal deficits PSYCHIATRIC: Mood and affect very anxious. LABORATORY DATA: Please see below MICROBIOLOGY: BCx x 2 sets- Negative Sputum Cx ordered but not obtained Resp panel neg IMAGING: CXR: Improved aeration and decreased opacities involving the right mid to lower lung zone. Modified barium swallow: 5 ml aliquots of thin, pudding, mixed fruit, soft food, hard food, honey, nectar and pill consistency barium was administered. Silent aspiration was visualized with thin consistency barium. Echo: EF 75-80% Normal sinus rhythm without intraventricular conduction disturbance. M-mode and two-dimensional echocardiography was performed with pulsed, continuous wave, color flow and tissue Doppler studies. Mild concentric left ventricle hypertrophy with hyperkinetic wall motion. Left atrial size upper limits of normal with grade one LV diastolic dysfunction. Mildly dilated right heart chambers with normal wall motion and Doppler evidence of moderate pulmonary hypertension. Normal IVC size and collapse against an elevated central venous pressure at this time. Mildly dilated aortic root. Mild aortic valvular sclerosis without stenosis and no more than trace insufficiency. Normal-appearing mitral leaflets and leaflet excursion with mild mitral annular calcification and no more than trace insufficiency. Normal appearing tricuspid valve with mild insufficiency. No apparent intracardiac mass or pericardial effusion. ASSESSMENT AND PLAN: 79 y/o M admitted with diagnosis of acute on chronic hypoxic and hypercapnic respiratory failure 2/2 to community acquired PNA, right pleural effusion Acute on chronic hypoxic and hypercapnic respiratory failure 2/2 to community acquired PNA, right pleural effusion, r/o CHF. Please see treatment below for individual issues. Community acquired PNA. -Saturating well on 3 to 4 L NC uses 3 l at home -Improved CXR above -C/w zosyn and levofloxacin (Day 6), duonebs ATC, albuterol PRN, acapella, PEP therapy. - appreciated Pulmonary recommendation. Right pleural effusion likely 2/2 to diastolic CHF, EF 75-80%. Hx of malignant effusion with PleurX catheter placed, since removed. -Echo above, Grade one LV diastolic dysfunction with mildly dilated right heart chambers with normal wall motion and Doppler evidence of moderate pulmonary hypertension -Lasix stopped 10/10/19 -Monitor I&O, daily wts Acute on chronic diastolic CHF s/p diuresis with IV lasix. now holding lasix due to diuresis of over 6 liters in 3 days making the patient very symptomatic. 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 -D/alka fluid restriction and lasix 10/10/19. -Encourage PO intake -consulted neurology -MRI brain without normal Hypokalemia likely 2/2 to diuresis. -resolved Dysphagia likely 2/2 to radiation therapy -Speech and swallow evaluation done- silent aspiration seen on barium swallow -C/w modified diet recommendations Adenocarcinoma of right lung -Follows closely with [facility] -Currently on keytruda plus two other medications for chemotherapy- has been on these for the past 9 weeks. Due to have 1 more treatment on 10/28/19. Dr. Roosevelt Rodriguez-heme/onc. -Prior to chemotherapy, patient had 6 weeks of radiation to the lung ending 08/2018. -Patient has a history of malignant pleural effusion with PleurX tube (removed 02/2019). Parkinson's disease. -C/w home carbidopa-levodopa HTN was recently hypotensive meds stopped, diuretics stopped. -Stable. Hx of PE, DVT. -C/w eliquis Hx of C. diff. -No diarrhea -Monitor while on abx -Probiotic DVT px. Eliquis DISPOSITION: Home when medically improved. VS,Fishbone, I+O VS, Fishbone, I+O Laboratory Tests 10/15/19 05:26 Vital Signs Date Time Temp Pulse Resp B/P (MAP) Pulse Ox O2 Delivery O2 Flow Rate FiO2 10/15/19 08:00 97.1 88 24 139/87 (104) 97 Room Air 10/15/19 04:00 4.0 10/09/19 08:00 30 I&O- Last 24 Hours up to 6 AM 10/15/19 05:59 Intake Total 850 ml Output Total 400 ml Balance 450 ml JERROD RAMIREZ MD Oct 15, 2019 11:01
[2019-10-15 12:00] VITALS: BP 124/61
[2019-10-15] MEDS ORDERED: ISOVUE-370 76% 100ML VIAL As Ordered ONE (13:53)
[2019-10-15 16:00] VITALS: BP 156/81
--- NOTE | 2019-10-15 16:09 | IPNPDOC ---
Subjective Date Seen The patient was seen on 10/15/19. Subjective Chief Complaint/HPI 79 year old male with adenocarcinoma of lung s/p RT, chemotherapy. He failed first line therapy and had disease progression, was started on Keytuda last winter, and then September started carboplatin and another agent his could not remember. He and his both stated after he started chemotherapy his performance status declined significantly. Prior to starting chemo, he was able to ambulate with a walker, was able to get in and out of bed without assitance or with little assistance, was able to participate in his ADLs and spent approximately 8 to 10 hours in bed sleeping, primarily at night. After starting chemotherapy, he wassleeping 18 to 20 hours daily, gradually became less and less able to get in and out of bed. He was admitted at [facility] October 07 in respiratory failure and was found to have pneumonia. A swallow study reveals he has silent aspiration; medical staff feels this may be related to his RT; however, he may also have Parkinsons related dysphagia at this point. His neurologist is Scooby Gregorio MD ([facility]) and his oncologist is Lalo Albert MD at [facility]. Today he reports his worst problem is weakness and deconditioning. He was able to get up out of bed with 2 physical therapists and a stretch transfer device. He lives with his . Events since last encounter First visit by [facility]. The patient previously had DNR he rescin ded. I was contacted about following him asan outpatient however, my clinic is an outpatient clinic and Mrs. Kapadia and I disucssed the fact yesterday that travelling to my clinic would not be practical at this time. General: Denies: ROS Unobtainable, Chills, Night Sweats, Fatigue, Malaise, Normal Appetite, Other Symptoms Constitutional: Reports: Weakness, Fatigue, Lethargy Eyes: Denies: Pain, Vision change, Conjunctivae inflammation, Eyelid inflammation, Redness, Other ENT: Reports: Dysphagia; Denies: Head Aches, Ear Pain, Sinus Congestion, Post Nasal Drip, Sore Throat, Epistaxis, Other Symptoms Skin: Reports: Bruising Pulmonary: Reports: Dyspnea, Cough, Pleuritic Chest Pain, Other Symptoms Cardiovascular: Reports: Orthopnea; Denies: Chest Pain, Palpitations, Paroxysmal Noc. Dyspnea, Edema, Lt Headedness, Other Symptoms Gastrointestinal: Denies: Nausea, Vomiting, Abdominal Pain, Diarrhea, Constipation, Melena, Hematochezia, Other Symptoms Genitourinary: Denies: Dysuria, Frequency, Incontinence, Hematuria, Retention, Other Symptoms Hematologic: Reports: Bruising, Purpura; Denies: Bleeding Excessively, Petecchia, Enlarged Lymph Nodes, Other Hematologic Endocrine: Denies: Polydipsia, Polyphagia, Polyuria, Heat Intolerance, Cold Intolerance, Other Endocrine Sx Musculoskeletal: Reports: Neck Pain, Back Pain, Shoulder Pain, Arm Pain, Hand Pain, Leg Pain, Foot Pain, Joint Pain, Muscle Pain, Spasms, Other Symptoms Neurological: Reports: Weakness, Numbness, Incoordination, Change in speech, Confusion, Seizures, Other Symptoms Psych: Reports: Memory Issues (some difficulty recalling details of medical hsitory) Objective Physical Examination General Exam: Positive: Alert, No Acute Distress Eye Exam: Positive: EOMI ENT Exam: Positive: Atraumatic, Mucous membr. moist/pink, Pharynx Normal Neck Exam: Positive: Supple Chest Exam: Positive: Rhonchi, Diminished Heart Exam: Positive: Rate Normal, Regular Rhythm Abdomen Exam: Positive: Normal bowel sounds, Soft Extremity Exam: Positive: Normal pulses, Tenderness Skin Exam: Positive: Nl turgor and temperature Neuro Exam: Positive: Other Psych Exam: Positive: Mood NL, Oriented x 3 Assessment /Plan Assessment Parkinsons Disease Adenocarcinoma of lung, not tolerating chemotherapy well Aspiration Weakness Plan/VTE VTE Prophylaxis Ordered?: No Plan I spent 30 minutes discussing Narinder's plan of care and focused on the fact it is unrealistic to think his can care for him at home as she previously could. I asked if Dr Albert was aware of this hospitalization and Mrs. Thompson indicated their daughter is on touch with Dr Albert and keeping him apprised of Mr. Thompson's condition. I explained that his worsening performance status may require Dr Albert to consider whether chemo is in his best interest at this point. I also explained that although I do not claim to be an expert in insurance issues, I am not sure his insurance (Medicare Advantage plan with [facility] ) would pay for at home nursing care to assist Mrs. Thompson. They indicated he was already rec onsidering his DNR and they asked for a blank MOLST form to review over the next few hours which I provided to them. Mr. Thompson's daughters are planning to take him to a neurology clinic at [facility] in [place] for further evaluation of his Parkinsons Disease. I am not sure what further treatment could be offered to him but if he chooses to pursue this for an opinion, his family would likely need to provide transport. I will see Narinder tomorrow in follow up as my schedule permits. His Elva has my clinic telephone number. VS, I&O, 24H, Fishbone Vital Signs/I&O Vital Signs Date Time Temp Pulse Resp B/P (MAP) Pulse Ox O2 Delivery O2 Flow Rate FiO2 10/15/19 12:00 97.6 88 24 124/61 (82) 95 Room Air 10/15/19 12:00 4.0 10/09/19 08:00 30 I&O- Last 24 Hours up to 6 AM 10/15/19 06:00 Intake Total 1090 ml Output Total 600 ml Balance 490 ml Laboratory Data 24H LABS Laboratory Tests 2 10/15/19 05:26: Immature Granulocyte % (Auto) 0.0, Neutrophils (%) (Auto) 50.4, Lymphocytes (%) (Auto) 33.5, Monocytes (%) (Auto) 11.7H, Eosinophils (%) (Auto) 4.1H, Basophils (%) (Auto) 0.3, Neutrophils # (Auto) 1.9, Lymphocytes # (Auto) 1.2L, Monocytes # (Auto) 0.4, Eosinophils # (Auto) 0.2, Basophils # (Auto) 0.0, Nucleated Red Blo od Cells % (auto) 0.0, Anion Gap 4L, Glomerular Filtration Rate > 60.0, Calcium Level 7.9L CBC/BMP Laboratory Tests 10/15/19 05:26 Microbiology Microbiology 10/08/19 Blood Culture - Final, Complete NO GROWTH AFTER 5 DAYS 10/08/19 Respiratory Virus Panel (PCR) ([facility]) - Final, Complete 10/08/19 Blood Culture - Final, Complete NO GROWTH AFTER 5 DAYS Joselyn GOMEZ DIRECTOR OF RESERVATIONS Oct 15, 2019 16:09
[2019-10-15] MEDS ORDERED: CALCIUM CARBONATE 500 MG CHEW U/D PO PRN (16:30)
[2019-10-15 20:00] VITALS: BP 121/80
[2019-10-15] MEDS: SINEMET**CR** 25/100 TABCR PO SCH (20:01)
[2019-10-16] VITALS: BP 126/80
[2019-10-16] MEDS: PIPERACILLIN/TAZOBACTAM SOD 3.375 GM in D5W MINI-BAG PLUS 50 ML IV SCH ×3 (03:42→14:47)
[2019-10-16] MEDS: SLF 3 ML SYR IV SCH ×3 (03:42→21:44)
[2019-10-16 04:00] VITALS: BP 129/82
[2019-10-16] MEDS: ALBUTEROL SULFATE 2.5 MG/0.5 ML INH NEB SOLN NEB SCH ×5 (04:00→20:16)
--- NOTE | 2019-10-16 04:56 | REP ---
REASON: Pneumonia. Latest prior for comparison 03/05/2019. CONTRAST: 100 mL Isovue-370. There is a moderate loculated right pleural effusion. There is esophageal dilatation with an air-fluid level throughout the esophagus. There is a right infrahilar mass, status quo. There is no mediastinal or left hilar adenopathy. There is a slight pericardial effusion. The imaged upper abdomen is unchanged, showing intrahepatic ductal dilatation and bilateral partially imaged renal cysts, status quo. The osseous structures are unchanged. Evaluation of the lung mccauley shows numerous scattered pulmonary nodules, too numerous to count or individually assess, some visible today due to the partial improvement of the right-sided intrathoracic fluid collection. There is a right middle lobe opacity with air bronchograms, which persists essentially unchanged, extending to the right hilum, where there appears to be hilar adenopathy. IMPRESSION: 1. Chronic right hemithoracic fluid, as described above. 2. Multiple pulmonary nodules, as described above. Metastatic disease cannot be ruled out. 3. Abnormal right middle lobe. 4. Abnormal esophagus. 5. Other findings as described above. Electronically Signed by Robert Burdick DO 10/16/2019 04:33 P
[2019-10-16] MEDS: SINEMET 25-100 MG TAB PO SCH ×4 (05:20→18:19)
[2019-10-16 05:49] LABS: BASO % 0.3 % (0.0-1.0); EOS # 0.2 10^3/uL (0.0-0.5); EOS % 4.9 % (0.0-3.0); HEMATOCRIT 29.7 % (42.0-52.0); HEMOGLOBIN 9.2 g/dl (13.5-17.5); LYMPH # 1.2 10^3/uL (1.5-5.0); LYMPH % 36.4 % (24.0-44.0); MEAN CORPUSCULAR HEMOGLOBIN 30.1 pg (27.0-33.0); MEAN CORPUSCULAR VOLUME 97.1 fl (80.0-96.0); MONO # 0.6 10^3/uL (0.0-0.8); MONO % 17.1 % (0.0-5.0); NEUTROPHILS # 1.4 10^3/uL (1.5-8.5); NEUTROPHILS % 41.3 % (36.0-66.0); PLATELET COUNT, AUTOMATED 172 10^3/uL (150-450); RED BLOOD COUNT 3.06 10^6/uL (4.30-6.10); WHITE BLOOD COUNT 3.3 10^3/uL (4.0-10.0)
[2019-10-16 06:18] LABS: BLOOD UREA NITROGEN 30 MG/DL (7-18); CARBON DIOXIDE LEVEL 29 MEQ/L (21-32); CHLORIDE LEVEL 110 MEQ/L (98-107); CREATININE FOR GFR 0.84 MG/DL (0.70-1.30); GLOMERULAR FILTRATION RATE > 60.0 (>42); GLUCOSE, FASTING 84 MG/DL (70-100); SODIUM LEVEL 145 MEQ/L (136-145)
[2019-10-16 06:54] VITALS: BP 110/68
[2019-10-16] MEDS: FOLIC ACID 1 MG TAB PO SCH (09:03)
[2019-10-16] MEDS: SERTRALINE HCL 50 MG TAB PO SCH (09:03)
[2019-10-16] MEDS: MIDODRINE 2.5 MG TAB PO SCH ×3 (09:03→18:19)
[2019-10-16] MEDS: APIXABAN 5 MG TAB (ELIQUIS) PO SCH ×2 (09:03→21:44)
[2019-10-16] MEDS: LACTOBACILLUS ACIDOPHILUS CAP (BACID) PO SCH ×2 (09:03→18:19)
[2019-10-16] MEDS: ACETAMINOPHEN 500 MG TAB PO PRN ×2 (09:07→14:46)
[2019-10-16 12:00] VITALS: BP 125/80
--- NOTE | 2019-10-16 13:18 | CR ---
DATE OF CONSULTATION: 10/15/2019 REFERRING PHYSICIAN: Dr. Nikki Baugh REASON FOR CONSULTATION: Dizziness. HISTORY OF PRESENT ILLNESS: Narinder Kapadia is a 79-year-old man who was admitted at [facility] due to increasing shortness of breath. The patient has a history of right middle lobe adenocarcinoma of lung, history of pulmonary embolism, oxygen dependence, recurrent Clostridium difficile infection and is being treated for pneumonia and tested negative for COVID-19. The patient stated that he was diagnosed with Parkinson disease by Dr. Harrison and was referred to [facility] and saw Dr. Gregorio. He was also seen at our office in [id number] but has not followed up. The patient states that he has dizziness for last 1-2 years. He has difficulty getting out of bed. He ambulates with a walker. The patient states that he feels as if he is in a boat rocking back and forth and up and down when he feels dizzy. His symptoms are almost constant. They may be worse when he stands up. He denies any headaches, seizures, diplopia, or urinary incontinence. He states that he has a history of chronic neck and back pain. He denies any loss of consciousness. DIAGNOSTIC STUDIES: His MRI scan of brain showed small vessel ischemic disease of brain and mild atrophy. Hemoglobin was 9.2, WBC 3.2, and platelet count 200, with normal metabolic profile. MRA brain and neck in 2019 were reportedly unremarkable. Autonomic testing at our office revealed severe autonomic nervous system dysfunction. PAST MEDICAL HISTORY: Parkinson disease, hypertension, pulmonary embolism, right middle lobe adenocarcinoma of lung, Clostridium difficile infection with recurrence, respiratory failure on home 4 liters per minute nasal cannula oxygen, colonoscopy, left knee surgery, right lung biopsy. SOCIAL HISTORY: He denies smoking, alcohol, or illicit drugs. FAMILY HISTORY: Mother with history of coronary artery disease, and father with history of jaw cancer. Brother had esophageal cancer. REVIEW OF SYSTEMS: All systems were reviewed and found to be noncontributory except as mentioned in history of present illness. HOME MEDICATIONS: - Eliquis 5 mg by mouth twice a day - carbidopa-levodopa 25/100 one tablet alternating with 1.5 tablets and carbidopa-levodopa extended release 25/100 one tablet at night - folic acid 1 mg by mouth daily - midodrine 2.5 mg by mouth three times a day - Alimta - Keytruda - Zoloft 50 mg by mouth daily - Tylenol - albuterol inhaler - Xanax as needed - Zofran as needed ALLERGIES: None. PHYSICAL EXAMINATION: Temperature 97.6, pulse 88, respiratory rate 24, blood pressure 124/61, 95% saturations on 4 liters nasal cannula oxygen. Heart: Regular rate and rhythm. Lungs: Lung examination showed crackles and rhonchi bilaterally. Abdomen is soft, nontender, nondistended. No pedal edema. No musculoskeletal abnormalities. The patient is awake, alert, oriented to place, person, and time. Normal speech, comprehension, and repetition. Extraocular muscles are intact. No facial weakness. Tongue and uvula are midline. 5/5 strength in all four extremities. He has decreased cold pinprick vibration sensation in his feet. Deep tendon reflexes are 1+ in arms and knees and absent at ankles. His gait is unsteady and shuffling. He has mild bilateral cogwheel rigidity. I did not see any resting tremor today. ASSESSMENT 1. Multifactorial gait difficulty and chronic subjective dizziness. 2. 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 3. 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 4. Sinemet can also aggravate his dizziness through orthostatic mechanism. PLAN: 1. Continue Sinemet at current doses. 2. Gradually increase midodrine to 5-10 mg by mouth three times a day. 3. Consider adding fludrocortisone if no cardiac contraindications. 4. Physical and occupational therapy and continue using a walker. The patient is currently following with Dr. Gregorio at [facility] and will continue following with him.
[2019-10-16 16:00] VITALS: BP 111/68
[2019-10-16 18:00] VITALS: BP 144/81
[2019-10-16] MEDS: SINEMET**CR** 25/100 TABCR PO SCH (21:44)
[2019-10-17] VITALS (7 sets, daily range): BP systolic 111–159; BP diastolic 70–97
[2019-10-17] MEDS: ALBUTEROL SULFATE 2.5 MG/0.5 ML INH NEB SOLN NEB SCH ×6 (00:01→20:08)
[2019-10-17] MEDS: ACETAMINOPHEN 500 MG TAB PO PRN ×2 (00:52→16:23)
[2019-10-17] MEDS: SINEMET 25-100 MG TAB PO SCH ×4 (05:00→16:19)
[2019-10-17 05:28] LABS: HEMATOCRIT 28.2 % (42.0-52.0); HEMOGLOBIN 8.9 g/dl (13.5-17.5); MEAN CORPUSCULAR HEMOGLOBIN 30.7 pg (27.0-33.0); MEAN CORPUSCULAR HGB CONC 31.6 g/dl (32.0-36.5); MEAN CORPUSCULAR VOLUME 97.2 fl (80.0-96.0); PLATELET COUNT, AUTOMATED 154 10^3/uL (150-450); WHITE BLOOD COUNT 2.9 10^3/uL (4.0-10.0)
[2019-10-17 05:50] LABS: BLOOD UREA NITROGEN 23 MG/DL (7-18); CALCIUM LEVEL 7.8 MG/DL (8.8-10.2); CARBON DIOXIDE LEVEL 30 MEQ/L (21-32); CHLORIDE LEVEL 109 MEQ/L (98-107); CREATININE FOR GFR 0.73 MG/DL (0.70-1.30); GLOMERULAR FILTRATION RATE > 60.0 (>42); GLUCOSE, FASTING 83 MG/DL (70-100); POTASSIUM SERUM 3.8 MEQ/L (3.5-5.1); SODIUM LEVEL 142 MEQ/L (136-145)
[2019-10-17 06:02] LABS: ATYPICAL LYMPH 2 % (0-5); BASOPHILS 2 % (0-1); EOSINOPHILS 1 % (0-3); LYMPHOCYTES 52 % (16-44); MONOCYTES 10 % (0-5); NEUTROPHILS 32 % (28-66)
[2019-10-17 06:03] LABS: PLATELET ESTIMATE NORMAL (NORMAL)
[2019-10-17 06:04] LABS: ANISOCYTOSIS 1+
[2019-10-17] MEDS: SLF 3 ML SYR IV SCH ×3 (06:32→20:57)
[2019-10-17] MEDS: guaiFENesin ER 600 MG TAB PO SCH ×2 (09:00→20:56)
[2019-10-17] MEDS: FOLIC ACID 1 MG TAB PO SCH (09:09)
[2019-10-17] MEDS: MIDODRINE 2.5 MG TAB PO SCH ×3 (09:09→19:05)
[2019-10-17] MEDS: APIXABAN 5 MG TAB (ELIQUIS) PO SCH ×2 (09:09→20:56)
[2019-10-17] MEDS: LACTOBACILLUS ACIDOPHILUS CAP (BACID) PO SCH ×2 (09:09→19:05)
[2019-10-17] MEDS: SERTRALINE HCL 50 MG TAB PO SCH (09:09)
[2019-10-17 13:38] LABS: LDH LACTATE DEHYDROGENASE 145 U/L (87-241)
--- NOTE | 2019-10-17 13:56 | IPNPDOC ---
Text Note Date of Service The patient was seen on 10/17/19. NOTE SUBJECTIVE: Pt c/o dizziness, although improved. Feels much better today in t erms of his dyspnea. Denies CP/palpitations. PHYSICAL EXAMINATION: VITAL SIGNS: Please see below CONSTITUTIONAL: sitting up in bed, AAOx3 EYES: PERRLA, EOM intact HENT, MOUTH: Normocephalic, atraumatic, nasal cannula in place NECK: SUPPLE, no JVD, no lymphadenopathy, no carotid bruit CV: Regular rate and rhythm, S1S2 normal, no murmurs/rubs/gallops RESPIRATORY: bibasal crackles. No wheezing. +rhonchi. No use of accessory muscles. GI: BS positive in 4 quadrants, soft, nontender, non distended, no rebound or guarding, no organomegaly MUSCULOSKELETAL: Normal ROM. No cyanosis, clubbing, swelling, joint deformity, No edema INTEGUMENTARY: Intact, no rashes, no lesions, no erythema LABORATORY DATA: Please see below MICROBIOLOGY: BCx x 2 sets- Negative Sputum Cx ordered Resp panel neg IMAGING: CXR: Improved aeration and decreased opacities involving the right mid to lower lung zone. Modified barium swallow: 5 ml aliquots of thin, pudding, mixed fruit, soft food, hard food, honey, nectar and pill consistency barium was administered. Silent aspiration was visualized with thin consistency barium. Echo: EF 75-80% Normal sinus rhythm without intraventricular conduction disturbance. M-mode and two-dimensional echocardiography was performed with pulsed, continuous wave, color flow and tissue Doppler studies. Mild concentric left ventricle hypertrophy with hyperkinetic wall motion. Left atrial size upper limits of normal with grade one LV diastolic dysfunction. Mildly dilated right heart chambers with normal wall motion and Doppler evidence of moderate pulmonary hypertension. Normal IVC size and collapse against an elevated central venous pressure at this time. Mildly dilated aortic root. Mild aortic valvular sclerosis without stenosis and no more than trace insuf ficiency. Normal-appearing mitral leaflets and leaflet excursion with mild mitral annular calcification and no more than trace insufficiency. Normal appearing tricuspid valve with mild insufficiency. No apparent intracardiac mass or pericardial effusion. ASSESSMENT AND PLAN: 79 y/o M admitted with diagnosis of acute on chronic hypoxic and hypercapnic respiratory failure 2/2 to community acquired PNA, right pleural effusion Acute on chronic hypoxic and hypercapnic respiratory failure 2/2 to community acquired PNA, right pleural effusion, r/o CHF. Please see treatment below for individual issues. Community acquired PNA. -Saturating well on 3 to 4 L NC uses 3 l at home -Improved CXR above - s/p zosyn and levofloxacin (Day 7), duonebs ATC, albuterol PRN, acapella, PEP therapy. - appreciated Pulmonary recommendation. - Mucinex standing dose Right pleural effusion likely ? 2/2 to diastolic CHF, EF 75-80%. Hx of malignant effusion with PleurX catheter placed, since removed. - Will order diagnostic thoracentesis -Echo above, Grade one LV diastolic dysfunction with mildly dilated right heart chambers with normal wall motion and Doppler evidence of moderate pulmonary hypertension -Lasix stopped 10/10/19 -Monitor I&O, daily wts s/p Acute on chronic diastolic CHF s/p diuresis with IV lasix. now holding lasix due to diuresis of over 6 liters in 3 days making the patient very symptomatic. 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 -D/alka fluid restriction and lasix 10/10/19. -Encourage PO intake -consulted neurology -MRI brain without normal Hypokalemia likely 2/2 to diuresis. -resolved Dysphagia likely 2/2 to radiation therapy -Speech and swallow evaluation done- silent aspiration seen on barium swallow -C/w modified diet recommendations Adenocarcinoma of right lung -Follows closely with [facility] -Currently on keytruda plus two other medications for chemotherapy- has been on these for the past 9 weeks. Due to have 1 more treatment on 10/28/19. Dr. Roosevelt Rodriguez-heme/onc. -Prior to chemotherapy, patient had 6 weeks of radiation to the lung ending 08/2018. -Patient has a history of malignant pleural effusion with PleurX tube (removed 02/2019). Parkinson's disease. -C/w home carbidopa-levodopa HTN was recently hypotensive meds stopped, diuretics stopped. -Stable. Hx of PE, DVT. -C/w eliquis Hx of C. diff. -No diarrhea -Monitor while on abx -Probiotic DVT px. Eliquis VS,Fishbone, I+O VS, Fishbone, I+O Laboratory Tests 10/17/19 04:32 Vital Signs Date Time Temp Pulse Resp B/P (MAP) Pulse Ox O2 Delivery O2 Flow Rate FiO2 10/17/19 12:00 98.0 87 20 120/76 (91) 95 Nasal Cannula 4.0 I&O- Last 24 Hours up to 6 AM 10/17/19 06:00 Intake Total 400 ml Output Total 825 ml Balance -425 ml SUPRIYA IGLESIAS MD Oct 17, 2019 13:56
[2019-10-17] MEDS: SINEMET**CR** 25/100 TABCR PO SCH (20:58)
[2019-10-18] VITALS (16 sets, daily range): BP systolic 92–150; BP diastolic 57–87; O2SAT 93–98
[2019-10-18] MEDS: ALBUTEROL SULFATE 2.5 MG/0.5 ML INH NEB SOLN NEB SCH ×6 (00:07→21:24)
[2019-10-18 05:21] LABS: BASO % 0.3 % (0.0-1.0); EOS # 0.1 10^3/uL (0.0-0.5); EOS % 2.7 % (0.0-3.0); HEMATOCRIT 30.5 % (42.0-52.0); HEMOGLOBIN 9.2 g/dl (13.5-17.5); LYMPH # 1.2 10^3/uL (1.5-5.0); LYMPH % 35.8 % (24.0-44.0); MEAN CORPUSCULAR HEMOGLOBIN 29.6 pg (27.0-33.0); MEAN CORPUSCULAR HGB CONC 30.2 g/dl (32.0-36.5); MEAN CORPUSCULAR VOLUME 98.1 fl (80.0-96.0); MONO # 0.7 10^3/uL (0.0-0.8); MONO % 20.5 % (0.0-5.0); NEUTROPHILS # 1.4 10^3/uL (1.5-8.5); NEUTROPHILS % 40.7 % (36.0-66.0); PLATELET COUNT, AUTOMATED 129 10^3/uL (150-450); RED BLOOD COUNT 3.11 10^6/uL (4.30-6.10); WHITE BLOOD COUNT 3.3 10^3/uL (4.0-10.0)
[2019-10-18] MEDS: SINEMET 25-100 MG TAB PO SCH ×4 (05:38→18:08)
[2019-10-18] MEDS: SLF 3 ML SYR IV SCH ×3 (05:38→20:41)
[2019-10-18 05:45] LABS: BLOOD UREA NITROGEN 22 MG/DL (7-18); CALCIUM LEVEL 7.8 MG/DL (8.8-10.2); CARBON DIOXIDE LEVEL 31 MEQ/L (21-32); CHLORIDE LEVEL 107 MEQ/L (98-107); CREATININE FOR GFR 0.73 MG/DL (0.70-1.30); GLOMERULAR FILTRATION RATE > 60.0 (>42); GLUCOSE, FASTING 79 MG/DL (70-100); POTASSIUM SERUM 3.6 MEQ/L (3.5-5.1); SODIUM LEVEL 141 MEQ/L (136-145)
[2019-10-18] MEDS: FOLIC ACID 1 MG TAB PO SCH (09:05)
[2019-10-18] MEDS: SERTRALINE HCL 50 MG TAB PO SCH (09:06)
[2019-10-18] MEDS: LACTOBACILLUS ACIDOPHILUS CAP (BACID) PO SCH ×2 (09:06→18:08)
[2019-10-18] MEDS: APIXABAN 5 MG TAB (ELIQUIS) PO SCH (09:06)
[2019-10-18] MEDS: guaiFENesin ER 600 MG TAB PO SCH ×2 (09:06→20:40)
[2019-10-18] MEDS: MIDODRINE 2.5 MG TAB PO SCH ×3 (09:06→18:08)
[2019-10-18] MEDS: ACETAMINOPHEN 500 MG TAB PO PRN ×2 (09:07→20:41)
--- NOTE | 2019-10-18 10:32 | IPNPDOC ---
Text Note Date of Service The patient was seen on 10/18/19. NOTE SUBJECTIVE: Dizziness improved. Pt does have increased sputum production and sob. Denies CP/palpitations. PHYSICAL EXAMINATION: VITAL SIGNS: Please see below CONSTITUTIONAL: sitting up in bed, AAOx3 EYES: PERRLA, EOM intact HENT, MOUTH: Normocephalic, atraumatic, nasal cannula in place NECK: SUPPLE, no JVD, no lymphadenopathy, no carotid bruit CV: Regular rate and rhythm, S1S2 normal, no murmurs/rubs/gallops RESPIRATORY: B/l bibasal crackles. No wheezing. +rhonchi. No use of accessory muscles. GI: BS positive in 4 quadrants, soft, nontender, non distended, no rebound or guarding, no organomegaly MUSCULOSKELETAL: Normal ROM. No cyanosis, clubbing, swelling, joint deformity, No edema INTEGUMENTARY: Intact, no rashes, no lesions, no erythema LABORATORY DATA: Please see below MICROBIOLOGY: BCx x 2 sets- Negative Sputum Cx ordered Resp panel neg IMAGING: CXR: Improved aeration and decreased opacities involving the right mid to lower lung zone. Modified barium swallow: 5 ml aliquots of thin, pudding, mixed fruit, soft food, hard food, honey, nectar and pill consistency barium was administered. Silent aspiration was visualized with thin consistency barium. Echo: EF 75-80% Normal sinus rhythm without intraventricular conduction disturbance. M-mode and two-dimensional echocardiography was performed with pulsed, continuous wave, color flow and tissue Doppler studies. Mild concentric left ventricle hypertrophy with hyperkinetic wall motion. Left atrial size upper limits of normal with grade one LV diastolic dysfunction. Mildly dilated right heart chambers with normal wall motion and Doppler evidence of moderate pulmonary hypertension. Normal IVC size and collapse against an elevated central venous pressure at this time. Mildly dilated aortic root. Mild aortic valvular sclerosis without stenosis and no more than trace insufficiency. Normal-appearing mitral leaflets and leaflet excursion with mild mitral annular calcification and no more than trace insufficiency. Normal appearing tricuspid valve with mild insufficiency. No apparent intracardiac mass or pericardial effusion. ASSESSMENT AND PLAN: 79 y/o M admitted with diagnosis of acute on chronic hypoxic and hypercapnic respiratory failure 2/2 to community acquired PNA, right pleural effusion Acute on chronic hypoxic and hypercapnic respiratory failure 2/2 to community acquired PNA, right pleural effusion, r/o CHF. Please see treatment below for individual issues. PNA -Saturating on 3-4 L NC uses 3 l at home -Improved CXR above - s/p zosyn and levofloxacin (Day 7), duonebs ATC, albuterol PRN, acapella, PEP therapy. - appreciated Pulmonary recommendation. - Mucinex standing dose - Restarted on Zosyn. - Recheck sputum cx. Right pleural effusion likely ? 2/2 to diastolic CHF, EF 75-80%. Hx of malignant effusion with PleurX catheter placed, since removed. - Will order diagnostic thoracentesis; planned for Sunday; hold eliquis x 2 days -Echo above, Grade one LV diastolic dysfunction with mildly dilated right heart chambers with normal wall motion and Doppler evidence of moderate pulmonary hypertension -Lasix stopped 10/10/19 -Monitor I&O, daily wts s/p Acute on chronic diastolic CHF s/p diuresis with IV lasix. now holding lasix due to diuresis of over 6 liters in 3 days making the patient very symptomatic. 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 -D/alka fluid restriction and lasix 10/10/19. -Encourage PO intake -consulted neurology -MRI brain without normal Hypokalemia likely 2/2 to diuresis. -resolved Dysphagia likely 2/2 to radiation therapy -Speech and swallow evaluation done- silent aspiration seen on barium swallow -C/w modified diet recommendations Adenocarcinoma of right lung -Follows closely with [facility] -Currently on keytruda plus two other medications for chemotherapy- has been on these for the past 9 weeks. Due to have 1 more treatment on 10/28/19. Dr. Roosevelt Rodriguez-heme/onc. -Prior to chemotherapy, patient had 6 weeks of radiation to the lung ending 08/2018. -Patient has a history of malignant pleural effusion with PleurX tube (removed 02/2019). Parkinson's disease. -C/w home carbidopa-levodopa HTN was recently hypotensive meds stopped, diuretics stopped. -Stable. Hx of PE, DVT. -C/w eliquis Hx of C. diff. -No diarrhea -Monitor while on abx -Probiotic DVT px. Eliquis Overall prognosis guarded. VS,Fishbone, I+O VS, Fishbone, I+O Laboratory Tests 10/18/19 04:55 Vital Signs Date Time Temp Pulse Resp B/P (MAP) Pulse Ox O2 Delivery O2 Flow Rate FiO2 10/18/19 07:09 97.3 63 22 92/57 (69) 90 Nasal Cannula 3.0 I&O- Last 24 Hours up to 6 AM 10/18/19 05:59 Intake Total 738 ml Output Total 925 ml Balance -187 ml SUPRIYA IGLESIAS MD Oct 18, 2019 10:32
[2019-10-18] MEDS: PIPERACILLIN/TAZOBACTAM SOD 3.375 GM in D5W MINI-BAG PLUS 50 ML IV SCH ×3 (10:37→23:24)
[2019-10-18] MEDS: SINEMET**CR** 25/100 TABCR PO SCH (20:41)
[2019-10-19] VITALS (25 sets, daily range): BP systolic 88–143; BP diastolic 52–98; O2SAT 95–100
[2019-10-19] MEDS: ALBUTEROL SULFATE 2.5 MG/0.5 ML INH NEB SOLN NEB SCH ×7 (00:37→23:21)
[2019-10-19 05:03] LABS: BASO % 0.3 % (0.0-1.0); EOS # 0.1 10^3/uL (0.0-0.5); EOS % 2.8 % (0.0-3.0); HEMATOCRIT 28.2 % (42.0-52.0); HEMOGLOBIN 8.7 g/dl (13.5-17.5); LYMPH # 1.1 10^3/uL (1.5-5.0); MEAN CORPUSCULAR HGB CONC 30.9 g/dl (32.0-36.5); MEAN CORPUSCULAR VOLUME 97.2 fl (80.0-96.0); MONO # 0.6 10^3/uL (0.0-0.8); MONO % 18.1 % (0.0-5.0); NEUTROPHILS # 1.6 10^3/uL (1.5-8.5); NEUTROPHILS % 46.5 % (36.0-66.0); WHITE BLOOD COUNT 3.5 10^3/uL (4.0-10.0)
[2019-10-19 05:18] LABS: PLATELET COUNT, AUTOMATED 88 10^3/uL (150-450)
[2019-10-19 05:23] LABS: BLOOD UREA NITROGEN 25 MG/DL (7-18); CALCIUM LEVEL 7.4 MG/DL (8.8-10.2); CARBON DIOXIDE LEVEL 32 MEQ/L (21-32); CHLORIDE LEVEL 108 MEQ/L (98-107); CREATININE FOR GFR 0.93 MG/DL (0.70-1.30); GLOMERULAR FILTRATION RATE > 60.0 (>42); GLUCOSE, FASTING 82 MG/DL (70-100); POTASSIUM SERUM 3.6 MEQ/L (3.5-5.1); SODIUM LEVEL 144 MEQ/L (136-145)
[2019-10-19] MEDS: SINEMET 25-100 MG TAB PO SCH ×4 (05:54→17:20)
[2019-10-19] MEDS: PIPERACILLIN/TAZOBACTAM SOD 3.375 GM in D5W MINI-BAG PLUS 50 ML IV SCH ×4 (05:54→23:53)
[2019-10-19] MEDS: SLF 3 ML SYR IV SCH ×3 (05:55→20:36)
[2019-10-19] MEDS: MIDODRINE 2.5 MG TAB PO SCH ×3 (07:49→17:20)
[2019-10-19] MEDS: LACTOBACILLUS ACIDOPHILUS CAP (BACID) PO SCH ×2 (07:49→17:20)
[2019-10-19] MEDS: SERTRALINE HCL 50 MG TAB PO SCH (09:11)
[2019-10-19] MEDS: guaiFENesin ER 600 MG TAB PO SCH ×2 (09:11→20:35)
[2019-10-19] MEDS: FOLIC ACID 1 MG TAB PO SCH (09:11)
--- NOTE | 2019-10-19 11:00 | IPNPDOC ---
Text Note Date of Service The patient was seen on 10/19/19. NOTE SUBJECTIVE: Pt notes dyspnea improving. No CP/palpitations. PHYSICAL EXAMINATION: VITAL SIGNS: Please see below CONSTITUTIONAL: sitting up in bed, AAOx3 EYES: PERRLA, EOM intact HENT, MOUTH: Normocephalic, atraumatic, nasal cannula in place NECK: SUPPLE, no JVD, no lymphadenopathy, no carotid bruit CV: Regular rate and rhythm, S1S2 normal, no murmurs/rubs/gallops RESPIRATORY: B/l bibasal crackles. No wheezing. +rhonchi. No use of accessory muscles. GI: BS positive in 4 quadrants, soft, nontender, non distended, no rebound or guarding, no organomegaly MUSCULOSKELETAL: Normal ROM. No cyanosis, clubbing, swelling, joint deformity, No edema INTEGUMENTARY: Intact, no rashes, no lesions, no erythema LABORATORY DATA: Please see below MICROBIOLOGY: BCx x 2 sets- Negative Sputum Cx ordered Resp panel neg IMAGING: CXR: Improved aeration and decreased opacities involving the right mid to lower lung zone. Modified barium swallow: 5 ml aliquots of thin, pudding, mixed fruit, soft food, hard food, honey, nectar and pill consistency barium was administered. Silent aspiration was visualized with thin consistency barium. Echo: EF 75-80% Normal sinus rhythm without intraventricular conduction disturbance. M-mode and two-dimensional echocardiography was performed with pulsed, continuous wave, color flow and tissue Doppler studies. Mild concentric left ventricle hypertrophy with hyperkinetic wall motion. Left atrial size upper limits of normal with grade one LV diastolic dysfunction. Mildly dilated right heart chambers with normal wall motion and Doppler evidence of moderate pulmonary hypertension. Normal IVC size and collapse against an elevated central venous pressure at this time. Mildly dilated aortic root. Mild aortic valvular sclerosis without stenosis and no more than trace insufficiency. Normal-appearing mitral leaflets and leaflet excursion with mild mitral annular calcification and no more than trace insufficiency. Normal appearing tricuspid valve with mild insufficiency. No apparent intracardiac mass or pericardial effusion. ASSESSMENT AND PLAN: 79 y/o M admitted with diagnosis of acute on chronic hypoxic and hypercapnic respiratory failure 2/2 to community acquired PNA, right pleural effusion Acute on chronic hypoxic and hypercapnic respiratory failure 2/2 to community acquired PNA, right pleural effusion, r/o CHF. Please see treatment below for individual issues. PNA -Saturating on 3-4 L NC uses 3 l at home -Improved CXR above - s/p zosyn and levofloxacin (Day 7), duonebs ATC, albuterol PRN, acapella, PEP therapy. - appreciated Pulmonary recommendation. - Mucinex standing dose -Cont Zosyn. - Recheck sputum cx. Right pleural effusion likely ? 2/2 to diastolic CHF, EF 75-80%. Hx of malignant effusion with PleurX catheter placed, since removed. - Diagnostic thoracentesis; planned for Sunday; hold eliquis x 2 days prior to thoracentesis -Echo above, Grade one LV diastolic dysfunction with mildly dilated right heart chambers with normal wall motion and Doppler evidence of moderate pulmonary hypertension -Lasix stopped 10/10/19 -Monitor I&O, daily wts s/p Acute on chronic diastolic CHF s/p diuresis with IV lasix. now holding lasix due to diuresis of over 6 liters in 3 days making the patient very symptomatic. 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 -D/alka fluid restriction and lasix 10/10/19. -Encourage PO intake -consulted neurology -MRI brain without normal Hypokalemia likely 2/2 to diuresis. -resolved Dysphagia likely 2/2 to radiation therapy -Speech and swallow evaluation done- silent aspiration seen on barium swallow -C/w modified diet recommendations Adenocarcinoma of right lung -Follows closely with [facility] -Currently on keytruda plus two other medications for chemotherapy- has been on these for the past 9 weeks. Due to have 1 more treatment on 10/28/19. Dr. Roosevelt Rodriguez-heme/onc. -Prior to chemotherapy, patient had 6 weeks of radiation to the lung ending 08/2018. -Patient has a history of malignant pleural effusion with PleurX tube (removed 02/2019). Parkinson's disease. -C/w home carbidopa-levodopa HTN was recently hypotensive meds stopped, diuretics stopped. -Stable. Hx of PE, DVT. -C/w eliquis Hx of C. diff. -No diarrhea -Monitor while on abx -Probiotic DVT px. Eliquis Overall prognosis guarded. VS,Fishbone, I+O VS, Fishbone, I+O Laboratory Tests 10/19/19 04:47 Vital Signs Date Time Temp Pulse Resp B/P (MAP) Pulse Ox O2 Delivery O2 Flow Rate FiO2 10/19/19 09:00 97 Nasal Cannula 3.0 10/19/19 08:00 97.7 86 20 126/77 (93) I&O- Last 24 Hours up to 6 AM 10/19/19 05:59 Intake Total 1830 ml Output Total 650 ml Balance 1180 ml SUPRIYA IGLESIAS MD Oct 19, 2019 11:00
[2019-10-19] MEDS: ACETAMINOPHEN 500 MG TAB PO PRN (20:35)
[2019-10-19] MEDS: SINEMET**CR** 25/100 TABCR PO SCH (20:35)
[2019-10-20] VITALS (14 sets, daily range): BP systolic 116–142; BP diastolic 66–88; O2SAT 93–99
[2019-10-20] MEDS: ALBUTEROL SULFATE 2.5 MG/0.5 ML INH NEB SOLN NEB SCH ×6 (04:06→23:40)
[2019-10-20] MEDS: SINEMET 25-100 MG TAB PO SCH ×4 (05:11→17:07)
[2019-10-20] MEDS: SLF 3 ML SYR IV SCH ×3 (05:11→21:00)
[2019-10-20] MEDS: PIPERACILLIN/TAZOBACTAM SOD 3.375 GM in D5W MINI-BAG PLUS 50 ML IV SCH ×4 (05:11→23:00)
[2019-10-20 05:21] LABS: BASO % 0.2 % (0.0-1.0); EOS # 0.1 10^3/uL (0.0-0.5); EOS % 2.2 % (0.0-3.0); HEMATOCRIT 29.7 % (42.0-52.0); HEMOGLOBIN 9.4 g/dl (13.5-17.5); LYMPH # 1.3 10^3/uL (1.5-5.0); LYMPH % 28.2 % (24.0-44.0); MEAN CORPUSCULAR HEMOGLOBIN 30.5 pg (27.0-33.0); MEAN CORPUSCULAR HGB CONC 31.6 g/dl (32.0-36.5); MEAN CORPUSCULAR VOLUME 96.4 fl (80.0-96.0); MONO # 0.7 10^3/uL (0.0-0.8); MONO % 15.7 % (0.0-5.0); NEUTROPHILS # 2.4 10^3/uL (1.5-8.5); NEUTROPHILS % 53.3 % (36.0-66.0); RED BLOOD COUNT 3.08 10^6/uL (4.30-6.10); WHITE BLOOD COUNT 4.6 10^3/uL (4.0-10.0)
[2019-10-20 05:23] LABS: PLATELET COUNT, AUTOMATED 80 10^3/uL (150-450)
[2019-10-20 05:59] LABS: BLOOD UREA NITROGEN 18 MG/DL (7-18); CALCIUM LEVEL 7.8 MG/DL (8.8-10.2); CARBON DIOXIDE LEVEL 28 MEQ/L (21-32); CHLORIDE LEVEL 106 MEQ/L (98-107); CREATININE FOR GFR 0.92 MG/DL (0.70-1.30); GLOMERULAR FILTRATION RATE > 60.0 (>42); GLUCOSE, FASTING 78 MG/DL (70-100); POTASSIUM SERUM 3.8 MEQ/L (3.5-5.1); SODIUM LEVEL 140 MEQ/L (136-145)
[2019-10-20] MEDS: LACTOBACILLUS ACIDOPHILUS CAP (BACID) PO SCH ×2 (08:14→17:07)
[2019-10-20] MEDS: MIDODRINE 2.5 MG TAB PO SCH ×3 (08:14→17:07)
[2019-10-20] MEDS: SERTRALINE HCL 50 MG TAB PO SCH (08:15)
[2019-10-20] MEDS: guaiFENesin ER 600 MG TAB PO SCH ×2 (08:15→21:00)
[2019-10-20] MEDS: FOLIC ACID 1 MG TAB PO SCH (08:15)
--- NOTE | 2019-10-20 14:09 | IPNPDOC ---
Text Note Date of Service The patient was seen on 10/20/19. NOTE Subjective: Patient stated that his breathing better today. Patient denied fe maximino, chills, nausea, vomiting, diarrhea or dysuria PHYSICAL EXAMINATION: VITAL SIGNS: Please see below CONSTITUTIONAL: sitting up in bed, AAOx3 EYES: PERRLA, EOM intact HENT, MOUTH: Normocephalic, atraumatic, nasal cannula in place NECK: SUPPLE, no JVD, no lymphadenopathy, no carotid bruit CV: Regular rate and rhythm, S1S2 normal, no murmurs/rubs/gallops RESPIRATORY: B/l bibasal crackles. No wheezing. +rhonchi. No use of accessory muscles. GI: BS positive in 4 quadrants, soft, nontender, non distended, no rebound or guarding, no organomegaly MUSCULOSKELETAL: Normal ROM. No cyanosis, clubbing, swelling, joint deformity, No edema INTEGUMENTARY: Intact, no rashes, no lesions, no erythema Neuro: Cranial nerves from 2-12 intact, nonfocal Assessment and plan 79 y/o M admitted with past medical history of adenocarcinoma the right lung, Parkinson diseases presented hospital with acute on chronic hypoxic and hypercapnic respiratory failure 2/2 to community acquired PNA. Also patient was found to have right pleural effusion. Community acquired pneumonia Patient developed a moderate loculated right pleural effusion. Differential diagnosis includes infection versus malignancy Thoracocentesis will be done today Blood culture negative, sputum culture ordered Continue Zosyn and levofloxacin day 8th Incentive spirometry Inhalers Right pleural effusion Differential diagnosis includes malignancy versus infection Unlikely secondary to CHF given on echo Grade one LV diastolic dysfunction with mildly dilated right heart chambers with normal wall motion and loculated presentation Await pleural effusion analysis s/p Acute on chronic diastolic CHF Resolved I's and O's Cardiac diet Orthostatic hypotension/dizziness Multifactorial most likely secondary to Parkinson diseases and overdiuresis Imaging study negative for stroke Hypokalemia likely 2/2 to diuresis. -resolved Dysphagia likely 2/2 to radiation therapy -Speech and swallow evaluation done- silent aspiration seen on barium swallow -C/w modified diet recommendations Adenocarcinoma of right lung -Follows closely with [facility] -Currently on keytruda plus two other medications for chemotherapy- has been on these for the past 9 weeks. Due to have 1 more treatment on 10/28/19. Dr. Roosevelt Rodriguez-heme/onc. -Prior to chemotherapy, patient had 6 weeks of radiation to the lung ending 08/2018. -Patient has a history of malignant pleural effusion with PleurX tube (removed 02/2019). Patient has a poor functional status with poor prognosis due to multiple comorbidities. Most likely patient will need hospice placement Parkinson's disease. -C/w home carbidopa-levodopa HTN blood pressures under control Hx of PE, DVT. -C/w eliquis Hx of C. diff. -No diarrhea -Monitor while on abx -Probiotic DVT px. Eliquis VS,Fishbone, I+O VS, Fishbone, I+O Laboratory Tests 10/20/19 05:01 Vital Signs Date Time Temp Pulse Resp B/P (MAP) Pulse Ox O2 Delivery O2 Flow Rate FiO2 10/20/19 12:00 97.2 87 20 97 Nasal Cannula 3.0 10/20/19 08:00 142/88 (106) I&O- Last 24 Hours up to 6 AM 10/20/19 05:59 Intake Total 1220 ml Output Total 1550 ml Balance -330 ml DIANA CHAU DO Oct 20, 2019 14:09
[2019-10-20] MEDS: ACETAMINOPHEN 500 MG TAB PO PRN (15:00)
[2019-10-20] MEDS: MECLIZINE 25 MG TABLET PO PRN (17:12)
[2019-10-20] MEDS: SINEMET**CR** 25/100 TABCR PO SCH (21:00)
[2019-10-21] VITALS (10 sets, daily range): BP systolic 110–138; BP diastolic 67–81; O2SAT 94–98
--- NOTE | 2019-10-21 01:05 | REP ---
CHEST, TWO VIEWS: Two views of the chest are performed status post right thoracentesis. There is no pneumothorax. Pleural and parenchymal opacities again seen in the right lung base. Left lung remains clear. Heart and mediastinum are unchanged. Left central venous catheter is seen with the tip in the superior vena cava. Electronically Signed by Dennis Reddy MD 10/21/2019 11:33 P
[2019-10-21] MEDS: ALBUTEROL SULFATE 2.5 MG/0.5 ML INH NEB SOLN NEB SCH ×5 (03:34→19:59)
[2019-10-21] MEDS: PIPERACILLIN/TAZOBACTAM SOD 3.375 GM in D5W MINI-BAG PLUS 50 ML IV SCH ×3 (05:37→17:30)
[2019-10-21] MEDS: SINEMET 25-100 MG TAB PO SCH ×4 (05:37→17:30)
[2019-10-21] MEDS: SLF 3 ML SYR IV SCH ×3 (05:37→21:22)
[2019-10-21 06:16] LABS: EOS # 0.1 10^3/uL (0.0-0.5); EOS % 2.2 % (0.0-3.0); HEMATOCRIT 28.5 % (42.0-52.0); HEMOGLOBIN 8.8 g/dl (13.5-17.5); LYMPH # 1.1 10^3/uL (1.5-5.0); LYMPH % 26.1 % (24.0-44.0); MEAN CORPUSCULAR HEMOGLOBIN 30.1 pg (27.0-33.0); MEAN CORPUSCULAR HGB CONC 30.9 g/dl (32.0-36.5); MEAN CORPUSCULAR VOLUME 97.6 fl (80.0-96.0); MONO # 0.7 10^3/uL (0.0-0.8); MONO % 16.3 % (0.0-5.0); NEUTROPHILS # 2.3 10^3/uL (1.5-8.5); NEUTROPHILS % 55.2 % (36.0-66.0); RED BLOOD COUNT 2.92 10^6/uL (4.30-6.10); WHITE BLOOD COUNT 4.1 10^3/uL (4.0-10.0)
[2019-10-21 06:22] LABS: PLATELET COUNT, AUTOMATED 82 10^3/uL (150-450)
[2019-10-21 06:34] LABS: BLOOD UREA NITROGEN 19 MG/DL (7-18); CARBON DIOXIDE LEVEL 33 MEQ/L (21-32); CHLORIDE LEVEL 106 MEQ/L (98-107); GLOMERULAR FILTRATION RATE > 60.0 (>42); GLUCOSE, FASTING 79 MG/DL (70-100); POTASSIUM SERUM 3.8 MEQ/L (3.5-5.1); SODIUM LEVEL 143 MEQ/L (136-145)
[2019-10-21] MEDS: LACTOBACILLUS ACIDOPHILUS CAP (BACID) PO SCH ×2 (08:36→17:30)
[2019-10-21] MEDS: guaiFENesin ER 600 MG TAB PO SCH ×2 (08:36→21:17)
[2019-10-21] MEDS: MIDODRINE 2.5 MG TAB PO SCH ×3 (08:36→17:30)
[2019-10-21] MEDS: FOLIC ACID 1 MG TAB PO SCH (08:36)
[2019-10-21] MEDS: SERTRALINE HCL 50 MG TAB PO SCH (08:37)
[2019-10-21] MEDS: MECLIZINE 25 MG TABLET PO PRN ×2 (08:37→16:36)
[2019-10-21] MEDS: ACETAMINOPHEN 500 MG TAB PO PRN (12:04)
--- NOTE | 2019-10-21 12:33 | REP ---
Ultrasound-guided thoracentesis The procedure was performed by TIARA Hernandez, under the direct supervision of Dr. Reddy. The risks and benefits of the procedure were explained to the patient and informed consent was obtained both verbally and written. Directly prior to the start of the procedure, a formal timeout was completed in the exam room. Pleural fluid on the right lung zone was localized using ultrasound guidance. The skin was prepped and draped in a sterile fashion. 5 of 1% lidocaine 10 mg/ml was used as a local anesthetic. Using ultrasound guidance, an 8-Irish multi side-hole catheter was inserted and advanced into the fluid. 0.5 ml of pink colored fluid was withdrawn and sent to the lab for analysis. Two separate attempts were made to get the catheter through the pleural space in order to obtain adequate position to draw more fluid, both attempts proved unsuccessful. The patient tolerated the procedure well and there were no immediate complications. The patient was discharged back to the unit. Reviewed by TIARA Cordon 10/20/2019 02:20 P Electronically Signed by Dennis Reddy MD 10/21/2019 12:24 P
--- NOTE | 2019-10-21 17:30 | IPNPDOC ---
Subjective Date Seen The patient was seen on 10/21/19. Subjective Chief Complaint/HPI 79 y/o M initially came c/o shortness of breath was admitted for suspected pneumonia. Pt was seen and examined at bedside. was at bedside. Pt c/o mild shortness of breath Denied fever, chills, nausea, vomiting, diarrhea or dysuria PHYSICAL EXAMINATION: CONSTITUTIONAL: comfortable,AAOx3 EYES: PERRLA, HEENT- oral mucosa moist NECK: SUPPLE, CV: Regular rate and rhythm, S1S2 normal RESPIRATORY: B/l bi basal crackles. No wheezing. +rhonchi. No use of accessory muscles. GI: BS positive in 4 quadrants, soft, nontender, non distended, MUSCULOSKELETAL: No edema INTEGUMENTARY: Intact, no rashes, no lesions, no erythema Neuro: Cranial nerves from 2-12 intact, nonfocal deficit Assessment and plan 79 y/o M h/o adenocarcinoma the right lung, Parkinson diseases presented hospital with acute on chronic hypoxic and hypercapnic respiratory failure 2/2 to community acquired PNA. Also patient was found to have right pleural effu isabel. Community acquired pneumonia Patient developed a moderate loculated right pleural effusion. Differential diagnosis includes infection versus malignancy s/p Thoracocentesis Blood culture negative appropriately treated with Zosyn and levofloxacin for 9 days will discontinue antibiotics in view of h/o C diff infection Incentive spirometry Inhalers Right pleural effusion Differential diagnosis includes malignancy versus infection Unlikely secondary to CHF given on echo Grade one LV diastolic dysfunction with mildly dilated right heart chambers with normal wall motion and loculated pres entation Await pleural effusion analysis s/p Acute on chronic diastolic CHF Resolved I's and O's Cardiac diet Orthostatic hypotension/dizziness Multifactorial most likely secondary to Parkinson diseases and overdiuresis Imaging study negative for stroke Hypokalemia likely 2/2 to diuresis. -resolved Dysphagia likely 2/2 to radiation therapy -Speech and swallow evaluation done- silent aspiration seen on barium swallow -C/w modified diet recommendations Adenocarcinoma of right lung -Follows closely with [facility] -Currently on keytruda plus two other medications for chemotherapy- has been on these for the past 9 weeks. Due to have 1 more treatment on 10/28/19. Dr. Roosevelt Rodriguez-heme/onc. -Prior to chemotherapy, patient had 6 weeks of radiation to the lung ending 08/26 19. -Patient has a history of malignant pleural effusion with PleurX tube (removed 02/2019). Parkinson's disease. -C/w home carbidopa-levodopa HTN blood pressures under control Chronic anemia stable chronic thrombocytopenia stable Hx of PE, DVT. -C/w eliquis Hx of C. diff. -No diarrhea -Monitor while on abx -Probiotic DVT px. Eliquis Patient has a poor functional status with poor prognosis due to multiple comorbidities. Most likely patient will need hospice placement Pt is took weak to go home with his and does not have needed care available at home. will continue to follow up with family members regarding goals of care Objective Physical Examination General Exam: Positive: Alert, No Acute Distress Eye Exam: Positive: EOMI ENT Exam: Positive: Atraumatic, Mucous membr. moist/pink, Pharynx Normal Neck Exam: Positive: Supple Chest Exam: Positive: Rhonchi, Diminished Heart Exam: Positive: Rate Normal, Regular Rhythm Abdomen Exam: Positive: Normal bowel sounds, Soft Extremity Exam: Positive: Normal pulses, Tenderness Skin Exam: Positive: Nl turgor and temperature Neuro Exam: Positive: Other Psych Exam: Positive: Mood NL, Oriented x 3 Assessment /Plan Plan/VTE VTE Prophylaxis Ordered?: No VS, I&O, 24H, Fishbone Vital Signs/I&O Vital Signs Date Time Temp Pulse Resp B/P (MAP) Pulse Ox O2 Delivery O2 Flow Rate FiO2 10/21/19 12:00 97.3 101 19 116/74 (88) 91 Nasal Cannula 4.0 I&O- Last 24 Hours up to 6 AM 10/21/19 06:00 Intake Total 720 ml Output Total 950 ml Balance -230 ml Laboratory Data 24H LABS Laboratory Tests 2 10/21/19 05:30: Immature Granulocyte % (Auto) 0.2, Neutrophils (%) (Auto) 55.2, Lymphocytes (%) (Auto) 26.1, Monocytes (%) (Auto) 16.3H, Eosinophils (%) (Auto) 2.2, Basophils (%) (Auto) 0.0, Neutrophils # (Auto) 2.3, Lymphocytes # (Auto) 1.1L, Monocytes # (Auto) 0.7, Eosinophils # (Auto) 0.1, Basophils # (Auto) 0.0, Nucleated Red Blood Cells % (auto) 0.0, Immature Platelet Fraction 2.2, Anion Gap 4L, Glomerular Filtration Rate > 60.0, Calcium Level 8.0L CBC/BMP Laboratory Tests 10/21/19 05:30 Microbiology Microbiology 10/17/19 Gram Stain - Final, Resulted 10/17/19 Anaerobic Culture, Resulted Pending 10/17/19 Body Fluid Culture, Received Pending TISH BHATIA MD Oct 21, 2019 17:30
[2019-10-21] MEDS: APIXABAN 5 MG TAB (ELIQUIS) PO SCH (21:17)
[2019-10-21] MEDS: SINEMET**CR** 25/100 TABCR PO SCH (21:17)
[2019-10-22] VITALS: BP 118/76
[2019-10-22] MEDS: ALBUTEROL SULFATE 2.5 MG/0.5 ML INH NEB SOLN NEB SCH ×7 (00:18→23:38)
[2019-10-22 04:00] VITALS: BP 99/62
[2019-10-22] MEDS: SINEMET 25-100 MG TAB PO SCH ×4 (04:31→17:14)
[2019-10-22] MEDS: SLF 3 ML SYR IV SCH ×3 (04:32→20:51)
[2019-10-22 08:00] VITALS: BP 106/63
[2019-10-22] MEDS: MIDODRINE 2.5 MG TAB PO SCH ×3 (08:00→17:14)
[2019-10-22] MEDS: guaiFENesin ER 600 MG TAB PO SCH ×2 (08:24→20:51)
[2019-10-22] MEDS: APIXABAN 5 MG TAB (ELIQUIS) PO SCH ×2 (08:25→20:50)
[2019-10-22] MEDS: MECLIZINE 25 MG TABLET PO PRN ×2 (08:25→15:14)
[2019-10-22] MEDS: SERTRALINE HCL 50 MG TAB PO SCH (08:25)
[2019-10-22] MEDS: LACTOBACILLUS ACIDOPHILUS CAP (BACID) PO SCH ×2 (08:25→17:14)
[2019-10-22] MEDS: FOLIC ACID 1 MG TAB PO SCH (08:25)
[2019-10-22 12:00] VITALS: BP 102/62
--- NOTE | 2019-10-22 14:53 | IPNPDOC ---
Date Seen The patient was seen on 10/22/19. Progress Note 79 y/o M initially came c/o shortness of breath was admitted for suspected pneumonia. Pt was seen and examined at bedside. No significant event over the night. Pt c/o non specific generalized weakness. No new complaint Denied shortness of breath, nausea, vomiting, diarrhea or dysuria PHYSICAL EXAMINATION: CONSTITUTIONAL: comfortable,AAOx3 EYES: PERRLA, HEENT- oral mucosa moist NECK: SUPPLE, CV: Regular rate and rhythm, S1S2 normal RESPIRATORY: b/l decreased breath sounds, rhonchi, No wheezing. No use of accessory muscles. GI: BS positive in 4 quadrants, soft, nontender, non distended, MUSCULOSKELETAL: No edema INTEGUMENTARY: Intact, no rashes, no lesions, no erythema Neuro: Cranial nerves from 2-12 intact, nonfocal deficit Assessment and plan 79 y/o M h/o adenocarcinoma the right lung, Parkinson diseases presented hospital with acute on chronic hypoxic and hypercapnic respiratory failure 2/2 to community acquired PNA. Also patient was found to have right pleural effusion. Community acquired pneumonia Patient developed a moderate loculated right pleural effusion. Differential diagnosis includes infection versus malignancy s/p Thoracocentesis Blood culture negative appropriately treated with Zosyn and levofloxacin for 9 days Incentive spirometry Inhalers Right pleural effusion Differential diagnosis includes malignancy versus infection Unlikely secondary to CHF given on echo Grade one LV diastolic dysfunction with mildly dilated right heart chambers with normal wall motion and loculated presentation Await pleural effusion analysis s/p Acute on chronic diastolic CHF Resolved I's and O's Cardiac diet Orthostatic hypotension/dizziness improving Multifactorial most likely secondary to Parkinson diseases and overdiuresis Imaging study negative for stroke Hypokalemia likely 2/2 to diuresis. -resolved Dysphagia likely 2/2 to radiation therapy -Speech and swallow evaluation done- silent aspiration seen on barium swallow -C/w modified diet recommendations Adenocarcinoma of right lung -Follows closely with [facility] -Currently on keytruda plus two other medications for chemotherapy- has been on these for the past 9 weeks. Due to have 1 more treatment on 10/28/19. Dr. Roosevelt Rodriguez-heme/onc. -Prior to chemotherapy, patient had 6 weeks of radiation to the lung ending 08/2018. -Patient has a history of malignant pleural effusion with PleurX tube (removed 02/2019). Parkinson's disease. -C/w home carbidopa-levodopa HTN blood pressures under control Chronic anemia stable chronic thrombocytopenia stable Hx of PE, DVT. -C/w eliquis Hx of C. diff. -No diarrhea -Monitor while on abx -Probiotic Generalized weakness PT/OT chronic urinary incontinence Pt was doing straight cath home. will remove causey catheter when pt would be strong enough to straight cath himself. Causey catheter care Chronic hypoxic respiratory status. O2 will change to ALC status DVT px. Eliquis Pt is still too weak to go home with his and does not have needed care available at home. will continue to follow up with family members regarding goals of care VS, I&O, 24H, Fishbone Vital Signs/I&O Vital Signs Date Time Temp Pulse Resp B/P (MAP) Pulse Ox O2 Delivery O2 Flow Rate FiO2 10/22/19 12:00 97.5 88 18 102/62 (75) 100 Nasal Cannula 3.0 I&O- Last 24 Hours up to 6 AM 10/22/19 06:00 Intake Total 600 ml Output Total 1225 ml Balance -625 ml Laboratory Data Microbiology Microbiology 10/17/19 Gram Stain - Final, Resulted 10/17/19 Anaerobic Culture, Resulted Pending 10/17/19 Body Fluid Culture, Received Pending TISH BHATIA MD Oct 22, 2019 14:53
[2019-10-22 16:00] VITALS: BP 131/82
[2019-10-22 19:46] VITALS: BP 144/73
[2019-10-22] MEDS: SINEMET**CR** 25/100 TABCR PO SCH (20:50)
[2019-10-22] MEDS: ACETAMINOPHEN 500 MG TAB PO PRN (20:50)
[2019-10-23 00:25] VITALS: BP 121/64
[2019-10-23] MEDS: ALBUTEROL SULFATE 2.5 MG/0.5 ML INH NEB SOLN NEB SCH ×5 (03:57→19:39)
[2019-10-23] MEDS: SINEMET 25-100 MG TAB PO SCH ×4 (05:23→17:12)
[2019-10-23] MEDS: SLF 3 ML SYR IV SCH ×3 (05:25→20:04)
[2019-10-23 06:00] VITALS: BP 104/56
[2019-10-23] MEDS: MIDODRINE 2.5 MG TAB PO SCH ×4 (09:03→18:00)
[2019-10-23] MEDS: APIXABAN 5 MG TAB (ELIQUIS) PO SCH ×2 (09:03→20:04)
[2019-10-23] MEDS: LACTOBACILLUS ACIDOPHILUS CAP (BACID) PO SCH ×2 (09:03→17:12)
[2019-10-23] MEDS: SERTRALINE HCL 50 MG TAB PO SCH (09:04)
[2019-10-23] MEDS: ACETAMINOPHEN 500 MG TAB PO PRN (09:04)
[2019-10-23] MEDS: FOLIC ACID 1 MG TAB PO SCH (09:04)
[2019-10-23] MEDS: guaiFENesin ER 600 MG TAB PO SCH ×2 (09:04→20:04)
[2019-10-23 09:06] VITALS: BP 102/66
[2019-10-23 13:30] VITALS: BP 98/54
[2019-10-23 14:00] VITALS: BP 110/54
[2019-10-23 17:15] VITALS: BP 142/80
[2019-10-23] MEDS: SINEMET**CR** 25/100 TABCR PO SCH (20:04)
[2019-10-24] MEDS: ALBUTEROL SULFATE 2.5 MG/0.5 ML INH NEB SOLN NEB SCH ×7 (00:51→23:45)
[2019-10-24] MEDS: SLF 3 ML SYR IV SCH ×3 (05:02→21:17)
[2019-10-24] MEDS: SINEMET 25-100 MG TAB PO SCH ×4 (05:02→17:11)
[2019-10-24 06:00] VITALS: BP 112/57
[2019-10-24 09:05] VITALS: O2SAT 98
[2019-10-24] MEDS: LACTOBACILLUS ACIDOPHILUS CAP (BACID) PO SCH ×2 (09:36→17:11)
[2019-10-24] MEDS: MIDODRINE 2.5 MG TAB PO SCH ×3 (09:37→17:11)
[2019-10-24] MEDS: APIXABAN 5 MG TAB (ELIQUIS) PO SCH ×2 (09:37→21:16)
[2019-10-24] MEDS: SERTRALINE HCL 50 MG TAB PO SCH (09:37)
[2019-10-24] MEDS: guaiFENesin ER 600 MG TAB PO SCH ×2 (09:37→21:16)
[2019-10-24] MEDS: FOLIC ACID 1 MG TAB PO SCH (09:37)
--- NOTE | 2019-10-24 17:48 | IPN ---
DATE: 10/24/2019 SUBJECTIVE: The patient still complains of dizziness even at rest. She thinks it is related to Parkinson's disease. Sees a neurologist in [place]. No chest pain, pressure or tightness, lightheadedness, fever or chills. OBJECTIVE: PHYSICAL EXAMINATION: Temperature 97.9, pulse 54, respiratory rate 21, blood pressure 112/57, 96% 3 liters nasal canula. GENERAL: The patient is awake, alert, and oriented times 3, answers questions appropriately. No icterus or jaundice. No use of respiratory accessory muscles. Face is symmetric. Tongue is midline. No cervical lymphadenopathy or thyromegaly. No jugular venous distension. LUNGS: Diminished breath sounds. Bilateral crackles at the bases. HEART: S1, S2. Sinus rhythm. No murmurs, rubs or gallops. ABDOMEN: Soft, nontender, nondistended. Positive bowel sounds. EXTREMITIES: Trace edema in bilateral lower extremities. LABORATORY DATA 10/20: Complete blood count (CBC) and metabolic panel has been reviewed have been reviewed. ASSESSMENT AND PLAN: This is 79-year-old male with history of advanced and progressive Parkinson's disease, right lung adenocarcinoma, hypoxic and hypercapnic respiratory failure, admitted for right pleural effusion and community acquired pneumonia. IMPRESSION: 1. Sepsis secondary to community acquired pneumonia with moderate loculated right pleural effusion. The patient is status post thoracentesis and is treated with Levaquin and Zosyn, total of 9 days. 2. Right pleural effusion, loculated on presentation, malignancy versus infection, currently completed a course of 9 days of antibiotics. 3. Right lung adenocarcinoma on [facility], follows up with [facility], currently deconditioned, unable to be discharged. Prior to chemotherapy, the patient received 6 weeks radiation that ended August 2018. He does have a history of PleurX catheter removed in February 2019 due to recurrent malignant pleural effusion. The patient has one more treatment of chemotherapy on 10/28/[address] Albert hematology/oncologist. Awaiting physical therapy (PT) clearance prior to discharge home. 4. Parkinson's disease with worsening symptoms of orthostasis and hemodynamic instability. The patient is on carbidopa levodopa. Obtain records from the patient's neurologist as outpatient. Follow recommendation. 5. Hypertension. Monitor for worsening orthostasis. Holding parameters on blood pressure (BP) medications. 6. Anemia of chronic disease, stable. No acute indication for RBC transfusion. 7. Chronic diastolic heart failure, strict input and output and daily weight and fluid restriction. 8. Chronic hypoxic respiratory failure, currently at baseline oxygen level and saturating well. 9. History of pulmonary emboli (PE) and deep vein thrombosis (DVT) on chronic Eliquis. DISPOSITION: The patient is now passed on physical therapy (PT) evaluation. Awaiting placement. [facility]
[2019-10-24] MEDS: SINEMET**CR** 25/100 TABCR PO SCH (21:16)
[2019-10-25] MEDS: ALBUTEROL SULFATE 2.5 MG/0.5 ML INH NEB SOLN NEB SCH ×5 (04:09→19:24)
[2019-10-25] MEDS: SINEMET 25-100 MG TAB PO SCH ×4 (05:12→17:08)
[2019-10-25] MEDS: SLF 3 ML SYR IV SCH ×3 (05:12→21:01)
[2019-10-25 06:00] VITALS: BP 135/86
[2019-10-25] MEDS: guaiFENesin ER 600 MG TAB PO SCH ×2 (08:42→21:01)
[2019-10-25] MEDS: FOLIC ACID 1 MG TAB PO SCH (08:43)
[2019-10-25] MEDS: APIXABAN 5 MG TAB (ELIQUIS) PO SCH ×2 (08:43→21:01)
[2019-10-25] MEDS: MIDODRINE 2.5 MG TAB PO SCH ×3 (08:43→17:07)
[2019-10-25] MEDS: SERTRALINE HCL 50 MG TAB PO SCH (08:43)
[2019-10-25] MEDS: LACTOBACILLUS ACIDOPHILUS CAP (BACID) PO SCH ×2 (08:43→17:07)
[2019-10-25] MEDS: ACETAMINOPHEN 500 MG TAB PO PRN ×2 (14:43→23:49)
[2019-10-25] MEDS: SINEMET**CR** 25/100 TABCR PO SCH (21:01)
[2019-10-26] MEDS: ALBUTEROL SULFATE 2.5 MG/0.5 ML INH NEB SOLN NEB SCH ×7 (00:18→22:45)
[2019-10-26] MEDS: SINEMET 25-100 MG TAB PO SCH ×4 (05:08→17:14)
[2019-10-26 06:00] VITALS: BP 129/83
[2019-10-26] MEDS: MIDODRINE 2.5 MG TAB PO SCH ×3 (08:21→17:14)
[2019-10-26] MEDS: FOLIC ACID 1 MG TAB PO SCH (08:21)
[2019-10-26] MEDS: APIXABAN 5 MG TAB (ELIQUIS) PO SCH ×2 (08:21→20:31)
[2019-10-26] MEDS: guaiFENesin ER 600 MG TAB PO SCH ×2 (08:21→20:31)
[2019-10-26] MEDS: SERTRALINE HCL 50 MG TAB PO SCH (08:21)
[2019-10-26] MEDS: LACTOBACILLUS ACIDOPHILUS CAP (BACID) PO SCH ×2 (08:21→17:14)
[2019-10-26] MEDS: SINEMET**CR** 25/100 TABCR PO SCH (20:31)
[2019-10-27] MEDS: ALBUTEROL SULFATE 2.5 MG/0.5 ML INH NEB SOLN NEB SCH ×6 (03:23→23:27)
[2019-10-27] MEDS: SINEMET 25-100 MG TAB PO SCH ×4 (05:07→17:17)
[2019-10-27 06:00] VITALS: BP 125/83
[2019-10-27] MEDS: FOLIC ACID 1 MG TAB PO SCH (10:04)
[2019-10-27] MEDS: APIXABAN 5 MG TAB (ELIQUIS) PO SCH ×2 (10:04→20:32)
[2019-10-27] MEDS: MIDODRINE 2.5 MG TAB PO SCH ×3 (10:04→17:17)
[2019-10-27] MEDS: guaiFENesin ER 600 MG TAB PO SCH ×2 (10:04→20:32)
[2019-10-27] MEDS: LACTOBACILLUS ACIDOPHILUS CAP (BACID) PO SCH ×2 (10:05→17:17)
[2019-10-27] MEDS: SINEMET**CR** 25/100 TABCR PO SCH ×2 (10:05→20:32)
[2019-10-27] MEDS: SERTRALINE HCL 50 MG TAB PO SCH (10:06)
[2019-10-27] MEDS: ACETAMINOPHEN 500 MG TAB PO PRN (21:10)
[2019-10-28] MEDS: ALBUTEROL SULFATE 2.5 MG/0.5 ML INH NEB SOLN NEB SCH ×3 (04:13→11:03)
[2019-10-28] MEDS: SINEMET 25-100 MG TAB PO SCH ×3 (05:10→12:35)
[2019-10-28 06:00] VITALS: BP 101/50
[2019-10-28] MEDS: SERTRALINE HCL 50 MG TAB PO SCH (08:39)
[2019-10-28] MEDS: LACTOBACILLUS ACIDOPHILUS CAP (BACID) PO SCH (08:39)
[2019-10-28] MEDS: guaiFENesin ER 600 MG TAB PO SCH (08:39)
[2019-10-28] MEDS: FOLIC ACID 1 MG TAB PO SCH (08:39)
[2019-10-28] MEDS: MIDODRINE 2.5 MG TAB PO SCH ×2 (08:39→12:35)
[2019-10-28] MEDS: APIXABAN 5 MG TAB (ELIQUIS) PO SCH (08:39)
[2019-10-28] MEDS: ACETAMINOPHEN 500 MG TAB PO PRN (08:40)
[2019-10-28 08:41] VITALS: BP 117/84
[2019-10-28] MEDS ORDERED: MUCI600T31 PO (08:56)
[2019-10-28 12:22] VITALS: BP 140/90
--- NOTE | 2020-01-05 07:56 | IPNPDOC ---
Text Note Date of Service The patient was seen on 10/16/19. NOTE SUBJECTIVE: Remains about the same. Complains of persistent dizziness and light headedness, unable to do much because of the persistent dizziness. Was seen by neurology for the dizziness. He is extremely weak and needing 2 person to get him out of bed. PHYSICAL EXAMINATION: VITAL SIGNS: Noted CONSTITUTIONAL: sitting up in bed, AAOx3 EYES: PERRLA, EOM intact HENT, MOUTH: Normocephalic, atraumatic, nasal cannula in place NECK: SUPPLE, no JVD, no lymphadenopathy, no carotid bruit CV: Regular rate and rhythm, S1S2 normal, no murmurs/rubs/gallops RESPIRATORY: lots of conducted sounds from the throat but after coughing lungs appears mostly clear to auscultation except for bibasal crackles. GI: BS positive in 4 quadrants, soft, nontender, mildly distended, no rebound or guarding, no organomegaly MUSCULOSKELETAL: Normal ROM. No cyanosis, clubbing, swelling, joint deformity, No edema INTEGUMENTARY: Intact, no rashes, no lesions, no erythema NEUROLOGIC: tremors in upper extremities, Cranial Nerves II-XII are intact, no focal deficits PSYCHIATRIC: Mood and affect very anxious. Labs and Radiology : Noted. ASSESSMENT AND PLAN: 79 y/o M admitted with diagnosis of acute on chronic hypoxic and hypercapnic respiratory failure 2/2 to community acquired PNA, right pleural effusion. Currently his SOB is controlled an he is at his baseline oxygen requirement, however the main issue is extreme weakness needing 2 person assist and persistent subjective dizziness which is severely limiting all his ADLs. Persistent Lightheadedness due to worsened orthostatic hypotension. 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 D/alka fluid restriction and lasix 10/10/19. Neuro recommended midodrine and adding fludrocortisone Encourage PO intake Acute on chronic hypoxic and hypercapnic respiratory failure 2/2 to community acquired PNA, right pleural effusion Community acquired PNA. Saturating well on 3 to 4 L NC uses 3 l at home Improved CXR above C/w zosyn and levofloxacin (Day 7), duonebs ATC, albuterol PRN, acapella, PEP therapy. appreciated Pulmonary recommendation. Adenocarcinoma of right lung Follows closely with [facility] Currently on keytruda plus two other medications for chemotherapy- has been on these for the past 9 weeks. Prior to chemotherapy, patient had 6 weeks of radiation to the lung ending 08/2018. Patient has a history of malignant pleural effusion with PleurX tube (removed 02/2019). He and his both stated after he started chemotherapy his performance status declined significantly. Prior to starting chemo, he was able to ambulate with a walker, was able to get in and out of bed without assistance or with little assistance, was able to participate in his ADLs and spent approximately 8 to 10 hours in bed sleeping, primarily at night. After starting chemotherapy, he was sleeping 18 to 20 hours daily, gradually became less and less able to get in and out of bed. Right pleural effusion likely 2/2 to diastolic CHF, EF 75-80%. Hx of malignant effusion with PleurX catheter placed, since removed. Echo above, Grade one LV diastolic dysfunction with mildly dilated right heart chambers with normal wall motion and Doppler evidence of moderate pulmonary hypertension Lasix stopped 10/10/19 Monitor I&O, daily wts Acute on chronic diastolic CHF s/p diuresis with IV lasix. now holding lasix due to diuresis of over 6 liters in 3 days making the patient very symptomatic with worsened orthostatic hypotension. Hypokalemia 2/2 to diuresis. resolved Dysphagia likely 2/2 to radiation therapy and Parkinson disease. Speech and swallow evaluation done- silent aspiration seen on barium swallow C/w modified diet recommendations Parkinson's disease. C/w home carbidopa-levodopa at current dosage HTN recently hypotensive meds stopped, diuretics stopped. Stable. Hx of PE, DVT. C/w eliquis Hx of C. diff. No diarrhea Monitor while on abx Probiotic DVT px. Eliquis DISPOSITION: Home when medically improved. JERROD RAMIREZ MD Jan 02, 2020 18:24
== END 2019-10-28 14:34 | disposition home health service (06) | DRG 291 ==
LOC: EDBD 09:50 → M ED 09:50 → M ED INP 13:25 → ENRESERV 13:31 → M ICU 14:49 → M PCU 10-11 17:45 → M MSPAV 10-23 00:23
PROVIDERS: ADMIT Internal Medicine; ATTEND General Practice
PROC: 0W993ZX Drainage of Right Pleural Cavity, Percutaneous Approach, Diagnostic (ICD-10-PCS; principal; 2019-10-20)
DX: I11.0 Hypertensive heart disease with heart failure (principal); J18.9 Pneumonia, unspecified organism; J96.22 Acute and chronic respiratory failure with hypercapnia; J96.21 Acute and chronic respiratory failure with hypoxia; J90 Pleural effusion, not elsewhere classified; C34.2 Malignant neoplasm of middle lobe, bronchus or lung; I50.33 Acute on chronic diastolic (congestive) heart failure; R13.10 Dysphagia, unspecified; Z66 Do not resuscitate; I95.1 Orthostatic hypotension; E87.5 Hyperkalemia; R32 Unspecified urinary incontinence; G62.0 Drug-induced polyneuropathy; G20 Parkinson's disease; E83.39 Other disorders of phosphorus metabolism; Z86.718 Personal history of other venous thrombosis and embolism; Z86.711 Personal history of pulmonary embolism; Z79.01 Long term (current) use of anticoagulants; Z79.899 Other long term (current) drug therapy; Z88.5 Allergy status to narcotic agent; Z99.81 Dependence on supplemental oxygen; Z86.010 Personal history of colon polyps; Z11.59 Encounter for screening for other viral diseases; T45.1X5A Adverse effect of antineoplastic and immunosuppressive drugs, initial encounter

== ENCOUNTER 2019-11-12 11:12 | Inpatient (IN) | payer MEDICARE ==
[~2019-11-12 11:12] MED LIST changes: +FOLI1TAB11 PO; +ONDA8TAB10 PO; +SERT50TA29 PO; +[UNRECOGNIZED DRUG - CODE] IV
[2019-11-12] MEDS ORDERED: SINEMET 25-100 MG TAB ONE (13:00)
[2019-11-12] MEDS ORDERED: ZOSYN 3.375GM VIAL (J2543) As Ordered ONE (13:33)
[2019-11-12] MEDS ORDERED: ISOVUE-370 76% 100ML VIAL As Ordered ONE (17:41)
[2019-11-13] MEDS ORDERED: APIXABAN 5 MG TAB (ELIQUIS) As Ordered ONE ×3 (00:31→20:43)
[2019-11-13] MEDS ORDERED: cefTRIAXone SOD 2 GM VIAL (J0696 PER 250MG) As Ordered ONE ×2 (00:31→17:37)
[2019-11-13] MEDS ORDERED: DOXYCYCLINE HYCLATE 100MG/10ML VIAL As Ordered ONE ×3 (01:56→20:42)
[2019-11-13] MEDS ORDERED: SINEMET 25-100 MG TAB As Ordered ONE ×5 (06:32→20:43)
[2019-11-13] MEDS ORDERED: MIDODRINE 5 MG TAB As Ordered ONE ×3 (09:08→17:37)
[2019-11-13] MEDS ORDERED: SERTRALINE HCL 25 MG TABLET As Ordered ONE (09:09)
[2019-11-13] MEDS ORDERED: flumazeniL 0.5 MG/5 ML VIAL As Ordered ONE (09:48)
[2019-11-13] MEDS ORDERED: MIDAZOLAM INJ 2MG/2ML VIAL (J2250 PER 1MG) As Ordered ONE (09:49)
[2019-11-13] MEDS ORDERED: LIDOCAINE 1% MDV 20ML VIAL As Ordered ONE (09:49)
[2019-11-13] MEDS ORDERED: IPRATROPIUM 0.5MG/ALBUTEROL 2.5MG INH SOL UD 3ML (DUONEB) ONE (10:00)
[2019-11-14] MEDS ORDERED: SINEMET 25-100 MG TAB As Ordered ONE ×5 (04:31→20:50)
[2019-11-14] MEDS ORDERED: MIDODRINE 5 MG TAB As Ordered ONE ×3 (09:28→16:47)
[2019-11-14] MEDS ORDERED: SERTRALINE HCL 25 MG TABLET As Ordered ONE (09:29)
[2019-11-14] MEDS ORDERED: DOXYCYCLINE HYCLATE 100MG/10ML VIAL As Ordered ONE ×2 (09:29→20:50)
[2019-11-14] MEDS ORDERED: IPRATROPIUM 0.5MG/ALBUTEROL 2.5MG INH SOL UD 3ML (DUONEB) ONE (10:00)
[2019-11-14] MEDS ORDERED: SINEMET**CR** 25/100 TABCR ONE (13:00)
[2019-11-14] MEDS ORDERED: cefTRIAXone SOD 2 GM VIAL (J0696 PER 250MG) As Ordered ONE (16:46)
[2019-11-14] MEDS ORDERED: ACETAMINOPHEN TAB 650MG DOSE (2X325MG) As Ordered ONE (20:50)
[2019-11-15] MEDS ORDERED: DOXYCYCLINE HYCLATE 100MG/10ML VIAL As Ordered ONE ×2 (09:13→21:19)
[2019-11-15] MEDS ORDERED: MIDODRINE 5 MG TAB As Ordered ONE ×3 (09:13→16:14)
[2019-11-15] MEDS ORDERED: SERTRALINE HCL 25 MG TABLET As Ordered ONE (09:13)
[2019-11-15] MEDS ORDERED: SINEMET 25-100 MG TAB As Ordered ONE ×4 (09:13→21:19)
[2019-11-15] MEDS ORDERED: ACETAMINOPHEN 325 MG TAB As Ordered ONE (16:15)
[2019-11-15] MEDS ORDERED: cefTRIAXone SOD 2 GM VIAL (J0696 PER 250MG) As Ordered ONE (17:33)
[2019-11-16] MEDS ORDERED: SINEMET 25-100 MG TAB As Ordered ONE ×5 (04:25→20:49)
[2019-11-16] MEDS ORDERED: MIDODRINE 5 MG TAB As Ordered ONE ×3 (08:50→16:34)
[2019-11-16] MEDS ORDERED: SERTRALINE HCL 25 MG TABLET As Ordered ONE (08:51)
[2019-11-16] MEDS ORDERED: DOXYCYCLINE HYCLATE 100MG/10ML VIAL As Ordered ONE ×2 (08:52→20:49)
[2019-11-16] MEDS ORDERED: IPRATROPIUM 0.5MG/ALBUTEROL 2.5MG INH SOL UD 3ML (DUONEB) ONE (10:00)
[2019-11-16] MEDS ORDERED: SINEMET**CR** 25/100 TABCR ONE (11:00)
[2019-11-16] MEDS ORDERED: cefTRIAXone SOD 2 GM VIAL (J0696 PER 250MG) As Ordered ONE (18:20)
[2019-11-16] MEDS ORDERED: ACETAMINOPHEN TAB 650MG DOSE (2X325MG) As Ordered ONE (21:36)
[2019-11-17] MEDS ORDERED: SINEMET 25-100 MG TAB As Ordered ONE ×4 (05:18→18:23)
[2019-11-17] MEDS ORDERED: MIDODRINE 5 MG TAB As Ordered ONE (09:25)
[2019-11-17] MEDS ORDERED: SERTRALINE HCL 25 MG TABLET As Ordered ONE (09:26)
[2019-11-17] MEDS ORDERED: DOXYCYCLINE HYCLATE 100MG/10ML VIAL As Ordered ONE ×2 (09:29→23:05)
[2019-11-17] MEDS ORDERED: IPRATROPIUM 0.5MG/ALBUTEROL 2.5MG INH SOL UD 3ML (DUONEB) ONE (10:00)
[2019-11-17] MEDS ORDERED: ACETAMINOPHEN TAB 650MG DOSE (2X325MG) As Ordered ONE (18:23)
[2019-11-17] MEDS ORDERED: cefTRIAXone SOD 2 GM VIAL (J0696 PER 250MG) As Ordered ONE (18:34)
[2019-11-17] MEDS ORDERED: APIXABAN 5 MG TAB (ELIQUIS) As Ordered ONE (21:39)
[2019-11-18] MEDS ORDERED: SINEMET 25-100 MG TAB As Ordered ONE ×4 (06:02→15:53)
[2019-11-18] MEDS ORDERED: DOXYCYCLINE HYCLATE 100MG/10ML VIAL As Ordered ONE ×2 (08:13→20:14)
[2019-11-18] MEDS ORDERED: APIXABAN 5 MG TAB (ELIQUIS) As Ordered ONE ×2 (08:13→20:11)
[2019-11-18] MEDS ORDERED: SERTRALINE HCL 25 MG TABLET As Ordered ONE (08:15)
[2019-11-18] MEDS ORDERED: IPRATROPIUM 0.5MG/ALBUTEROL 2.5MG INH SOL UD 3ML (DUONEB) ONE (10:00)
[2019-11-18] MEDS ORDERED: MIDODRINE 5 MG TAB As Ordered ONE ×2 (12:07→15:53)
[2019-11-18] MEDS ORDERED: cefTRIAXone SOD 2 GM VIAL (J0696 PER 250MG) As Ordered ONE (15:53)
[2019-11-18] MEDS ORDERED: ACETAMINOPHEN TAB 650MG DOSE (2X325MG) As Ordered ONE (22:00)
[2019-11-19] MEDS ORDERED: SINEMET 25-100 MG TAB As Ordered ONE ×5 (05:54→19:46)
[2019-11-19] MEDS ORDERED: IPRATROPIUM 0.5MG/ALBUTEROL 2.5MG INH SOL UD 3ML (DUONEB) ONE (10:00)
[2019-11-19] MEDS ORDERED: SERTRALINE HCL 50 MG TAB As Ordered ONE (10:38)
[2019-11-19] MEDS ORDERED: SERTRALINE HCL 25 MG TABLET As Ordered ONE (10:39)
[2019-11-19] MEDS ORDERED: APIXABAN 5 MG TAB (ELIQUIS) As Ordered ONE ×2 (10:39→19:46)
[2019-11-19] MEDS ORDERED: DOXYCYCLINE HYCLATE 100MG/10ML VIAL As Ordered ONE ×2 (10:39→19:46)
[2019-11-19] MEDS ORDERED: SINEMET**CR** 25/100 TABCR ONE (13:33)
[2019-11-19] MEDS ORDERED: MIDODRINE 2.5 MG TAB ONE (13:33)
[2019-11-19] MEDS ORDERED: cefTRIAXone SOD 2 GM VIAL (J0696 PER 250MG) As Ordered ONE (17:54)
[2019-11-19] MEDS ORDERED: ACETAMINOPHEN TAB 650MG DOSE (2X325MG) As Ordered ONE (19:52)
[2019-11-20] MEDS ORDERED: SINEMET 25-100 MG TAB As Ordered ONE ×4 (05:45→16:37)
[2019-11-20] MEDS ORDERED: SERTRALINE HCL 50 MG TAB As Ordered ONE (09:07)
[2019-11-20] MEDS ORDERED: MIDODRINE 5 MG TAB As Ordered ONE ×3 (09:07→15:26)
[2019-11-20] MEDS ORDERED: DOXYCYCLINE HYCLATE 100MG/10ML VIAL As Ordered ONE ×2 (09:07→20:14)
[2019-11-20] MEDS ORDERED: APIXABAN 5 MG TAB (ELIQUIS) As Ordered ONE ×2 (09:08→20:14)
[2019-11-20] MEDS ORDERED: SERTRALINE HCL 25 MG TABLET As Ordered ONE (09:08)
[2019-11-20] MEDS ORDERED: IPRATROPIUM 0.5MG/ALBUTEROL 2.5MG INH SOL UD 3ML (DUONEB) ONE (10:00)
[2019-11-20] MEDS ORDERED: cefTRIAXone SOD 2 GM VIAL (J0696 PER 250MG) As Ordered ONE (17:58)
[2019-11-21] MEDS ORDERED: SINEMET 25-100 MG TAB As Ordered ONE (06:11)
[2019-11-21] MEDS ORDERED: APIXABAN 5 MG TAB (ELIQUIS) As Ordered ONE ×2 (08:10→20:47)
[2019-11-21] MEDS ORDERED: SERTRALINE HCL 50 MG TAB As Ordered ONE (08:10)
[2019-11-21] MEDS ORDERED: DOXYCYCLINE HYCLATE 100MG/10ML VIAL As Ordered ONE ×2 (08:10→20:47)
[2019-11-21] MEDS ORDERED: SERTRALINE HCL 25 MG TABLET As Ordered ONE (08:10)
[2019-11-21] MEDS ORDERED: IPRATROPIUM 0.5MG/ALBUTEROL 2.5MG INH SOL UD 3ML (DUONEB) ONE (10:00)
[2019-11-21] MEDS ORDERED: cefTRIAXone SOD 2 GM VIAL (J0696 PER 250MG) As Ordered ONE (17:02)
[2019-11-21] MEDS ORDERED: ACETAMINOPHEN TAB 650MG DOSE (2X325MG) As Ordered ONE (18:46)
[2019-11-21] MEDS ORDERED: guaiFENesin 200 MG TAB As Ordered ONE (20:47)
[2019-11-21] MEDS ORDERED: FUROSEMIDE 40MG/4ML VIAL (J1940) As Ordered ONE (20:48)
[2019-11-22] MEDS ORDERED: guaiFENesin 200 MG TAB As Ordered ONE ×2 (06:07→18:31)
[2019-11-22] MEDS ORDERED: SINEMET 25-100 MG TAB As Ordered ONE ×4 (06:07→16:28)
[2019-11-22] MEDS ORDERED: APIXABAN 5 MG TAB (ELIQUIS) As Ordered ONE ×2 (08:43→21:35)
[2019-11-22] MEDS ORDERED: SERTRALINE HCL 50 MG TAB As Ordered ONE (08:43)
[2019-11-22] MEDS ORDERED: MIDODRINE 5 MG TAB As Ordered ONE (08:43)
[2019-11-22] MEDS ORDERED: IPRATROPIUM 0.5MG/ALBUTEROL 2.5MG INH SOL UD 3ML (DUONEB) ONE (10:00)
[2019-11-22] MEDS ORDERED: DOXYCYCLINE HYCLATE 100MG/10ML VIAL As Ordered ONE ×2 (10:04→21:35)
[2019-11-22] MEDS ORDERED: D5W As Ordered ONE (10:07)
[2019-11-22] MEDS ORDERED: MIDODRINE 2.5 MG TAB ONE (12:00)
[2019-11-22] MEDS ORDERED: SINEMET**CR** 25/100 TABCR ONE (12:00)
[2019-11-22] MEDS ORDERED: ACETAMINOPHEN 325 MG TAB As Ordered ONE (16:43)
[2019-11-22] MEDS ORDERED: cefTRIAXone SOD 2 GM VIAL (J0696 PER 250MG) As Ordered ONE (18:32)
[2019-11-23] MEDS ORDERED: guaiFENesin 200 MG TAB As Ordered ONE ×2 (05:46→17:27)
[2019-11-23] MEDS ORDERED: SINEMET 25-100 MG TAB As Ordered ONE ×4 (05:46→17:27)
[2019-11-23] MEDS ORDERED: DOXYCYCLINE HYCLATE 100MG/10ML VIAL As Ordered ONE ×2 (08:21→21:04)
[2019-11-23] MEDS ORDERED: SERTRALINE HCL 50 MG TAB As Ordered ONE (08:21)
[2019-11-23] MEDS ORDERED: APIXABAN 5 MG TAB (ELIQUIS) As Ordered ONE ×2 (08:22→21:04)
[2019-11-23] MEDS ORDERED: ACETAMINOPHEN 325 MG TAB As Ordered ONE ×2 (08:31→17:28)
[2019-11-23] MEDS ORDERED: IPRATROPIUM 0.5MG/ALBUTEROL 2.5MG INH SOL UD 3ML (DUONEB) ONE (10:00)
[2019-11-23] MEDS ORDERED: cefTRIAXone SOD 2 GM VIAL (J0696 PER 250MG) As Ordered ONE (17:27)
[2019-11-24] MEDS ORDERED: SINEMET 25-100 MG TAB As Ordered ONE ×4 (05:15→16:55)
[2019-11-24] MEDS ORDERED: guaiFENesin 200 MG TAB As Ordered ONE ×2 (05:15→16:55)
[2019-11-24] MEDS ORDERED: MIDODRINE 5 MG TAB As Ordered ONE ×3 (07:41→16:54)
[2019-11-24] MEDS ORDERED: DOXYCYCLINE HYCLATE 100MG/10ML VIAL As Ordered ONE ×2 (07:42→21:45)
[2019-11-24] MEDS ORDERED: SERTRALINE HCL 25 MG TABLET As Ordered ONE (07:43)
[2019-11-24] MEDS ORDERED: APIXABAN 5 MG TAB (ELIQUIS) As Ordered ONE ×2 (07:43→21:45)
[2019-11-24] MEDS ORDERED: ACETAMINOPHEN TAB 650MG DOSE (2X325MG) As Ordered ONE (09:15)
[2019-11-24] MEDS ORDERED: IPRATROPIUM 0.5MG/ALBUTEROL 2.5MG INH SOL UD 3ML (DUONEB) ONE (10:00)
[2019-11-24] MEDS ORDERED: SINEMET**CR** 25/100 TABCR ONE (13:00)
[2019-11-24] MEDS ORDERED: cefTRIAXone SOD 2 GM VIAL (J0696 PER 250MG) As Ordered ONE (16:56)
[2019-11-25] MEDS ORDERED: ACETAMINOPHEN 325 MG TAB As Ordered ONE (00:06)
[2019-11-25] MEDS ORDERED: SINEMET 25-100 MG TAB As Ordered ONE ×3 (05:18→12:02)
[2019-11-25] MEDS ORDERED: guaiFENesin 200 MG TAB As Ordered ONE (05:18)
[2019-11-25] MEDS ORDERED: SINEMET 25-100 MG TAB ONE (05:18)
[2019-11-25] MEDS ORDERED: MIDODRINE 5 MG TAB As Ordered ONE ×2 (07:47→12:01)
[2019-11-25] MEDS ORDERED: DOXYCYCLINE HYCLATE 100MG/10ML VIAL As Ordered ONE (07:48)
[2019-11-25] MEDS ORDERED: APIXABAN 5 MG TAB (ELIQUIS) ONE (07:49)
[2019-11-25] MEDS ORDERED: SERTRALINE HCL 25 MG TABLET As Ordered ONE (07:49)
[2019-11-25] MEDS ORDERED: APIXABAN 5 MG TAB (ELIQUIS) As Ordered ONE (07:49)
[2019-11-25] MEDS ORDERED: SLF 3 ML SYR IV PRN (10:30)
[2019-11-25] MEDS ORDERED: DOCUSATE SODIUM 100 MG CAP PO PRN (10:30)
[2019-11-25] MEDS ORDERED: ACETAMINOPHEN 650 MG SUPP PR PRN (10:30)
[2019-11-25] MEDS ORDERED: ACETAMINOPHEN TAB 650MG DOSE (2X325MG) PO PRN (10:30)
[2019-11-25] MEDS ORDERED: IPRATROPIUM 0.5MG/ALBUTEROL 2.5MG INH SOL UD 3ML (DUONEB) INH PRN (10:30)
[2019-11-25] MEDS ORDERED: ONDANSETRON 4MG/2ML VIAL IV PRN (10:30)
[2019-11-25] MEDS ORDERED: DOXY-350 PO (11:25)
[2019-11-25] MEDS ORDERED: B-12100020 PO (11:25)
[2019-11-25] MEDS ORDERED: PROBCAP14 PO (11:25)
[2019-11-25] MEDS ORDERED: D31000TA2 PO (11:25)
[2019-11-25] MEDS ORDERED: ACET-683 PO (11:25)
[2019-11-25] MEDS ORDERED: CARB25TA9 PO (11:25)
[2019-11-25] MEDS ORDERED: IPRATROPIUM 0.5MG/ALBUTEROL 2.5MG INH SOL UD 3ML (DUONEB) INH SCH (12:00)
[2019-11-25 12:13] LABS: HEMATOCRIT 29.3 % (42.0-52.0); MEAN CORPUSCULAR HEMOGLOBIN 31.5 pg (27.0-33.0); MEAN CORPUSCULAR HGB CONC 30.7 g/dl (32.0-36.5); MEAN CORPUSCULAR VOLUME 102.4 fl (80.0-96.0); PLATELET COUNT, AUTOMATED 231 10^3/uL (150-450); RED BLOOD COUNT 2.86 10^6/uL (4.30-6.10); WHITE BLOOD COUNT 5.5 10^3/uL (4.0-10.0)
[2019-11-25 12:14] LABS: BLOOD UREA NITROGEN 27 MG/DL (7-18); CREATININE FOR GFR 0.76 MG/DL (0.70-1.30); GLOMERULAR FILTRATION RATE > 60.0 (>42); GLUCOSE, FASTING 76 MG/DL (70-100); SODIUM LEVEL 141 MEQ/L (136-145)
[2019-11-25 12:15] LABS: CARBON DIOXIDE LEVEL 34 mmol/L (20-29); CHLORIDE LEVEL 105 MEQ/L (98-107); POTASSIUM SERUM 4.2 MEQ/L (3.5-5.1)
[2019-11-25] MEDS ORDERED: SLF 3 ML SYR IV SCH (14:00)
[2019-11-25] MEDS ORDERED: APIXABAN 5 MG TAB (ELIQUIS) PO SCH (21:00)
[2019-11-25] MEDS ORDERED: DOXYCYCLINE HYCLATE 100 MG in D5W MINI-BAG PLUS 100 ML IV SCH (21:00)
[2019-11-25] MEDS ORDERED: guaiFENesin 200 MG TAB PO SCH (21:00)
[2019-11-25] MEDS ORDERED: SINEMET**CR** 25/100 TABCR PO SCH (21:00)
[2019-11-26] MEDS ORDERED: SINEMET 25-100 MG TAB PO SCH (05:00)
[2019-11-26] MEDS ORDERED: MIDODRINE 2.5 MG TAB PO SCH (08:00)
[2019-11-26] MEDS ORDERED: SERTRALINE HCL 25 MG TABLET PO SCH (09:00)
[2019-11-26] MEDS ORDERED: cefTRIAXone SOD 1 GM in D5W MINI-BAG PLUS 50 ML IV SCH (18:00)
[2019-11-26] MEDS ORDERED: cefTRIAXone SOD 2 GM in D5W MINI-BAG PLUS 50 ML IV SCH (18:00)
[2019-11-30 21:04] LABS: HEMATOCRIT 29.6 % (42.0-52.0); HEMOGLOBIN 9.2 g/dl (13.5-17.5); MEAN CORPUSCULAR HEMOGLOBIN 31.9 pg (27.0-33.0); MEAN CORPUSCULAR HGB CONC 31.1 g/dl (32.0-36.5); MEAN CORPUSCULAR VOLUME 102.8 fl (80.0-96.0); PLATELET COUNT, AUTOMATED 297 10^3/uL (150-450); RED BLOOD COUNT 2.88 10^6/uL (4.30-6.10); WHITE BLOOD COUNT 5.3 10^3/uL (4.0-10.0)
[2019-12-05 09:28] LABS: HEMATOCRIT 30.6 % (42.0-52.0); HEMOGLOBIN 9.4 g/dl (13.5-17.5); MEAN CORPUSCULAR HEMOGLOBIN 31.8 pg (27.0-33.0); MEAN CORPUSCULAR HGB CONC 30.7 g/dl (32.0-36.5); MEAN CORPUSCULAR VOLUME 103.4 fl (80.0-96.0); PLATELET COUNT, AUTOMATED 227 10^3/uL (150-450); RED BLOOD COUNT 2.96 10^6/uL (4.30-6.10); WHITE BLOOD COUNT 6.2 10^3/uL (4.0-10.0)
--- NOTE | 2019-12-25 16:56 | ECGEPIP ---
SINUS RHYTHM PRWP SEE SCANNED DOWNTIME REPORT MTDD
--- NOTE | 2019-12-30 08:28 | REP ---
PORTABLE CHEST X-RAY: COMPARISON: None. HISTORY: Shortness of breath. FINDINGS: There is an Infusaport catheter in place via the left subclavian vein with its tip in the expected location of the superior vena cava. EKG electrodes are seen. The patient is rotated somewhat to the right. There is pleural thickening and blunting of the right lateral pleural angle. There is increased density over the right heart and at the right base, consistent with infiltrate. The left lung is clear. The left pleural angle is sharp. The heart is enlarged. The aorta is somewhat tortuous. There is a levoconvex curve in the thoracic spine. IMPRESSION: Infiltrate in the right base, question right middle lobe pneumonia. There is blunting of the right lateral pleural angle. MTDD
--- NOTE | 2019-12-30 08:30 | REP ---
CHEST X-RAY: 2-VIEWS HISTORY: Status post right thoracentesis. FINDINGS: 2-views of the chest are performed. No pneumothorax is seen status post right thoracentesis. There does appear to be a small amount of residual pleural fluid or thickening on the right. There is mild adjacent parenchymal opacity in the right lung base. The left lung is clear. The cardiac silhouette is prominent. There is mild tortuosity of the thoracic aorta. There is a left central venous catheter with the tip in the superior vena cava. MTDD
--- NOTE | 2019-12-30 08:32 | REP ---
ULTRASOUND-GUIDED THORACENTESIS This procedure was performed by TIARA Hernandez under the direct supervision of Dr. Reddy. The risks and benefits of the procedure were explained to the patient and informed consent was obtained both verbally and written. Directly prior to the procedure, a formal time-out was also completed. Pleural fluid in the right lung zone was localized using ultrasound guidance. This fluid looked extremely loculated. The skin was prepped and draped in a sterile fashion. Six mL of 1% Lidocaine was used as a local anesthetic. Using ultrasound guidance, an 8-Divehi multi-side hole catheter was inserted and advanced into the fluid; however, no fluid was able to be withdrawn. Two more other attempts to withdraw fluid were made before the procedure was aborted. The patient was taken to x-ray for a follow-up chest x-ray. The patient tolerated the procedure well and there were no immediate complications. After the appropriate amount of monitored convalescence, the patient was discharged back to the unit. LIZ
--- NOTE | 2019-12-30 08:33 | REP ---
PORTABLE CHEST TECHNIQUE: AP portable view of the chest was performed. FINDINGS: There is cardiomegaly. There is [id number] right pleural fluid with adjacent parenchymal opacity in the right base. There is mild calcification of the thoracic aorta. There is a left central venous catheter with the tip in the superior vena cava. MTDD
[2020-01-01 03:34] LABS: BASO # 0.1 10^3/uL (0.0-0.2); EOS # 0.3 10^3/uL (0.0-0.5); EOS % 5.6 % (0.0-3.0); HEMATOCRIT 32.2 % (42.0-52.0); HEMOGLOBIN 9.8 g/dl (13.5-17.5); LYMPH % 19.6 % (24.0-44.0); MEAN CORPUSCULAR HEMOGLOBIN 31.6 pg (27.0-33.0); MEAN CORPUSCULAR HGB CONC 30.4 g/dl (32.0-36.5); MEAN CORPUSCULAR VOLUME 103.9 fl (80.0-96.0); MONO # 0.2 10^3/uL (0.0-0.8); NEUTROPHILS # 3.6 10^3/uL (1.5-8.5); NEUTROPHILS % 69.4 % (36.0-66.0); PLATELET COUNT, AUTOMATED 313 10^3/uL (150-450); WHITE BLOOD COUNT 5.2 10^3/uL (4.0-10.0)
[2020-01-01 03:59] LABS: APPEARANCE, URINE CLEAR (CLEAR); BACTERIA, URINE AUTO NEGATIVE (NEGATIVE); BILIRUBIN, URINE AUTO NEGATIVE (NEGATIVE); BLOOD, URINE BLOOD NEGATIVE (NEGATIVE); COLOR, URINE YELLOW (YELLOW); GLUCOSE, URINE (UA) AUTO NEGATIVE (NEGATIVE); KETONE, URINE AUTO TRACE mg/dL (NEGATIVE); LEUKOCYTE ESTERASE, URINE AUTO NEGATIVE (NEGATIVE); MUCUS, URINE SMALL (NEGATIVE); NITRITE, URINE AUTO NEGATIVE (NEGATIVE); PROTEIN, URINE AUTO NEGATIVE (NEGATIVE); RBC, URINE AUTO 7 /HPF (0-3); SPECIFIC GRAVITY URINE AUTO 1.024 (1.002-1.035); SQUAMOUS EPITHELIAL CELL UR AU 1 /HPF (0-6); UROBILINOGEN, URINE AUTO 0.2 mg/dL (0.0-2.0); WBC, URINE AUTO 4 /HPF (0-3)
[2020-01-02 15:02] LABS: HEMATOCRIT 31.9 % (42.0-52.0); HEMOGLOBIN 9.7 g/dl (13.5-17.5); MEAN CORPUSCULAR HEMOGLOBIN 31.6 pg (27.0-33.0); MEAN CORPUSCULAR HGB CONC 30.4 g/dl (32.0-36.5); MEAN CORPUSCULAR VOLUME 103.9 fl (80.0-96.0); PLATELET COUNT, AUTOMATED 287 10^3/uL (150-450); RED BLOOD COUNT 3.07 10^6/uL (4.30-6.10); WHITE BLOOD COUNT 5.2 10^3/uL (4.0-10.0)
[2020-01-02 18:22] LABS: HEMATOCRIT 30.4 % (42.0-52.0); HEMOGLOBIN 9.4 g/dl (13.5-17.5); MEAN CORPUSCULAR HEMOGLOBIN 31.5 pg (27.0-33.0); MEAN CORPUSCULAR HGB CONC 30.9 g/dl (32.0-36.5); PLATELET COUNT, AUTOMATED 262 10^3/uL (150-450); RED BLOOD COUNT 2.98 10^6/uL (4.30-6.10); WHITE BLOOD COUNT 6.1 10^3/uL (4.0-10.0)
[2020-01-07 11:23] LABS: HEMATOCRIT 31.2 % (42.0-52.0); HEMOGLOBIN 9.7 g/dl (13.5-17.5); MEAN CORPUSCULAR HEMOGLOBIN 31.6 pg (27.0-33.0); MEAN CORPUSCULAR HGB CONC 31.1 g/dl (32.0-36.5); MEAN CORPUSCULAR VOLUME 101.6 fl (80.0-96.0); PLATELET COUNT, AUTOMATED 275 10^3/uL (150-450); RED BLOOD COUNT 3.07 10^6/uL (4.30-6.10); WHITE BLOOD COUNT 5.5 10^3/uL (4.0-10.0)
[2020-01-08 09:12] LABS: HEMATOCRIT 33.3 % (42.0-52.0); HEMOGLOBIN 10.3 g/dl (13.5-17.5); MEAN CORPUSCULAR HEMOGLOBIN 31.6 pg (27.0-33.0); MEAN CORPUSCULAR HGB CONC 30.9 g/dl (32.0-36.5); MEAN CORPUSCULAR VOLUME 102.1 fl (80.0-96.0); PLATELET COUNT, AUTOMATED 216 10^3/uL (150-450); RED BLOOD COUNT 3.26 10^6/uL (4.30-6.10); WHITE BLOOD COUNT 5.2 10^3/uL (4.0-10.0)
[2020-01-10 11:05] LABS: BASO % 0.5 % (0.0-1.0); EOS # 0.1 10^3/uL (0.0-0.5); HEMATOCRIT 29.7 % (42.0-52.0); HEMOGLOBIN 9.2 g/dl (13.5-17.5); LYMPH # 1.4 10^3/uL (1.5-5.0); LYMPH % 20.5 % (24.0-44.0); MEAN CORPUSCULAR HEMOGLOBIN 31.7 pg (27.0-33.0); MEAN CORPUSCULAR VOLUME 102.4 fl (80.0-96.0); MONO # 0.7 10^3/uL (0.0-0.8); MONO % 11.1 % (0.0-5.0); NEUTROPHILS # 4.3 10^3/uL (1.5-8.5); NEUTROPHILS % 65.6 % (36.0-66.0); PLATELET COUNT, AUTOMATED 324 10^3/uL (150-450); WHITE BLOOD COUNT 6.6 10^3/uL (4.0-10.0)
[2020-01-11 01:01] LABS: HEMATOCRIT 31.8 % (42.0-52.0); HEMOGLOBIN 10.1 g/dl (13.5-17.5); MEAN CORPUSCULAR HEMOGLOBIN 31.7 pg (27.0-33.0); MEAN CORPUSCULAR HGB CONC 31.8 g/dl (32.0-36.5); MEAN CORPUSCULAR VOLUME 99.7 fl (80.0-96.0); PLATELET COUNT, AUTOMATED 274 10^3/uL (150-450); RED BLOOD COUNT 3.19 10^6/uL (4.30-6.10); WHITE BLOOD COUNT 5.6 10^3/uL (4.0-10.0)
[2020-01-11 16:42] LABS: HEMATOCRIT 32.5 % (42.0-52.0); HEMOGLOBIN 10.2 g/dl (13.5-17.5); MEAN CORPUSCULAR HEMOGLOBIN 31.7 pg (27.0-33.0); MEAN CORPUSCULAR HGB CONC 31.4 g/dl (32.0-36.5); MEAN CORPUSCULAR VOLUME 100.9 fl (80.0-96.0); PLATELET COUNT, AUTOMATED 262 10^3/uL (150-450); RED BLOOD COUNT 3.22 10^6/uL (4.30-6.10); WHITE BLOOD COUNT 5.4 10^3/uL (4.0-10.0)
[2020-01-17 19:26] LABS: HEMATOCRIT 31.1 % (42.0-52.0); HEMOGLOBIN 9.7 g/dl (13.5-17.5); MEAN CORPUSCULAR HEMOGLOBIN 31.4 pg (27.0-33.0); MEAN CORPUSCULAR HGB CONC 31.2 g/dl (32.0-36.5); MEAN CORPUSCULAR VOLUME 100.6 fl (80.0-96.0); PLATELET COUNT, AUTOMATED 253 10^3/uL (150-450); RED BLOOD COUNT 3.09 10^6/uL (4.30-6.10)
[2020-01-18 18:14] LABS: BASO % 0.6 % (0.0-1.0); EOS # 0.7 10^3/uL (0.0-0.5); EOS % 10.8 % (0.0-3.0); HEMATOCRIT 33.3 % (42.0-52.0); HEMOGLOBIN 10.2 g/dl (13.5-17.5); LYMPH # 1.2 10^3/uL (1.5-5.0); LYMPH % 19.3 % (24.0-44.0); MEAN CORPUSCULAR HEMOGLOBIN 31.3 pg (27.0-33.0); MEAN CORPUSCULAR HGB CONC 30.6 g/dl (32.0-36.5); MEAN CORPUSCULAR VOLUME 102.1 fl (80.0-96.0); MONO # 0.7 10^3/uL (0.0-0.8); MONO % 11.9 % (0.0-5.0); NEUTROPHILS # 3.6 10^3/uL (1.5-8.5); NEUTROPHILS % 57.2 % (36.0-66.0); PLATELET COUNT, AUTOMATED 252 10^3/uL (150-450); RED BLOOD COUNT 3.26 10^6/uL (4.30-6.10); WHITE BLOOD COUNT 6.2 10^3/uL (4.0-10.0)
[2020-02-02 10:22] LABS: BLOOD UREA NITROGEN 25 MG/DL (7-18); CARBON DIOXIDE LEVEL 36 MEQ/L (21-32); CHLORIDE LEVEL 107 MEQ/L (98-107); CREATININE FOR GFR 0.83 MG/DL (0.70-1.30); GLOMERULAR FILTRATION RATE > 60.0 (>42); GLUCOSE, FASTING 81 MG/DL (70-100); SODIUM LEVEL 144 MEQ/L (136-145)
[2020-02-02 16:42] LABS: BLOOD UREA NITROGEN 23 MG/DL (7-18); CARBON DIOXIDE LEVEL 34 MEQ/L (21-32); CHLORIDE LEVEL 109 MEQ/L (98-107); CREATININE FOR GFR 0.87 MG/DL (0.70-1.30); GLOMERULAR FILTRATION RATE > 60.0 (>42); GLUCOSE, FASTING 71 MG/DL (70-100); MAGNESIUM LEVEL 1.8 MG/DL (1.8-2.4); POTASSIUM SERUM 4.1 MEQ/L (3.5-5.1); SODIUM LEVEL 145 MEQ/L (136-145)
[2020-02-03 10:00] LABS: HEMATOCRIT 30.2 % (42.0-52.0); HEMOGLOBIN 9.4 g/dl (13.5-17.5); MEAN CORPUSCULAR HEMOGLOBIN 31.4 pg (27.0-33.0); MEAN CORPUSCULAR HGB CONC 31.1 g/dl (32.0-36.5); PLATELET COUNT, AUTOMATED 237 10^3/uL (150-450); RED BLOOD COUNT 2.99 10^6/uL (4.30-6.10); WHITE BLOOD COUNT 6.2 10^3/uL (4.0-10.0)
[2020-02-07 10:12] LABS: ALBUMIN 2.8 GM/DL (3.2-5.2); ALT/SGPT 6 U/L (12-78); BILIRUBIN,TOTAL 0.6 MG/DL (0.2-1.0); BLOOD UREA NITROGEN 27 MG/DL (7-18); CALCIUM LEVEL 8.1 MG/DL (8.8-10.2); CARBON DIOXIDE LEVEL 31 MEQ/L (21-32); CHLORIDE LEVEL 107 MEQ/L (98-107); CK-MB VALUE MASS 6.7 NG/ML (<3.6); CPK CREATINE PHOSPHOKINASE 249 U/L (39-308); CREATININE FOR GFR 0.79 MG/DL (0.70-1.30); GLOMERULAR FILTRATION RATE > 60.0 (>42); GLUCOSE, FASTING 90 MG/DL (70-100); MB/CK RELATIVE INDEX 2.69 (< OR =4); NT-PRO BNP 531 PG/ML (<450); POTASSIUM SERUM 5.6 MEQ/L (3.5-5.1); SODIUM LEVEL 140 MEQ/L (136-145); THYROID STIMULATING HORMONE 0.778 uIU/ML (0.358-3.740); TOTAL PROTEIN 6.1 GM/DL (6.4-8.2); TROPONIN I < 0.02 NG/ML (< 0.10)
[2020-02-08 08:51] LABS: BLOOD UREA NITROGEN 32 MG/DL (7-18); CARBON DIOXIDE LEVEL 34 MEQ/L (21-32); CHLORIDE LEVEL 106 MEQ/L (98-107); GLOMERULAR FILTRATION RATE > 60.0 (>42); GLUCOSE, FASTING 77 MG/DL (70-100); POTASSIUM SERUM 4.2 MEQ/L (3.5-5.1); SODIUM LEVEL 142 MEQ/L (136-145)
[2020-02-09 21:53] LABS: BLOOD UREA NITROGEN 18 MG/DL (7-18); CALCIUM LEVEL 7.9 MG/DL (8.8-10.2); CARBON DIOXIDE LEVEL 35 mmol/L (20-29); CHLORIDE LEVEL 105 MEQ/L (98-107); CREATININE FOR GFR 0.88 MG/DL (0.70-1.30); GLOMERULAR FILTRATION RATE > 60.0 (>42); GLUCOSE, FASTING 117 MG/DL (70-100); SODIUM LEVEL 142 MEQ/L (136-145)
[2020-02-09 23:12] LABS: BLOOD UREA NITROGEN 19 MG/DL (7-18); CALCIUM LEVEL 7.9 MG/DL (8.8-10.2); CARBON DIOXIDE LEVEL 34 MEQ/L (21-32); CHLORIDE LEVEL 105 MEQ/L (98-107); CREATININE FOR GFR 0.83 MG/DL (0.70-1.30); GLOMERULAR FILTRATION RATE > 60.0 (>42); GLUCOSE, FASTING 87 MG/DL (70-100); POTASSIUM SERUM 4.1 MEQ/L (3.5-5.1); SODIUM LEVEL 141 MEQ/L (136-145)
[2020-02-10 04:12] LABS: BLOOD UREA NITROGEN 18 MG/DL (7-18); CALCIUM LEVEL 8.1 MG/DL (8.8-10.2); CARBON DIOXIDE LEVEL 36 MEQ/L (21-32); CHLORIDE LEVEL 104 MEQ/L (98-107); CREATININE FOR GFR 0.83 MG/DL (0.70-1.30); GLOMERULAR FILTRATION RATE > 60.0 (>42); GLUCOSE, FASTING 80 MG/DL (70-100); POTASSIUM SERUM 4.4 MEQ/L (3.5-5.1); SODIUM LEVEL 141 MEQ/L (136-145)
[2020-02-11 03:56] LABS: BLOOD UREA NITROGEN 19 MG/DL (7-18); CALCIUM LEVEL 8.3 MG/DL (8.8-10.2); CARBON DIOXIDE LEVEL 35 mmol/L (20-29); CHLORIDE LEVEL 103 MEQ/L (98-107); CREATININE FOR GFR 0.85 MG/DL (0.70-1.30); GLOMERULAR FILTRATION RATE > 60.0 (>42); GLUCOSE, FASTING 75 MG/DL (70-100); MAGNESIUM LEVEL 1.9 MG/DL (1.8-2.4); POTASSIUM SERUM 4.5 MEQ/L (3.5-5.1); SODIUM LEVEL 140 MEQ/L (136-145)
[2020-02-11 11:36] LABS: BLOOD UREA NITROGEN 19 MG/DL (7-18); CALCIUM LEVEL 8.2 MG/DL (8.8-10.2); CARBON DIOXIDE LEVEL 35 MEQ/L (21-32); CHLORIDE LEVEL 105 MEQ/L (98-107); GLOMERULAR FILTRATION RATE > 60.0 (>42); GLUCOSE, FASTING 85 MG/DL (70-100); POTASSIUM SERUM 4.1 MEQ/L (3.5-5.1); SODIUM LEVEL 142 MEQ/L (136-145)
[2020-02-11 22:19] LABS: BLOOD UREA NITROGEN 20 MG/DL (7-18); CALCIUM LEVEL 8.1 MG/DL (8.8-10.2); CARBON DIOXIDE LEVEL 35 mmol/L (20-29); CHLORIDE LEVEL 104 MEQ/L (98-107); CREATININE FOR GFR 0.93 MG/DL (0.70-1.30); GLOMERULAR FILTRATION RATE > 60.0 (>42); GLUCOSE, FASTING 85 MG/DL (70-100); POTASSIUM SERUM 4.1 MEQ/L (3.5-5.1); SODIUM LEVEL 141 MEQ/L (136-145)
[2020-02-12 13:30] LABS: PROTHROMBIN TIME 13.2 SECONDS (12.5-14.3)
[2020-02-12 13:31] LABS: INR 0.98
[2020-02-15 05:27] LABS: BLOOD UREA NITROGEN 23 MG/DL (7-18); CALCIUM LEVEL 8.1 MG/DL (8.8-10.2); CARBON DIOXIDE LEVEL 33 MEQ/L (21-32); CHLORIDE LEVEL 105 MEQ/L (98-107); CREATININE FOR GFR 0.88 MG/DL (0.70-1.30); GLOMERULAR FILTRATION RATE > 60.0 (>42); GLUCOSE, FASTING 79 MG/DL (70-100); POTASSIUM SERUM 4.3 MEQ/L (3.5-5.1); SODIUM LEVEL 142 MEQ/L (136-145)
[2020-02-15 11:12] LABS: BLOOD UREA NITROGEN 24 MG/DL (7-18); CALCIUM LEVEL 8.1 MG/DL (8.8-10.2); CARBON DIOXIDE LEVEL 35 MEQ/L (21-32); CHLORIDE LEVEL 102 MEQ/L (98-107); CREATININE FOR GFR 1.04 MG/DL (0.70-1.30); GLOMERULAR FILTRATION RATE > 60.0 (>42); GLUCOSE, FASTING 93 MG/DL (70-100); SODIUM LEVEL 142 MEQ/L (136-145)
[2020-02-15 13:01] LABS: BLOOD UREA NITROGEN 26 MG/DL (7-18); CALCIUM LEVEL 8.3 MG/DL (8.8-10.2); CARBON DIOXIDE LEVEL 33 MEQ/L (21-32); CHLORIDE LEVEL 106 MEQ/L (98-107); CREATININE FOR GFR 0.91 MG/DL (0.70-1.30); GLOMERULAR FILTRATION RATE > 60.0 (>42); GLUCOSE, FASTING 75 MG/DL (70-100); POTASSIUM SERUM 4.4 MEQ/L (3.5-5.1); SODIUM LEVEL 140 MEQ/L (136-145)
== END 2019-11-25 13:00 | disposition home or self-care (01) | DRG 194 ==
LOC: M ED 11:12 → M MSPAV 21:38
PROVIDERS: ADMIT Internal Medicine; ATTEND Internal Medicine
PROC: 0W993ZZ Drainage of Right Pleural Cavity, Percutaneous Approach (ICD-10-PCS; principal; 2019-11-17)
DX: J18.9 Pneumonia, unspecified organism (principal); C34.2 Malignant neoplasm of middle lobe, bronchus or lung; J90 Pleural effusion, not elsewhere classified; G20 Parkinson's disease; I10 Essential (primary) hypertension; F41.9 Anxiety disorder, unspecified; D53.9 Nutritional anemia, unspecified; I95.1 Orthostatic hypotension; J39.2 Other diseases of pharynx; Z86.711 Personal history of pulmonary embolism; Z86.718 Personal history of other venous thrombosis and embolism; Z79.01 Long term (current) use of anticoagulants; Z79.899 Other long term (current) drug therapy; J47.9 Bronchiectasis, uncomplicated

== ENCOUNTER 2019-11-30 22:53 | Inpatient (IN) | payer MEDICARE ==
[~2019-11-30] VITALS: Ht 165.1 cm; Wt 65.1 kg
[~2019-11-30 22:53] MED LIST changes: +B-12100020 PO; +D31000TA2 PO; +DOXY-350 PO; +PROBCAP14 PO
[2019-12-01] VITALS (17 sets, daily range): BP systolic 107–163; BP diastolic 63–99
[2019-12-01] MEDS ORDERED: LIDOCAINE 2% 5ML JELLY UROJET TOP ONE
[2019-12-01 00:26] LABS: BASO % 0.3 % (0.0-1.0); EOS # 0.5 10^3/uL (0.0-0.5); EOS % 8.7 % (0.0-3.0); HEMATOCRIT 32.4 % (42.0-52.0); LYMPH # 1.1 10^3/uL (1.5-5.0); MEAN CORPUSCULAR HEMOGLOBIN 32.5 pg (27.0-33.0); MEAN CORPUSCULAR HGB CONC 30.9 g/dl (32.0-36.5); MEAN CORPUSCULAR VOLUME 105.2 fl (80.0-96.0); MONO # 0.6 10^3/uL (0.0-0.8); MONO % 9.2 % (0.0-5.0); NEUTROPHILS # 3.9 10^3/uL (1.5-8.5); NEUTROPHILS % 63.5 % (36.0-66.0); PLATELET COUNT, AUTOMATED 258 10^3/uL (150-450); RED BLOOD COUNT 3.08 10^6/uL (4.30-6.10); WHITE BLOOD COUNT 6.1 10^3/uL (4.0-10.0)
[2019-12-01 00:35] LABS: INR 1.02; PROTHROMBIN TIME 13.6 SECONDS (11.8-14.0)
[2019-12-01 00:36] LABS: PARTIAL THROMBOPLASTIN TIME 31.7 SECONDS (25.0-38.4)
[2019-12-01 01:40] LABS: ALBUMIN 2.5 GM/DL (3.2-5.2); ALT/SGPT < 6 U/L (12-78); BILIRUBIN,DIRECT < 0.1 MG/DL (0.0-0.2); BILIRUBIN,TOTAL 0.3 MG/DL (0.2-1.0); BLOOD UREA NITROGEN 24 MG/DL (7-18); CALCIUM LEVEL 8.5 MG/DL (8.8-10.2); CARBON DIOXIDE LEVEL 35 MEQ/L (21-32); CHLORIDE LEVEL 105 MEQ/L (98-107); CREATININE FOR GFR 0.81 MG/DL (0.70-1.30); GLOMERULAR FILTRATION RATE > 60.0 (>42); GLUCOSE, FASTING 89 MG/DL (70-100); LIPASE 24 U/L (73-393); POTASSIUM SERUM 4.4 MEQ/L (3.5-5.1); SODIUM LEVEL 141 MEQ/L (136-145); TOTAL PROTEIN 5.5 GM/DL (6.4-8.2)
[2019-12-01] MEDS ORDERED: ISOVUE-370 76% 100ML VIAL As Ordered ONE (02:03)
--- NOTE | 2019-12-01 03:11 | REPVR ---
PROCEDURE INFORMATION: Exam: CT Abdomen And Pelvis With Contrast Exam date and time: 12/01/2019 2:33 AM Age: 79 years old Clinical indication: Abdominal pain; Generalized; Additional info: Gen pain TECHNIQUE: Imaging protocol: Computed tomography of the abdomen and pelvis with intravenous contrast. Radiation optimization: All CT scans at this facility use at least one of these dose optimization techniques: automated exposure control; mA and/or kV adjustment per patient size (includes targeted exams where dose is matched to clinical indication); or iterative reconstruction. Contrast material: ISOVUE 370; Contrast volume: 100 ml; Contrast route: INTRAVENOUS (IV); COMPARISON: CT Pelvis without contrast 10/23/2018 3:46 PM FINDINGS: Tubes, catheters and devices: NG tube extending to the gastric body. Lungs: Moderate right lung and minimal left lower lobe fibro-atelectatic change. Posterolateral left lower lobe nodule measuring 5 mm. Pleural space: Mild right pleural effusion with question of some loculation. Liver: Numerous low-attenuation foci in the liver which are likely cysts measuring up to 2.2 cm with a Hounsfield measurement of -7. Gallbladder and bile ducts: Normal. No calcified stones. No ductal dilation. Pancreas: Normal. No ductal dilation. Spleen: Normal. No splenomegaly. Adrenals: Normal. No mass. Kidneys and ureters: There are bilateral renal cysts measuring up to 11.5 cm on the left with a Hounsfield measurement of 1. These cysts all appear to be simple or Bosniak 1 cysts. No follow-up imaging is recommended. Stomach and bowel: Mild distention of the rectum. Appendix: There are no changes of appendicitis. A normal appendix is not seen. Intraperitoneal space: Minimal free fluid in the pelvis and right pericolic gutter and within inguinal hernias. Mild left inguinal hernia containing ascites fluid. Vasculature: There is mild calcification of the abdominal aorta with extension into the iliac arteries. Lymph nodes: Unremarkable. No enlarged lymph nodes. Bladder: There is a Faria catheter in the bladder. Reproductive: Unremarkable as visualized. Bones/joints: Unremarkable. No acute fracture. Soft tissues: There is a large right inguinal hernia which appears to contain the cecum. The ileocecal valve appears to be just inside the hernia with mild distention of the distal ileum which may reflect a low-grade obstruction. IMPRESSION: 1. NG tube extending to the gastric body. 2. Mild right pleural effusion with question of some loculation with moderate right lung and minimal left lower lobe fibro-atelectatic change. 3. Left lower lobe nodule measuring 5 mm. For patients at low risk (minimal or absent history of smoking and of other known risk factors), no routine follow-up is indicated. For patients at high risk (history of smoking or of other known risk factors), consider optional CT at 12 months. (Adry et al., Fleischner Society, 2017) . 4. Faria catheter in the bladder. 5. Minimal free fluid in the pelvis and within bilateral inguinal hernias. 6. Large right inguinal hernia which appears to contain the cecum. The ileocecal valve appears to be just into the hernia with mild distension of the distal ileum which extends into the hernia with probable low-grade secondary partial small bowel obstruction. 7. Mild left inguinal hernia containing ascites fluid. Electronically signed by: Dwayne Nugent On 12/01/2019 03:11:27 AM
[2019-12-01] MEDS ORDERED: IPRATROPIUM 0.5MG/ALBUTEROL 2.5MG INH SOL UD 3ML (DUONEB) NEB ONE (03:15)
[2019-12-01] MEDS ORDERED: KETOROLAC 30 MG/ML 1ML VIAL IV ONE (03:45)
[2019-12-01] MEDS ORDERED: SERT50TA29 PO (04:33)
[2019-12-01] MEDS ORDERED: ACET650S3 PR (04:33)
[2019-12-01] MEDS ORDERED: MILKSUS3 PO (04:33)
[2019-12-01] MEDS ORDERED: DULC10SU2 PR (04:33)
[2019-12-01] MEDS ORDERED: GUAI400T9 PO (04:33)
[2019-12-01] MEDS ORDERED: FLEEENE12 PR (04:33)
[2019-12-01] MEDS ORDERED: MIDO2.5T PO (04:33)
[2019-12-01] MEDS ORDERED: D31000TA2 PO (04:33)
[2019-12-01] MEDS ORDERED: IPRA0.00 NEB (04:39)
--- NOTE | 2019-12-01 05:15 | HPEPDOC ---
[facility] Medical History & Physical Date of Admission Dec 01, 2019 Date of Service: Dec 01, 2019 History and Physical CHIEF COMPLAINT: abdominal pain HISTORY OF PRESENT ILLNESS: Patient is a 79 year old male with lung adenocarcinoma being treated at [facility], Parkinson's disease, HTN, PE (dx 07/2018) on Eliquis, hx c. diff, chronic hypoxic respiratory insufficiency on 4L home O2 presented to the ER with complaints of generalized weakness and black tarry vomitus. He reported feeling unwell and has had several episodes of vomiting up dark/tarry vomitus. Symptoms intermittent and associated with generalized abdominal pain, weakness and mild SOB. Pain is generalized, worst over RLQ. Denies any other complaints including any chest pain, fever, chills, blood in stool, constipation or diarrhea. His last bowel movement is yesterday and reportedly normal. Hb 10.0, which is around his baseline. His colon cancer treatment is currently on hold for 1 month due to his functional status, reportedly too weak at this time to continue. PAST MEDICAL HISTORY: Refer to HPI PAST SURGICAL HISTORY: L. knee surgery R. Lung biopsy SOCIAL HISTORY: Denies tobacco, alcohol or drug use FAMILY HISTORY: Mother- CAD Father- jaw cancer ALLERGIES: Please see below. REVIEW OF SYSTEMS: 10 point ROS negative except as above HOME MEDICATIONS: Please see below. PHYSICAL EXAMINATION: - General: Mild labored breathing, thin and appears unwell. Speech in fragments and and very quick. - HEENT: Atraumatic, PERRLA - CVS: Normal rate, normal rhythm. - Lungs: B/l diffuse coarse breath sounds - Abdomen: Soft, Non-distended, generalized tenderness diffusely worse in RLQ. Mild guarding, no rebound tenderness. - Extremities: No extremity swelling, limbs intact - Skin: Warm and dry - Neuro: No focal motor or sensory deficit LABORATORY DATA: See below. IMAGING: CT abdomen/pelvis: 1. NG tube extending to the gastric body. 2. Mild right pleural effusion with question of some loculation with moderate right lung and minimal left lower lobe fibro-atelectatic change. 3. Left lower lobe nodule measuring 5 mm. For patients at low risk (minimal or absent history of smoking and of other known risk factors), no routine follow-up is indicated. For patients at high risk (history of smoking or of other known risk factors), consider optional CT at 12 months. (Adry et al., Fleischner Society, 2017) . 4. Faria catheter in the bladder. 5. Minimal free fluid in the pelvis and within bilateral inguinal hernias. 6. Large right inguinal hernia which appears to contain the cecum. The ileocecal valve appears to be just into the hernia with mild distension of the distal ileum which extends into the hernia with probable low-grade secondary partial small bowel obstruction. 7. Mild left inguinal hernia containing ascites fluid. MICROBIOLOGY: Please see below. ASSESSMENT AND PLAN: 1. Abdominal hernia - CT abdomen/pelvis shows evidence of hernia with suspicion for low grade secondary SBO. - Image was reviewed with general surgery in ER, low suspicion for an obstruction. Patient still have bowel movements. - General surgery consulted. Recommended bowel regimen HI only, no PO at this time. - c/w NGT. Dark, tarry drainage. - Type and cross. No transfusion indicated at this time. Monitor H/H. - will keep patient NPO until clear by surgery for diet/PO intake. 2. Right lung adenocarcinoma - On Keytruda previously. Treatment had been held at this time due to declining functional status. - Patient is severely weak, will need PT. - Has had history of Pleurx catheter due to recurrent malignancy pleural effusion. - Follows with Dr. Albert. 3. Parkinson's disease - On carbidopa-levodopa. 4. HTN - Monitor BP. - Patient is NPO at this time. Resume PO meds once he can take oral meds. 5. Chronic HFpEF? - monitor volume status. 6. hx PE and DVT - On eliquis at home. Hold at this time due to suspected GI bleed. DVT ppx: SCD Code status: Full code Vital Signs Vital Signs Date Time Temp Pulse Resp B/P (MAP) Pulse Ox O2 Delivery O2 Flow Rate FiO2 12/01/19 00:13 Nasal Cannula 2.0 11/30/19 23:07 98.2 88 20 123/76 98 Laboratory Data Labs 24H Laboratory Tests 2 11/30/19 23:58: Immature Granulocyte % (Auto) 0.3, Neutrophils (%) (Auto) 63.5, Lymphocytes (%) (Auto) 18.0L, Monocytes (%) (Auto) 9.2H, Eosinophils (%) (Auto) 8.7H, Basophils (%) (Auto) 0.3, Neutrophils # (Auto) 3.9, Lymphocytes # (Auto) 1.1L, Monocytes # (Auto) 0.6, Eosinophils # (Auto) 0.5, Basophils # (Auto) 0.0, Nucleated Red Blood Cells % (auto) 0.0, Prothrombin Time 13.6, Prothromb Time International Ratio 1.02, Activated Partial Thromboplast Time 31.7 12/01/19 00:32: Anion Gap 1L, Glomerular Filtration Rate > 60.0, Calcium Level 8.5L, Total Bilirubin 0.3, Direct Bilirubin < 0.1, Aspartate Amino Transf (AST/SGOT) 19, Alanine Aminotransferase (ALT/SGPT) < 6L, Alkaline Phosphatase 77, Total Protein 5.5L, Albumin 2.5L, Albumin/Globulin Ratio 0.8, Lipase 24L CBC/BMP Laboratory Tests 11/30/19 23:58 12/01/19 00:32 Home Medications Scheduled Acetaminophen (Acetaminophen) 500 Mg Tablet, 500 MG PO Q6H for fever Apixaban (Eliquis) 5 Mg Tablet, 5 MG PO BID Carbidopa/Levodopa (Carbidopa-Levo ER 25-100 Tab) 1 Each Tablet.er, 1 TAB PO QHS Carbidopa/Levodopa (Carbidopa-Levodopa 25-100 Tab) 1 Each Tablet, 1 TAB PO QID Cholecalciferol (Vitamin D3) (Vitamin D3) 1,000 Unit Tablet, 1,000 UNITS PO DAILY Folic Acid (Folic Acid) 1 Mg Tablet, 1 MG PO DAILY Guaifenesin (Guaifenesin) 400 Mg Tablet, 400 MG PO Q12H Ipratropium/Albuterol Sulfate (Iprat-Albut 0.5-3(2.5) mg/3 ml) 3 Ml Ampul.neb, 1 VIAL NEB Q4H Lactobacillus Acidophilus (Probiotic) 1 Each Capsule, 1 CAP PO DAILY Magnesium Hydroxide (Milk of Magnesia) 400 Mg/5 Ml Oral.susp, 30 ML PO BID for constipation Midodrine HCl (Midodrine HCl) 2.5 Mg Tablet, 2.5 MG PO TID Sertraline HCl (Sertraline HCl) 50 Mg Tablet, 75 MG PO DAILY Scheduled PRN Acetaminophen (Acetaminophen) 650 Mg Supp.rect, 650 MG HI Q4H PRN for PAIN / FEVER Bisacodyl (Dulcolax) 10 Mg Supp.rect, 10 MG HI DAILY PRN for CONSTIPATION Sodium Phosphate,[place]-Dibasic (Fleet Enema) 133 Ml Enema, 1 UZMA HI DAILY PRN for CONSTIPATION Miscellaneous Medications Cyanocobalamin (Vitamin B-12) (B-12) 1,000 Mcg Tablet, 1,000 MCG PO Allergies Coded Allergies: codeine (Verified Adverse Reaction, Intermediate, hallucinations, 10/08/19) A-FIB/CHADSVASC A-FIB History Current/History of A-Fib/PAF?: No SUREKHA SHINE MD Dec 01, 2019 05:15
[2019-12-01 06:39] LABS: HEMATOCRIT 31.2 % (42.0-52.0); HEMOGLOBIN 9.9 g/dl (13.5-17.5); MEAN CORPUSCULAR HGB CONC 31.7 g/dl (32.0-36.5); PLATELET COUNT, AUTOMATED 229 10^3/uL (150-450); WHITE BLOOD COUNT 5.7 10^3/uL (4.0-10.0)
[2019-12-01] MEDS: NS 1,000 ML IV SCH ×2 (06:51→18:01)
[2019-12-01 07:02] LABS: BLOOD UREA NITROGEN 24 MG/DL (7-18); CALCIUM LEVEL 8.5 MG/DL (8.8-10.2); CARBON DIOXIDE LEVEL 36 MEQ/L (21-32); CHLORIDE LEVEL 104 MEQ/L (98-107); CREATININE FOR GFR 0.88 MG/DL (0.70-1.30); GLOMERULAR FILTRATION RATE > 60.0 (>42); GLUCOSE, FASTING 87 MG/DL (70-100); POTASSIUM SERUM 3.9 MEQ/L (3.5-5.1); SODIUM LEVEL 143 MEQ/L (136-145)
[2019-12-01] MEDS ORDERED: BISACODYL ENEMA 10 MG/30 ML PR SCH (09:00)
[2019-12-01] MEDS: PANTOPRAZOLE 40MG VIAL (C9113 PER 1) IV SCH ×2 (09:36→21:28)
[2019-12-01 13:52] LABS: BLOOD UREA NITROGEN 26 MG/DL (7-18); CALCIUM LEVEL 8.5 MG/DL (8.8-10.2); CARBON DIOXIDE LEVEL 36 MEQ/L (21-32); CHLORIDE LEVEL 106 MEQ/L (98-107); CREATININE FOR GFR 0.93 MG/DL (0.70-1.30); GLOMERULAR FILTRATION RATE > 60.0 (>42); GLUCOSE, FASTING 76 MG/DL (70-100); POTASSIUM SERUM 4.2 MEQ/L (3.5-5.1); SODIUM LEVEL 145 MEQ/L (136-145)
--- NOTE | 2019-12-01 15:04 | IPNPDOC ---
Text Note Date of Service The patient was seen on 12/01/19. NOTE Pt seen and examined , he is sleepy and NG continues to drain drak vomitus. No family at the bedside. PHYSICAL EXAMINATION: - General: Nobreathing, thin and appears unwell. Speech in fragments and and very quick. - HEENT: Atraumatic, PERRLA - CVS: Normal rate, normal rhythm. - Lungs: B/l diffuse coarse breath sounds , mostly coz of secreation which he not able to clear. - Abdomen: Soft, Non-distended, generalized tenderness diffusely worse in RLQ. Mild guarding, no rebound tenderness. - Extremities: No extremity swelling, limbs intact - Skin: Warm and dry - Neuro: No focal motor or sensory deficit LABORATORY DATA: See below. IMAGING: CT abdomen/pelvis: 1. NG tube extending to the gastric body. 2. Mild right pleural effusion with question of some loculation with moderate right lung and minimal left lower lobe fibro-atelectatic change. 3. Left lower lobe nodule measuring 5 mm. For patients at low risk (minimal or absent history of smoking and of other known risk factors), no routine follow-up is indicated. For patients at high risk (history of smoking or of other known risk factors), consider optional CT at 12 months. (Adry et al., Fleischner Society, 2017) . 4. Faria catheter in the bladder. 5. Minimal free fluid in the pelvis and within bilateral inguinal hernias. 6. Large right inguinal hernia which appears to contain the cecum. The ileocecal valve appears to be just into the hernia with mild distension of the distal ileum which extends into the hernia with probable low-grade secondary partial small bowel obstruction. 7. Mild left inguinal hernia containing ascites fluid. ASSESSMENT AND PLAN: 1. Upper GI bleed with SBO: CT abdomen/pelvis shows evidence of hernia with suspicion for low grade secondary SBO. Image was reviewed with general surgery in ER, low suspicion for an obstruction. Patient still have bowel movements. - General surgery consulted. Recommended bowel regimen FL only, no PO at this time. Still awaiting there recommendation. c/w NGT. Dark, tarry drainage. Monitor H/H and transfuse if Hb less then 7. will keep patient NPO until clear by surgery for diet/PO intake. Started protonix 40 mg BID . 2. Right lung adenocarcinoma . On Keytruda previously. Treatment had been held at this time due to declining functional status. Patient is severely weak, will need PT. Has had history of Pleurx catheter due to recurrent malignancy pleural effusion. Follows with Dr. Albert. 3. Parkinson's disease: On carbidopa-levodopa currently on hold. 4. HTN Monitor BP. Patient is NPO at this time. Resume PO meds once he can take oral meds. 5. Chronic HFpEF? monitor volume status. 6. hx PE and DVT : On eliquis at home. Hold at this time due to suspected GI bleed. DVT ppx: SCD Code status: Full code VS,Fishbone, I+O VS, Fishbone, I+O Laboratory Tests 11/30/19 23:58 12/01/19 00:32 12/01/19 06:21 12/01/19 12:00 Vital Signs Date Time Temp Pulse Resp B/P (MAP) Pulse Ox O2 Delivery O2 Flow Rate FiO2 12/01/19 14:00 89 150/90 (110) 95 Nasal Cannula 2.0 12/01/19 12:00 98.6 24 LEW TAYLOR MD Dec 01, 2019 15:04
[2019-12-01 19:03] LABS: BLOOD UREA NITROGEN 27 MG/DL (7-18); CALCIUM LEVEL 8.6 MG/DL (8.8-10.2); CARBON DIOXIDE LEVEL 36 MEQ/L (21-32); CHLORIDE LEVEL 107 MEQ/L (98-107); GLOMERULAR FILTRATION RATE > 60.0 (>42); GLUCOSE, FASTING 121 MG/DL (70-100); POTASSIUM SERUM 3.9 MEQ/L (3.5-5.1); SODIUM LEVEL 145 MEQ/L (136-145)
[2019-12-02] VITALS (9 sets, daily range): BP systolic 103–161; BP diastolic 63–91
[2019-12-02] MEDS: NS 1,000 ML IV SCH (04:22)
[2019-12-02 05:46] LABS: HEMATOCRIT 29.7 % (42.0-52.0); HEMOGLOBIN 9.1 g/dl (13.5-17.5); MEAN CORPUSCULAR HEMOGLOBIN 31.7 pg (27.0-33.0); MEAN CORPUSCULAR HGB CONC 30.6 g/dl (32.0-36.5); MEAN CORPUSCULAR VOLUME 103.5 fl (80.0-96.0); PLATELET COUNT, AUTOMATED 235 10^3/uL (150-450); RED BLOOD COUNT 2.87 10^6/uL (4.30-6.10); WHITE BLOOD COUNT 5.5 10^3/uL (4.0-10.0)
[2019-12-02 06:09] LABS: BLOOD UREA NITROGEN 23 MG/DL (7-18); CARBON DIOXIDE LEVEL 36 MEQ/L (21-32); CHLORIDE LEVEL 110 MEQ/L (98-107); CREATININE FOR GFR 0.88 MG/DL (0.70-1.30); GLOMERULAR FILTRATION RATE > 60.0 (>42); GLUCOSE, FASTING 80 MG/DL (70-100); POTASSIUM SERUM 3.7 MEQ/L (3.5-5.1); SODIUM LEVEL 147 MEQ/L (136-145)
[2019-12-02] MEDS: PANTOPRAZOLE 40MG VIAL (C9113 PER 1) IV SCH ×2 (08:17→20:43)
--- NOTE | 2019-12-02 14:01 | IPNPDOC ---
Text Note Date of Service The patient was seen on 12/02/19. NOTE Pt seen and examined , he is much better today. NG dced. No family at the bed side. PHYSICAL EXAMINATION: - General: Nobreathing, thin and appears unwell. Speech in fragments and and very quick. - HEENT: Atraumatic, PERRLA - CVS: Normal rate, normal rhythm. - Lungs: B/l diffuse coarse breath sounds , mostly coz of secreation which he not able to clear. - Abdomen: Soft, Non-distended, generalized tenderness diffusely worse in RLQ. Mild guarding, no rebound tenderness. - Extremities: No extremity swelling, limbs intact - Skin: Warm and dry - Neuro: No focal motor or sensory deficit LABORATORY DATA: See below. IMAGING: CT abdomen/pelvis: Left lower lobe nodule measuring 5 mm. For patients at low risk (minimal or absent history of smoking and of other known risk factors), no routine follow- up is indicated. For patients at high risk (history of smoking or of other known risk factors), consider optional CT at 12 months. (Adry et al., Fleischner Society, 2017) . Large right inguinal hernia which appears to contain the cecum. The ileocecal valve appears to be just into the hernia with mild distension of the distal ileum which extends into the hernia with probable low-grade secondary partial small bowel obstruction. Mild left inguinal hernia containing ascites fluid. ASSESSMENT AND PLAN: 1. Upper GI bleed with SBO: Improving, CT abdomen/pelvis shows evidence of hernia with suspicion for low grade secondary SBO. Image was reviewed with general surgery in ER, low suspicion for an obstruction. Patient still have bowel movements. General surgery consulted and they recommended conservative management as he is not a surgical candidate at this time . NG dced. Cont protonix . Monitor H/H and transfuse if Hb less then 7. Cleared by surgery for diet. Esclate diet as tolerated. 2. Right lung adenocarcinoma . On Keytruda previously. Treatment had been held at this time due to declining functional status. Patient is severely weak, will need PT. Has had history of Pleurx catheter due to recurrent malignancy pleural effusion. Follows with Dr. Albert. 3. Parkinson's disease: On carbidopa-levodopa 4. HTN Monitor BP. Resume PO meds 5. Chronic HFpEF? monitor volume status. 6. hx PE and DVT : On eliquis at home. Hold at this time due to suspected GI bleed. DVT ppx: SCD Code status: Full code VS,Fishbone, I+O VS, Fishbone, I+O Laboratory Tests 12/01/19 18:30 12/02/19 05:00 Vital Signs Date Time Temp Pulse Resp B/P (MAP) Pulse Ox O2 Delivery O2 Flow Rate FiO2 12/02/19 12:00 2.0 12/02/19 08:00 98.1 85 20 151/86 (107) 97 Nasal Cannula I&O- Last 24 Hours up to 6 AM 12/02/19 06:00 Intake Total 1300 ml Output Total 660 ml Balance 640 ml LEW TAYLOR MD Dec 02, 2019 14:01
[2019-12-02] MEDS: FOLIC ACID 1 MG TAB PO SCH (14:48)
[2019-12-02] MEDS: VITAMIN D 1,000 INTERNATIONAL UNITS TABLET PO SCH (14:48)
[2019-12-02] MEDS: SERTRALINE HCL 25 MG TABLET PO SCH (14:48)
[2019-12-02] MEDS: MIDODRINE 2.5 MG TAB PO SCH (16:45)
[2019-12-02] MEDS: SINEMET 25-100 MG TAB PO SCH (16:45)
[2019-12-02] MEDS: MOM 30ML SUSPENSION UDC PO SCH (20:42)
[2019-12-02] MEDS: guaiFENesin ER 600 MG TAB PO SCH (20:43)
[2019-12-02] MEDS ORDERED: SINEMET**CR** 25/100 TABCR PO SCH (21:00)
[2019-12-03] VITALS (7 sets, daily range): BP systolic 84–170; BP diastolic 52–98
[2019-12-03] MEDS: SINEMET 25-100 MG TAB PO SCH ×5 (04:52→23:49)
[2019-12-03] MEDS: MOM 30ML SUSPENSION UDC PO SCH ×2 (09:00→20:15)
[2019-12-03] MEDS: FOLIC ACID 1 MG TAB PO SCH (10:14)
[2019-12-03] MEDS: VITAMIN D 1,000 INTERNATIONAL UNITS TABLET PO SCH (10:14)
[2019-12-03] MEDS: guaiFENesin ER 600 MG TAB PO SCH ×2 (10:14→20:15)
[2019-12-03] MEDS: SERTRALINE HCL 25 MG TABLET PO SCH (10:14)
[2019-12-03] MEDS: MIDODRINE 2.5 MG TAB PO SCH ×3 (10:14→17:03)
[2019-12-03] MEDS: PANTOPRAZOLE 40MG VIAL (C9113 PER 1) IV SCH ×2 (10:17→20:15)
--- NOTE | 2019-12-03 10:35 | IPNPDOC ---
Text Note Date of Service The patient was seen on 12/03/19. NOTE Pt seen and examined , he is much better today. Tolerating diet. No family at the bedside. PHYSICAL EXAMINATION: - General: Nobreathing, thin and appears unwell. Speech in fragments and and very quick. - HEENT: Atraumatic, PERRLA - CVS: Normal rate, normal rhythm. - Lungs: B/l diffuse coarse breath sounds , mostly coz of secreation which he not able to clear. - Abdomen: Soft, Non-distended, generalized tenderness diffusely worse in RLQ. Mild guarding, no rebound tenderness. - Extremities: No extremity swelling, limbs intact - Skin: Warm and dry - Neuro: No focal motor or sensory deficit LABORATORY DATA: See below. IMAGING: CT abdomen/pelvis: Left lower lobe nodule measuring 5 mm. For patients at low risk (minimal or absent history of smoking and of other known risk factors), no routine follow- up is indicated. For patients at high risk (history of smoking or of other known risk factors), consider optional CT at 12 months. (Adry et al., Fleischner Society, 2017) . Large right inguinal hernia which appears to contain the cecum. The ileocecal valve appears to be just into the hernia with mild distension of the distal ileum which extends into the hernia with probable low-grade secondary partial small bowel obstruction. Mild left inguinal hernia containing ascites fluid. ASSESSMENT AND PLAN: 1. Upper GI bleed with SBO: Resolved , Initial CT abdomen/pelvis shows evidence of hernia with suspicion for low grade secondary SBO . Patient still having bowel movements. General surgery consulted and they recommended conservative management as he is not a surgical candidate at this time . NG dced. Cont protonix . Monitor H/H and transfuse if Hb less then 7. Cleared by surgery for diet. Esclate diet as tolerated. 2. Right lung adenocarcinoma . On Keytruda previously. Treatment had been held at this time due to declining functional status. Patient is severely weak, will need PT. Has had history of Pleurx catheter due to recurrent malignancy pleural effusion. Follows with Dr. Albert. 3. Parkinson's disease: On carbidopa-levodopa 4. HTN Monitor BP. Resume PO meds 5. Chronic HFpEF? monitor volume status. 6. hx PE and DVT : On eliquis at home. Hold at this time due to suspected GI bleed I had adiscussion with the yesterday that he is high risk for AC , gave all the risks and benifits and she doesnt want him to be on AC now. Will dc eliquis on Dc . I have advised her if any reoccurance of DVT/PE then he will require an IVC filter DVT ppx: SCD Code status: Full code Disposition: Likely [facility] rehab in the next 24 hours VS,Fishbone, I+O VS, Fishbone, I+O Vital Signs Date Time Temp Pulse Resp B/P (MAP) Pulse Ox O2 Delivery O2 Flow Rate FiO2 12/03/19 04:00 2.0 12/03/19 04:00 97.4 75 16 168/92 (117) 96 Nasal Cannula I&O- Last 24 Hours up to 6 AM 12/03/19 06:00 Intake Total 620 ml Output Total 1115 ml Balance -495 ml LEW TAYLOR MD Dec 03, 2019 10:35
[2019-12-04 04:00] VITALS: BP 153/90
[2019-12-04 05:59] LABS: HEMOGLOBIN 9.7 g/dl (13.5-17.5); MEAN CORPUSCULAR HEMOGLOBIN 32.4 pg (27.0-33.0); MEAN CORPUSCULAR HGB CONC 31.3 g/dl (32.0-36.5); MEAN CORPUSCULAR VOLUME 103.7 fl (80.0-96.0); PLATELET COUNT, AUTOMATED 225 10^3/uL (150-450); RED BLOOD COUNT 2.99 10^6/uL (4.30-6.10); WHITE BLOOD COUNT 5.4 10^3/uL (4.0-10.0)
[2019-12-04] MEDS: SINEMET 25-100 MG TAB PO SCH ×4 (06:09→23:44)
[2019-12-04 06:26] LABS: ALBUMIN 2.3 GM/DL (3.2-5.2); ALT/SGPT < 6 U/L (12-78); BILIRUBIN,TOTAL 0.2 MG/DL (0.2-1.0); BLOOD UREA NITROGEN 17 MG/DL (7-18); CALCIUM LEVEL 7.8 MG/DL (8.8-10.2); CARBON DIOXIDE LEVEL 36 MEQ/L (21-32); CHLORIDE LEVEL 107 MEQ/L (98-107); CREATININE FOR GFR 0.84 MG/DL (0.70-1.30); GLOMERULAR FILTRATION RATE > 60.0 (>42); GLUCOSE, FASTING 81 MG/DL (70-100); POTASSIUM SERUM 3.9 MEQ/L (3.5-5.1); SODIUM LEVEL 146 MEQ/L (136-145); TOTAL PROTEIN 5.2 GM/DL (6.4-8.2)
[2019-12-04 08:00] VITALS: BP 114/75
[2019-12-04] MEDS: guaiFENesin ER 600 MG TAB PO SCH ×2 (08:36→20:42)
[2019-12-04] MEDS: PANTOPRAZOLE 40MG VIAL (C9113 PER 1) IV SCH ×2 (08:36→20:42)
[2019-12-04] MEDS: FOLIC ACID 1 MG TAB PO SCH (08:36)
[2019-12-04] MEDS: MIDODRINE 2.5 MG TAB PO SCH ×3 (08:37→17:28)
[2019-12-04] MEDS: VITAMIN D 1,000 INTERNATIONAL UNITS TABLET PO SCH (08:37)
[2019-12-04] MEDS: SERTRALINE HCL 25 MG TABLET PO SCH (08:37)
[2019-12-04] MEDS: MOM 30ML SUSPENSION UDC PO SCH ×3 (08:37→21:00)
[2019-12-04] MEDS: NS 0.45% 1,000 ML IV SCH (09:12)
--- NOTE | 2019-12-04 11:07 | IPNPDOC ---
Text Note Date of Service The patient was seen on 12/04/19. NOTE Pt seen and examined , he is much better today. Tolerating diet. No family at the bedside. PHYSICAL EXAMINATION: - General: Nobreathing, thin and appears unwell. Speech in fragments and and very quick. - HEENT: Atraumatic, PERRLA - CVS: Normal rate, normal rhythm. - Lungs: B/l diffuse coarse breath sounds , mostly coz of secreation which he not able to clear. - Abdomen: Soft, Non-distended, generalized tenderness diffusely worse in RLQ. Mild guarding, no rebound tenderness. - Extremities: No extremity swelling, limbs intact - Skin: Warm and dry - Neuro: No focal motor or sensory deficit LABORATORY DATA: See below. IMAGING: CT abdomen/pelvis: Left lower lobe nodule measuring 5 mm. For patients at low risk (minimal or absent history of smoking and of other known risk factors), no routine follow- up is indicated. For patients at high risk (history of smoking or of other known risk factors), consider optional CT at 12 months. (Adry et al., Fleischner Society, 2017) . Large right inguinal hernia which appears to contain the cecum. The ileocecal valve appears to be just into the hernia with mild distension of the distal ileum which extends into the hernia with probable low-grade secondary partial small bowel obstruction. Mild left inguinal hernia containing ascites fluid. ASSESSMENT AND PLAN: 1. Upper GI bleed with SBO: Resolved. Initial CT abdomen/pelvis shows evidence of hernia with suspicion for low grade secondary SBO . Patient still having bowel movements. General surgery consulted and they recommended conservative management as he is not a surgical candidate at this time . NG dced. Cont protonix . Monitor H/H and transfuse if Hb less then 7. Cleared by surgery for diet. Esclate diet as tolerated. 2. Right lung adenocarcinoma . On Keytruda previously. Treatment had been held at this time due to declining functional status. Patient is severely weak, will need PT. Has had history of Pleurx catheter due to recurrent malignancy pleural effusion. Follows with Dr. Albert. 3. Parkinson's disease: On carbidopa-levodopa 4. HTN Monitor BP. Resume PO meds 5. Hypernatremia : 1/2 NS at 50 cc per hour . Likely low fluid intake 6. hx PE and DVT : On eliquis at home. Hold at this time due to suspected GI bleed I had adiscussion with the yesterday that he is high risk for AC , gave all the risks and benifits and she doesnt want him to be on AC now. Will dc eliquis on Dc . I have advised her if any reoccurance of DVT/PE then he will require an IVC filter DVT ppx: SCD Code status: Full code Disposition: Likely [facility] rehab in the next 24 hours once Na is normalized VS,Fishbone, I+O VS, Fishbone, I+O Laboratory Tests 12/04/19 05:25 Vital Signs Date Time Temp Pulse Resp B/P (MAP) Pulse Ox O2 Delivery O2 Flow Rate FiO2 12/04/19 08:00 97.9 86 20 114/75 (88) 94 Nasal Cannula 2.0 I&O- Last 24 Hours up to 6 AM 12/04/19 05:59 Intake Total 720 ml Output Total 1100 ml Balance -380 ml LEW TAYLOR MD Dec 04, 2019 11:07
[2019-12-04 13:20] VITALS: BP 159/98
[2019-12-04 22:00] VITALS: BP 150/90
[2019-12-05] MEDS: NS 0.45% 1,000 ML IV SCH (04:37)
[2019-12-05 06:21] VITALS: BP 147/92
[2019-12-05] MEDS: SINEMET 25-100 MG TAB PO SCH (06:27)
[2019-12-05] MEDS ORDERED: PROT1TAB2 PO (09:04)
--- NOTE | 2019-12-05 09:12 | DS.PDOC ---
Discharge Summary General Date of Admission Dec 01, 2019 at 05:02 Date of Discharge 12/05/19 Discharge Summary CHIEF COMPLAINT: abdominal pain HISTORY OF PRESENT ILLNESS: Patient is a 79 year old male with lung adenocarcinoma being treated at [facility], Parkinson's disease, HTN, PE (dx 07/2018) on Eliquis, hx c. diff, chronic hypoxic respiratory insufficiency on 4L home O2 presented to the ER with complaints of generalized weakness and black tarry vomitus. He reported feeling unwell and has had several episodes of vomiting up dark/tarry vomitus. Symptoms intermittent and associated with generalized abdominal pain, weakness and mild SOB. Pain is generalized, worst over RLQ. His colon cancer treatment is currently on hold for 1 month due to his functional status, reportedly too weak at this time to continue. For Upper GI bleed with SBO which Resolved., Initial CT abdomen/pelvis shows evidence of hernia with suspicion for low grade secondary SBO . Patient was still having bowel movements. General surgery consulted and they recommended conservative management as he is not a surgical candidate at this time . NG dced was . Cont protonix . Monitored H/H and he did not require transfusion. Cleared by surgery for diet. Esclate diet as tolerated. had adiscussion with the yesterday that he is high risk for AC , gave all the risks and benifits and she doesnt want him to be on AC now. Will dc eliquis on Dc . I have advised her if any reoccurance of DVT/PE then he will require an IVC filter . For his Right lung adenocarcinoma . On Keytruda previously. Treatment had been held at this time due to declining functional status. Patient is severely weak, will need PT. Has had history of Pleurx catheter due to recurrent malignancy pleural effusion. Follows with Dr. Albert. For Parkinson's disease he is on carbidopa-levodopa . he also has very poor ersp efforts and has poor cough clearence . Continues to be on dysphagia diet. with aspiration precautions. He continues to be BM and cont to tolerate diet. PHYSICAL EXAMINATION: - General: Nobreathing, thin and appears unwell. Speech in fragments and and very quick. - HEENT: Atraumatic, PERRLA - CVS: Normal rate, normal rhythm. - Lungs: B/l diffuse coarse breath sounds , mostly coz of secreation which he not able to clear. - Abdomen: Soft, Non-distended, no tenderness, no guarding, no rebound tenderness. - Extremities: No extremity swelling, limbs intact - Skin: Warm and dry - Neuro: No focal motor or sensory deficit LABORATORY DATA: See below. IMAGING: CT abdomen/pelvis: Left lower lobe nodule measuring 5 mm. For patients at low risk (minimal or absent history of smoking and of other known risk factors), no routine follow- up is indicated. For patients at high risk (history of smoking or of other known risk factors), consider optional CT at 12 months. (Adry et al., Fleischner Society, 2017) . Large right inguinal hernia which appears to contain the cecum. The ileocecal valve appears to be just into the hernia with mild distension of the distal ileum which extends into the hernia with probable low-grade secondary partial small bowel obstruction. Mild left inguinal hernia containing ascites fluid. I Medications on DC: As per Dc list. Eliquis has been dced and Protonix is started F/U appiontments : F/u with PCP in 1 week , F/U with surgery in 1 week Diet: Regular Condition on discharge : Medically optimized for DC , but high risk for readmit Discharge Disposition : SSK Total time spend on this discharge including coordination of care, review of chart , documentation and actual patient contact is 35 minutes. Vital Signs/I&Os Vital Signs Date Time Temp Pulse Resp B/P (MAP) Pulse Ox O2 Delivery O2 Flow Rate FiO2 12/05/19 06:21 97.1 75 20 147/92 (110) 95 Nasal Cannula 2.0 I&O- Last 24 Hours up to 6 AM 12/05/19 06:00 Intake Total 1590 ml Output Total 1025 ml Balance 565 ml Microbiology Microbiology 12/01/19 Occult Blood - Final, Complete Discharge Medications Scheduled Acetaminophen (Acetaminophen) 500 Mg Tablet, 500 MG PO Q6H for fever, (Reported) Carbidopa/Levodopa (Carbidopa-Levo ER 25-100 Tab) 1 Each Tablet.er, 1 TAB PO QHS, (Reported) Carbidopa/Levodopa (Carbidopa-Levodopa 25-100 Tab) 1 Each Tablet, 1 TAB PO QID, (Reported) Cholecalciferol (Vitamin D3) (Vitamin D3) 1,000 Unit Tablet, 1,000 UNITS PO BETY Y, (Reported) Folic Acid (Folic Acid) 1 Mg Tablet, 1 MG PO DAILY, (Reported) Guaifenesin (Guaifenesin) 400 Mg Tablet, 400 MG PO Q12H, (Reported) Ipratropium/Albuterol Sulfate (Iprat-Albut 0.5-3(2.5) mg/3 ml) 3 Ml Ampul.neb, 1 VIAL NEB Q4H, (Reported) Lactobacillus Acidophilus (Probiotic) 1 Each Capsule, 1 CAP PO DAILY, (Reported) Magnesium Hydroxide (Milk of Magnesia) 400 Mg/5 Ml Oral.susp, 30 ML PO BID for constipation, (Reported) Midodrine HCl (Midodrine HCl) 2.5 Mg Tablet, 2.5 MG PO TID, (Reported) Pantoprazole Sodium (Protonix) 40 Mg Tablet.dr, 40 MG PO DAILY Sertraline HCl (Sertraline HCl) 50 Mg Tablet, 75 MG PO DAILY, (Reported) Scheduled PRN Acetaminophen (Acetaminophen) 650 Mg Supp.rect, 650 MG NC Q4H PRN for PAIN / F EVER, (Reported) Bisacodyl (Dulcolax) 10 Mg Supp.rect, 10 MG NC DAILY PRN for CONSTIPATION, (Reported) Sodium Phosphate,[place]-Dibasic (Fleet Enema) 133 Ml Enema, 1 UZMA NC DAILY PRN for CONSTIPATION, (Reported) Miscellaneous Medications Cyanocobalamin (Vitamin B-12) (B-12) 1,000 Mcg Tablet, 1,000 MCG PO, (Reported) Allergies Coded Allergies: codeine (Verified Adverse Reaction, Intermediate, hallucinations, 10/08/19) LEW TAYLOR MD Dec 05, 2019 09:05
[2019-12-05 09:24] LABS: HEMATOCRIT 30.2 % (42.0-52.0); HEMOGLOBIN 9.3 g/dl (13.5-17.5); MEAN CORPUSCULAR HGB CONC 30.8 g/dl (32.0-36.5); MEAN CORPUSCULAR VOLUME 103.8 fl (80.0-96.0); PLATELET COUNT, AUTOMATED 226 10^3/uL (150-450); RED BLOOD COUNT 2.91 10^6/uL (4.30-6.10)
[2019-12-05] MEDS: MOM 30ML SUSPENSION UDC PO SCH (09:32)
[2019-12-05] MEDS: SERTRALINE HCL 25 MG TABLET PO SCH (09:32)
[2019-12-05] MEDS: MIDODRINE 2.5 MG TAB PO SCH (09:32)
[2019-12-05] MEDS: PANTOPRAZOLE 40MG VIAL (C9113 PER 1) IV SCH (09:32)
[2019-12-05] MEDS: FOLIC ACID 1 MG TAB PO SCH (09:32)
[2019-12-05] MEDS: VITAMIN D 1,000 INTERNATIONAL UNITS TABLET PO SCH (09:32)
[2019-12-05] MEDS: guaiFENesin ER 600 MG TAB PO SCH (09:32)
[2019-12-05 09:42] LABS: ALBUMIN 2.4 GM/DL (3.2-5.2); ALT/SGPT < 6 U/L (12-78); BILIRUBIN,TOTAL 0.2 MG/DL (0.2-1.0); BLOOD UREA NITROGEN 18 MG/DL (7-18); CARBON DIOXIDE LEVEL 35 MEQ/L (21-32); CHLORIDE LEVEL 104 MEQ/L (98-107); CREATININE FOR GFR 0.83 MG/DL (0.70-1.30); GLOMERULAR FILTRATION RATE > 60.0 (>42); GLUCOSE, FASTING 87 MG/DL (70-100); POTASSIUM SERUM 3.9 MEQ/L (3.5-5.1); SODIUM LEVEL 142 MEQ/L (136-145); TOTAL PROTEIN 5.2 GM/DL (6.4-8.2)
--- NOTE | 2019-12-17 16:00 | CR ---
DATE: 12/01/2019 REASON FOR CONSULTATION: Abdominal pain and CT suggesting possible obstruction. HISTORY OF PRESENT ILLNESS: The patient is a 79-year-old man with significant underlying medical issues. He apparently has lung carcinoma, which was not amenable to resection. He has a history of Parkinson's disease. He has hypertension. He has a history of pulmonary embolus and has been on Eliquis. He has a history of Clostridium difficile. He has some chronic hypoxic respiratory insufficiency and remains on oxygen at home [id number]. He had presented to the hospital on the evening of the complaining of weakness with some vomiting of tarry material. He had a nasogastric tube placed. He was found to be somewhat anemic, but this was not significantly abnormal compared to his baseline. A nasogastric tube was placed. A CT scan was obtained, which identified a right inguinal hernia containing a portion of the cecum. The radiologist felt that the distal ileum showed some mild distention, but not a definite clear cut small bowel obstruction. The patient was admitted by the hospitalist and I am asked to evaluate the patient's hernia and evaluate the possibility of a bowel obstruction. ALLERGIES: Patient's medical record reports that codeine leans to hallucinations. MEDICATIONS PRIOR TO ADMISSION: Include Eliquis, Carbidopa, Levodopa, Vitamin D3, Cyanocobalamin, folic acid, Ipratropium, Albuterol nebulizers, Midodrine, Sertraline and a number of bowel care agents. He was using Tylenol as necessary for pain. SURGICAL HISTORY: Significant for several prior colonoscopies. He had a right pleural drainage catheter placed for malignant pleural effusion. He has undergone a left total knee replacement apparently in late 2018. He denies any abdominal surgery. PAST MEDICAL HISTORY: Significant for right lung cancer which apparently was treated with some radiation and chemotherapy. He has a history of Parkinson's disease. He has significant underlying lung disease and requires constant oxygen therapy. He has a hypertension and a history of pulmonary embolus and remains on anticoagulation. REVIEW OF SYSTEMS: Shows no recent chest pain. He denies any obvious red rectal bleeding. He denies prior episodes of significant abdominal pain or vomiting. The remainder of the review of systems is negative. PHYSICAL EXAMINATION: Reveals a pleasant older thin man, lying quietly on the hospital bed. He has some garbling of his speech at times, but appears to be alert and attempts to respond appropriately. There are times when I can understand what he is saying and other times I cannot. Skin is warm and dry. He appears somewhat pale. Heart exam shows a regular rhythm. Lungs show some rhonchi bilaterally. Breath sounds are otherwise distant. The abdomen is perhaps mildly full. He does have a few faint bowel sounds present. There are no evident scars. The abdomen is fairly soft with some mild tenderness low in the right lower quadrant. He does have an obvious complete right inguinal hernia present. There is a suggestion of a small fluid containing left inguinal hernia. LABORATORY STUDIES: Are as noted in the hospital record. White count normal. At the time of admission, his differential was not showing an elevation of his neutrophils. His chemistry profile from admission showed normal electrolytes with a CO2 that was elevated to 35. BUN 24 with creatinine 0.8 and glucose normal. Total protein and albumin are both depressed at 5.5 and 2.5 respectively. IMAGING STUDIES: The CT scan from admission I reviewed personally. I reviewed the CT specifically related to his hernia and possibility of a bowel obstruction. There is some slight fullness of his mid and distal small bowel, though this is not dramatic. He does appear to have his cecum extending down into his right inguinal hernia with what appears to be some fecal material within the hernia. There is some fluid also in the hernia and appears to be some fluid in his left inguinal hernia. IMPRESSION: Patient clearly has an incarcerated right inguinal hernia containing the cecum, which contains a large amount of fecal material. Though his CT scan does not show a marked distention of the small bowel, I suspect he does have some degree of obstruction. The hernia is not tender, so I doubt that there is any ischemia. PLAN: With gentle but continuous pressure, I was able to reduce his right inguinal hernia completely without causing him excessive discomfort. It reduced easily enough that I am confident that there is no ischemia of the bowel. As this would be his only source for obstruction, I will go ahead and remove his NG tube and start him on some liquids, which I anticipate he will tolerate without difficulty. If the liquids are tolerated, then his diet can be advanced at the discretion of the hospitalist. He can begin some oral medications as needed. His hernia will need to be monitored and reduced as needed. We could consider surgery to repair his hernia, although he would certainly be a high risk individual for this surgery. LIZ
--- NOTE | 2019-12-23 07:51 | ECGEPIP ---
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
--- NOTE | 2020-01-17 08:07 | IPN ---
DATE: 12/03/2019 SUBJECTIVE: The patient was seen on November 30 for an incarcerated right inguinal hernia with some abdominal pain and other medical issues. His hernia was reduced. He appeared to have some fecal material within the colon which may well have the cause that it did not reduce spontaneously. He is seen today in routine follow up. He denies any significant abdominal pain. He remains in the ICU but is on Medical/Surgical status. PHYSICAL EXAMINATION: VITAL SIGNS: His vital signs reveal him to be afebrile. His pulse is in the otherwise to mid 80s generally. His blood pressure is acceptable. Intake and output show that yesterday he had 400 mL of oral intake recorded with 835 mL of urine output recorded. He has had two bowel movements noted. GENERAL APPEARANCE: The patient is alert. LUNGS: He has some significant rhonchi with respiration. His breath sounds are largely obscured by this. HEART: Regular rhythm. ABDOMEN: Nondistended. He has bowel sounds present. His hernia remains reduced. IMPRESSION: The patient is doing well. His hernia remains reduced, and he has been tolerating liquids well without any problem. PLAN: * The patient was encouraged to be out of bed. * I encouraged him to cough more forcefully. * I would not recommend proceeding with any surgery for his hernia, given his other medical issues. * If he develops symptoms then his hernia may require treatment, but otherwise just careful attention to insuring that this does not become incarcerated again should be enough. LIZ
== END 2019-12-05 10:41 | DRG 394 ==
LOC: M ED 22:53 → M ED INP 12-01 05:02 → ENRESERV 12-01 05:13 → M ICU 12-01 06:33 → M MS5PR 12-04 13:30
PROVIDERS: ADMIT Student in an Organized Health Care Education/Training Program; ATTEND Internal Medicine
DX: K40.91 Unilateral inguinal hernia, without obstruction or gangrene, recurrent (principal); C34.91 Malignant neoplasm of unspecified part of right bronchus or lung; E87.0 Hyperosmolality and hypernatremia; G20 Parkinson's disease; I10 Essential (primary) hypertension; Z79.01 Long term (current) use of anticoagulants; Z86.711 Personal history of pulmonary embolism; Z79.899 Other long term (current) drug therapy; Z88.5 Allergy status to narcotic agent; K46.9 Unspecified abdominal hernia without obstruction or gangrene; Z86.718 Personal history of other venous thrombosis and embolism

== ENCOUNTER 2019-12-08 13:11 | Inpatient (IN) | payer MEDICARE ==
[~2019-12-08] VITALS: Ht 172.7 cm; Wt 68.6 kg
[~2019-12-08 13:11] MED LIST changes: +ACET650S3 PR; +DULC10SU2 PR; +FLEEENE12 PR; +GUAI400T9 PO; +IPRA0.00 NEB; +MILKSUS3 PO; +PROT1TAB2 PO
[2019-12-08 14:27] LABS: BASO % 0.2 % (0.0-1.0); EOS # 0.7 10^3/uL (0.0-0.5); EOS % 12.7 % (0.0-3.0); HEMATOCRIT 27.9 % (42.0-52.0); HEMOGLOBIN 8.7 g/dl (13.5-17.5); LYMPH # 1.2 10^3/uL (1.5-5.0); LYMPH % 22.6 % (24.0-44.0); MEAN CORPUSCULAR HEMOGLOBIN 31.5 pg (27.0-33.0); MEAN CORPUSCULAR HGB CONC 31.2 g/dl (32.0-36.5); MEAN CORPUSCULAR VOLUME 101.1 fl (80.0-96.0); MONO # 0.5 10^3/uL (0.0-0.8); MONO % 9.6 % (0.0-5.0); NEUTROPHILS # 2.8 10^3/uL (1.5-8.5); NEUTROPHILS % 54.9 % (36.0-66.0); PLATELET COUNT, AUTOMATED 224 10^3/uL (150-450); RED BLOOD COUNT 2.76 10^6/uL (4.30-6.10); WHITE BLOOD COUNT 5.1 10^3/uL (4.0-10.0)
[2019-12-08 14:51] LABS: ALBUMIN 2.3 GM/DL (3.2-5.2); ALT/SGPT 9 U/L (12-78); BILIRUBIN,DIRECT < 0.1 MG/DL (0.0-0.2); BILIRUBIN,TOTAL 0.3 MG/DL (0.2-1.0); BLOOD UREA NITROGEN 21 MG/DL (7-18); CALCIUM LEVEL 8.1 MG/DL (8.8-10.2); CARBON DIOXIDE LEVEL 30 MEQ/L (21-32); CHLORIDE LEVEL 107 MEQ/L (98-107); CREATININE FOR GFR 0.99 MG/DL (0.70-1.30); GLOMERULAR FILTRATION RATE > 60.0 (>42); GLUCOSE, FASTING 85 MG/DL (70-100); NT-PRO BNP 862 PG/ML (<450); POTASSIUM SERUM 3.5 MEQ/L (3.5-5.1); SODIUM LEVEL 144 MEQ/L (136-145)
[2019-12-08] MEDS ORDERED: NS 1,000 ML IV SCH (15:00)
--- NOTE | 2019-12-08 15:24 | REPVR ---
PROCEDURE INFORMATION: Exam: CT Head Without Contrast Exam date and time: 12/08/2019 2:48 PM Age: 79 years old Clinical indication: Injury or trauma; Fall; Initial encounter; Blunt trauma (contusions or hematomas); Additional info: Falls TECHNIQUE: Imaging protocol: Computed tomography of the head without contrast. Radiation optimization: All CT scans at this facility use at least one of these dose optimization techniques: automated exposure control; mA and/or kV adjustment per patient size (includes targeted exams where dose is matched to clinical indication); or iterative reconstruction. COMPARISON: CT Head without contrast 09/20/2018 6:45 PM FINDINGS: Brain: There is mild ill-defined patchy hypodensity within the bilateral cerebral periventricular white matter, consistent with chronic microvascular ischemic changes. There is mild diffuse cerebral atrophy present, consistent with this patient's age. Ventricles: The ventricular system demonstrates mild diffuse compensatory enlargement. Bones/joints: Unremarkable. No acute fracture. Sinuses: Visualized sinuses are unremarkable. No fluid levels. Mastoid air cells: Visualized mastoid air cells are well aerated. Soft tissues: Unremarkable. IMPRESSION: 1. No acute infarction, masses or hemorrhage is seen. No acute intracranial abnormality is identified. 2. Diffuse age-related cerebral atrophy and mild chronic microvascular white matter ischemic changes. Electronically signed by: Joe Roque On 12/08/2019 15:24:02 PM
[2019-12-08] MEDS ORDERED: LevoFLOXacin IV 500 MG in IV 1 EA IV ONE (15:30)
--- NOTE | 2019-12-08 16:05 | HPEPDOC ---
[facility] Medical History & Physical Date of Admission Dec 08, 2019 Date of Service: Dec 08, 2019 Attending Physician: Kathy Gonzalez MD History and Physical HISTORY OF PRESENT ILLNESS: Patient is a 79 year old male with recent hospitalization for GI bleed (11/30- ) and SBO, lung adenocarcinoma, Parkinson's disease, HTN, PE (dx 07/2018) on Eliquis, hx c. diff, chronic hypoxic respiratory insufficiency on 2-3L home O2 who presented to [facility] ER from [facility] for increased SOB, weakness an d falls since 12/05/19. Per records, he was discharged to [facility] for rehab only on 12/05/19 and has not been performing well with physical therapy. Today he developed increased SOB with a worsened cough. He has also had worsening tremor with his Parkinson's disease making it hard to perform with PT/OT. He has also had 3 falls in the last 24 hours. Patient complaints of occasional lightheadedness, dizziness, worsening tremoring, decreased fluid intake (normal). He denies chest pain, shortness of breath, fevers, chills, abdominal pain, bleeding, appetite changes. He was due to follow up with Dr. May after last admission but has not been out of the hospital long enough to do so. In the ER, VS showed RR 22-30 at times. He was on home amount O2 2 L NC. CXR could not rule out Right lung PNA, ? aspiration PNA. WBC 5.1, BNP elevated but improved since last admission. Urine appeared very concentrated, UA + for UTI. Patient was given dose of Levofloxacin. Patient appeared weak, had dry oral mucosa and very tremulous, spastic lower ext. He was admitted for treatment of PNA, r/o aspiration vs. HCAP vs. post-opstructive 2/2 to CA, increased weakness with falls. PAST MEDICAL HISTORY: 1. Recent GI bleed 2. Parkinson Disease 2. Hx of HTN 3. History of PE (07/2018 Dx, currently on eliquis) 4. R middle lobe adenocarcinoma of lung. Currently holding cancer treatments, last 10/06/19 Chronic respiratory failure 2/2 to lung cancer, on 2-3 L NC at baseline. 5. 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 Chronic oxygen dependent respiratory failure use at home (4L) PAST SURGICAL HISTORY: 1. Colonoscopy January 2010 with only hyperplastic polyp found. 2. Colonoscopy 12/2006 with adenomatous polyp on biopsy. 3. Left knee surgery 4. Right lung biopsy. SOCIAL HISTORY: No smoking, alcohol or drug use. Lived with his Elva in the local area prior to him going to [facility] after last admission. Patient was a DNR with trial of intubation, updated MOLST in chart. FAMILY HISTORY: Mother: CAD. 80's Father: jaw cancer. 80's. Brother: esophageal cancer. 60's ALLERGIES: Please see below. HOME MEDICATIONS: Please see below. CURRENT MEDICATIONS: Please see below. PHYSICAL EXAMINATION: VITAL SIGNS: Please see below GENERAL APPEARANCE: frail appearing gentleman, resting in bed, in no acute distress HEENT: AT/NC, PERRLA, EOM intact, dry oral mucosa CARDIOVASCULAR: S1S2 +, no M/R/G LUNGS: Rhochi bilaterally. no wheezing, rales ABDOMEN: soft, nondistended, nontender, BS + in 4 quad MUSCULOSKELETAL: No atrophy, ROM not tested EXTREMITIES: R>L swelling, no pitting edema. Nontender right lower ext, No cyanosisi NEUROLOGICAL: Intermittent spasming of bilateral lower and upper ext, increased rigidity, some speech impediment 2/2 to parkinson's- no facial dropping or new focal deficits. Sensory and motor intake. Hyperreflexia present in bilateral lower ext PSYCHIATRIC: Mood appropriate, flat affect LABORATORY DATA: See below. IMAGING: CXR: ? R PNA per preliminary reading CT head: No acutue intracranial abnormality MICROBIOLOGY: Please see below. ASSESSMENT: 79 y/o M with PMH of recent GI bleed with hospitalization (11/30- ), lung adenocarcinoma, known dysphagia 2/2 to Parkinson's disease admitted for treatment of PNA, r/o aspiration vs. HCAP vs. post-opstructive 2/2 to CA, increased weakness with falls. 1. Pneumonia, aspiration vs. Healthcare associated PNA vs. post-obstructive 2/2 to lung CA -Recent hospitalization, concern on CXR (f/u official CXR result), WBC wnl. -LA pending -If official reading neg and other labs not point to infection, could just be lung cancer that "appears" as pneumonia on XR -Cautious while on abx with history of recurrent c. diff. -Starting on levofloxacin, cefepime. Hold off on vancomycin, f/u MRSA -F/u plan below for possible dysphagia/aspiration -HOB 45 degrees at all times -Start probiotic when taking PO -Daily CBC, blood cultures x2, sputum cx, acapella 2. Chronic dysphagia likely 2/2 to radiation therap, concern for aspiration -Has been evaluated in the past, sound "gargling" currently and cannot clear throat well. -No concern for new neurological event -NPO except meds -Swallowing evaluation ordered 3. Weakness, physical deconditioning acute on chronic. -3 falls in last 24 hours -Poor intake of fluids; however, patient has been eating food well he says -PT/OT evaluation, optimization of nutrition 4. Anemia likely 2/2 to recent GI bleed -Recent bleed stopped on its own, medication management. No units transfused -When discharged 12/05/19 Hgb 9.3, currently 8.7 -No s/s of current bleeding. -F/u CBC 5. Right lower ext swelling. -Hx of DVT -Unknown by how long this leg has been larger than right. -F/u lower ext doppler. -Cannot AC due to recent GI bleed. If +, consider Leana. 6. UTI -Recent causey catheter use -F/u UCx, daily labs -On cefepime 7. Adenocarcinoma of right lung -Follows closely with [facility], Dr. Roosevelt Rodriguez-heme/onc. -Was previously on keytruda plus two other medications for chemotherapy. -Prior to chemotherapy, patient had 6 weeks of radiation to the lung ending 08/2018. -Patient has a history of malignant pleural effusion with PleurX tube (removed 02/2019). -Treatment currently on hold 8. Parkinson's disease. -C/w home carbidopa-levodopa 9. HTN. -Stable. 10. Elevated BNP -No prior history of CHF -CXR does not show s/s of vascular congestion -Prior BNP worse, so this is actually improved. -Consider echo this admission if one not within last 6 months. 11. Hx of PE, DVT. -Currently off eliquis since last admission 12. Hx of C. diff. -No diarrhea -Monitor while on abx -Probiotic 13. DVT px. Start sCD, teds when r/o DVT with lower ext US DISPOSITION: Admitted as acute inpatient. DNR with trial period of intubation per ANTONIO. Vital Signs Vital Signs Date Time Temp Pulse Resp B/P (MAP) Pulse Ox O2 Delivery O2 Flow Rate FiO2 12/08/19 14:04 30 99 Nasal Cannula 2.0 12/08/19 13:28 98.2 89 119/75 (90) Laboratory Data Labs 24H Laboratory Tests 2 12/08/19 13:56: Immature Granulocyte % (Auto) 0.0, Neutrophils (%) (Auto) 54.9, Lymphocytes (%) (Auto) 22.6L, Monocytes (%) (Auto) 9.6H, Eosinophils (%) (Auto) 12.7H, Basophils (%) (Auto) 0.2, Neutrophils # (Auto) 2.8, Lymphocytes # (Auto) 1.2L, Monocytes # (Auto) 0.5, Eosinophils # (Auto) 0.7H, Basophils # (Auto) 0.0, Nucleated Red Blood Cells % (auto) 0.0 12/08/19 14:02: Anion Gap 7L, Glomerular Filtration Rate > 60.0, Calcium Level 8.1L, Total Bilirubin 0.3, Direct Bilirubin < 0.1, Aspartate Amino Transf (AST/SGOT) 112H, Alanine Aminotransferase (ALT/SGPT) 9L, Alkaline Phosphatase 66, PR-Awj-D-Type Natriuretic Peptide 862H, Total Protein 5.0L, Albumin 2.3L, Albumin/Globulin Ratio 0.9 CBC/BMP Laboratory Tests 12/08/19 13:56 12/08/19 14:02 Microbiology Microbiology 12/08/19 Blood Culture, Received Pending Home Medications Scheduled Acetaminophen (Acetaminophen) 500 Mg Tablet, 500 MG PO Q6H for fever Carbidopa/Levodopa (Carbidopa-Levo ER 25-100 Tab) 1 Each Tablet.er, 1 TAB PO QHS Carbidopa/Levodopa (Carbidopa-Levodopa 25-100 Tab) 1 Each Tablet, 1 TAB PO QID Cholecalciferol (Vitamin D3) (Vitamin D3) 1,000 Unit Tablet, 1,000 UNITS PO DAILY Folic Acid (Folic Acid) 1 Mg Tablet, 1 MG PO DAILY Guaifenesin (Guaifenesin) 400 Mg Tablet, 400 MG PO Q12H Ipratropium/Albuterol Sulfate (Iprat-Albut 0.5-3(2.5) mg/3 ml) 3 Ml Ampul.neb, 1 VIAL NEB Q4H Lactobacillus Acidophilus (Probiotic) 1 Each Capsule, 1 CAP PO DAILY Magnesium Hydroxide (Milk of Magnesia) 400 Mg/5 Ml Oral.susp, 30 ML PO BID for constipation Midodrine HCl (Midodrine HCl) 2.5 Mg Tablet, 2.5 MG PO TID Pantoprazole Sodium (Protonix) 40 Mg Tablet.dr, 40 MG PO DAILY Sertraline HCl (Sertraline HCl) 50 Mg Tablet, 75 MG PO DAILY Scheduled PRN Acetaminophen (Acetaminophen) 650 Mg Supp.rect, 650 MG TN Q4H PRN for PAIN / FEVER Bisacodyl (Dulcolax) 10 Mg Supp.rect, 10 MG TN DAILY PRN for CONSTIPATION Sodium Phosphate,[place]-Dibasic (Fleet Enema) 133 Ml Enema, 1 UZMA TN DAILY PRN for CONSTIPATION Miscellaneous Medications Cyanocobalamin (Vitamin B-12) (B-12) 1,000 Mcg Tablet, 1,000 MCG PO Allergies Coded Allergies: codeine (Verified Adverse Reaction, Intermediate, hallucinations, 10/08/19) A-FIB/CHADSVASC A-FIB History Current/History of A-Fib/PAF?: No Current PO Anticoag Therapy: No Age/Risk Factor Scoring CHADSVASC: CHADSVASC Response (Comments) Value Age Risk Factor Age >/= 75 years old 2 Gender Risk Factor Male 0 Hx of CHF No 0 Hx of HTN Yes 1 Hx of Stroke/TIA/or VTE Yes 2 Hx of Diabetes No 0 Hx of Vascular Disease No 0 Total 5 Treatment Treatment ordered: NONE Other anticoagulant ordered: Hx of receng GI bleed Reason Anticoagulant not given: Other Other reason anticoagulant not: recent GI bleed Current Medications Current Medications Medications (Trade) Dose Ordered Sig/Francisca Route PRN Reason Start Time Stop Time Status Last Admin Dose Admin Cefepime HCl 1 gm/ Dextrose 50 ml @ 100 mls/hr Q8H IV 12/08/19 17:00 Levofloxacin 750 mg/IV Miscellaneous Supplies 150 ml @ 100 mls/hr DAILY@1500 IV 12/09/19 15:00 Sodium Chloride 1,000 ml @ 75 mls/hr [id number] IV 12/08/19 16:30 12/08/19 16:51 Sodium Chloride 1,000 ml @ 200 mls/hr Q5H IV 12/08/19 15:00 8/31/20 15:35 Kathy Gonzalez MD Dec 08, 2019 16:05
[2019-12-08] MEDS: NS 1,000 ML IV SCH (16:51)
--- NOTE | 2019-12-08 17:24 | REPVR ---
PROCEDURE INFORMATION: Exam: US Duplex Right Lower Extremity Veins, Limited Exam date and time: 12/08/2019 5:09 PM Age: 79 years old Clinical indication: Pain; Leg, upper; Right; Additional info: Right lower ext swelling R/O dvt TECHNIQUE: Imaging protocol: Real-time Duplex ultrasound of the Right Lower Extremity with 2-D bañuelos scale, color Doppler flow and spectral waveform analysis with image documentation. Limited exam was focused on the right lower extremity veins. COMPARISON: No relevant prior studies available. FINDINGS: Right deep veins: Unremarkable. The common femoral, femoral and popliteal veins are patent without thrombus. Normal Doppler waveforms. Normal compressibility and/or augmentation response. Right superficial veins: Unremarkable. Saphenofemoral junction is patent without thrombus. Soft tissues: Unremarkable. IMPRESSION: No sonographic evidence of deep vein thrombosis. Electronically signed by: Onur Deras On 12/08/2019 17:23:58 PM
[2019-12-08] MEDS ORDERED: COMBAER6 INH (17:26)
[2019-12-08] MEDS ORDERED: SCOP1PAT2 TOP (17:26)
[2019-12-08] MEDS ORDERED: ZOLO25TA PO (17:26)
[2019-12-08] MEDS ORDERED: PROT1TAB2 PO (17:26)
[2019-12-08] MEDS ORDERED: BARRIER TOP (17:33)
[2019-12-08] MEDS ORDERED: ENEMENE PR (17:33)
[2019-12-08] MEDS ORDERED: SODIGEL TOP (17:41)
[2019-12-08 18:17] LABS: FOLATE 22.2 NG/ML; VITAMIN B12 LEVEL 1016 PG/ML
[2019-12-08] MEDS: CEFEPIME HCL 1 GM in D5W MINI-BAG PLUS 50 ML IV SCH (18:44)
[2019-12-08 19:27] VITALS: BP 140/87
[2019-12-08] MEDS ORDERED: VANICREAM MOISTURIZING SKIN CREAM 113GM TUBE TOP PRN (20:00)
[2019-12-08] MEDS: COMBIVENT RESPIMAT 100-20MCG INHALER 4GM INH SCH ×2 (20:00→22:24)
[2019-12-08] MEDS ORDERED: SODIUM CHLORIDE 0.9% NASAL GEL 15GM (AYR) PRN (20:15)
[2019-12-08] MEDS: SINEMET**CR** 25/100 TABCR PO SCH (20:50)
[2019-12-08] MEDS: MOM 30ML SUSPENSION UDC PO SCH (20:50)
[2019-12-08] MEDS: SCOPOLAMINE 1MG TRANSDERMAL PATCH TOP SCH (20:50)
[2019-12-09] MEDS: CEFEPIME HCL 1 GM in D5W MINI-BAG PLUS 50 ML IV SCH ×3 (00:34→17:13)
[2019-12-09] MEDS: NS 1,000 ML IV SCH ×2 (02:15→15:33)
[2019-12-09] MEDS: COMBIVENT RESPIMAT 100-20MCG INHALER 4GM INH SCH ×5 (02:44→20:19)
[2019-12-09 06:00] VITALS: BP 141/88
[2019-12-09 06:31] LABS: HEMATOCRIT 29.2 % (42.0-52.0); HEMOGLOBIN 8.9 g/dl (13.5-17.5); MEAN CORPUSCULAR HEMOGLOBIN 30.9 pg (27.0-33.0); MEAN CORPUSCULAR HGB CONC 30.5 g/dl (32.0-36.5); MEAN CORPUSCULAR VOLUME 101.4 fl (80.0-96.0); PLATELET COUNT, AUTOMATED 213 10^3/uL (150-450); RED BLOOD COUNT 2.88 10^6/uL (4.30-6.10); WHITE BLOOD COUNT 5.5 10^3/uL (4.0-10.0)
[2019-12-09 06:56] LABS: ALBUMIN 2.3 GM/DL (3.2-5.2); ALT/SGPT 12 U/L (12-78); BILIRUBIN,TOTAL 0.3 MG/DL (0.2-1.0); BLOOD UREA NITROGEN 18 MG/DL (7-18); CALCIUM LEVEL 7.9 MG/DL (8.8-10.2); CARBON DIOXIDE LEVEL 28 MEQ/L (21-32); CHLORIDE LEVEL 109 MEQ/L (98-107); CREATININE FOR GFR 0.88 MG/DL (0.70-1.30); GLOMERULAR FILTRATION RATE > 60.0 (>42); GLUCOSE, FASTING 69 MG/DL (70-100); POTASSIUM SERUM 3.7 MEQ/L (3.5-5.1); SODIUM LEVEL 141 MEQ/L (136-145); TOTAL PROTEIN 5.4 GM/DL (6.4-8.2)
[2019-12-09] MEDS: CYANOCOBALAMIN 500 MCG TAB PO SCH (08:39)
[2019-12-09] MEDS: VITAMIN D 1,000 INTERNATIONAL UNITS TABLET PO SCH (08:39)
[2019-12-09] MEDS: PANTOPRAZOLE 40MG TAB (PROTONIX) PO SCH (08:39)
[2019-12-09] MEDS: FOLIC ACID 1 MG TAB PO SCH (08:39)
[2019-12-09] MEDS: SERTRALINE HCL 25 MG TABLET PO SCH (08:39)
[2019-12-09] MEDS: LACTOBACILLUS ACIDOPHILUS CAP (BACID) PO SCH (08:39)
[2019-12-09] MEDS: MIDODRINE 2.5 MG TAB PO SCH ×3 (08:40→17:13)
[2019-12-09] MEDS: MOM 30ML SUSPENSION UDC PO SCH ×2 (08:40→21:00)
[2019-12-09 14:00] VITALS: BP 142/88
[2019-12-09] MEDS: LevoFLOXacin IV 750 MG in IV 1 EA IV SCH (15:23)
--- NOTE | 2019-12-09 17:59 | IPNPDOC ---
Text Note Date of Service The patient was seen on 12/09/19. NOTE SUBJECTIVE: -Remains on his baseline 2L, however is moderately tachypneic to 20s -No complaints at this time -Placed on mechanical soft and nectar thick liquids per swallow eval PHYSICAL EXAMINATION: VITAL SIGNS: Please see below GENERAL APPEARANCE: frail chronically ill appearing gentleman, no acute distress HEENT: NCAT, PERRLA, EOM intact, MMM CARDIOVASCULAR: S1S2 +, no M/R/G LUNGS: Diffuse rhonchi, with some wet crackles R>L ABDOMEN: soft, nondistended, nontender, BS + in 4 quad MUSCULOSKELETAL: No atrophy, ROM not tested EXTREMITIES: R>L swelling, no pitting edema. Nontender right lower ext NEUROLOGICAL: Some noted increased rigidity, and speech impediment 2/2 to parkinson's, facial drooping or new focal deficits. PSYCHIATRIC: Flat affect LABORATORY DATA: Reviewed IMAGING: CXR: ? R PNA per preliminary reading CT head: No acute intracranial abnormality MICROBIOLOGY: Please see below. ASSESSMENT: 79 y/o M with PMH of recent GI bleed with hospitalization (11/30- ), lung adenocarcinoma, known dysphagia 2/2 to Parkinson's disease admitted for treatment of PNA, r/o aspiration vs. HCAP vs. post-obstructive 2/2 to CA vs. lavell POD, increased weakness with falls. 1. Pneumonia, aspiration vs. Healthcare associated PNA vs. post-obstructive PNA vs. lavell POD -Concern on CXR (f/u official CXR result), also pending CT read -WBC wnl. -Will order procalcitonin, I am concerned that this may be POD instead of PNA -Cont empiric levofloxacin, dc cefepime. -Had swallow eval and now on mechanical soft diet for dysphagia/aspiration -HOB 45 degrees at all times -Start probiotic when taking PO -Daily CBC -f/u blood cultures x2, sputum cx -Acapella 2. Chronic dysphagia likely 2/2 to radiation therapy, concern for aspiration -Has been evaluated in the past, sound "gargling" currently and cannot clear throat well. -No concern for new neurological event -Now s/p swallow eval and placed on mechanical soft diet and nectar thick liquids 3. Weakness, physical deconditioning acute on chronic. -3 falls in last 24 hours -Poor PO -PT/OT evaluation, optimization of nutrition 4. Anemia likely 2/2 to recent GI bleed -Recent bleed stopped on its own, medication management. No units transfused -When discharged 12/05/19 Hgb 9.3, currently 8.7 -No s/s of current bleeding. -F/u CBC daily 5. Right lower ext swelling: no DVT noted on imaging 6. UTI -Recent causey catheter use -on levaquin 7. Adenocarcinoma of right lung -Follows closely with [facility], Dr. Roosevelt Rodriguez-heme/onc. -Was previously on keytruda plus two other medications for chemotherapy. -Prior to chemotherapy, patient had 6 weeks of radiation to the lung ending 08/2018. -Patient has a history of malignant pleural effusion with PleurX tube (removed 02/2019). -Treatment currently on hold 8. Parkinson's disease. -C/w home carbidopa-levodopa 9. HTN. -Stable. 10. Elevated BNP -No prior history of CHF -CXR does not show s/s of vascular congestion -Prior BNP worse, so this is actually improved. -Hypoxemia at recent baseline, will monitor 11. Hx of PE, DVT. -Currently off eliquis since last admission 12. Hx of C. diff. -No diarrhea -Monitor while on abx -Probiotic 13. DVT px. SCDs, teds DISPOSITION: Admitted as inpatient. DNR with trial period of intubation per ANTONIO. VS,Fishbone, I+O VS, Fishbone, I+O Laboratory Tests 12/09/19 06:13 Vital Signs Date Time Temp Pulse Resp B/P (MAP) Pulse Ox O2 Delivery O2 Flow Rate FiO2 12/09/19 14:00 97.4 89 18 142/88 (106) 93 Nasal Cannula 2.0 I&O- Last 24 Hours up to 6 AM 12/09/19 06:00 Intake Total 1275 ml Output Total 325 ml Balance 950 ml SOPHIE MEDINA MD Dec 09, 2019 17:59
[2019-12-09] MEDS: SINEMET**CR** 25/100 TABCR PO SCH (21:13)
[2019-12-09 22:00] VITALS: BP 147/89
[2019-12-10] MEDS: COMBIVENT RESPIMAT 100-20MCG INHALER 4GM INH SCH ×6 (00:52→19:41)
[2019-12-10] MEDS: NS 1,000 ML IV SCH ×2 (05:46→21:07)
[2019-12-10 06:00] VITALS: BP 146/90
[2019-12-10 06:27] LABS: HEMATOCRIT 29.9 % (42.0-52.0); HEMOGLOBIN 9.1 g/dl (13.5-17.5); MEAN CORPUSCULAR HEMOGLOBIN 30.5 pg (27.0-33.0); MEAN CORPUSCULAR HGB CONC 30.4 g/dl (32.0-36.5); MEAN CORPUSCULAR VOLUME 100.3 fl (80.0-96.0); PLATELET COUNT, AUTOMATED 242 10^3/uL (150-450); RED BLOOD COUNT 2.98 10^6/uL (4.30-6.10)
[2019-12-10 06:48] LABS: ALBUMIN 2.3 GM/DL (3.2-5.2); ALT/SGPT 9 U/L (12-78); BILIRUBIN,TOTAL 0.3 MG/DL (0.2-1.0); BLOOD UREA NITROGEN 17 MG/DL (7-18); CALCIUM LEVEL 7.9 MG/DL (8.8-10.2); CARBON DIOXIDE LEVEL 29 MEQ/L (21-32); CHLORIDE LEVEL 109 MEQ/L (98-107); CREATININE FOR GFR 0.91 MG/DL (0.70-1.30); GLOMERULAR FILTRATION RATE > 60.0 (>42); GLUCOSE, FASTING 74 MG/DL (70-100); POTASSIUM SERUM 3.7 MEQ/L (3.5-5.1); SODIUM LEVEL 145 MEQ/L (136-145); TOTAL PROTEIN 5.1 GM/DL (6.4-8.2)
[2019-12-10] MEDS: MIDODRINE 2.5 MG TAB PO SCH ×3 (08:00→16:00)
[2019-12-10] MEDS: MOM 30ML SUSPENSION UDC PO SCH ×2 (09:00→21:00)
[2019-12-10] MEDS: VITAMIN D 1,000 INTERNATIONAL UNITS TABLET PO SCH (09:19)
[2019-12-10] MEDS: LACTOBACILLUS ACIDOPHILUS CAP (BACID) PO SCH (09:19)
[2019-12-10] MEDS: CYANOCOBALAMIN 500 MCG TAB PO SCH (09:19)
[2019-12-10] MEDS: FOLIC ACID 1 MG TAB PO SCH (09:19)
[2019-12-10] MEDS: PANTOPRAZOLE 40MG TAB (PROTONIX) PO SCH (09:19)
[2019-12-10] MEDS: SERTRALINE HCL 25 MG TABLET PO SCH (09:19)
[2019-12-10 09:20] VITALS: BP 166/100
[2019-12-10 10:56] VITALS: BP 178/98
--- NOTE | 2019-12-10 12:27 | IPNPDOC ---
Text Note Date of Service The patient was seen on 12/10/19. NOTE SUBJECTIVE: -No complaints at this time PHYSICAL EXAMINATION: VITAL SIGNS: Please see below GENERAL APPEARANCE: frail chronically ill appearing gentleman, no acute distress HEENT: NCAT, PERRLA, EOM intact, MMM CARDIOVASCULAR: S1S2 +, no M/R/G LUNGS: Diffuse rhonchi, with some wet crackles R>L ABDOMEN: soft, nondistended, nontender, BS + in 4 quad MUSCULOSKELETAL: No atrophy, ROM not tested EXTREMITIES: R>L swelling, no pitting edema. Nontender right lower ext NEUROLOGICAL: Some noted increased rigidity, and speech impediment 2/2 to parkinson's, facial drooping or new focal deficits. PSYCHIATRIC: Flat affect LABORATORY DATA: Reviewed IMAGING: CXR: ? R opacities, read pending CT head: No acute intracranial abnormality MICROBIOLOGY: Please see below. ASSESSMENT: 79 y/o M with PMH of recent GI bleed with hospitalization (11/30- ), lung adenocarcinoma, known dysphagia 2/2 to Parkinson's disease admitted for treatment of suspected PNA, r/o aspiration vs. HCAP vs. post-obstructive 2/2 to CA vs. lavell POD, increased weakness with falls. At this time, given baseline hypoxemia, afebrile, basically no changes to imaging per my evaluation, this is likely the course of his lung cancer and not likely pneumonia. 1. Suspected pneumonia, aspiration vs. Healthcare associated PNA vs. post- obstructive PNA vs. lavell POD -CXR with R sided infiltrates but these do not appear new and appears similar to prior images -WBC wnl. -f/u procalcitonin, I am concerned that this is likely POD instead of PNA -Cont empiric levofloxacin, dc cefepime. -Had swallow eval and now on mechanical soft diet for dysphagia/aspiration -HOB 45 degrees at all times -continue probiotic when taking PO -Daily CBC -f/u blood cultures x2, sputum cx -Acapella -will consult medical oncology about possibility that this may be POD instead of PNA for which he has had multiple courses of antibiotics with re-admissions for the same and last chemo/immunotherapy in 09/2019 2. Chronic dysphagia likely 2/2 to radiation therapy, concern for aspiration -Has been evaluated in the past, sound "gargling" currently and cannot clear throat well. -No concern for new neurological event -Now s/p swallow eval and placed on mechanical soft diet and nectar thick liquids 3. Weakness, physical deconditioning acute on chronic. -3 falls in last 24 hours -Poor PO -PT/OT evaluation, optimization of nutrition 4. Anemia likely 2/2 to recent GI bleed -Recent bleed stopped on its own, medication management. No units transfused -When discharged 12/05/19 Hgb 9.3, currently 8.7 -No s/s of current bleeding. -F/u CBC daily 5. Right lower ext swelling: no DVT noted on imaging 6. UTI -Recent causey catheter use -on levaquin 7. Adenocarcinoma of right lung -[facility]s closely with [facility], Dr. Roosevelt Rodriguez-heme/onc. -Was previously on keytruda plus two other medications for chemotherapy. -Prior to chemotherapy, patient had 6 weeks of radiation to the lung ending 08/2018. -Patient has a history of malignant pleural effusion with PleurX tube (removed 02/2019). -Treatment currently on hold 8. Parkinson's disease. -C/w home carbidopa-levodopa 9. HTN. -Stable. 10. Elevated BNP -No prior history of CHF -CXR does not show s/s of vascular congestion -Prior BNP worse, so this is actually improved. -Hypoxemia at recent baseline, will monitor 11. Hx of PE, DVT. -Currently off eliquis since last admission 12. Hx of C. diff. -No diarrhea -Monitor while on abx -Probiotic 13. DVT px. SCDs, teds DISPOSITION: Admitted as inpatient. DNR with trial period of intubation per ANTONIO. VS,Fishbone, I+O VS, Fishbone, I+O Laboratory Tests 12/10/19 05:55 Vital Signs Date Time Temp Pulse Resp B/P (MAP) Pulse Ox O2 Delivery O2 Flow Rate FiO2 12/10/19 06:00 98.1 85 16 146/90 (108) 95 Nasal Cannula 2.0 I&O- Last 24 Hours up to 6 AM 12/10/19 06:00 Intake Total 1320 ml Output Total 900 ml Balance 420 ml SOPHIE MEDINA MD Dec 10, 2019 07:43
[2019-12-10 12:48] VITALS: BP 178/98
[2019-12-10 14:00] VITALS: BP 132/68
[2019-12-10] MEDS ORDERED: PILL CUTTER 1 EACH XX PRN (14:30)
[2019-12-10] MEDS: LABETALOL 100 MG TAB PO SCH ×2 (15:00→21:01)
[2019-12-10] MEDS: LevoFLOXacin IV 750 MG in IV 1 EA IV SCH (15:18)
[2019-12-10 16:34] VITALS: BP 118/78
--- NOTE | 2019-12-10 20:06 | CR.PDOC ---
General Date of Consultation: Dec 10, 2019 Consultation REASON FOR CONSULTATION/CHIEF COMPLAINT: [lung cancer ]. HISTORY OF PRESENT ILLNESS: [ 79 year old man with luiung caner He had at least stage Ne because of the malignant pleural effusion. He was on palliative chemotherapy followed by ,maintenance keytruda. Recent CAT scan from october 2019 showing persistent mass, pleual effusion and bialteral ling noduekl taht look like malignany. Afebrile, normal WBc but he is at risk for post obstructive pneumonia . ]. e ALLERGIES: Please see below. HOME MEDICATIONS: Please see below. PAST MEDICAL HISTORY: 1. [parkinsons ]. 2. [pulmonary embolism ]. PAST SURGICAL HISTORY: 1. total knee replacement ] 2. FAMILY HISTORY: Father: Mother: Siblings: Children: Hereditary Diseases: Unexpected deaths due to medical reasons: SOCIAL HISTORY: Marital status and/or living arrangements: Children: Employment: Tobacco use: ETOH: Illicit drug use: IV drug use: Other relevant social factors: REVIEW OF SYSTEMS: CONSTITUTIONAL: difficult to understand due to his speech . HEENT: . CARDIOVASCULAR: . RESPIRATORY: . GENITOURINARY: . MUSCULOSKELETAL: . GASTROINTESTINAL: . SKIN: . NEUROLOGICAL: . PSYCHIATRIC: . ENDOCRINE: . HEMATOLOGIC/LYMPHATIC: . ALLERGIC/IMMUNOLOGIC: . PHYSICAL EXAMINATION: VITAL SIGNS: Please see below. GENERAL APPEARANCE: [awake ]. HEENT: . RESPIRATORY: [bilateral rhonci ]. CARDIOVASCULAR: [rrr]. ABDOMEN: . EXTREMITIES: [moving all extremitis]. NEUROLOGICAL: slurred speech . PSYCHIATRIC: . LABORATORY DATA: Please see below. ASSESSMENT/PLAN: 1. He has stage four lung cancer . His therapy was intended to prolong his life and help symptoms but was not intended to cure.. scan from October looked like bilateral disease in addition to known malignant effusion 2. He has a uti Treating UTI. . Vital Signs/I&O Vital Signs Date Time Temp Pulse Resp B/P (MAP) Pulse Ox O2 Delivery O2 Flow Rate FiO2 12/10/19 16:34 89 118/78 (91) Nasal Cannula 2.0 12/10/19 14:00 98.6 20 92 I&O- Last 24 Hours up to 6 AM 12/10/19 06:00 Intake Total 1320 ml Output Total 900 ml Balance 420 ml Laboratory Data Labs 24H Laboratory Tests 2 12/10/19 05:50: Procalcitonin 0.05 12/10/19 05:55: Nucleated Red Blood Cells % (auto) 0.0, Anion Gap 7L, Glomerular Filtration Rate > 60.0, Calcium Level 7.9L, Total Bilirubin 0.3, Aspartate Amino Transf (AST/SGOT) 55H, Alanine Aminotransferase (ALT/SGPT) 9L, Alkaline Phosphatase 69, Total Protein 5.1L, Albumin 2.3L, Albumin/Globulin Ratio 0.8 CBC/BMP Laboratory Tests 12/10/19 05:55 Microbiology Microbiology 12/08/19 Urine Culture - Final, Complete Enterococcus Faecalis 12/08/19 Blood Culture - Preliminary, Resulted No Growth after 48 hours. All Specime... Allergies Coded Allergies: codeine (Verified Adverse Reaction, Intermediate, hallucinations, 10/08/19) Home Medications Scheduled Acetaminophen (Acetaminophen) 500 Mg Tablet, 500 MG PO Q6H, (Reported) Carbidopa/Levodopa (Carbidopa-Levo ER 25-100 Tab) 1 Each Tablet.er, 1 TAB PO QHS, (Reported) Carbidopa/Levodopa (Carbidopa-Levodopa 25-100 Tab) 1 Each Tablet, 1 TAB PO QID, (Reported) Cholecalciferol (Vitamin D3) (Vitamin D3) 1,000 Unit Tablet, 1,000 UNITS PO DAILY, (Reported) Cyanocobalamin (Vitamin B-12) (B-12) 1,000 Mcg Tablet, 1,000 MCG PO DAILY, (Reported) Folic Acid (Folic Acid) 1 Mg Tablet, 1 MG PO DAILY, (Reported) Guaifenesin (Guaifenesin) 400 Mg Tablet, 400 MG PO Q12H, (Reported) Ipratropium/Albuterol Sulfate (Iprat-Albut 0.5-3(2.5) mg/3 ml) 3 Ml Ampul.neb, 1 VIAL NEB Q4H, (Reported) Lactobacillus Acidophilus (Probiotic) 1 Each Capsule, 1 CAP PO DAILY, (Reported) Magnesium Hydroxide (Milk of Magnesia) 400 Mg/5 Ml Oral.susp, 30 ML PO BID, (Reported) Midodrine HCl (Midodrine HCl) 2.5 Mg Tablet, 2.5 MG PO TID, (Reported) Pantoprazole Sodium (Protonix) 40 Mg Tablet.dr, 40 MG PO DAILY, (Reported) Scopolamine (Transderm-Scop) 1 Each Patch.td.3, 1.5 MG TOP Q3RD, (Reported) Sertraline Hcl (Zoloft) 25 Mg Tablet, 75 MG PO DAILY, (Reported) Scheduled PRN Acetaminophen (Acetaminophen) 650 Mg Supp.rect, 650 MG KY Q4H PRN for PAIN / FEVER, (Reported) Bisacodyl (Dulcolax) 10 Mg Supp.rect, 10 MG KY DAILY PRN for CONSTIPATION, (Reported) Sodium Chloride (Stevenson Saline Nasal Gel) 14.1 Gm Gel..gram., 1 APLCT TOP Q4H PRN for NASAL DRYNESS, (Reported) Sodium Phosphate,Flagler-Dibasic (Fleet Enema) 133 Ml Enema, 1 UZMA [place] DAILY PRN for CONSTIPATION, (Reported) [Barrier Cream] , 1 DOSE TOP DAILY PRN for DRY SKIN, (Reported) APPLY TO BUTTOCKS EMILIA OLSON MD Dec 10, 2019 20:06
[2019-12-10] MEDS: SINEMET**CR** 25/100 TABCR PO SCH (21:00)
[2019-12-11] MEDS: COMBIVENT RESPIMAT 100-20MCG INHALER 4GM INH SCH ×5 (01:37→18:38)
[2019-12-11 06:00] VITALS: BP 140/76
[2019-12-11 06:29] LABS: HEMATOCRIT 28.3 % (42.0-52.0); HEMOGLOBIN 8.6 g/dl (13.5-17.5); MEAN CORPUSCULAR HEMOGLOBIN 30.8 pg (27.0-33.0); MEAN CORPUSCULAR HGB CONC 30.4 g/dl (32.0-36.5); MEAN CORPUSCULAR VOLUME 101.4 fl (80.0-96.0); PLATELET COUNT, AUTOMATED 219 10^3/uL (150-450); RED BLOOD COUNT 2.79 10^6/uL (4.30-6.10); WHITE BLOOD COUNT 5.8 10^3/uL (4.0-10.0)
[2019-12-11 07:03] LABS: ALBUMIN 2.3 GM/DL (3.2-5.2); ALT/SGPT 10 U/L (12-78); BILIRUBIN,TOTAL 0.2 MG/DL (0.2-1.0); BLOOD UREA NITROGEN 16 MG/DL (7-18); CALCIUM LEVEL 7.8 MG/DL (8.8-10.2); CARBON DIOXIDE LEVEL 30 MEQ/L (21-32); CHLORIDE LEVEL 110 MEQ/L (98-107); CREATININE FOR GFR 0.97 MG/DL (0.70-1.30); GLOMERULAR FILTRATION RATE > 60.0 (>42); GLUCOSE, FASTING 100 MG/DL (70-100); POTASSIUM SERUM 3.8 MEQ/L (3.5-5.1); SODIUM LEVEL 146 MEQ/L (136-145)
[2019-12-11] MEDS: MOM 30ML SUSPENSION UDC PO SCH ×2 (09:00→20:45)
[2019-12-11] MEDS: VITAMIN D 1,000 INTERNATIONAL UNITS TABLET PO SCH (09:31)
[2019-12-11] MEDS: SERTRALINE HCL 25 MG TABLET PO SCH (09:31)
[2019-12-11] MEDS: LACTOBACILLUS ACIDOPHILUS CAP (BACID) PO SCH (09:31)
[2019-12-11] MEDS: FOLIC ACID 1 MG TAB PO SCH (09:31)
[2019-12-11] MEDS: MIDODRINE 2.5 MG TAB PO SCH ×3 (09:31→16:54)
[2019-12-11] MEDS: PANTOPRAZOLE 40MG TAB (PROTONIX) PO SCH (09:31)
[2019-12-11 09:33] VITALS: BP 144/87
[2019-12-11] MEDS: LABETALOL 100 MG TAB PO SCH ×2 (09:33→20:46)
[2019-12-11] MEDS: CYANOCOBALAMIN 500 MCG TAB PO SCH (09:34)
[2019-12-11] MEDS: NS 1,000 ML IV SCH ×2 (09:35→20:45)
--- NOTE | 2019-12-11 12:08 | IPNPDOC ---
Text Note Date of Service The patient was seen on 12/11/19. NOTE SUBJECTIVE: -No complaints at this time -Updated family, we agreed to consult neurology upon them insisting for his weakness and speaking with palliative care for GOC discussion. PHYSICAL EXAMINATION: VITAL SIGNS: Please see below GENERAL APPEARANCE: frail chronically ill appearing gentleman, no acute distress HEENT: NCAT, PERRLA, EOM intact, MMM CARDIOVASCULAR: S1S2 +, no M/R/G LUNGS: Diffuse rhonchi, with some wet crackles R>L ABDOMEN: soft, nondistended, nontender, BS + in 4 quad MUSCULOSKELETAL: No atrophy, ROM not tested EXTREMITIES: R>L swelling, no pitting edema. Nontender right lower ext NEUROLOGICAL: Some noted increased rigidity, and speech impediment 2/2 to Parkinson's, facial drooping or new focal deficits. PSYCHIATRIC: Flat affect LABORATORY DATA: Reviewed. Stable CBC and BMP IMAGING: CXR: bilateral infiltrates and nodules, metastatic disease. CT head: No acute intracranial abnormality MICROBIOLOGY: Please see below. ASSESSMENT: 79 y/o M with PMH of recent GI bleed with hospitalization (11/30- ), lung adenocarcinoma, known dysphagia 2/2 to Parkinson's disease admitted for treatment of suspected PNA, r/o aspiration vs. HCAP vs. post-obstructive 2/2 to CA vs. lavell POD, increased weakness with falls. At this time, given baseline hypoxemia, afebrile, basically no changes to imaging per my evaluation, this is likely the course of his lung cancer and not likely pneumonia. 1. Suspected pneumonia, aspiration vs. Healthcare associated PNA vs. post- obstructive PNA vs. lavell POD -CXR with R sided infiltrates but these do not appear new and appears similar to prior images -WBC wnl. -f/u procalcitonin, I am concerned that this is likely POD instead of PNA -Cont empiric levofloxacin -Had swallow eval and now on mechanical soft diet for dysphagia/aspiration -HOB 45 degrees at all times -continue probiotic when taking PO -Daily CBC -f/u blood cultures x2, sputum cx -Acapella -consulted medical oncology about possibility that this may be POD instead of PNA for which he has had multiple courses of antibiotics with re-admissions for the same and last chemo/immunotherapy in 09/2019. Recommending discussion with palliative and GOC to likely hospice care as his debility excludes him from being a candidate for palliative care. -consulted palliative care 2. Chronic dysphagia likely 2/2 to radiation therapy, concern for aspiration -Has been evaluated in the past, sound "gargling" currently and cannot clear throat well. -No concern for new neurological event -Now s/p swallow eval and placed on mechanical soft diet and nectar thick liquids 3. Weakness, physical deconditioning acute on chronic. -3 falls in last 24 hours -Poor PO -PT/OT evaluation, optimization of nutrition -Increase his sinemet to QID and not QHS, consulted neurology 4. Anemia likely 2/2 to recent GI bleed -Recent bleed stopped on its own, medication management. No units transfused -When discharged 12/05/19 Hgb 9.3, currently 8.7 -No s/s of current bleeding. -F/u CBC daily 5. Right lower ext swelling: no DVT noted on imaging 6. UTI -Recent causey catheter use -on levaquin 7.Stage 4 Adenocarcinoma of right lung -Follows closely with [facility], Dr. Roosevelt Rodriguez-heme/onc. -Was previously on keytruda. -Prior to chemotherapy, patient had 6 weeks of radiation to the lung ending 08/2018. -Patient has a history of malignant pleural effusion with PleurX tube (removed 02/2019). -Treatment currently on hold -consulted med onc for thoughts on declining pulm status often being presumed to be recurrent PNA, with c/f POD 8. Parkinson's disease. -C/w home carbidopa-levodopa at QID dosing NOT QHS as ordered on admission 9. HTN. -Stable. 10. Elevated BNP -No prior history of CHF -CXR does not show s/s of vascular congestion -Prior BNP worse, so this is actually improved. -Hypoxemia at recent baseline, will monitor 11. Hx of PE, DVT. -Currently off eliquis since last admission 12. Hx of C. diff. -No diarrhea -Monitor while on abx -Probiotic 13. DVT px. SCDs, teds DISPOSITION: Admitted as inpatient. DNR with trial period of intubation per [facility]. VS,Fishbone, I+O VS, Fishbone, I+O Laboratory Tests 12/11/19 06:10 Vital Signs Date Time Temp Pulse Resp B/P (MAP) Pulse Ox O2 Delivery O2 Flow Rate FiO2 12/11/19 06:00 97.8 92 16 140/76 (97) 92 Nasal Cannula 2.0 I&O- Last 24 Hours up to 6 AM 12/11/19 06:00 Intake Total 3320 ml Output Total 1150 ml Balance 2170 ml SOPHIE MEDINA MD Dec 11, 2019 09:30
[2019-12-11] MEDS: SINEMET 25-100 MG TAB PO SCH ×3 (12:44→20:46)
[2019-12-11 14:00] VITALS: BP 143/87
[2019-12-11] MEDS: CIPROFLOXACIN 500MG TABLET PO SCH (16:54)
[2019-12-11] MEDS: SCOPOLAMINE 1MG TRANSDERMAL PATCH TOP SCH (20:46)
--- NOTE | 2019-12-11 21:55 | REPVR ---
PROCEDURE INFORMATION: Exam: CT Chest Without Contrast Exam date and time: 12/11/2019 9:22 PM Age: 79 years old Clinical indication: Condition or disease; Lung condition and disease; Pneumonia; Additional info: Evaluation of status of pod TECHNIQUE: Imaging protocol: Computed tomography of the chest without contrast. 3D rendering (Not supervised by radiologist): MIP and/or 3D reconstructed images were created by the technologist. Radiation optimization: All CT scans at this facility use at least one of these dose optimization techniques: automated exposure control; mA and/or kV adjustment per patient size (includes targeted exams where dose is matched to clinical indication); or iterative reconstruction. COMPARISON: CT Chest with contrast 10/15/2019 2:22 PM FINDINGS: Tubes, catheters and devices: Left subclavian Port-A-Cath extending to the proximal superior vena cava. Lungs: Coarse interstitium with right middle lobe and to a lesser degree right lower lobe atelectasis or consolidation. Small scattered pulmonary nodules measuring 4 mm or less with several noted in the left lower lobe and at least 1 in the right lower lobe and several in the right upper lobe. Pleural space: Mild right pleural effusion with probable loculation and extension into the right major fissure superiorly. There is some right lower lobe plugging or narrowing of peripheral bronchi with fibro-atelectatic change and question of minimal infiltrates in the remaining aerated right lung and left lower lobe. Heart: Unremarkable. No cardiomegaly. No pericardial effusion. Pulmonary arteries: The main pulmonary artery measures 28 mm. Aorta: The ascending thoracic aorta measures 40 mm. Lymph nodes: Unremarkable. No enlarged lymph nodes. Liver: Low-attenuation foci in the liver measuring up to 2.2 cm with a Hounsfield measurement of 15 and are likely cysts. Kidneys and ureters: There appear to be large cysts of the left kidney measuring approximately 8.7 cm with a Hounsfield measurement of 24. Bones/joints: Lytic lesion involving the C7 segment on the left and the left aspect of T1 including the pedicle consistent with metastatic disease. There appears to be some extension into the spinal canal at the C7 level on the left. Soft tissues: Unremarkable. IMPRESSION: 1. Right pleural effusion which appears loculated which is similar to slightly increased since 10/15/2019. 2. Right middle lobe and to a lesser degree right lower lobe atelectasis or consolidation which is similar to the prior study. There is slightly increased prominence of the interstitium and minimal scattered fibro-atelectatic change in the remaining aerated lungs which is similar. 3. Small pulmonary nodules which appear to be similar overall. Fleischner follow up recommendations for incidental nodules are not indicated. Follow up per patient's medical condition. 4. Lytic lesions involving the left aspect of C7 and T1 with involvement of the left posterior elements and pedicle of T1 which are similar to the prior study consistent with metastatic disease. 5. A left Port-A-Cath to the proximal superior vena cava is again noted. 6. 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 Electronically signed by: Dwayne Nugent On 12/11/2019 21:54:46 PM
[2019-12-11 22:00] VITALS: BP 148/94
[2019-12-12 06:00] VITALS: BP 140/60
[2019-12-12] MEDS: CIPROFLOXACIN 500MG TABLET PO SCH ×2 (06:13→17:44)
[2019-12-12] MEDS: COMBIVENT RESPIMAT 100-20MCG INHALER 4GM INH SCH ×4 (07:20→21:04)
[2019-12-12] MEDS: MOM 30ML SUSPENSION UDC PO SCH ×3 (09:00→20:27)
[2019-12-12] MEDS: VITAMIN D 1,000 INTERNATIONAL UNITS TABLET PO SCH (09:40)
[2019-12-12] MEDS: LACTOBACILLUS ACIDOPHILUS CAP (BACID) PO SCH (09:40)
[2019-12-12] MEDS: CYANOCOBALAMIN 500 MCG TAB PO SCH (09:40)
[2019-12-12] MEDS: PANTOPRAZOLE 40MG TAB (PROTONIX) PO SCH (09:40)
[2019-12-12] MEDS: SERTRALINE HCL 25 MG TABLET PO SCH (09:41)
[2019-12-12] MEDS: FOLIC ACID 1 MG TAB PO SCH (09:41)
[2019-12-12] MEDS: SINEMET 25-100 MG TAB PO SCH ×4 (09:41→20:31)
[2019-12-12 10:06] LABS: HEMATOCRIT 27.7 % (42.0-52.0); HEMOGLOBIN 8.5 g/dl (13.5-17.5); MEAN CORPUSCULAR HEMOGLOBIN 31.4 pg (27.0-33.0); MEAN CORPUSCULAR HGB CONC 30.7 g/dl (32.0-36.5); MEAN CORPUSCULAR VOLUME 102.2 fl (80.0-96.0); PLATELET COUNT, AUTOMATED 220 10^3/uL (150-450); RED BLOOD COUNT 2.71 10^6/uL (4.30-6.10); WHITE BLOOD COUNT 4.9 10^3/uL (4.0-10.0)
[2019-12-12 11:03] LABS: BLOOD UREA NITROGEN 12 MG/DL (7-18); CALCIUM LEVEL 7.7 MG/DL (8.8-10.2); CARBON DIOXIDE LEVEL 33 MEQ/L (21-32); CHLORIDE LEVEL 110 MEQ/L (98-107); GLOMERULAR FILTRATION RATE > 60.0 (>42); GLUCOSE, FASTING 80 MG/DL (70-100); MAGNESIUM LEVEL 1.8 MG/DL (1.8-2.4); POTASSIUM SERUM 3.7 MEQ/L (3.5-5.1); SODIUM LEVEL 145 MEQ/L (136-145)
[2019-12-12] MEDS: D5W/0.45% SODIUM CHLORIDE 1,000 ML IV SCH ×2 (12:10→23:01)
--- NOTE | 2019-12-12 13:39 | IPNPDOC ---
Text Note Date of Service The patient was seen on 12/12/19. NOTE SUBJECTIVE: -No complaints at this time -Updated family, will have discussion today with Palliative care at 2PM -got updated CT chest that continues to show bilateral scattered pulmonary nodules, small pleural effusion some opacities and lytic lesions. PHYSICAL EXAMINATION: VITAL SIGNS: Please see below GENERAL APPEARANCE: frail chronically ill appearing gentleman, no acute distress HEENT: NCAT, PERRLA, EOM intact, MMM CARDIOVASCULAR: S1S2 +, no M/R/G LUNGS: Diffuse rhonchi, with transmitted upper airway sounds with gurgling, unable to spontaneously clear his. Taking short shallow breaths, tachypneic ABDOMEN: soft, nondistended, nontender, BS + in 4 quad MUSCULOSKELETAL: No atrophy, ROM not tested EXTREMITIES: R>L swelling, no pitting edema. Nontender right lower ext NEUROLOGICAL: Some noted increased rigidity, and speech impediment 2/2 to Parkinson's, facial drooping or new focal deficits. PSYCHIATRIC: Flat affect LABORATORY DATA: Reviewed. Stable CBC and BMP IMAGING: CXR: bilateral infiltrates and nodules, metastatic disease. CT head: No acute intracranial abnormality CT chest: Lungs: Coarse interstitium with right middle lobe and to a lesser degree right lower lobe atelectasis or consolidation. Small scattered pulmonary nodules measuring 4 mm or less with several noted in the left lower lobe and at least 1 in the right lower lobe and several in the right upper lobe. Pleural space: Mild right pleural effusion with probable loculation and extension into the right major fissure superiorly. There is some right lower lobe plugging or narrowing of peripheral bronchi with fibro-atelectatic change and question of minimal infiltrates in the remaining aerated right lung and left lower lobe. Heart: Unremarkable. No cardiomegaly. No pericardial effusion. Pulmonary arteries: The main pulmonary artery measures 28 mm. Aorta: The ascending thoracic aorta measures 40 mm. Lymph nodes: Unremarkable. No enlarged lymph nodes. Liver: Low-attenuation foci in the liver measuring up to 2.2 cm with a Hounsfield measurement of 15 and are likely cysts. Kidneys and ureters: There appear to be large cysts of the left kidney measuring approximately 8.7 cm with a Hounsfield measurement of 24. Bones/joints: Lytic lesion involving the C7 segment on the left and the left aspect of T1 including the pedicle consistent with metastatic disease. There appears to be some extension into the spinal canal at the C7 level on the left. Soft tissues: Unremarkable. IMPRESSION: 1. Right pleural effusion which appears loculated which is similar to slightly increased since 10/15/2019. 2. Right middle lobe and to a lesser degree right lower lobe atelectasis or consolidation which is similar to the prior study. There is slightly increased prominence of the interstitium and minimal scattered fibro-atelectatic change in the remaining aerated lungs which is similar. 3. Small pulmonary nodules which appear to be similar overall. [facility] for incidental nodules are not indicated. Follow up per patient's medical condition. 4. Lytic lesions involving the left aspect of C7 and T1 with involvement of the left posterior elements and pedicle of T1 which are similar to the prior study consistent with metastatic disease. 5. A left Port-A-Cath to the proximal superior vena cava is again noted. 6. 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 MICROBIOLOGY: Please see below. ASSESSMENT: 79 y/o M with PMH of recent GI bleed with hospitalization (11/30- ), lung adenocarcinoma, known dysphagia 2/2 to Parkinson's disease admitted for treatment of suspected PNA, r/o aspiration vs. HCAP vs. post-obstructive 2/2 to CA vs. lavell POD, increased weakness with falls. At this time, given baseline hypoxemia, afebrile, basically no changes to imaging per my evaluation, this is likely the course of his lung cancer and not likely pneumonia. 1. Suspected pneumonia, aspiration vs. Healthcare associated PNA vs. post- obstructive PNA vs. lavell POD. -CXR with R sided infiltrates but these do not appear new and appears similar to prior images -Got CT chest 12/10 that showed stable right middle lobe and to a lesser degree right lower lobe atelectasis or consolidation and numerous small scattered pulmonary nodules measuring 4 mm or less with several noted in the left lower lobe and at least 1 in the right lower lobe and several in the right upper lobe, a mild right pleural effusion with probable loculation and extension into the right major fissure superiorly, some right lower lobe plugging or narrowing of peripheral bronchi with fibro-atelectatic change and question of minimal infiltrates in the remaining aerated right lung and left lower lobe and C7 and T1 metastatic lytic lesions. -WBC wnl. -negative procalcitonin, unlikely bacterial PNA -Had swallow eval and now on mechanical soft diet for dysphagia/aspiration -HOB 45 degrees at all times -continue probiotic when taking PO -Daily CBC -f/u blood cultures x2, sputum cx, negative -Acapella -consulted medical oncology about possibility that this may be POD instead of PNA for which he has had multiple courses of antibiotics with re-admissions for the same and last chemo/immunotherapy in 09/2019. Oncology agreed that there is no evidence of active bacterial PNA at this time with low procalcitonin and stable imaging with metastatic lesions, small effusion and stable opacities. Recommending discussion with palliative and GOC to likely hospice care as his debility excludes him from being a candidate for palliative chemo-immunotherapy -consulted palliative care, meeting with her and family at 2Pm today 2. Chronic dysphagia likely 2/2 to radiation therapy, concern for aspiration -Has been evaluated in the past, sound "gargling" currently and cannot clear throat well. -No concern for new acute neurological event -Now s/p swallow eval and placed on mechanical soft diet and nectar thick liquids -consulted neurology per family's request to assess possible med management for Parkinson's 3. Weakness, physical deconditioning acute on chronic. -3 falls in the 24h post discharge to rehab before re-admission -Poor PO -PT/OT evaluation, optimization of nutrition -Increase his sinemet to QID and not QHS -Consulted neurology per family's request 4. Anemia likely 2/2 to recent GI bleed -Recent bleed stopped on its own, medication management. No units transfused -When discharged 12/05/19 Hgb 9.3, Hgb currently stable in high 8s -No s/s of current bleeding. -F/u CBC daily 5. Right lower ext swelling: no DVT noted on imaging 6. E. fecalis UTI -Recent causey catheter use -on cipro, day 5 of abx 7.Stage 4 Adenocarcinoma of right lung -Follows closely with [facility], Dr. Roosevelt Rodriguez-heme/onc. Will call him this morning for update. -Was previously on keytruda. -Prior to chemotherapy, patient had 6 weeks of radiation to the lung ending 08/2018. -Patient has a history of malignant pleural effusion with PleurX tube (removed 02/2019). -Treatment currently on hold due to poor functional status and prolonged illness and debility -consulted med onc for thoughts on declining pulm status often being presumed to be recurrent PNA, with c/f POD. Heme onc (Dr. Jane) agreed that he does not have evidence of bacterial PNA at this time but widely bilateral metastatic lesions with associated effusion and stable opacities. 8. Parkinson's disease. -C/w home carbidopa-levodopa at QID dosing NOT QHS as ordered on admission -Consulted neurology 9. HTN. -Stable. 10. Elevated BNP -No prior history of CHF -CXR does not show s/s of vascular congestion -Prior BNP worse, so this is actually improved. -Hypoxemia at recent baseline, will monitor 11. Hx of PE, DVT. -Currently off eliquis since last admission 12. Hx of C. diff. -No diarrhea -Monitor while on abx -Probiotic 13. DVT px. SCDs, teds DISPOSITION: Admitted as inpatient. DNR with trial period of intubation per [facility]. VS,Fishbone, I+O VS, Fishbone, I+O Vital Signs Date Time Temp Pulse Resp B/P (MAP) Pulse Ox O2 Delivery O2 Flow Rate FiO2 12/12/19 06:00 98.3 80 18 140/60 (86) 94 Nasal Cannula 2.0 I&O- Last 24 Hours up to 6 AM 12/12/19 06:00 Intake Total 2160 ml Output Total 1650 ml Balance 510 ml SOPHIE MEDINA MD Dec 12, 2019 07:58
[2019-12-12 14:00] VITALS: BP 150/91
--- NOTE | 2019-12-12 15:49 | IPNPDOC ---
Text Note Date of Service The patient was seen on 12/12/19. NOTE I was asked by hospitalist to see Mr. Kapadia today along with his and daught uri Bustlilo. He is known to me from a previous admission. He his a pleasant genetleman who has Stage 4 lung cancer, Parkinsons Disease with dysphagia and failure to thrive who has been between rehabilitation and the hospital here multiple times since September 2019. I last saw him in October and he was far to debilitated to be safely discharged home in the care of his due to extreme weakness. He was admitted after less than 24 hours from discharge from [place] with a presumed diagnosis of pneumonia ( several previous diagnoses of pneumonia also ). Most recent imaging raised the question of whether or not he actually had disease progression of his lung cancer. Initially I spoke with and Mrs. Kapadia in his room. She was discussing having him transferred to [facility] under the care of his oncologist, Dr. Lalo Albert; Narinder initially indicated he did not want to go to [facility]. I questioned him about that and he had difficulty expressing precisely why he did not want to go. He was resting in his bed, he had audible rhonchi with each breath. He answered questions appropriately if given time to respond. I then met with Elva Tang, Iwona Kapadia, Dr. Sutton and Rosendo Jesus, land planner. Iwona and Mrs. Kapadia both expressed they feel Mr. Kapadia would be best served at [facility] since all his specialty providers are there. Further details of this meeting can be found in Dr. Sutton's note. Iwona had already contacted Dr. Albert and he was anticipating receiving imaging from here ( Rosendo Jesus was able to expedite this ). We spent approximately 60 minutes talking with Mrs. Kapadia and Iwona and Dr. Larry explained what had been done and what her treatment plan was since she became Mr. Kapadia' hospitalist and informed them of the various specialty co nsultations she has done. Both Mrs. Kapadia and Iwona appeared to appreciate all the information they heard and felt quite certain they wanted a transfer to [facility]. Dr. Sutton indicated she would arrange for this. Mrs. Kapadia and Iwona then asked about Mr. Kapadia' being followed up in my clinic once he improves. I explained the difference between my clniic and hospice ( oupatient only, can sti ll get active treatment, focus on symptom managment like hospice but no 3 to 6 month life expectancy ). We discussed how hospice could be arranged if it becomes clear he would be better served by hospice rather than palliative care. Elva has my business card from his previous admission. VS,Fishbone, I+O VS, Fishbone, I+O Laboratory Tests 12/12/19 09:24 Vital Signs Date Time Temp Pulse Resp B/P (MAP) Pulse Ox O2 Delivery O2 Flow Rate FiO2 12/12/19 14:00 98.2 95 16 150/91 (110) 81 Nasal Cannula 3.0 I&O- Last 24 Hours up to 6 AM 12/12/19 06:00 Intake Total 2160 ml Output Total 1650 ml Balance [address] [employer]PER[employer] Dec 12, 2019 15:49
[2019-12-12 22:00] VITALS: BP 151/91
[2019-12-13] MEDS: COMBIVENT RESPIMAT 100-20MCG INHALER 4GM INH SCH ×6 (04:00→19:49)
[2019-12-13] MEDS: CIPROFLOXACIN 500MG TABLET PO SCH ×2 (05:00→17:04)
[2019-12-13 06:00] VITALS: BP 150/92
--- NOTE | 2019-12-13 07:41 | CR ---
DATE OF CONSULTATION: 12/12/2019 REASON FOR CONSULTATION: Parkinsonism. HISTORY OF PRESENT ILLNESS: Narinder Kapadia is a 79-year-old man with a history of stage IV cancer, gastrointestinal (GI) bleed, small-bowel obstruction, stage IV adenocarcinoma of lungs, parkinsonism, pulmonary embolism, chronic obstructive pulmonary disease (COPD), requiring 2-3 liters of oxygen at home. He was brought to [facility] due to increased shortness of breath, weakness, and falls. Patient has history of lung cancer with pleural effusion.. He has been hospitalized several times in the last 6 months. Patient was receiving chemotherapy and radiation therapy at [facility]. I spoke to the patient's , who stated that patient thought that he did not do well with carbidopa/levodopa. Patient has orthostatic hypotension. He was diagnosed with parkinsonism at [facility], and he saw Dr. Gregorio. Patient is currently bedridden he has difficulty sitting up, speaking, standing, and walking. His functional rating scale is poor currently. I was consulted to see if increasing dose of carbidopa/levodopa would improve his function. Patient's does not want to increase the dose of Sinement. She wants to talk to patient's oncologist at [facility], and she has left a message for Dr. Albert and is waiting for a call. There is a family meeting scheduled later in the day at [facility]. Patient himself is extremely hypophonic, and while unable to provide any meaningful history, he denied any headaches, neck or back pain. MEDICAL HISTORY: 1. Parkinsonism. 2. Hypertension. 3. History of pulmonary embolism. 4. Gastrointestinal (GI) bleed. 5. Adenocarcinoma of lungs, stage IV, with pleural effusion and metastasis. 6. COPD requiring 2-3 liters oxygen at [facility] and at times 4 liters. 7. 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 8. Colonoscopy. 9. Left knee surgery. 10. Right lung biopsy. SOCIAL HISTORY: No reports of smoking, alcohol, or illicit drugs. He lives at [facility]. FAMILY HISTORY: Mother with history of coronary artery disease and father with jaw cancer. Brother had esophageal cancer. HOME MEDICATIONS: - Tylenol 500 mg by mouth every 6 hours as needed - Sinemet extended release 25/100 mg by mouth every night and 25/100 mg by mouth four times a day - vitamin D3 at 1000 units by mouth daily - folic acid 1 mg by mouth daily - Combivent inhaler four times a day as needed - midodrine 2.5 mg by mouth three times a day - Protonix 40 mg by mouth daily - Zoloft 75 mg by mouth daily - bisacodyl - Fleet enema - milk of magnesia as needed - vitamin B12 at 1000 mcg by mouth daily ALLERGIES: CODEINE. REVIEW OF SYSTEMS: All systems were reviewed and were found to be noncontributory except as mentioned in history of present illness. PHYSICAL EXAMINATION: Temperature 98.4, pulse 82, respiratory rate 18, blood pressure 143/87, 92% saturations on room air. HEART: Regular rate and rhythm. LUNGS: Clear to auscultation. ABDOMEN: Soft, nontender, nondistended. No pedal edema. No musculoskeletal abnormalities. No rash. No signs of meningeal irritation. Patient is awake, alert, but extremely hypophonic and difficult to understand. He is able to follow simple commands. He is hard of hearing. Extraocular muscles are intact. No facial weakness. Tongue and uvula are midline. No nystagmus. He has bilateral cogwheel rigidity of both arms. He has mask-like face. He has cogwheel rigidity of his legs. Deep tendon reflexes are 1+ in arms and legs and absent at ankles. He has decreased cold, vibrations, and sensation on his feet. Gait could not be tested. DIAGNOSTIC STUDIES: His hemoglobin was 8.6 with normal metabolic profile. Urinalysis showed 3+ leukocyte esterase with too numerous to count WBC and 1+ bacteria. ASSESSMENT: 1. Multiple-system atrophy, autonomic type is much more likely than Parkinson's disease. 2. Multifactorial gait difficulty, generalized weakness, difficulty walking related to stage IV lung cancer, chronic obstructive pulmonary disease (COPD), and effects of chemotherapy, which can result in peripheral neuropathy. 3. Gastrointestinal (GI) bleed. 4. Pulmonary embolism. 5. Recurrent Clostridium (C) difficile infection and urinary tract infection (UTI). PLAN: 1. I had a detailed discussion with patient's about his current state and inability to tolerate more chemotherapy. She wants to discuss with the patient's oncologist. 2. Patient stated that she does not want to increase carbidopa/levodopa, as patient had told her that he did not think that it helped him. We will continue carbidopa/levodopa at current dose. 3. His overall prognosis is guarded. Patient and his family will have a joint meeting with physicians at [facility] about his overall long-term prognosis. LIZ
[2019-12-13 07:49] LABS: HEMATOCRIT 30.5 % (42.0-52.0); MEAN CORPUSCULAR HEMOGLOBIN 30.6 pg (27.0-33.0); MEAN CORPUSCULAR HGB CONC 29.5 g/dl (32.0-36.5); MEAN CORPUSCULAR VOLUME 103.7 fl (80.0-96.0); PLATELET COUNT, AUTOMATED 225 10^3/uL (150-450); RED BLOOD COUNT 2.94 10^6/uL (4.30-6.10); WHITE BLOOD COUNT 6.3 10^3/uL (4.0-10.0)
[2019-12-13 08:20] LABS: BLOOD UREA NITROGEN 10 MG/DL (7-18); CALCIUM LEVEL 7.8 MG/DL (8.8-10.2); CARBON DIOXIDE LEVEL 32 MEQ/L (21-32); CHLORIDE LEVEL 106 MEQ/L (98-107); CREATININE FOR GFR 0.72 MG/DL (0.70-1.30); GLOMERULAR FILTRATION RATE > 60.0 (>42); GLUCOSE, FASTING 92 MG/DL (70-100); POTASSIUM SERUM 3.8 MEQ/L (3.5-5.1); SODIUM LEVEL 143 MEQ/L (136-145)
[2019-12-13] MEDS: MOM 30ML SUSPENSION UDC PO SCH ×3 (09:00→20:38)
[2019-12-13] MEDS: SINEMET 25-100 MG TAB PO SCH ×4 (09:29→20:30)
[2019-12-13] MEDS: LACTOBACILLUS ACIDOPHILUS CAP (BACID) PO SCH (09:29)
[2019-12-13] MEDS: FOLIC ACID 1 MG TAB PO SCH (09:29)
[2019-12-13] MEDS: VITAMIN D 1,000 INTERNATIONAL UNITS TABLET PO SCH (09:29)
[2019-12-13] MEDS: PANTOPRAZOLE 40MG TAB (PROTONIX) PO SCH (09:29)
[2019-12-13] MEDS: CYANOCOBALAMIN 500 MCG TAB PO SCH (09:30)
[2019-12-13] MEDS: SERTRALINE HCL 25 MG TABLET PO SCH (09:30)
[2019-12-13] MEDS: D5W/0.45% SODIUM CHLORIDE 1,000 ML IV SCH (12:11)
[2019-12-13 14:00] VITALS: BP 152/82
--- NOTE | 2019-12-13 18:15 | DS.PDOC ---
Discharge Summary General Date of Admission Dec 08, 2019 at 16:29 Date of Discharge 12/13/2019 Attending Physician: SOPHIE MEDINA MD Specialist/Consultants Involve: A Discharge Summary PROCEDURES PERFORMED DURING STAY: None ADMITTING DIAGNOSES: 1. Presumed HCAP DISCHARGE DIAGNOSES: 1. Stage 4 lung adenocarcinoma, specifically R middle lobe adenocarcinoma, most recently on palliative pembrolizumab/premetrexed/carboplatin, last 10/06/19 2. Parkinson's disease 3. Failure to thrive with profound debility 4. Recent GI bleed with stable anemia 5. Hx of HTN 6. History of PE (07/2018 Dx, eliquis recently held in the setting of a recent GIB) 7.Chronic respiratory failure 2/2 to lung cancer, on 2-3 L NC at baseline. COMPLICATIONS/CHIEF COMPLAINT: Pneumonia. HISTORY OF PRESENT ILLNESS: 79 year old M who was recently admitted at [facility] for GI bleed (11/30-) as well as an SBO with course c/b physical deconditioning and discharged to [facility], stage 4 lung adenocarcinoma with a history of a malignant pleural effusion with a history of pleurX in 2019 with effusion now stable, patient of Dr. Lalo Albert at [facility] who last received treatment with pembrolizumab/premetrexed/carboplatin in 09/2019, history of Parkinson's disease and follows at [facility] neurology/movement disorder clinic on carbidopa/levodopa, HTN, PE (dx 07/2018) recently on Eliquis that was held after the GIB, hx c. diff, last bout in 2018, chronic hypoxic respiratory insufficiency on 2-3L home O2 who presented to [facility] from [facility] for increased SOB, weakness and falls since 12/05/19. Per records, he was discharged to [facility] for rehab only on 12/05/19 and had not been performing well with physical therapy. On the day of admission, he developed increased SOB with a worsened cough. He has also had worsening tremor in the setting of known Parkinson's disease making it hard to perform with PT/OT and had a total of 3 falls within that 24 hour period. On arrival to [facility] ED he complained of occasional lightheadedness, dizziness, worsening tremors, decreased fluid intake but otherwise denied any chest pain, fevers, chills, abdominal pain, bleeding, appetite changes. He was due to follow up with Dr. May ([facility] surgery) after last admission but has not been out of the hospital long enough to do so. HOSPITAL COURSE: In the ED, he was hemodynamically stable but significantly tachypneic with RR 22-30 at times while on his baseline 2 L NC. He had no leukocytosis with WBC 5.1 and CXR could not rule out Right lung PNA and had previously seen opacities given his history of lung cancer and prior radiation changes as well. He was empirically started on levofloxacin for potential pneumonia. As part of his work up he had UA/UCx and was found to have E.fecalis that was also quinolone sensitive. He was evaluated by speech therapy that recommended a mechanical soft diet with nectar thick liquids for aspiration and he also worked with PT and OT. I inherited his care as attending physician on 12/08 and he was hemodynamically stable with stable hypoxemia and anemia and he remained debilitated mostly in bed, with transmitted upper airway sounds and rhonchi without crackles and poor nutrition. Given that he had recently been hospitalized and recently on antibiotic therapy, I was concerned about the recurrent admissions and c/f pneumonia (HCAP vs. post-obstructive vs. aspiration) that would have persisted through several courses of antibiotics without proven microbiology isolates. I ordered a procalcitonin that came back negative at 0.05 making bacterial pneumonia unlikely and given the lack of leukocytosis, stable hypoxemia and history of lung cancer decided to get a CT chest without contrast. The CT chest showed previously noted coarse interstitium with right middle lobe and to a lesser degree right lower lobe atelectasis or consolidation as well as numerous small scattered pulmonary nodules measuring 4 mm or less with several noted in the left lower lobe and at least 1 in the right lower lobe and several in the right upper lobe in addition to the previously noted C7 and T1 lytic lesions and a right pleural effusion which appe ars loculated which is similar to prior. I reviewed with image with Dr. Ag (pulmonology) who agreed that his nodules were quite numerous and involves all the lobes and I consulted Dr. Jane (inhouse oncology garment alteration examiner at the time for his assessment). Dr. Jane agreed that Mr. Steffi degroot has bacterial pneumonia at this time and there is possibility that his worsening tachypnea and functional decline may be due to progression of his lung cancer. In the meantime, I had a discussion with his who was concerned that his mobility decline may be due to his Parkinson's and could benefit from a neurology consult. I consulted Dr. Garvey who ultimately recommended continuation of his 1tab QID of sinemet and thought his decline is likely multifactorial including poor nutritional status, physical deconditioning from recent persistent illness which may be a consequence of the possible POD of his lung cancer in addition to the Parkinson's. I discussed this with Elva (Mrs. Kapadia) and Rubenjanina (brother of patient) and we agreed to have an update meeting with Joselyn Law of [facility] to discuss the way forward with his care given that I had some concerns that there is possibly POD of his lung cancer being the underlying etiology for the recent decline and not presumed PNA and ongoing UTI. We ultimately met with Elva and one of Mr. Narinder Kapadia daughters and on discussion ultimately decided that he would be best served by a transfer to [facility] inpatient oncology service under the care of his baseline oncologist Dr. Lalo Albert who has care for Mr. Kapadia throughout his history of lung cancer and per family on last scan there only has 3 nodules on last staging CT scans in mid 10/2019. He would be able to receive care from the interdisciplinary team already in place and that know him well at [facility]. He is now being transferred there. DISCHARGE MEDICATIONS: Please see below. ALLERGIES: Please see below. PHYSICAL EXAMINATION ON DISCHARGE: VITAL SIGNS: Please see below. GENERAL APPEARANCE: frail chronically ill appearing gentleman, no acute distress HEENT: NCAT, PERRLA, EOM intact, MMM CARDIOVASCULAR: S1S2 +, no M/R/G LUNGS: Diffuse rhonchi, with transmitted upper airway sounds with gurgling. Taking short shallow breaths, tachypneic. ABDOMEN: soft, nondistended, nontender, BS + in 4 quad MUSCULOSKELETAL: No atrophy. However weak with at least 3/5 strength in all 4 extremities EXTREMITIES: R>L swelling, no pitting edema. WWP, 2+ DP pulses NEUROLOGICAL: Tremulous speech, difficult to comprehend 2/2 to Parkinson's, no noted facial drooping or new focal deficits. PSYCHIATRIC: Flat affect, AOx3, expressing understanding and agreed to [facility] transfer. LABORATORY DATA: Please see below. IMAGING: Lungs: Coarse interstitium with right middle lobe and to a lesser degree right lower lobe atelectasis or consolidation. Small scattered pulmonary nodules measuring 4 mm or less with several noted in the left lower lobe and at least 1 in the right lower lobe and several in the right upper lobe. Pleural space: Mild right pleural effusion with probable loculation and extension into the right major fissure superiorly. There is some right lower lobe plugging or narrowing of peripheral bronchi with fibro-atelectatic change and question of minimal infiltrates in the remaining aerated right lung and left lower lobe. Heart: Unremarkable. No cardiomegaly. No pericardial effusion. Pulmonary arteries: The main pulmonary artery measures 28 mm. Aorta: The ascending thoracic aorta measures 40 mm. Lymph nodes: Unremarkable. No enlarged lymph nodes. Liver: Low-attenuation foci in the liver measuring up to 2.2 cm with a Hounsfield measurement of 15 and are likely cysts. Kidneys and ureters: There appear to be large cysts of the left kidney measuring approximately 8.7 cm with a Hounsfield measurement of 24. Bones/joints: Lytic lesion involving the C7 segment on the left and the left aspect of T1 including the pedicle consistent with metastatic disease. There appears to be some extension into the spinal canal at the C7 level on the left. Soft tissues: Unremarkable. IMPRESSION: 1. Right pleural effusion which appears loculated which is similar to slightly increased since 10/15/2019. 2. Right middle lobe and to a lesser degree right lower lobe atelectasis or consolidation which is similar to the prior study. There is slightly increased prominence of the interstitium and minimal scattered fibro-atelectatic change in the remaining aerated lungs which is similar. 3. Small pulmonary nodules which appear to be similar overall. Fleischner follow up recommendations for incidental nodules are not indicated. Follow up per patient's medical condition. PROGNOSIS: Guarded ACTIVITY: As tolerated DIET: Mechanical soft, nectar thick liquids DISCHARGE PLAN: Discharge as transfer to [facility] inpatient medicine DISPOSITION: [facility] inpatient medicine DISCHARGE INSTRUCTIONS: 1. Being discharged to [facility] inpatient medicine ITEMS TO FOLLOWUP ON ON OUTPATIENT: 1. Lung cancer 2. Parkinson's disease 3. Chronic dysphagia DISCHARGE CONDITION: Stable TIME SPENT ON DISCHARGE: 62 minutes. Vital Signs/I&Os Vital Signs Date Time Temp Pulse Resp B/P (MAP) Pulse Ox O2 Delivery O2 Flow Rate FiO2 12/13/19 06:00 98.0 92 18 150/92 (111) 97 Nasal Cannula 3.0 I&O- Last 24 Hours up to 6 AM0 12/13/19 06:00 Intake Total 2390 ml Output Total 925 ml Balance 1465 ml Laboratory Data Labs 24H Laboratory Tests 2 12/12/19 09:24: Nucleated Red Blood Cells % (auto) 0.0, Anion Gap 2L, Glomerular Filtration Rate > 60.0, Calcium Level 7.7L, Magnesium Level 1.8 CBC/BMP Laboratory Tests 12/12/19 09:24 Microbiology Microbiology 12/08/19 Urine Culture - Final, Complete Enterococcus Faecalis 12/08/19 Blood Culture - Preliminary, Resulted No Growth after 72 hours. All specime... Discharge Medications Scheduled Acetaminophen (Acetaminophen) 500 Mg Tablet, 500 MG PO Q6H, (Reported) Carbidopa/Levodopa (Carbidopa-Levo ER 25-100 Tab) 1 Each Tablet.er, 1 TAB PO QHS, (Reported) Carbidopa/Levodopa (Carbidopa-Levodopa 25-100 Tab) 1 Each Tablet, 1 TAB PO QID, (Reported) Cholecalciferol (Vitamin D3) (Vitamin D3) 1,000 Unit Tablet, 1,000 UNITS PO DAILY, (Reported) Cyanocobalamin (Vitamin B-12) (B-12) 1,000 Mcg Tablet, 1,000 MCG PO DAILY, (Reported) Folic Acid (Folic Acid) 1 Mg Tablet, 1 MG PO DAILY, (Reported) Guaifenesin (Guaifenesin) 400 Mg Tablet, 400 MG PO Q12H, (Reported) Ipratropium/Albuterol Sulfate (Iprat-Albut 0.5-3(2.5) mg/3 ml) 3 Ml Ampul.neb, 1 VIAL NEB Q4H, (Reported) Lactobacillus Acidophilus (Probiotic) 1 Each Capsule, 1 CAP PO DAILY, (Reported) Magnesium Hydroxide (Milk of Magnesia) 400 Mg/5 Ml Oral.susp, 30 ML PO BID, (Reported) Midodrine HCl (Midodrine HCl) 2.5 Mg Tablet, 2.5 MG PO TID, (Reported) Pantoprazole Sodium (Protonix) 40 Mg Tablet.dr, 40 MG PO DAILY, (Reported) Scopolamine (Transderm-Scop) 1 Each Patch.td.3, 1.5 MG TOP Q3RD, (Reported) Sertraline Hcl (Zoloft) 25 Mg Tablet, 75 MG PO DAILY, (Reported) Scheduled PRN Acetaminophen (Acetaminophen) 650 Mg Supp.rect, 650 MG ND Q4H PRN for PAIN / FEVER, (Reported) Bisacodyl (Dulcolax) 10 Mg Supp.rect, 10 MG ND DAILY PRN for CONSTIPATION, (Reported) Sodium Chloride ([place] Saline Nasal Gel) 14.1 Gm Gel..gram., 1 APLCT TOP Q4H PRN for NASAL DRYNESS, (Reported) Sodium Phosphate,[place]-Dibasic (Fleet Enema) 133 Ml Enema, 1 UZMA ND DAILY PRN for CONSTIPATION, (Reported) [Barrier Cream] , 1 DOSE TOP DAILY PRN for DRY SKIN, (Reported) APPLY TO BUTTOCKS Allergies Coded Allergies: codeine (Verified Adverse Reaction, Intermediate, hallucinations, 10/08/19) SOPHIE MEDINA MD Dec 13, 2019 08:37
--- NOTE | 2019-12-13 18:17 | IPNPDOC ---
Text Note Date of Service The patient was seen on 12/13/19. NOTE Mr. Kapadia is pending discharge/transfer to [facility] inpatient oncology service under Dr. Albert. He has been accepted for transfer but there are no current beds inpatient and is therefore awaiting transfer. His exam and plan are per the discharge summary I prepared and signed today. VS,Fishbone, I+O VS, Fishbone, I+O Laboratory Tests 12/13/19 07:27 Vital Signs Date Time Temp Pulse Resp B/P (MAP) Pulse Ox O2 Delivery O2 Flow Rate FiO2 12/13/19 14:00 98.7 88 22 152/82 (105) 98 Nasal Cannula 2.0 I&O- Last 24 Hours up to 6 AM 12/13/19 06:00 Intake Total 2390 ml Output Total 925 ml Balance 1465 ml SOPHIE MEDINA MD Dec 13, 2019 18:16
[2019-12-13 22:00] VITALS: BP 146/99
[2019-12-14] MEDS: D5W/0.45% SODIUM CHLORIDE 1,000 ML IV SCH (01:21)
[2019-12-14] MEDS: COMBIVENT RESPIMAT 100-20MCG INHALER 4GM INH SCH ×6 (04:03→19:41)
[2019-12-14] MEDS: CIPROFLOXACIN 500MG TABLET PO SCH ×2 (05:30→17:39)
[2019-12-14 06:00] VITALS: BP 148/52
[2019-12-14] MEDS: MOM 30ML SUSPENSION UDC PO SCH (07:50)
[2019-12-14 08:02] LABS: HEMATOCRIT 27.1 % (42.0-52.0); HEMOGLOBIN 8.3 g/dl (13.5-17.5); MEAN CORPUSCULAR HEMOGLOBIN 31.7 pg (27.0-33.0); MEAN CORPUSCULAR HGB CONC 30.6 g/dl (32.0-36.5); MEAN CORPUSCULAR VOLUME 103.4 fl (80.0-96.0); PLATELET COUNT, AUTOMATED 193 10^3/uL (150-450); RED BLOOD COUNT 2.62 10^6/uL (4.30-6.10)
[2019-12-14 08:17] LABS: BLOOD UREA NITROGEN 8 MG/DL (7-18); CALCIUM LEVEL 7.7 MG/DL (8.8-10.2); CARBON DIOXIDE LEVEL 30 MEQ/L (21-32); CHLORIDE LEVEL 105 MEQ/L (98-107); CREATININE FOR GFR 0.67 MG/DL (0.70-1.30); GLOMERULAR FILTRATION RATE > 60.0 (>42); GLUCOSE, FASTING 96 MG/DL (70-100); POTASSIUM SERUM 3.5 MEQ/L (3.5-5.1); SODIUM LEVEL 139 MEQ/L (136-145)
[2019-12-14] MEDS: PANTOPRAZOLE 40MG TAB (PROTONIX) PO SCH (08:52)
[2019-12-14] MEDS: CYANOCOBALAMIN 500 MCG TAB PO SCH (08:53)
[2019-12-14] MEDS: SERTRALINE HCL 25 MG TABLET PO SCH (08:53)
[2019-12-14] MEDS: FOLIC ACID 1 MG TAB PO SCH (08:54)
[2019-12-14] MEDS: SINEMET 25-100 MG TAB PO SCH ×4 (08:54→19:55)
[2019-12-14] MEDS: VITAMIN D 1,000 INTERNATIONAL UNITS TABLET PO SCH (08:56)
[2019-12-14] MEDS: LACTOBACILLUS ACIDOPHILUS CAP (BACID) PO SCH (08:56)
[2019-12-14 14:00] VITALS: BP 140/82
--- NOTE | 2019-12-14 15:42 | IPNPDOC ---
Text Note Date of Service The patient was seen on 12/14/19. NOTE SUBJECTIVE: -No complaints at this time -Updated family, aware that he is waiting on bed availability at [facility] PHYSICAL EXAMINATION: VITAL SIGNS: Please see below GENERAL APPEARANCE: frail chronically ill appearing gentleman, no acute distress, awake, alert HEENT: NCAT, PERRLA, EOM intact, MMM CARDIOVASCULAR: S1S2 +, no M/R/G LUNGS: Diffuse rhonchi, with transmitted upper airway sounds with gurgling. ABDOMEN: soft, nondistended, nontender, BS + in 4 quad MUSCULOSKELETAL: No atrophy, ROM not tested EXTREMITIES: No pitting edema. NEUROLOGICAL: Stable mild rigidity in extremities and speech impediment 2/2 to Parkinson's, no facial drooping or new focal deficits. PSYCHIATRIC: Flat affect, AOx3 LABORATORY DATA: Reviewed. Stable CBC and BMP WBC 6 hgb 8.3 platelets 193 na 139 k 3.5 cr 0.67 IMAGING: CXR: bilateral infiltrates and nodules, metastatic disease. CT head: No acute intracranial abnormality CT chest: Lungs: Coarse interstitium with right middle lobe and to a lesser degree right lower lobe atelectasis or consolidation. Small scattered pulmonary nodules measuring 4 mm or less with several noted in the left lower lobe and at least 1 in the right lower lobe and several in the right upper lobe. Pleural space: Mild right pleural effusion with probable loculation and extension into the right major fissure superiorly. There is some right lower lobe plugging or narrowing of peripheral bronchi with fibro-atelectatic change and question of minimal infiltrates in the remaining aerated right lung and left lower lobe. Heart: Unremarkable. No cardiomegaly. No pericardial effusion. Pulmonary arteries: The main pulmonary artery measures 28 mm. Aorta: The ascending thoracic aorta measures 40 mm. Lymph nodes: Unremarkable. No enlarged lymph nodes. Liver: Low-attenuation foci in the liver measuring up to 2.2 cm with a Hounsfield measurement of 15 and are likely cysts. Kidneys and ureters: There appear to be large cysts of the left kidney measuring approximately 8.7 cm with a Hounsfield measurement of 24. Bones/joints: Lytic lesion involving the C7 segment on the left and the left aspect of T1 including the pedicle consistent with metastatic disease. There appears to be some extension into the spinal canal at the C7 level on the left. Soft tissues: Unremarkable. IMPRESSION: 1. Right pleural effusion which appears loculated which is similar to slightly increased since 10/15/2019. 2. Right middle lobe and to a lesser degree right lower lobe atelectasis or consolidation which is similar to the prior study. There is slightly increased prominence of the interstitium and minimal scattered fibro-atelectatic change in the remaining aerated lungs which is similar. 3. Small pulmonary nodules which appear to be similar overall. [facility] follow up recommendations for incidental nodules are not indicated. Follow up per patient's medical condition. 4. Lytic lesions involving the left aspect of C7 and T1 with involvement of the left posterior elements and pedicle of T1 which are similar to the prior study consistent with metastatic disease. 5. A left Port-A-Cath to the proximal superior vena cava is again noted. 6. 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 MICROBIOLOGY: Please see below. ASSESSMENT: 79 y/o M with PMH of recent GI bleed with hospitalization (11/30- ), lung adenocarcinoma, known dysphagia 2/2 to Parkinson's disease admitted for treatment of suspected PNA, r/o aspiration vs. HCAP vs. post-obstructive 2/2 to CA vs. lavell POD, increased weakness with falls. At this time, given baseline hypoxemia, afebrile, basically no changes to imaging per my evaluation, this is likely the course of his lung cancer and not likely pneumonia, therefore per extensive discussion, we agreed that he will be best served by transfer to [facility] to his home oncologist and treatment team for evaluation, prognosis and possible treatment. 1. Hypoxemic respiratory failure: Unlikely to be pneumonia though originally thought to be aspiration vs. Healthcare associated PNA vs. post-obstructive PNA vs. likely contribution from POD. -CXR with R sided infiltrates but these do not appear new and appears similar to prior images -Got CT chest 12/10 that showed stable right middle lobe and to a lesser degree right lower lobe atelectasis or consolidation and numerous small scattered pulmonary nodules measuring 4 mm or less with several noted in the left lower lobe and at least 1 in the right lower lobe and several in the right upper lobe, a mild right pleu ral effusion with probable loculation and extension into the right major fissure superiorly, some right lower lobe plugging or narrowing of peripheral bronchi with fibro-atelectatic change and question of minimal infiltrates in the remaining aerated right lung and left lower lobe and C7 and T1 metastatic lytic lesions. -WBC wnl. -negative procalcitonin, unlikely bacterial PNA -Had swallow eval and now on mechanical soft diet for dysphagia/aspiration -HOB 45 degrees at all times -continue probiotic when taking PO -Daily CBC -f/u blood cultures x2, sputum cx, negative -Acapella -consulted medical oncology about possibility that this may be POD instead of PNA for which he has had multiple courses of antibiotics with re-admissions for the same and last chemo/immunotherapy in 09/2019. Oncology agreed that there is no evidence of active bacterial PNA at this time with low procalcitonin and imaging with metastatic lesions, small effusion and stable opacities. Recommended discussion with palliative and GOC to likely hospice care as his debility excludes him from being a candidate for palliative chemo-immunotherapy from their perspective. -consulted palliative care, appreciate recs and discussing the option of hospice with family for future purposes if they choose to engage them at a future date -Had family meeting during which decision was made to transfer to [facility] oncology service, therefore pending bed assignment for discharge/transfer to [facility]. 2. Chronic dysphagia likely 2/2 to radiation therapy, concern for aspiration -Has been evaluated in the past, sound "gargling" currently and cannot clear throat well. -No concern for new acute neurological event -Now s/p swallow eval and placed on mechanical soft diet and nectar thick liquids -consulted neurology per family's request to assess possible med management for Parkinson's. Dr. Garvey advised against uptitration of his sinemet at this time, and was concerned that his debility was more from physical deconditioning, poor nutrition and chronic illness. 3. Weakness, physical deconditioning acute on chronic. -3 falls in the 24h post discharge to rehab before re-admission -Poor PO -PT/OT evaluation, optimization of nutrition -sinemet to QID -consulted neurology per family's request to assess possible med management for Parkinson's. Dr. Garvey advised against uptitration of his sinemet at this time, and was concerned that his debility was more from physical deconditioning, poor nutrition and chronic illness. 4. Anemia likely 2/2 to recent GI bleed -Recent bleed stopped on its own, medication management. No units transfused -When discharged 12/05/19 Hgb 9.3, Hgb currently stable in high 8s -No s/s of current bleeding. -F/u CBC daily 5. Right lower ext swelling: no DVT noted on imaging 6. E. fecalis UTI -Recent causey catheter use -on cipro, day 7 of abx 7.Stage 4 Adenocarcinoma of right lung -Follows closely with [facility], Dr. Roosevelt Rodriguez-heme/onc. Aware that patient is being transferred to [facility]. -Was previously on pembro/premetrexed/carboplatin -Prior to chemotherapy, patient had 6 weeks of radiation to the lung ending 08/2018. -Patient has a history of malignant pleural effusion with PleurX tube (removed 02/2019). -Treatment currently on hold due to poor functional status and prolonged illness and debility -consulted med onc for thoughts on declining pulm status often being presumed to be recurrent PNA, with c/f POD. Heme onc (Dr. Jane) agreed that he does not have evidence of bacterial PNA at this time but numerous bilateral metastatic lesions with associated effusion and stable opacities. 8. Parkinson's disease. -C/w home carbidopa-levodopa at QID dosing -Consulted neurology, recs as above 9. HTN. -Stable. 10. Elevated BNP -No prior history of CHF -CXR does not show s/s of vascular congestion -Prior BNP worse, so this is actually improved. -Hypoxemia at recent baseline, will monitor 11. Hx of PE, DVT. -Currently off eliquis since last admission 12. Hx of C. diff. -No diarrhea -Monitor while on abx -Probiotic 13. DVT px. SCDs, teds DISPOSITION: Admitted as inpatient. DNR with trial period of intubation. BED AVAILABLE AT [facility]. NOW DISCHARGING TO [facility]. VS,Fishbone, I+O VS, Fishbone, I+O Laboratory Tests 12/14/19 07:47 Vital Signs Date Time Temp Pulse Resp B/P (MAP) Pulse Ox O2 Delivery O2 Flow Rate FiO2 12/14/19 09:00 2.0 12/14/19 06:00 98.2 80 18 148/52 (84) 99 Nasal Cannula I&O- Last 24 Hours up to 6 AM 12/14/19 06:00 Intake Total 1230 ml Output Total 870 ml Balance 360 ml SOPHIE MEDINA MD Dec 14, 2019 10:11
[2019-12-14] MEDS: SCOPOLAMINE 1MG TRANSDERMAL PATCH TOP SCH (19:56)
[2019-12-14 20:45] VITALS: BP 142/82
--- NOTE | 2019-12-16 14:12 | ECGEPIP ---
[facility] - ED Test Date: 2019-12-08 Pat Name: DOUGLAS ANTONIO Department: Room: Gender: Male Air Pollution Specialist: VIJAYA : [id number] Requested By: JASON Mesa Order Number: [id number] Reading MD: Anjana Contreras Measurements Intervals [place] Rate: 91 P: 47 [place]: 169 QRS: 18 QRSD: 89 T: 32 QT: 281 QTc: 346 Interpretive Statements SINUS RHYTHM NONSPECIFIC T-WAVE ABNORMALITY BORDERLINE ECG SEE DOWNTIME REPORT
--- NOTE | 2020-01-02 14:47 | REP ---
PORTABLE CHEST X-RAY CLINICAL: Cough and dyspnea. COMPARISON: 11/21/2019. FINDINGS: Increasing areas of opacity involving the right mid to lower lung zone with underlying infiltrate/atelectasis and effusion. Diffuse chronic interstitial changes noted. Infusaport identified with tip in the SVC. IMPRESSION: Increasing pleural parenchymal changes involving the right mid to lower lung zone. MTDD
== END 2019-12-14 20:50 | disposition short-term general hospital (02) | DRG 181 ==
LOC: M ED 13:11 → EDBD 13:11 → M ED INP 16:29 → ENRESERV 18:38 → M MSPAV 19:27
PROVIDERS: ADMIT Internal Medicine; ATTEND Internal Medicine
DX: C34.2 Malignant neoplasm of middle lobe, bronchus or lung (principal); J96.11 Chronic respiratory failure with hypoxia; N39.0 Urinary tract infection, site not specified; I10 Essential (primary) hypertension; G20 Parkinson's disease; Z79.01 Long term (current) use of anticoagulants; Z86.711 Personal history of pulmonary embolism; R62.7 Adult failure to thrive; R29.6 Repeated falls; Z79.899 Other long term (current) drug therapy; Z88.5 Allergy status to narcotic agent; Z99.81 Dependence on supplemental oxygen; R13.10 Dysphagia, unspecified; Z92.3 Personal history of irradiation; J44.9 Chronic obstructive pulmonary disease, unspecified